=== PATIENT | male | born 1940 | race African-American/Black ===

== ENCOUNTER 2017-01-17 09:21 | Inpatient (IN) | payer MEDICARE, BC ==
[2017-01-17 09:42] LABS: Mean Platelet Volume 8.4 fL (7.4-10.4); Red Blood Cell (RBC) Count 4.32 mill/uL (4.70-6.10); White Blood Cell (WBC) Count 11.7 thou/uL (4.8-10.8)
[2017-01-17 09:48] LABS: PTT 27.9 SEC (22.9-36.1); Prothrombin Time 12.8 SEC (12.0-14.7)
[2017-01-17 10:02] LABS: ALT (SGPT) 13 U/L (8-55); AST (SGOT) 13 U/L (5-34); Alkaline Phosphatase 50 U/L (40-150); Anion Gap 13 mmol/L (10-20); BUN (Urea Nitrogen) 14 mg/dL (8.4-25.7); Bilirubin, Total 0.5 mg/dL (0.2-1.2); CK (CPK) 172 U/L (30-200); Calc. Creatinine Clearance 0 mL/min (70-130); Calcium 9.3 mg/dL (7.8-10.44); Carbon Dioxide 32 mmol/L (23-31); Chloride 102 mmol/L (98-107); Estimated GFR-MDRD Greater than 90; Protein, Total 6.9 g/dL (5.8-8.1)
[2017-01-17 10:06] LABS: Troponin I Less than 0.010 ng/mL (< 0.028)
[2017-01-17 10:22] LABS: #Basophils 0.1 thou/uL (0.0-0.2); #Eosinphils 0.8 thou/uL (0.0-0.7); #Lymphocytes 3.1 thou/uL (1.20-3.40); #Monocytes 0.8 thou/uL (0.11-0.59); #Neutrophils 6.8 thou/uL (1.40-6.50); %Basophils 1.2 % (0.0-1.0); %Eosinophils 7.2 % (0.0-10.0); %Lymphocytes 26.6 % (21.0-51.0); %Monocytes 6.6 % (0.0-10.0)
[2017-01-17 10:23] LABS: Macrocytosis SLIGHT = 6-15 cells (100X) (0-5/hpf)
[2017-01-17] MEDS ORDERED: Nitroglycerin 2% Ointment 1 INCH/1 GM Packet ONE (10:27)
[2017-01-17] MEDS ORDERED: methylPREDNISolone Sod Succ/PF 125 MG/2 ML VIAL ONE (10:27)
[2017-01-17] MEDS ORDERED: Sterile Water 10 ML ONE ×2 (10:29→17:55)
--- NOTE | 2017-01-17 11:26 | RAD ---
PORTABLE CHEST: Date: 01/17/17 HISTORY: Chest pain. COMPARISON: 11/08/16 study. FINDINGS: Heart size is borderline with atherosclerotic change of the aorta. Linear scarring in the right base with elevation of the right hemidiaphragm is noted. IMPRESSION: Chronic lung change. No acute process. POS: [facility]
[2017-01-17] MEDS ORDERED: Albuterol Sulfate 2.5 mg/0.5 ml Neb ONE (12:38)
[2017-01-17] MEDS ORDERED: Albuterol Sulfate 2.5 mg/3 ml Neb ONE (12:38)
[2017-01-17] MEDS ORDERED: Magnesium Sulfate 2 GM/100 ML BAG ONE (12:55)
[2017-01-17] MEDS ORDERED: Levofloxacin 500 mg/D5W 100 ml Premix Bag ONE (13:57)
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
[2017-01-17] MEDS ORDERED: Dextrose 5% in Water 1,000 ML IV PRN (16:30)
[2017-01-17] MEDS ORDERED: Dextrose 50% Abboject 50 ML SYRINGE SLOW IVP PRN (16:30)
[2017-01-17 16:41] VITALS: BMI 36.8
[2017-01-17] MEDS: metFORMIN 500 MG TAB PO SCH (17:59)
[2017-01-17] MEDS: methylPREDNISolone Sod Succ/PF 125 MG/2 ML VIAL IVP SCH (18:00)
[2017-01-17] MEDS: Albuterol Sulfate 2.5 mg/3 ml Neb NEB SCH ×2 (18:14→21:37)
[2017-01-17] MEDS: Mometasone/Formoterol 120 PUFF INHALER INH SCH (18:16)
[2017-01-17] MEDS: Ipratropium Bromide 2.5 ml Neb NEB SCH ×2 (18:16→21:37)
[2017-01-17] MEDS: HYDROcodone/Acetaminophen 10/325 mg Tablet PO PRN (19:27)
[2017-01-17] MEDS: Atorvastatin Calcium 20 MG TAB PO SCH (19:27)
[2017-01-18] MEDS: HYDROcodone/Acetaminophen 10/325 mg Tablet PO PRN (02:00)
[2017-01-18] MEDS: methylPREDNISolone Sod Succ/PF 125 MG/2 ML VIAL IVP SCH ×3 (02:01→17:18)
[2017-01-18] MEDS: Albuterol Sulfate 2.5 mg/3 ml Neb NEB SCH ×6 (02:02→21:51)
[2017-01-18] MEDS: Ipratropium Bromide 2.5 ml Neb NEB SCH ×6 (02:02→21:51)
[2017-01-18] MEDS: Mometasone/Formoterol 120 PUFF INHALER INH SCH ×2 (07:19→19:19)
[2017-01-18] MEDS ORDERED: Sterile Water 10 ML ONE ×2 (09:10→17:06)
[2017-01-18] MEDS: metFORMIN 500 MG TAB PO SCH ×2 (09:24→17:18)
[2017-01-18] MEDS: Furosemide 40 MG TAB PO SCH (09:24)
[2017-01-18] MEDS: Amlodipine 5 MG TAB PO SCH (09:24)
[2017-01-18] MEDS: Glimepiride 4 MG TAB PO SCH (09:24)
[2017-01-18] MEDS: Potassium Chloride 8 MEQ TAB PO SCH (09:24)
--- NOTE | 2017-01-18 10:05 | PDOC.PN ---
- Subjective Encounter Start Date: 01/18/17 Encounter Start Time: 09:40 Feels better. +dry cough. - Objective Vital Signs & Weight: Vital Signs (12 hours) Temp Pulse Resp BP BP Pulse Ox 01/18/17 09:24 75 155/70 H 01/18/17 07:18 75 18 96 01/18/17 07:15 98.5 F 66 18 155/70 H 96 01/18/17 02:07 65 18 171/76 H 100 01/18/17 00:07 98.0 F 68 20 176/79 H 95 Weight Weight 227 lb 14.4 oz I&O: 01/17/17 01/18/17 01/19/17 06:59 06:59 06:59 Intake Total 1305 Balance 1305 Result Diagrams: 01/17/17 09:26 01/17/17 09:26 Radiology Reviewed by me: Yes Phys Exam - Physical Examination Constitutional: NAD HEENT: sclera anicteric Neck: no JVD Respiratory: wheezing present Cardiovascular: RRR Gastrointestinal: soft Musculoskeletal: no edema Neurological: moves all 4 limbs Psychiatric: A&O x 3 Dx/Plan (1) COPD exacerbation Code(s): J44.1 - CHRONIC OBSTRUCTIVE PULMONARY DISEASE W (ACUTE) EXACERBATION Status: Acute Plan: Continue steroids, bronchodilators. Comment: (2) DM2 (diabetes mellitus, type 2) Status: Chronic Plan: continue sliding scale Comment: BS satisfactory. (3) HLD (hyperlipidemia) Code(s): E78.5 - HYPERLIPIDEMIA, UNSPECIFIED Status: Chronic Qualifiers: Hyperlipidemia type: unspecified Qualified Code(s): E78.5 - Hyperlipidemia , unspecified (4) HTN (hypertension) Code(s): I10 - ESSENTIAL (PRIMARY) HYPERTENSION Status: Chronic Qualifiers: Hypertension type: essential hypertension Comment: stable.. - Plan Continue current therapy.. * .
[2017-01-18] MEDS: guaiFENesin ER 600 MG TAB PO SCH (15:56)
[2017-01-18] MEDS: Atorvastatin Calcium 20 MG TAB PO SCH (21:20)
[2017-01-19] MEDS: Ipratropium Bromide 2.5 ml Neb NEB SCH (00:24)
[2017-01-19] MEDS: methylPREDNISolone Sod Succ/PF 125 MG/2 ML VIAL IVP SCH ×3 (02:07→17:55)
[2017-01-19] MEDS: Mometasone/Formoterol 120 PUFF INHALER INH SCH ×2 (06:36→18:50)
[2017-01-19] MEDS: Furosemide 40 MG TAB PO SCH (09:32)
[2017-01-19] MEDS: Amlodipine 5 MG TAB PO SCH (09:32)
[2017-01-19] MEDS: HYDROcodone/Acetaminophen 10/325 mg Tablet PO PRN (09:32)
[2017-01-19] MEDS: guaiFENesin ER 600 MG TAB PO SCH ×2 (09:32→20:32)
[2017-01-19] MEDS: metFORMIN 500 MG TAB PO SCH ×2 (09:32→17:55)
[2017-01-19] MEDS: Potassium Chloride 8 MEQ TAB PO SCH (09:32)
[2017-01-19] MEDS: Glimepiride 4 MG TAB PO SCH (09:32)
[2017-01-19] MEDS ORDERED: hydrALAZINE 20 MG/ML VIAL SLOW IVP PRN (14:35)
[2017-01-19] MEDS ORDERED: HumaLOG 300 UNITS/3 ML VIAL SC PRN (14:36)
--- NOTE | 2017-01-19 14:38 | PDOC.PN ---
- Subjective Encounter Start Date: 01/19/17 Encounter Start Time: 14:34 Patient seen and examined. SOB and Wheezing still present - feels the same. Some cough with scant production. No fever/chills. No overnight events - Objective MAR Reviewed: Yes Vital Signs & Weight: Vital Signs (12 hours) Temp Pulse Resp BP BP Pulse Ox 01/19/17 10:23 98.5 F 69 12 131/60 96 01/19/17 10:04 63 16 96 01/19/17 08:03 97.5 F L 93 24 H 01/19/17 07:30 98.1 F 72 16 153/67 H 92 L 01/19/17 06:36 76 16 97 01/19/17 06:34 82 16 97 01/19/17 03:12 98.6 F 75 20 157/71 H 97 Weight Weight 227 lb 14.4 oz I&O: 01/18/17 01/19/17 01/20/17 06:59 06:59 06:59 Intake Total 1305 2561 720 Balance 1305 2561 720 Result Diagrams: 01/17/17 09:26 01/17/17 09:26 Phys Exam - Physical Examination Patient in mild respiratory distress at rest Respiratory: no rales, wheezing present Accessory muscle use Cardiovascular: RRR, no rub Gastrointestinal: soft, non-tender, positive bowel sounds Musculoskeletal: no edema Neurological: non-focal, moves all 4 limbs Dx/Plan - Plan DVT proph w/SCDs IMPRESSION: 1. Acute on chronic hypoxic resp failure - O2 Sat 77% on RA on ER arrival 2. COPD exacerbation - uncontrolled. 3. HTN 4. DM2 - on sliding scale 5. Former smoker 6. Dyslipidemia 7. Obesity BMI 36.8 PLAN: * Cont IV Steroids * Add bedtime sliding scale * Add Azithromycin * Cont to monitor * Unstable for discharge * Cont to monitor - Patient has failed the observation period requiring continued need to stay on IV steroids. * Cont other meds as below Review of Systems - Review of Systems Constitutional: negative: Fever, Chills, Sweats, Weakness, Malaise, Other Cardiovascular: negative: Chest Pain, Palpitations, Orthopnea, Paroxysmal Noc. Dyspnea, Edema, Light Headedness Gastrointestinal: negative: Nausea, Vomiting, Abdominal Pain, Diarrhea, Constipation, Melena, Hematochezia, Other - Medications/Allergies Allergies/Adverse Reactions: Allergies Allergy/AdvReac Type Severity Reaction Status Date / Time No Known Allergies Allergy Verified 03/08/16 16:46 Medications: Current Medications Hydrocodone Bitart/Acetaminophen ([place] 10/325) 1 tab PO Q6H PRN PRN Reason: Pain Last Admin: 01/19/17 09:32 Dose: 1 tab Albuterol/Ipratropium (Duoneb) 2.5 ml NEB [id number] Last Admin: 01/19/17 10:04 Dose: 2.5 ml Amlodipine Besylate (Norvasc) 5 mg PO DAILY [facility] Last Admin: 01/19/17 09:32 Dose: 5 mg Atorvastatin Calcium (Lipitor) 20 mg PO HS [facility] Last Admin: 01/18/17 21:20 Dose: 20 mg Dextrose/Water (Dextrose 50%) 25 gm SLOW IVP PRN PRN PRN Reason: Hypoglycemia Furosemide (Lasix) 40 mg PO DAILY [facility] Last Admin: 01/19/17 09:32 Dose: 40 mg Glimepiride (Amaryl) 4 mg PO QAM-[facility] Last Admin: 01/19/17 09:32 Dose: 4 mg Glucagon (Glucagon) 1 mg IM PRN PRN PRN Reason: Hypoglycemia Guaifenesin (Mucinex) 600 mg PO Q12HR [facility] Last Admin: 01/19/17 09:32 Dose: 600 mg Dextrose/Water (D5w) 1,000 mls @ 0 mls/hr IV .Q0M PRN; As Directed PRN Reason: Hypoglycemia Insulin Human Lispro (Humalog) 0 units SC .MODERATE SLIDING SC PRN PRN Reason: Moderate Correctional Scale Metformin HCl (Glucophage) 1,000 mg PO BID-[facility] Last Admin: 01/19/17 09:32 Dose: 1,000 mg Methylprednisolone Sodium Succinate (Solu-Medrol) 60 mg IVP 0200,1000,1800 [facility] Last Admin: 01/19/17 09:33 Dose: 60 mg Mometasone Furoate/Formoterol Fumar (Dulera 200 Mcg/5 Mcg Inhaler) 2 puff INH BID-RT [facility] Last Admin: 01/19/17 06:36 Dose: 2 puff Pantoprazole Sodium (Protonix) 40 mg PO Q24HR [facility] Last Admin: 01/18/17 17:18 Dose: 40 mg Potassium Chloride (Slow-K 8 Meq) 8 meq PO QAM-[facility] Last Admin: 01/19/17 09:32 Dose: 8 meq
[2017-01-19] MEDS ORDERED: Azithromycin 250 MG TAB PO SCH (15:00)
[2017-01-19] MEDS: Atorvastatin Calcium 20 MG TAB PO SCH (20:32)
[2017-01-20] MEDS: methylPREDNISolone Sod Succ/PF 125 MG/2 ML VIAL IVP SCH ×3 (01:41→17:21)
[2017-01-20] MEDS: Mometasone/Formoterol 120 PUFF INHALER INH SCH ×2 (07:00→20:00)
[2017-01-20] MEDS: Furosemide 40 MG TAB PO SCH (08:14)
[2017-01-20] MEDS: Azithromycin 250 MG TAB PO SCH (08:14)
[2017-01-20] MEDS: guaiFENesin ER 600 MG TAB PO SCH ×2 (08:14→20:31)
[2017-01-20] MEDS: metFORMIN 500 MG TAB PO SCH ×2 (08:14→17:21)
[2017-01-20] MEDS: Amlodipine 5 MG TAB PO SCH (08:15)
[2017-01-20] MEDS: Potassium Chloride 8 MEQ TAB PO SCH (08:15)
[2017-01-20] MEDS: Glimepiride 4 MG TAB PO SCH (08:15)
[2017-01-20] MEDS: HYDROcodone/Acetaminophen 10/325 mg Tablet PO PRN ×2 (08:36→15:45)
--- NOTE | 2017-01-20 13:06 | PDOC.PN ---
- Subjective Encounter Start Date: 01/20/17 Encounter Start Time: 09:35 -: old records requested/rev Patient seen and examined. No new complaints. No overnight events - Objective MAR Reviewed: Yes Vital Signs & Weight: Vital Signs (12 hours) Temp Pulse Resp BP Pulse Ox 01/20/17 11:19 66 18 01/20/17 11:00 98.2 F 63 22 H 131/71 94 L 01/20/17 08:15 63 01/20/17 08:00 98.5 F 69 20 133/58 L 96 01/20/17 07:03 98 01/20/17 07:00 63 20 98 01/20/17 05:00 98.7 F 66 18 164/71 H 94 L 01/20/17 03:22 65 18 91 L 01/20/17 01:44 98.2 F 69 18 139/70 95 I&O: 01/19/17 01/20/17 01/21/17 06:59 06:59 06:59 Intake Total 500 Balance 500 Result Diagrams: 01/17/17 09:26 01/17/17 09:26 Additional Labs: Accuchecks 01/20/17 01/20/17 01/19/17 11:07 04:45 19:55 POC Glucose 210 H 187 H 216 H 01/19/17 17:14 POC Glucose 156 H Phys Exam - Physical Examination Constitutional: NAD HEENT: PERRLA, moist MMs, sclera anicteric Neck: no JVD, supple Respiratory: no wheezing, no rales, no rhonchi Cardiovascular: RRR, no significant murmur, no rub Gastrointestinal: soft, non-tender, no distention, positive bowel sounds Musculoskeletal: no edema, pulses present Neurological: non-focal, normal sensation, moves all 4 limbs Lymphatic: no nodes Psychiatric: normal affect, A&O x 3 Skin: no rash, normal turgor Dx/Plan (1) Acute on chronic respiratory failure with hypoxia Code(s): J96.21 - ACUTE AND CHRONIC RESPIRATORY FAILURE WITH HYPOXIA Status: Acute (2) COPD exacerbation Code(s): J44.1 - CHRONIC OBSTRUCTIVE PULMONARY DISEASE W (ACUTE) EXACERBATION Status: Acute Comment: (3) DM2 (diabetes mellitus, type 2) Status: Chronic Comment: BS satisfactory. (4) Former smoker Status: Chronic Comment: quit years ago (5) HLD (hyperlipidemia) Code(s): E78.5 - HYPERLIPIDEMIA, UNSPECIFIED Status: Chronic Qualifiers: Hyperlipidemia type: unspecified Qualified Code(s): E78.5 - Hyperlipidemia , unspecified (6) HTN (hypertension) Code(s): I10 - ESSENTIAL (PRIMARY) HYPERTENSION Status: Chronic Qualifiers: Hypertension type: essential hypertension Comment: stable.. (7) Obesity (BMI 30-39.9) Code(s): E66.9 - OBESITY, UNSPECIFIED Status: Chronic - Plan cont current plan of care, plan discussed w/ family, continue antibiotics, respiratory therapy * stable and improving * expecting discharge tomorrow * medication reviewed as below * symptomatic treatment * continue current optimum medical therapy for copd. Review of Systems - Review of Systems ENT: negative: Ear Pain, Ear Discharge, Nose Pain, Nose Discharge, Nose Congestion, Mouth Pain, Mouth Swelling, Throat Pain, Throat Swelling, Other Respiratory: negative: Cough, Dry, Shortness of Breath, Hemoptysis, SOB with Excertion, Pleuritic Pain, Sputum, Wheezing Cardiovascular: negative: Chest Pain, Palpitations, Orthopnea, Paroxysmal Noc. Dyspnea, Edema, Light Headedness, Other Gastrointestinal: negative: Nausea, Vomiting, Abdominal Pain, Diarrhea, Constipation, Melena, Hematochezia, Other Genitourinary: negative: Dysuria, Frequency, Incontinence, Hematuria, Retention , Other Musculoskeletal: negative: Neck Pain, Shoulder Pain, Arm Pain, Back Pain, Hand Pain, Leg Pain, Foot Pain, Other - Medications/Allergies Allergies/Adverse Reactions: Allergies Allergy/AdvReac Type Severity Reaction Status Date / Time No Known Allergies Allergy Verified 03/08/16 16:46 Medications: Current Medications Hydrocodone Bitart/Acetaminophen ([place] 10/325) 1 tab PO Q6H PRN PRN Reason: Pain Last Admin: 01/20/17 08:36 Dose: 1 tab Albuterol/Ipratropium (Duoneb) 2.5 ml NEB [id number] Last Admin: 01/20/17 11:19 Dose: 2.5 ml Amlodipine Besylate (Norvasc) 5 mg PO DAILY [facility] Last Admin: 01/20/17 08:15 Dose: 5 mg Atorvastatin Calcium (Lipitor) 20 mg PO HS [facility] Last Admin: 01/19/17 20:32 Dose: 20 mg Azithromycin (Zithromax) 250 mg PO DAILY [facility] Stop: 01/23/17 09:01 Last Admin: 01/20/17 08:14 Dose: 250 mg Dextrose/Water (Dextrose 50%) 25 gm SLOW IVP PRN PRN PRN Reason: Hypoglycemia Furosemide (Lasix) 40 mg PO DAILY [facility] Last Admin: 01/20/17 08:14 Dose: 40 mg Glimepiride (Amaryl) 4 mg PO [facility] Last Admin: 01/20/17 08:15 Dose: 4 mg Glucagon (Glucagon) 1 mg IM PRN PRN PRN Reason: Hypoglycemia Guaifenesin (Mucinex) 600 mg PO Q12HR [facility] Last Admin: 01/20/17 08:14 Dose: 600 mg Hydralazine HCl (Apresoline) 10 mg SLOW IVP Q4H PRN PRN Reason: SBP Greater Than 180 Dextrose/Water (D5w) 1,000 mls @ 0 mls/hr IV .Q0M PRN; As Directed PRN Reason: Hypoglycemia Insulin Human Lispro (Humalog) 0 units SC .MODERATE SLIDING SC PRN PRN Reason: Moderate Correctional Scale Insulin Human Lispro (Humalog) 0 units SC .BEDTIME SLIDING SC PRN PRN Reason: Bedtime Correctional Scale Metformin HCl (Glucophage) 1,000 mg PO BID-WM [facility] Last Admin: 01/20/17 08:14 Dose: 1,000 mg Methylprednisolone Sodium Succinate (Solu-Medrol) 60 mg IVP 0200,1000,1800 [facility] Last Admin: 01/20/17 09:28 Dose: 60 mg Mometasone Furoate/Formoterol Fumar (Dulera 200 Mcg/5 Mcg Inhaler) 2 puff INH BID-RT [facility] Last Admin: 01/20/17 07:00 Dose: 2 puff Pantoprazole Sodium (Protonix) 40 mg PO Q24HR [facility] Last Admin: 01/19/17 17:55 Dose: 40 mg Potassium Chloride (Slow-K 8 Meq) 8 meq PO [facility] Last Admin: 01/20/17 08:15 Dose: 8 meq
[2017-01-20] MEDS: HumaLOG 300 UNITS/3 ML VIAL SC PRN (17:38)
[2017-01-20] MEDS: Atorvastatin Calcium 20 MG TAB PO SCH (20:31)
[2017-01-21] MEDS: methylPREDNISolone Sod Succ/PF 125 MG/2 ML VIAL IVP SCH ×2 (01:49→10:49)
[2017-01-21] MEDS: HumaLOG 300 UNITS/3 ML VIAL SC PRN (05:35)
[2017-01-21] MEDS: metFORMIN 500 MG TAB PO SCH (08:03)
[2017-01-21] MEDS: Amlodipine 5 MG TAB PO SCH (08:03)
[2017-01-21] MEDS: Furosemide 40 MG TAB PO SCH (08:04)
[2017-01-21] MEDS: guaiFENesin ER 600 MG TAB PO SCH (08:04)
[2017-01-21] MEDS: Glimepiride 4 MG TAB PO SCH (08:04)
[2017-01-21] MEDS: Azithromycin 250 MG TAB PO SCH (08:05)
[2017-01-21] MEDS: Potassium Chloride 8 MEQ TAB PO SCH (08:05)
[2017-01-21] MEDS: Mometasone/Formoterol 120 PUFF INHALER INH SCH (09:08)
[2017-01-21] MEDS: HYDROcodone/Acetaminophen 10/325 mg Tablet PO PRN (10:47)
[2017-01-21 11:22] VITALS: BP 144/78; TEMP 98.3
--- NOTE | 2017-01-21 12:43 | PDOC.PN ---
- Subjective Encounter Start Date: 01/21/17 Encounter Start Time: 10:20 Patient seen and examined. No new complaints. No overnight events - Objective MAR Reviewed: Yes Vital Signs & Weight: Vital Signs (12 hours) Temp Pulse Resp BP BP Pulse Ox 01/21/17 11:21 98.3 F 57 L 16 144/78 H 97 01/21/17 10:55 61 14 01/21/17 08:03 62 128/74 01/21/17 08:00 98.5 F 62 16 128/74 98 01/21/17 03:28 95 01/21/17 02:04 55 L 18 95 I&O: 01/20/17 01/21/17 01/22/17 06:59 06:59 06:59 Intake Total 500 1999 Balance 500 1999 Result Diagrams: 01/17/17 09:26 01/17/17 09:26 Additional Labs: Accuchecks 01/21/17 01/21/17 01/20/17 11:21 04:36 19:50 POC Glucose 188 H 237 H 253 H 01/20/17 16:46 POC Glucose 248 H Phys Exam - Physical Examination Constitutional: NAD HEENT: PERRLA, moist MMs, sclera anicteric Neck: no JVD, supple Respiratory: no wheezing, no rales, no rhonchi Cardiovascular: RRR, no significant murmur, no rub Gastrointestinal: soft, non-tender, no distention, positive bowel sounds Musculoskeletal: no edema, pulses present Neurological: non-focal, normal sensation, moves all 4 limbs Psychiatric: normal affect, A&O x 3 Skin: no rash, normal turgor Dx/Plan (1) Acute on chronic respiratory failure with hypoxia Code(s): J96.21 - ACUTE AND CHRONIC RESPIRATORY FAILURE WITH HYPOXIA Status: Acute (2) COPD exacerbation Code(s): J44.1 - CHRONIC OBSTRUCTIVE PULMONARY DISEASE W (ACUTE) EXACERBATION Status: Acute Comment: (3) DM2 (diabetes mellitus, type 2) Status: Chronic Comment: BS satisfactory. (4) Former smoker Status: Chronic Comment: quit years ago (5) HLD (hyperlipidemia) Code(s): E78.5 - HYPERLIPIDEMIA, UNSPECIFIED Status: Chronic Qualifiers: Hyperlipidemia type: unspecified Qualified Code(s): E78.5 - Hyperlipidemia , unspecified (6) HTN (hypertension) Code(s): I10 - ESSENTIAL (PRIMARY) HYPERTENSION Status: Chronic Qualifiers: Hypertension type: essential hypertension Comment: stable.. (7) Obesity (BMI 30-39.9) Code(s): E66.9 - OBESITY, UNSPECIFIED Status: Chronic - Plan cont current plan of care * medication reviewed as below * symptomatic treatment * see discharge summery Review of Systems - Review of Systems ENT: negative: Ear Pain, Ear Discharge, Nose Pain, Nose Discharge, Nose Congestion, Mouth Pain, Mouth Swelling, Throat Pain, Throat Swelling, Other Respiratory: negative: Cough, Dry, Shortness of Breath, Hemoptysis, SOB with Excertion, Pleuritic Pain, Sputum, Wheezing Cardiovascular: negative: Chest Pain, Palpitations, Orthopnea, Paroxysmal Noc. Dyspnea, Edema, Light Headedness, Other Gastrointestinal: negative: Nausea, Vomiting, Abdominal Pain, Diarrhea, Constipation, Melena, Hematochezia, Other Genitourinary: negative: Dysuria, Frequency, Incontinence, Hematuria, Retention , Other Musculoskeletal: negative: Neck Pain, Shoulder Pain, Arm Pain, Back Pain, Hand Pain, Leg Pain, Foot Pain, Other - Medications/Allergies Allergies/Adverse Reactions: Allergies Allergy/AdvReac Type Severity Reaction Status Date / Time No Known Allergies Allergy Verified 03/08/16 16:46 Medications: Current Medications Hydrocodone Bitart/Acetaminophen ([place] 10/325) 1 tab PO Q6H PRN PRN Reason: Pain Last Admin: 01/21/17 10:47 Dose: 1 tab Albuterol/Ipratropium (Duoneb) 2.5 ml NEB [id number] [facility] Last Admin: 01/21/17 10:55 Dose: 2.5 ml Amlodipine Besylate (Norvasc) 5 mg PO DAILY [facility] Last Admin: 01/21/17 08:03 Dose: 5 mg Atorvastatin Calcium (Lipitor) 20 mg PO HS [facility] Last Admin: 01/20/17 20:31 Dose: 20 mg Azithromycin (Zithromax) 250 mg PO DAILY [facility] Stop: 01/23/17 09:01 Last Admin: 01/21/17 08:05 Dose: 250 mg Dextrose/Water (Dextrose 50%) 25 gm SLOW IVP PRN PRN PRN Reason: Hypoglycemia Furosemide (Lasix) 40 mg PO DAILY [facility] Last Admin: 01/21/17 08:04 Dose: 40 mg Glimepiride (Amaryl) 4 mg PO [facility] Last Admin: 01/21/17 08:04 Dose: 4 mg Glucagon (Glucagon) 1 mg IM PRN PRN PRN Reason: Hypoglycemia Guaifenesin (Mucinex) 600 mg PO Q12HR [facility] Last Admin: 01/21/17 08:04 Dose: 600 mg Hydralazine HCl (Apresoline) 10 mg SLOW IVP Q4H PRN PRN Reason: SBP Greater Than 180 Dextrose/Water (D5w) 1,000 mls @ 0 mls/hr IV .Q0M PRN; As Directed PRN Reason: Hypoglycemia Insulin Human Lispro (Humalog) 0 units SC .MODERATE SLIDING SC PRN PRN Reason: Moderate Correctional Scale Last Admin: 01/21/17 05:35 Dose: 4 unit Insulin Human Lispro (Humalog) 0 units SC .BEDTIME SLIDING SC PRN PRN Reason: Bedtime Correctional Scale Metformin HCl (Glucophage) 1,000 mg PO BID-[facility] Last Admin: 01/21/17 08:03 Dose: 1,000 mg Methylprednisolone Sodium Succinate (Solu-Medrol) 60 mg IVP 0200,1000,1800 [facility] Last Admin: 01/21/17 10:49 Dose: 60 mg Mometasone Furoate/Formoterol Fumar (Dulera 200 Mcg/5 Mcg Inhaler) 2 puff INH BID-RT [facility] Last Admin: 01/21/17 09:08 Dose: Not Given Pantoprazole Sodium (Protonix) 40 mg PO Q24HR [facility] Last Admin: 01/20/17 17:21 Dose: 40 mg Potassium Chloride (Slow-K 8 Meq) 8 meq PO [facility] Last Admin: 01/21/17 08:05 Dose: 8 meq
--- NOTE | 2017-01-21 14:17 | DIS ---
DATE OF ADMISSION: 01/19/2017 DATE OF DISCHARGE: 01/21/2017 PRIMARY CARE PHYSICIAN: [facility] Call Admission DISCHARGE DISPOSITION: Home. PRIMARY DISCHARGE DIAGNOSES: 1. Chronic obstructive pulmonary disease exacerbation. 2. Acute on chronic respiratory failure with hypoxia. SECONDARY DISCHARGE DIAGNOSES: 1. Diabetes type 2. 2. Former smoker. 3. Hypertension. 4. Dyslipidemia. 5. Obesity with body mass index 36. PRIMARY PROCEDURE/OPERATION: None. RADIOLOGICAL INVESTIGATION: Chest x-ray was normal. SIGNIFICANT LABORATORY DATA: WBC 11.7, hemoglobin 13.9, MCV 106, platelets 243. INR 1.0. SIGNIFICANT LABS: Sodium 143, potassium 3.9, BUN 14, creatinine 0.90, calcium 9.3. LFTs normal. Ca rdiac enzymes negative. BNP 65.3. DISCHARGE MEDICATIONS: Ventolin HFA 2 puffs q.6 hourly p.r.n., amlodipine 5 mg p.o. daily, azithromy shawna 250 mg p.o. daily for 5 days, Lasix 40 mg p.o. daily, Amaryl 4 mg p.o. daily, Mucinex 600 mg twic e daily, [place] 10 one tablet q.6 hourly p.r.n., Atrovent HFA 2 puffs q.6 hourly p.r.n., DuoNeb q.6 ho urly p.r.n., Cozaar 100 mg p.o. daily, metformin 1000 mg p.o. b.i.d., Protonix 40 mg p.o. daily, pota ssium chloride 8 mEq p.o. daily, prednisone 20 mg twice daily for 7 days, then 20 mg p.o. daily for 7 days, then 10 mg p.o. daily for 7 days, simvastatin 40 mg p.o. at bedtime, Symbicort 2 puffs inhalat ion b.i.d. CONTRAINDICATIONS: None. CODE STATUS: Full code. INPATIENT CONSULTANTS: None. ALLERGIES: No known drug allergy. DISCHARGE PLAN: Post hospital, the patient will follow up with primary care physician. HOSPITAL COURSE: A 76-year-old male with above mentioned medical problems who was admitted by Dr. Isabel joyner. Please see his H&P for further details. This patient has underlying COPD history and he was a dmitted for increasing shortness of breath, cough, and wheezing. He was hypoxic upon arrival. He armijo s chronic respiratory failure and he is using home oxygen therapy. He was admitted to medical floor and he was treated for COPD exacerbation while in hospital. We continued with Solu-Medrol, empiric a ntibiotic therapy, DuoNeb and inhalers. Over the next couple of days, the patient's condition signif icantly improved to his baseline status. The patient did have all his home medications. Only during this admission, we prescribed him tapering doses of prednisone as well as antibiotic therapy for 5 m ore days. By the time of discharge, the patient was ambulatory, tolerating p.o. well, and is able to talk in fu ll sentences and he was maintaining saturations with his oxygen. The patient is seen and examined at bedside today. Please see my progress note from for further details.
== END 2017-01-21 14:30 | disposition home or self-care (01) | DRG 189 ==
LOC: ERS 09:21 → T4-A 16:20 → 2SW 16:29 → OBSVTOIN 01-19 15:01 → T4-A 01-19 18:14 → 2SW 01-19 18:25 → T4-A 01-19 18:50
PROVIDERS: ADMIT Hospitalist; ATTEND Hospitalist
DX: J96.21 Acute and chronic respiratory failure with hypoxia (principal); J44.1 Chronic obstructive pulmonary disease with (acute) exacerbation; Z99.81 Dependence on supplemental oxygen; E11.9 Type 2 diabetes mellitus without complications; I10 Essential (primary) hypertension; E78.5 Hyperlipidemia, unspecified; E66.9 Obesity, unspecified; Z68.35 Body mass index [BMI] 35.0-35.9, adult; Z87.891 Personal history of nicotine dependence
CPT/HCPCS: 36416; 71010; 80053; 82553; 83735; 83880; 84484; 85025; 85610; 85730; 93005; 94640; 94644; 94664; 94760; 96365; 96367; 96375; A4216; J1956; J2930; J3475; J7611; J7620; J7644

== ENCOUNTER 2017-03-08 11:48 | Emergency (ER) | payer MEDICARE, BC ==
[2017-03-08 12:37] LABS: #Basophils 0.1 thou/uL (0.0-0.2); #Eosinphils 0.8 thou/uL (0.0-0.7); #Lymphocytes 3.4 thou/uL (1.20-3.40); #Monocytes 0.8 thou/uL (0.11-0.59); #Neutrophils 6.9 thou/uL (1.40-6.50); %Basophils 0.9 % (0.0-1.0); %Eosinophils 6.5 % (0.0-10.0); %Lymphocytes 28.4 % (21.0-51.0); %Monocytes 6.6 % (0.0-10.0); %Neutrophils 57.6 % (42.0-75.0); Hemoglobin 13.5 g/dL (14.0-18.0); Mean Corpuscular HGB CONC 31.7 g/dL (32.0-36.0); Mean Corpuscular Hemoglobin 33.3 pg (27.0-31.0); Mean Platelet Volume 9.5 fL (7.4-10.4); Platelet Count 227 thou/uL (130-400); RBC Distribution Width 13.2 % (11.5-14.5); Red Blood Cell (RBC) Count 4.06 mill/uL (4.70-6.10); White Blood Cell (WBC) Count 11.9 thou/uL (4.8-10.8)
[2017-03-08 12:51] LABS: CKMB 2.9 ng/mL (0-6.6); Troponin I Less than 0.010 ng/mL (< 0.028)
[2017-03-08 12:53] LABS: ALT (SGPT) 13 U/L (8-55); AST (SGOT) 14 U/L (5-34); Albumin 3.8 g/dL (3.4-4.8); Alkaline Phosphatase 51 U/L (40-150); Anion Gap 14 mmol/L (10-20); BUN (Urea Nitrogen) 10 mg/dL (8.4-25.7); Bilirubin, Total 0.5 mg/dL (0.2-1.2); CK (CPK) 158 U/L (30-200); Calc. Creatinine Clearance 0 mL/min (70-130); Calcium 9.3 mg/dL (7.8-10.44); Carbon Dioxide 24 mmol/L (23-31); Chloride 105 mmol/L (98-107); Estimated GFR-MDRD Greater than 90; Globulin 3.3 g/dL (2.4-3.5); Glucose 177 mg/dL (83-110); Lipase 11 U/L (8-78); Potassium 4.7 mmol/L (3.5-5.1); Protein, Total 7.1 g/dL (5.8-8.1); Sodium 138 mmol/L (136-145)
[2017-03-08] MEDS ORDERED: Water For Inject, Bacteriostat 30 ML ONE (13:28)
[2017-03-08] MEDS ORDERED: methylPREDNISolone Sod Succ/PF 125 MG/2 ML VIAL ONE (13:28)
--- NOTE | 2017-03-08 14:08 | RAD ---
FRONTAL VIEW CHEST: INDICATIONS: Chest pain. COMPARISON: 01/17/2017 FINDINGS: There are linear perihilar densities bilaterally, grossly stable, with persistent elevation of the ri ght hemidiaphragm. The cardiomediastinal silhouette is similar in appearance. Stable radiopaque den sity overlies the midline upper mediastinum. IMPRESSION: Stable chest. POS: [facility]
== END 2017-03-08 14:20 | disposition home or self-care (01) ==
LOC: ERS 11:48
DX: J44.1 Chronic obstructive pulmonary disease with (acute) exacerbation (principal); E10.9 Type 1 diabetes mellitus without complications; E78.5 Hyperlipidemia, unspecified; I10 Essential (primary) hypertension; J45.909 Unspecified asthma, uncomplicated; Z87.891 Personal history of nicotine dependence; Z79.899 Other long term (current) drug therapy
CPT/HCPCS: 71045; 80053; 82550; 82553; 83605; 83690; 83880; 84484; 85025; 87040; 93005; 94640; 94760; 96361; 96374; J2930; J7620

== ENCOUNTER 2017-03-19 20:41 | Inpatient (IN) | payer MEDICARE, BC ==
[2017-03-19] MEDS ORDERED: methylPREDNISolone Sod Succ/PF 125 MG/2 ML VIAL ONE (21:06)
[2017-03-19 21:34] LABS: #Basophils 0.1 thou/uL (0.0-0.2); #Eosinphils 0.8 thou/uL (0.0-0.7); #Lymphocytes 3.1 thou/uL (1.20-3.40); #Monocytes 0.9 thou/uL (0.11-0.59); #Neutrophils 6.7 thou/uL (1.40-6.50); %Basophils 1.1 % (0.0-1.0); %Eosinophils 7.1 % (0.0-10.0); %Lymphocytes 26.5 % (21.0-51.0); %Monocytes 7.4 % (0.0-10.0); Hemoglobin 13.5 g/dL (14.0-18.0); Mean Corpuscular HGB CONC 31.9 g/dL (32.0-36.0); Mean Corpuscular Hemoglobin 33.8 pg (27.0-31.0); Mean Platelet Volume 8.8 fL (7.4-10.4); Platelet Count 245 thou/uL (130-400); RBC Distribution Width 13.5 % (11.5-14.5); White Blood Cell (WBC) Count 11.6 thou/uL (4.8-10.8)
--- NOTE | 2017-03-19 22:01 | RAD ---
PORTABLE AP CHEST X-RAY 03/19/17 HISTORY: COPD, asthma, bronchitis, dyspnea, audible wheezing upon arrival. COMPARISON: 03/08/17. FINDINGS: The cardiac silhouette and pulmonary vasculature are within normal limits. There is mild elevation of the right hemidiaphragm. Lungs otherwise appear clear. There is a gas density seen at the medial asp ect left lung base probably related to a hiatal hernia. A metallic density is seen overlying the uppe r mediastinum which was seen on prior exams. No other interval change. IMPRESSION: 1. No acute cardiopulmonary process. 2. Elevation right hemidiaphragm. 3. Gas density medial left lung base which may represent a hiatal hernia. However, this was not appreciated on the prior exam. POS: [facility]
[2017-03-19 22:02] LABS: CKMB 4.3 ng/mL (0-6.6); Troponin I Less than 0.010 ng/mL (< 0.028)
[2017-03-19 22:51] LABS: Albumin 3.7 g/dL (3.4-4.8)
[2017-03-19 22:52] LABS: Calcium 9.1 mg/dL (7.8-10.44); Chloride 103 mmol/L (98-107); Potassium 3.8 mmol/L (3.5-5.1); Sodium 139 mmol/L (136-145)
[2017-03-19 22:53] LABS: Globulin 2.6 g/dL (2.4-3.5); Glucose 139 mg/dL (83-110); Protein, Total 6.3 g/dL (5.8-8.1)
[2017-03-19 22:55] LABS: Anion Gap 14 mmol/L (10-20); Bilirubin, Total 0.4 mg/dL (0.2-1.2); Carbon Dioxide 26 mmol/L (23-31)
[2017-03-19] MEDS ORDERED: Magnesium Sulfate 2 GM/100 ML BAG ONE (22:55)
[2017-03-19 22:56] LABS: Alkaline Phosphatase 42 U/L (40-150); Calc. Creatinine Clearance 0 mL/min (70-130); Estimated GFR-MDRD Greater than 90
[2017-03-19 22:57] LABS: BUN (Urea Nitrogen) 14 mg/dL (8.4-25.7)
[2017-03-19 22:58] LABS: AST (SGOT) 17 U/L (5-34)
[2017-03-19 22:59] LABS: ALT (SGPT) 20 U/L (8-55)
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
[2017-03-20] MEDS ORDERED: Bisacodyl 5 MG TAB PO PRN (04:26)
[2017-03-20] MEDS ORDERED: Ondansetron HCl/PF 4 MG/2 ML Vial IVP PRN (04:26)
[2017-03-20] MEDS ORDERED: Acetaminophen 325 MG TAB PO PRN (04:26)
[2017-03-20] MEDS ORDERED: hydrALAZINE 20 MG/ML VIAL SLOW IVP PRN (04:26)
[2017-03-20] MEDS ORDERED: Dextrose 5% in Water 1,000 ML IV PRN (04:26)
[2017-03-20] MEDS ORDERED: cefTRIAXone\\ROCEPHIN 1 GM in Sodium Chloride 0.9% 100 ML IVPB SCH (04:26)
[2017-03-20] MEDS ORDERED: Calcium Carbonate 500 MG ChewTAB PO PRN (04:26)
[2017-03-20] MEDS ORDERED: Dextrose 50% Abboject 50 ML SYRINGE SLOW IVP PRN (04:26)
[2017-03-20 07:40] VITALS: BMI 37.0
[2017-03-20 08:45] LABS: #Basophils 0.1 thou/uL (0.0-0.2); #Lymphocytes 0.9 thou/uL (1.20-3.40); #Monocytes 0.1 thou/uL (0.11-0.59); #Neutrophils 12.2 thou/uL (1.40-6.50); %Basophils 0.5 % (0.0-1.0); %Eosinophils 0.2 % (0.0-10.0); %Monocytes 0.7 % (0.0-10.0); %Neutrophils 91.5 % (42.0-75.0); Hemoglobin 13.7 g/dL (14.0-18.0); Mean Corpuscular HGB CONC 32.8 g/dL (32.0-36.0); Mean Corpuscular Hemoglobin 34.6 pg (27.0-31.0); Mean Platelet Volume 8.6 fL (7.4-10.4); Platelet Count 240 thou/uL (130-400); RBC Distribution Width 13.2 % (11.5-14.5); Red Blood Cell (RBC) Count 3.96 mill/uL (4.70-6.10); White Blood Cell (WBC) Count 13.3 thou/uL (4.8-10.8)
[2017-03-20] MEDS: Amlodipine 5 MG TAB PO SCH (08:47)
[2017-03-20] MEDS: Azithromycin 250 MG TAB PO SCH (08:48)
[2017-03-20] MEDS: Docusate 100 MG CAP PO SCH ×2 (08:48→20:10)
[2017-03-20] MEDS: cefTRIAXone\\ROCEPHIN 1 GM, Syringe 0.4 ML in Sterile Water 9.6 ML SLOW IVP SCH (08:52)
[2017-03-20 09:10] LABS: ALT (SGPT) 25 U/L (8-55); AST (SGOT) 19 U/L (5-34); Albumin 3.8 g/dL (3.4-4.8); Alkaline Phosphatase 48 U/L (40-150); Anion Gap 13 mmol/L (10-20); Bilirubin, Total 0.4 mg/dL (0.2-1.2); Calc. Creatinine Clearance 106 mL/min (70-130); Calcium 9.2 mg/dL (7.8-10.44); Carbon Dioxide 27 mmol/L (23-31); Chloride 102 mmol/L (98-107); Estimated GFR-MDRD Greater than 90; Globulin 2.9 g/dL (2.4-3.5); Glucose 262 mg/dL (83-110); Magnesium 2.2 mg/dL (1.6-2.6); Protein, Total 6.7 g/dL (5.8-8.1); Sodium 137 mmol/L (136-145)
[2017-03-20 09:17] LABS: BUN (Urea Nitrogen) 14 mg/dL (8.4-25.7)
[2017-03-20] MEDS: Mometasone/Formoterol 120 PUFF INHALER INH SCH ×2 (11:03→18:47)
[2017-03-20] MEDS: Sodium Chloride 0.9% 1,000 ML IV SCH ×2 (11:03→20:10)
[2017-03-20] MEDS ORDERED: Albuterol Sulfate 2.5 mg/3 ml Neb NEB PRN (11:54)
[2017-03-20] MEDS ORDERED: guaiFENesin ER 600 MG TAB PO SCH (12:00)
--- NOTE | 2017-03-20 13:07 | PDOC.PN ---
- Subjective Encounter Start Date: 03/20/17 Encounter Start Time: 10:15 -: old records requested/rev Pt seen and examined, history reviewed, chart reviewed in its entirety. This is my first visit with this patient. Case discussed with patient and his family at the bedside PT admitted with another acute exacerbation of COPD, acute on chronic hypoxemic repsiratory failure, and need for biPAP. Admitted o IMCU. Dr Palma's outpatient, nursing has already called him No F/C, no N/V/D/C, no CP or sOB at present. Just taken off biPAP to IN 10 point ROS performed and neg for all systems except as per HPI - Objective Resuscitation Status: FULL MAR Reviewed: Yes Vital Signs & Weight: Vital Signs (12 hours) Temp Pulse Resp BP BP Pulse Ox 03/20/17 12:00 96.2 F L 86 19 139/65 94 L 03/20/17 11:03 74 16 03/20/17 08:47 88 157/76 H 03/20/17 08:40 93 L 03/20/17 07:00 97.0 F L 69 15 143/72 H 94 L 03/20/17 06:34 86 23 H 96 03/20/17 06:30 97.6 F 87 24 H 158/68 H 96 Weight Weight 229 lb 12.8 oz Result Diagrams: 03/20/17 08:37 03/20/17 08:37 Additional Labs: Accuchecks 03/20/17 10:51 POC Glucose 198 H Radiology Reviewed by me: Yes EKG Reviewed by me: Yes Phys Exam - Physical Examination Constitutional: NAD HEENT: PERRLA, moist MMs, sclera anicteric, oral pharynx no lesions Neck: no nodes, no JVD, supple, full ROM insp and exp wheezes bilaterally. no rales Cardiovascular: RRR, no significant murmur, no rub Gastrointestinal: soft, non-tender, no distention, positive bowel sounds Musculoskeletal: pulses present, edema present Neurological: non-focal, normal sensation, moves all 4 limbs Lymphatic: no nodes Psychiatric: normal affect, A&O x 3 Skin: no rash, normal turgor, cap refill <2 seconds Dx/Plan (1) Acute on chronic respiratory failure with hypoxia Code(s): J96.21 - ACUTE AND CHRONIC RESPIRATORY FAILURE WITH HYPOXIA Status: Acute (2) COPD exacerbation Code(s): J44.1 - CHRONIC OBSTRUCTIVE PULMONARY DISEASE W (ACUTE) EXACERBATION Status: Acute Comment: (3) DM2 (diabetes mellitus, type 2) Status: Chronic Qualifiers: Diabetes mellitus complication status: without complication Diabetes mellitus keno terminal operator insulin use: without keno terminal operator use Qualified Code(s): E11.9 - Type 2 diabetes mellitus without complications Comment: BS satisfactory. (4) Former smoker Status: Chronic Comment: quit 10 years ago (5) HLD (hyperlipidemia) Code(s): E78.5 - HYPERLIPIDEMIA, UNSPECIFIED Status: Chronic Qualifiers: Hyperlipidemia type: unspecified Qualified Code(s): E78.5 - Hyperlipidemia , unspecified (6) HTN (hypertension) Code(s): I10 - ESSENTIAL (PRIMARY) HYPERTENSION Status: Chronic Qualifiers: Hypertension type: essential hypertension Comment: stable.. (7) Obesity (BMI 30-39.9) Code(s): E66.9 - OBESITY, UNSPECIFIED Status: Chronic - Plan cont current plan of care, plan discussed w/ family, continue antibiotics, PT/OT , respiratory therapy, DVT proph w/lovenox * . follow up on pulm recommednations. Continue abx, nebs, Solumedrol, adding mucinex. BiPAP PRN. Keep in IMCU for now
[2017-03-20] MEDS ORDERED: FLU VACC TS2017-18 (>65YR) 0.5 ML SYRINGE IM ONE (13:45)
[2017-03-20] MEDS ORDERED: Prevnar 13-Val Conj/PF 0.5 ML SYRINGE IM ONE (14:00)
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
[2017-03-20 16:27] LABS: Bilirubin Negative (Negative); Blood, Urine Negative (Negative); Clarity CLEAR (Clear); Glucose, Urine (Dipstick) 500 mg/dL (Negative); Leukocyte Negative (Negative); Nitrite Negative (Negative); Protein, Urine (Dipstick) Negative (Neg-Trace); Specific Gravity, Urine 1.028 (1.002-1.036); pH, Urine 6.5 (5.0-9.0)
[2017-03-20 16:29] LABS: Bacteria/HPF None Seen HPF (None Seen); Hyaline Casts/LPF 0-3 HYALINE CAST LPF (0-3 Hyaline); RBC/HPF 0-3 HPF (0-3); Squamous Epithelial None Seen HPF (0-3); WBC/HPF None Seen HPF (0-3)
[2017-03-20] MEDS: guaiFENesin ER 600 MG TAB PO SCH (20:10)
[2017-03-21 04:27] LABS: #Lymphocytes 1.1 thou/uL (1.20-3.40); #Monocytes 0.4 thou/uL (0.11-0.59); #Neutrophils 12.1 thou/uL (1.40-6.50); %Basophils 0.1 % (0.0-1.0); %Eosinophils 0.2 % (0.0-10.0); %Lymphocytes 8.4 % (21.0-51.0); %Monocytes 2.9 % (0.0-10.0); %Neutrophils 88.5 % (42.0-75.0); Hemoglobin 12.8 g/dL (14.0-18.0); Mean Corpuscular HGB CONC 31.6 g/dL (32.0-36.0); Mean Corpuscular Hemoglobin 33.5 pg (27.0-31.0); Mean Platelet Volume 9.3 fL (7.4-10.4); Platelet Count 246 thou/uL (130-400); RBC Distribution Width 13.2 % (11.5-14.5); Red Blood Cell (RBC) Count 3.83 mill/uL (4.70-6.10); White Blood Cell (WBC) Count 13.7 thou/uL (4.8-10.8)
[2017-03-21 04:47] LABS: Anion Gap 12 mmol/L (10-20); BUN (Urea Nitrogen) 17 mg/dL (8.4-25.7); Calc. Creatinine Clearance 109 mL/min (70-130); Calcium 9.2 mg/dL (7.8-10.44); Carbon Dioxide 27 mmol/L (23-31); Chloride 103 mmol/L (98-107); Estimated GFR-MDRD Greater than 90; Glucose 229 mg/dL (83-110); Potassium 4.9 mmol/L (3.5-5.1); Sodium 137 mmol/L (136-145)
[2017-03-21] MEDS: cefTRIAXone\\ROCEPHIN 1 GM, Syringe 0.4 ML in Sterile Water 9.6 ML SLOW IVP SCH (05:19)
[2017-03-21] MEDS: HumaLOG 300 UNITS/3 ML VIAL SC PRN ×3 (05:20→20:51)
[2017-03-21] MEDS: HYDROcodone/Acetaminophen 5/325 mg Tablet PO PRN ×3 (05:40→23:57)
[2017-03-21] MEDS: Mometasone/Formoterol 120 PUFF INHALER INH SCH ×2 (07:21→18:43)
[2017-03-21] MEDS: guaiFENesin ER 600 MG TAB PO SCH ×2 (07:54→20:46)
[2017-03-21] MEDS: Amlodipine 5 MG TAB PO SCH (07:55)
[2017-03-21] MEDS: Docusate 100 MG CAP PO SCH ×2 (07:55→20:46)
[2017-03-21] MEDS: Azithromycin 250 MG TAB PO SCH (07:55)
--- NOTE | 2017-03-21 11:39 | PDOC.PN ---
- Subjective Encounter Start Date: 03/21/17 Encounter Start Time: 08:45 Pt did not require bibpap for over th elast 24 hours, breathing improved, tolerating steroids and nebs. Abs rico well without itching and rash No n/V/D/C, no CP, some ZAVALETA, no orthopnea. 10 point ROS performed and neg for all systems except as per HPI - Objective MAR Reviewed: Yes Vital Signs & Weight: Vital Signs (12 hours) Temp Pulse Resp BP BP BP Pulse Ox 03/21/17 11:00 97.8 F 74 18 145/69 H 95 03/21/17 08:00 97 F L 75 21 H 96 03/21/17 07:55 75 138/58 L 03/21/17 07:17 78 20 94 L 03/21/17 07:00 97 F L 84 21 H 146/73 H 96 03/21/17 05:16 98.4 F 79 20 147/59 H 98 03/21/17 02:45 72 18 96 Weight Weight 229 lb 12.8 oz I&O: 03/20/17 03/21/17 03/22/17 06:59 06:59 06:59 Intake Total 1940 Output Total 1575 Balance 365 Result Diagrams: 03/21/17 03:28 03/21/17 03:28 Additional Labs: Accuchecks 03/21/17 03/20/17 03/20/17 05:19 20:16 16:53 POC Glucose 212 H 229 H 128 H Radiology Reviewed by me: Yes EKG Reviewed by me: Yes Phys Exam - Physical Examination Constitutional: NAD HEENT: PERRLA, moist MMs, sclera anicteric, oral pharynx no lesions Neck: no nodes, no JVD, supple, full ROM slight end exp wheezing, prolonged exp, no rales, no rhonchi Cardiovascular: RRR, no significant murmur, no rub Gastrointestinal: soft, non-tender, no distention, positive bowel sounds Musculoskeletal: pulses present, edema present Neurological: non-focal, normal sensation, moves all 4 limbs Lymphatic: no nodes Psychiatric: normal affect, A&O x 3 Skin: no rash, normal turgor, cap refill <2 seconds Dx/Plan (1) Acute on chronic respiratory failure with hypoxia Code(s): J96.21 - ACUTE AND CHRONIC RESPIRATORY FAILURE WITH HYPOXIA Status: Acute Comment: improving. CCMs with nebs, continue IV steroids one more day unless pulm wants to change Transfer to floor, wean O2 as tolerated (2) COPD exacerbation Code(s): J44.1 - CHRONIC OBSTRUCTIVE PULMONARY DISEASE W (ACUTE) EXACERBATION Status: Acute Comment: (3) DM2 (diabetes mellitus, type 2) Status: Chronic Qualifiers: Diabetes mellitus complication status: without complication Diabetes mellitus terminal supervisor insulin use: without terminal supervisor use Qualified Code(s): E11.9 - Type 2 diabetes mellitus without complications Comment: BS satisfactory. (4) Former smoker Status: Chronic Comment: quit 10 years ago (5) HLD (hyperlipidemia) Code(s): E78.5 - HYPERLIPIDEMIA, UNSPECIFIED Status: Chronic Qualifiers: Hyperlipidemia type: unspecified Qualified Code(s): E78.5 - Hyperlipidemia , unspecified (6) HTN (hypertension) Code(s): I10 - ESSENTIAL (PRIMARY) HYPERTENSION Status: Chronic Qualifiers: Hypertension type: essential hypertension Comment: stable.. (7) Obesity (BMI 30-39.9) Code(s): E66.9 - OBESITY, UNSPECIFIED Status: Chronic - Plan cont current plan of care, continue antibiotics, respiratory therapy, out of bed /ambulate, DVT proph w/lovenox * .
--- NOTE | 2017-03-21 16:59 | PRG ---
DATE OF SERVICE: 03/21/2017 SUBJECTIVE: He is feeling better, but he is nowhere near his baseline. OBJECTIVE: VITAL SIGNS: He is afebrile, heart rate is in the 70s, respiratory rate is in the teens, oximetry is 98% on 2 liters, blood pressure 145/69. LUNGS: Remarkable for diffuse coarse wheezes. HEART: Regular rhythm. ABDOMEN: Soft. LABORATORY DATA: White count 13.7, hemoglobin 12.8, platelets 246. Sodium 137, potassium 4.9, chloride 103, bicarb 27, BUN 17, creatinine 0.85. IMPRESSION: Chronic obstructive pulmonary disease exacerbation, slowly improving. PLAN: Continue IV steroids, nebulizer treatments, p.o. antimicrobial therapy, physical therapy and s erial exams.
[2017-03-21] MEDS: Benzonatate 100 MG CAP PO PRN ×2 (17:32→23:57)
[2017-03-22 04:39] LABS: Anion Gap 19 mmol/L (10-20); BUN (Urea Nitrogen) 13 mg/dL (8.4-25.7); Calc. Creatinine Clearance 112 mL/min (70-130); Calcium 9.4 mg/dL (7.8-10.44); Carbon Dioxide 17 mmol/L (23-31); Chloride 104 mmol/L (98-107); Estimated GFR-MDRD Greater than 90; Glucose 164 mg/dL (83-110); Magnesium 2.5 mg/dL (1.6-2.6); Potassium 4.3 mmol/L (3.5-5.1); Sodium 136 mmol/L (136-145)
[2017-03-22 04:46] LABS: Band 1 % (5-11); Hemoglobin 14.1 g/dL (14.0-18.0); Lymphocytes 7 % (21-51); MDiff Complete? YES; Macrocytosis SLIGHT = 6-15 cells (100X) (0-5/hpf); Mean Corpuscular HGB CONC 31.1 g/dL (32.0-36.0); Mean Platelet Volume 9.4 fL (7.4-10.4); Monocytes 4 % (0-10); Neutrophil 88 % (42-75); Platelet Count 246 thou/uL (130-400); RBC Distribution Width 13.4 % (11.5-14.5); Red Blood Cell (RBC) Count 4.27 mill/uL (4.70-6.10); White Blood Cell (WBC) Count 14.4 thou/uL (4.8-10.8)
[2017-03-22] MEDS: cefTRIAXone\\ROCEPHIN 1 GM, Syringe 0.4 ML in Sterile Water 9.6 ML SLOW IVP SCH (05:31)
[2017-03-22] MEDS: Benzonatate 100 MG CAP PO PRN ×2 (05:32→16:26)
[2017-03-22] MEDS: Mometasone/Formoterol 120 PUFF INHALER INH SCH ×2 (06:38→18:11)
[2017-03-22] MEDS: Polyethylene Glycol 3350 17 GM Packet PO SCH (08:20)
[2017-03-22] MEDS: Amlodipine 5 MG TAB PO SCH (08:20)
[2017-03-22] MEDS: Senokot S 8.6-50 MG TAB PO SCH ×2 (08:21→19:46)
[2017-03-22] MEDS: predniSONE 20 MG TAB PO SCH (08:21)
[2017-03-22] MEDS: Azithromycin 250 MG TAB PO SCH (08:21)
[2017-03-22] MEDS: guaiFENesin ER 600 MG TAB PO SCH ×2 (08:21→19:46)
--- NOTE | 2017-03-22 12:22 | PDOC.PN ---
- Subjective Encounter Start Date: 03/22/17 Encounter Start Time: 10:15 Pt complaints of continuing cough. no production. last resp rx 4 hours prior to my viist, due for another, for some reason isnt asking for PRN albuterol No F/C, no n/V/D/C, no CP, new events 10 point ROs performed and neg for all systems except as per HPI - Objective MAR Reviewed: Yes Vital Signs & Weight: Vital Signs (12 hours) Temp Pulse Resp BP Pulse Ox 03/22/17 08:20 86 03/22/17 08:00 98.2 F 86 20 96 03/22/17 07:53 98.3 F 86 24 H 141/61 H 94 L 03/22/17 06:40 67 16 97 03/22/17 06:38 67 16 97 03/22/17 04:00 98.2 F 76 20 148/70 H 94 L 03/22/17 03:26 94 L 03/22/17 02:37 75 16 95 03/22/17 01:00 98.4 F 75 18 153/71 H 95 Weight Weight 229 lb 12.8 oz I&O: 03/21/17 03/22/17 03/23/17 06:59 06:59 06:59 Intake Total 1940 1340 240 Output Total 1575 650 Balance 365 690 240 Result Diagrams: 03/22/17 03:50 03/22/17 03:50 Additional Labs: Accuchecks 03/22/17 03/22/17 03/21/17 11:18 04:13 20:12 POC Glucose 192 H 178 H 302 H 03/21/17 03/21/17 16:15 12:25 POC Glucose 160 H 182 H Phys Exam - Physical Examination Constitutional: NAD HEENT: PERRLA, moist MMs, sclera anicteric, oral pharynx no lesions Neck: no nodes, no JVD, supple, full ROM Respiratory: no rales, no rhonchi, wheezing present prolonged expiration Cardiovascular: RRR, no significant murmur, no rub Gastrointestinal: soft, non-tender, no distention, positive bowel sounds Musculoskeletal: no edema, pulses present Neurological: non-focal, normal sensation, moves all 4 limbs Lymphatic: no nodes Psychiatric: normal affect, A&O x 3 Skin: no rash, normal turgor, cap refill <2 seconds Dx/Plan (1) Acute on chronic respiratory failure with hypoxia Code(s): J96.21 - ACUTE AND CHRONIC RESPIRATORY FAILURE WITH HYPOXIA Status: Acute Comment: improving. CCMs with nebs, continue IV steroids one more day unless pulm wants to change Transferred to floor, wean O2 as tolerated (2) COPD exacerbation Code(s): J44.1 - CHRONIC OBSTRUCTIVE PULMONARY DISEASE W (ACUTE) EXACERBATION Status: Acute Comment: (3) DM2 (diabetes mellitus, type 2) Status: Chronic Qualifiers: Diabetes mellitus complication status: without complication Diabetes mellitus fci insulin use: without fci use Qualified Code(s): E11.9 - Type 2 diabetes mellitus without complications Comment: BS satisfactory. (4) Former smoker Status: Chronic Comment: quit 10 years ago (5) HLD (hyperlipidemia) Code(s): E78.5 - HYPERLIPIDEMIA, UNSPECIFIED Status: Chronic Qualifiers: Hyperlipidemia type: unspecified Qualified Code(s): E78.5 - Hyperlipidemia , unspecified (6) HTN (hypertension) Code(s): I10 - ESSENTIAL (PRIMARY) HYPERTENSION Status: Chronic Qualifiers: Hypertension type: essential hypertension Comment: stable.. (7) Obesity (BMI 30-39.9) Code(s): E66.9 - OBESITY, UNSPECIFIED Status: Chronic - Plan cont current plan of care, continue antibiotics, respiratory therapy, out of bed /ambulate * .
[2017-03-22] MEDS ORDERED: Scopolamine 1.5 mg/72 hour Patch TD SCH (16:00)
[2017-03-22] MEDS: HumaLOG 300 UNITS/3 ML VIAL SC PRN ×2 (17:11→19:47)
[2017-03-22] MEDS: Milk Of Magnesia 30 ML UDCUP PO PRN (19:46)
[2017-03-22] MEDS: Benzonatate 100 MG CAP PO SCH (19:46)
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
[2017-03-23] MEDS: cefTRIAXone\\ROCEPHIN 1 GM, Syringe 0.4 ML in Sterile Water 9.6 ML SLOW IVP SCH (05:06)
[2017-03-23] MEDS: Mometasone/Formoterol 120 PUFF INHALER INH SCH ×2 (06:11→19:45)
[2017-03-23] MEDS: Polyethylene Glycol 3350 17 GM Packet PO SCH (08:15)
[2017-03-23] MEDS: predniSONE 20 MG TAB PO SCH (08:16)
[2017-03-23] MEDS: Benzonatate 100 MG CAP PO SCH ×3 (08:16→22:28)
[2017-03-23] MEDS: Azithromycin 250 MG TAB PO SCH (08:17)
[2017-03-23] MEDS: Amlodipine 5 MG TAB PO SCH (08:17)
[2017-03-23] MEDS: Senokot S 8.6-50 MG TAB PO SCH (08:18)
[2017-03-23] MEDS: HYDROcodone/Acetaminophen 5/325 mg Tablet PO PRN (08:28)
[2017-03-23] MEDS: Milk Of Magnesia 30 ML UDCUP PO PRN (08:46)
--- NOTE | 2017-03-23 09:56 | PRG ---
DATE OF SERVICE: 03/23/2017 The patient says he is still very short of breath and does not feel he is capable of going home. PHYSICAL EXAMINATION: VITAL SIGNS: Temperature 98.6, pulse 69, respirations 18, O2 sat 95%, blood pressure 135/66. HEENT: Unremarkable. NECK: No JVD. LUNGS: Tight expiratory wheezing. CARDIAC: S1 and S2 regular. ABDOMEN: Soft. EXTREMITIES: No edema. ASSESSMENT: Chronic obstructive pulmonary disease with exacerbation. RECOMMENDATIONS: Will continue steroids, nebulization treatments. He can go home when he feels up t o it.
[2017-03-23] MEDS: guaiFENesin ER 600 MG TAB PO SCH ×2 (10:14→22:27)
--- NOTE | 2017-03-23 11:41 | PDOC.PN ---
- Subjective Encounter Start Date: 03/23/17 Encounter Start Time: 12:00 Subjective: Patient with continued SOB, wheezing. Mild improvement. Very constipated. -: No BM for past 4 days inspite of stool softeners and laxatives in hospital. - Objective MAR Reviewed: Yes Vital Signs & Weight: Vital Signs (12 hours) Temp Pulse Resp BP BP Pulse Ox 03/23/17 11:24 75 16 96 03/23/17 08:17 69 135/66 03/23/17 08:00 98.6 F 69 18 95 03/23/17 07:26 98.6 F 69 18 135/66 95 03/23/17 06:09 81 16 97 03/23/17 02:24 95 03/23/17 01:51 82 16 94 L Weight Weight 229 lb 12.8 oz I&O: 03/22/17 03/23/17 03/24/17 06:59 06:59 06:59 Intake Total 1340 840 240 Output Total 650 Balance 690 840 240 Result Diagrams: 03/22/17 03:50 03/22/17 03:50 Additional Labs: Accuchecks 03/23/17 03/22/17 03/22/17 05:07 19:40 16:07 POC Glucose 172 H 320 H 243 H 03/22/17 11:18 POC Glucose 192 H Phys Exam - Physical Examination Constitutional: NAD HEENT: moist MMs Respiratory: wheezing present tight breath sounds bilaterally Cardiovascular: RRR Gastrointestinal: soft, positive bowel sounds distended Neurological: non-focal, moves all 4 limbs Psychiatric: normal affect, A&O x 3 Dx/Plan (1) Acute on chronic respiratory failure with hypoxia Code(s): J96.21 - ACUTE AND CHRONIC RESPIRATORY FAILURE WITH HYPOXIA Status: Acute Comment: improving. Transitioned to oral abx and steroids. Home when ok per pulmonology (2) COPD exacerbation Code(s): J44.1 - CHRONIC OBSTRUCTIVE PULMONARY DISEASE W (ACUTE) EXACERBATION Status: Acute Comment: (3) DM2 (diabetes mellitus, type 2) Status: Chronic Qualifiers: Diabetes mellitus complication status: without complication Diabetes mellitus skilled nursing insulin use: without superintendent marine oil terminal use Qualified Code(s): E11.9 - Type 2 diabetes mellitus without complications Comment: BS satisfactory. (4) Former smoker Status: Chronic Comment: quit 10 years ago (5) HLD (hyperlipidemia) Code(s): E78.5 - HYPERLIPIDEMIA, UNSPECIFIED Status: Chronic Qualifiers: Hyperlipidemia type: unspecified Qualified Code(s): E78.5 - Hyperlipidemia , unspecified (6) HTN (hypertension) Code(s): I10 - ESSENTIAL (PRIMARY) HYPERTENSION Status: Chronic Qualifiers: Hypertension type: essential hypertension Qualified Code(s): I10 - Essential (primary) hypertension Comment: stable.. (7) Obesity (BMI 30-39.9) Code(s): E66.9 - OBESITY, UNSPECIFIED Status: Chronic (8) Constipation Code(s): K59.00 - CONSTIPATION, UNSPECIFIED Status: Acute Comment: Will increase dose of Lactulose and Senna. Already on dulcolax and Miralax and Milk of Mag. - Plan cont current plan of care, continue antibiotics, respiratory therapy * . - Discharge Day Encounter end time: 12:30
[2017-03-23] MEDS: HumaLOG 300 UNITS/3 ML VIAL SC PRN ×2 (11:51→17:29)
[2017-03-23] MEDS ORDERED: Senokot 8.6 MG TAB PO PRN (12:35)
[2017-03-23] MEDS ORDERED: Scopolamine 1.5 mg/72 hour Patch TD SCH (16:00)
[2017-03-23] MEDS: Cefdinir 300 MG CAP PO SCH (22:27)
[2017-03-24] MEDS: Mometasone/Formoterol 120 PUFF INHALER INH SCH ×2 (07:33→19:02)
[2017-03-24] MEDS: predniSONE 20 MG TAB PO SCH (08:17)
[2017-03-24] MEDS: Cefdinir 300 MG CAP PO SCH ×2 (08:18→22:37)
[2017-03-24] MEDS: Benzonatate 100 MG CAP PO SCH ×3 (08:18→22:37)
[2017-03-24] MEDS: Amlodipine 5 MG TAB PO SCH (08:19)
[2017-03-24] MEDS: Azithromycin 250 MG TAB PO SCH (08:19)
[2017-03-24] MEDS: Polyethylene Glycol 3350 17 GM Packet PO SCH (08:20)
[2017-03-24] MEDS: guaiFENesin ER 600 MG TAB PO SCH ×2 (08:20→22:38)
--- NOTE | 2017-03-24 10:28 | PRG ---
DATE OF SERVICE: 03/24/2017 Mr. Salinas is still not wanting to go home. He says he is still very short of breath. PHYSICAL EXAMINATION: VITAL SIGNS: Temperature is 98.2, pulse 65, respiration rate 16, O2 sat 96%, blood pressure 130/70. HEENT: Unremarkable. NECK: No JVD. CHEST: He has some upper airway rhonchi, but he is clear toward the bases. CARDIAC: S1 and S2 regular. ABDOMEN: Soft. EXTREMITIES: No edema. ASSESSMENT: Chronic obstructive pulmonary disease exacerbation. RECOMMENDATIONS: I think Mr. Salinas is close to discharge. I think he may be embellishing some of his symptoms. I definitely think he needs to be in the mindset that he is going home by tomorrow.
--- NOTE | 2017-03-24 11:43 | PDOC.PN ---
- Subjective Encounter Start Date: 03/24/17 Encounter Start Time: 12:30 Subjective: Patient with improved SOB, wheezing. Still without BM, but no abdominal -: pain. Ambulating well in the hallway. - Objective MAR Reviewed: Yes Vital Signs & Weight: Vital Signs (12 hours) Temp Pulse Resp BP BP Pulse Ox 03/24/17 10:06 71 16 98 03/24/17 08:54 98.2 F 65 16 03/24/17 07:52 98.2 F 65 16 130/70 96 03/24/17 07:31 61 16 99 03/24/17 02:22 94 L 03/24/17 01:40 66 16 98 03/24/17 00:00 98.8 F 66 20 145/71 H 96 Weight Weight 229 lb 12.8 oz I&O: 03/23/17 03/24/17 03/25/17 06:59 06:59 06:59 Intake Total 840 720 Balance 840 720 Result Diagrams: 03/22/17 03:50 03/22/17 03:50 Additional Labs: Accuchecks 03/24/17 03/23/17 03/23/17 05:18 19:57 16:58 POC Glucose 178 H 199 H 243 H 03/23/17 11:29 POC Glucose 252 H Phys Exam - Physical Examination Constitutional: NAD HEENT: moist MMs Respiratory: no rales, no rhonchi, wheezing present Cardiovascular: RRR, no significant murmur Gastrointestinal: soft, non-tender, positive bowel sounds obese, soft Neurological: non-focal, moves all 4 limbs Psychiatric: normal affect, A&O x 3 Dx/Plan (1) Acute on chronic respiratory failure with hypoxia Code(s): J96.21 - ACUTE AND CHRONIC RESPIRATORY FAILURE WITH HYPOXIA Status: Acute Comment: improving. Transitioned to oral abx and steroids. Home when ok per pulmonology (2) COPD exacerbation Code(s): J44.1 - CHRONIC OBSTRUCTIVE PULMONARY DISEASE W (ACUTE) EXACERBATION Status: Acute Comment: (3) DM2 (diabetes mellitus, type 2) Status: Chronic Qualifiers: Diabetes mellitus complication status: without complication Diabetes mellitus intermodal owner operator truck driver insulin use: without prison use Qualified Code(s): E11.9 - Type 2 diabetes mellitus without complications Comment: BS satisfactory. (4) Former smoker Status: Chronic Comment: quit 10 years ago (5) HLD (hyperlipidemia) Code(s): E78.5 - HYPERLIPIDEMIA, UNSPECIFIED Status: Chronic Qualifiers: Hyperlipidemia type: unspecified Qualified Code(s): E78.5 - Hyperlipidemia , unspecified (6) HTN (hypertension) Code(s): I10 - ESSENTIAL (PRIMARY) HYPERTENSION Status: Chronic Qualifiers: Hypertension type: essential hypertension Qualified Code(s): I10 - Essential (primary) hypertension Comment: stable.. (7) Obesity (BMI 30-39.9) Code(s): E66.9 - OBESITY, UNSPECIFIED Status: Chronic (8) Constipation Code(s): K59.00 - CONSTIPATION, UNSPECIFIED Status: Acute Comment: Will increase dose of Lactulose and Senna. Already on dulcolax and Miralax and Milk of Mag. - Plan cont current plan of care likely home in AM * . - Discharge Day Encounter end time: 12:45
[2017-03-24] MEDS: HumaLOG 300 UNITS/3 ML VIAL SC PRN ×2 (12:31→17:58)
[2017-03-24] MEDS: Docusate 100 MG CAP PO SCH (22:37)
[2017-03-25] MEDS: Mometasone/Formoterol 120 PUFF INHALER INH SCH (06:36)
[2017-03-25] MEDS: guaiFENesin ER 600 MG TAB PO SCH (08:00)
[2017-03-25] MEDS: Cefdinir 300 MG CAP PO SCH (08:01)
[2017-03-25] MEDS: Amlodipine 5 MG TAB PO SCH (08:01)
[2017-03-25] MEDS: predniSONE 20 MG TAB PO SCH (08:01)
[2017-03-25] MEDS: Docusate 100 MG CAP PO SCH (08:02)
[2017-03-25] MEDS: Benzonatate 100 MG CAP PO SCH (08:02)
[2017-03-25] MEDS: Polyethylene Glycol 3350 17 GM Packet PO SCH (08:04)
[2017-03-25 08:12] VITALS: BP 135/65; TEMP 98.6
--- NOTE | 2017-03-25 09:03 | PDOC.PULPN ---
Progress Note: Subj/Obj - Subjective Date: 03/25/17 Time: 09:02 Narrative: doing well. ready to go home - ROS All systems: reviewed and no additional remarkable complaints except as stated - Objective Allergies/Adverse Reactions: Allergies Allergy/AdvReac Type Severity Reaction Status Date / Time No Known Allergies Allergy Verified 03/20/17 13:10 Medications: Current Medications Acetaminophen (Tylenol) 650 mg PO Q4H PRN PRN Reason: Headache/Fever or Pain Hydrocodone Bitart/Acetaminophen ([place] 5/325) 1 tab PO Q4H PRN PRN Reason: Moderate Pain (4-6) Last Admin: 03/23/17 08:28 Dose: 1 tab Albuterol Sulfate (Ventolin) 2.5 mg NEB Q2H PRN PRN Reason: Wheezing Albuterol/Ipratropium (Duoneb) 3 ml NEB [id number]-NW [facility] Last Admin: 03/25/17 06:38 Dose: 3 ml Amlodipine Besylate (Norvasc) 5 mg PO DAILY [facility] Last Admin: 03/25/17 08:01 Dose: 5 mg Benzonatate (Tessalon) 200 mg PO Q6H PRN PRN Reason: Cough Last Admin: 03/22/17 16:26 Dose: 200 mg Benzonatate (Tessalon) 200 mg PO TID [facility] Last Admin: 03/25/17 08:02 Dose: 200 mg Bisacodyl (Dulcolax) 10 mg PO DAILYPRN PRN PRN Reason: Constipation Last Admin: 03/24/17 12:34 Dose: 10 mg Calcium Carbonate (Tums) 1,000 mg PO Q4H PRN PRN Reason: Heartburn or Indigestion Cefdinir (Omnicef) 300 mg PO BID [facility] Last Admin: 03/25/17 08:01 Dose: 300 mg Dextrose/Water (Dextrose 50%) 25 gm SLOW IVP PRN PRN PRN Reason: Hypoglycemia Docusate Sodium (Colace) 100 mg PO BID [facility] Last Admin: 03/25/17 08:02 Dose: 100 mg Glucagon (Glucagon) 1 mg IM PRN PRN PRN Reason: Hypoglycemia Guaifenesin (Mucinex) 1,200 mg PO Q12HR [facility] Last Admin: 03/25/17 08:00 Dose: 1,200 mg Hydralazine HCl (Apresoline) 10 mg SLOW IVP Q4H PRN PRN Reason: Systolic BP > 180 Dextrose/Water (D5w) 1,000 mls @ 0 mls/hr IV .Q0M PRN; As Directed PRN Reason: Hypoglycemia Insulin Human Lispro (Humalog) 0 units SC .MODERATE SLIDING SC PRN PRN Reason: Moderate Correctional Scale Last Admin: 03/24/17 17:58 Dose: 6 unit Lactulose (Lactulose) 20 gm PO QID [facility] Last Admin: 03/25/17 08:03 Dose: 20 gm Magnesium Hydroxide (Milk Of Magnesium) 30 ml PO DAILYPRN PRN PRN Reason: Constipation Last Admin: 03/23/17 08:46 Dose: 30 ml Mometasone Furoate/Formoterol Fumar (Dulera 200 Mcg/5 Mcg Inhaler) 2 puff INH BID-RT [facility] Last Admin: 03/25/17 06:36 Dose: 2 puff Ondansetron HCl (Zofran) 4 mg IVP Q6H PRN PRN Reason: Nausea/Vomiting Polyethylene Glycol (Miralax) 17 gm PO DAILY [facility] Last Admin: 03/25/17 08:04 Dose: 17 gm Prednisone (Prednisone) 40 mg PO QAM-WM [facility] Last Admin: 03/25/17 08:01 Dose: 40 mg Scopolamine (Transderm Scop) 1.5 mg TD Q3D@1600 [facility] Last Admin: 03/23/17 15:26 Dose: 1.5 mg Senna (Senokot) 2 tab PO HSPRN PRN PRN Reason: Constipation Last Admin: 03/25/17 08:02 Dose: 2 tab MAR Reviewed: Yes Vital Signs: Vital Signs Temp 98.6 F 03/25/17 08:08 Pulse 73 03/25/17 08:08 Resp 16 03/25/17 08:08 BP 135/65 03/25/17 08:08 Pulse Ox 92 L 03/25/17 08:08 Intake & Output 03/24/17 03/25/17 03/25/17 18:59 06:59 18:59 Other: Voiding Method Toilet Toilet Progress Note: Exam - Physical Exam Constitutional: NAD HEENT: PERRLA, sclera anicteric Neck: no nodes Cardiovascular: RRR Respiratory: clear to auscultation bilaterally Gastrointestinal: soft, non-tender, positive bowel sounds Musculoskeletal: no edema Neurological: non-focal, moves all 4 limbs Lymphatic: no nodes Psychiatric: normal affect, A&O x 3 Skin: no rash Progress Note: Data - Labs Result Diagrams: 03/22/17 03:50 03/22/17 03:50 Lab results: Laboratory Results 03/23/17 03/23/17 03/23/17 11:29 16:58 19:57 POC Glucose 252 H 243 H 199 H 03/24/17 03/24/17 03/24/17 05:18 11:25 17:07 POC Glucose 178 H 216 H 256 H 03/24/17 03/25/17 19:43 05:18 POC Glucose 262 H 153 H Progress Note: A/P - Problems (1) COPD exacerbation Current Visit: No Status: Acute Code(s): J44.1 - CHRONIC OBSTRUCTIVE PULMONARY DISEASE W (ACUTE) EXACERBATION - Plan Plan: OK for dc today Taper steroids over 2 weeks finish 7 days abx f/u 3-4 weeks
--- NOTE | 2017-03-25 11:42 | PDOC.PN ---
- Subjective Encounter Start Date: 03/25/17 Encounter Start Time: 08:30 -: old records requested/rev Patient seen and examined. No new complaints. No overnight events - Objective MAR Reviewed: Yes Vital Signs & Weight: Vital Signs (12 hours) Temp Pulse Resp BP Pulse Ox 03/25/17 08:08 98.6 F 73 16 135/65 92 L 03/25/17 07:01 98.3 F 66 16 03/25/17 06:39 96 03/25/17 06:38 66 16 96 03/25/17 06:36 66 16 96 03/25/17 01:52 96 Weight Weight 229 lb 12.8 oz I&O: 03/24/17 03/25/17 03/26/17 06:59 06:59 06:59 Intake Total 720 Balance 720 Result Diagrams: 03/22/17 03:50 03/22/17 03:50 Additional Labs: Accuchecks 03/25/17 03/24/17 03/24/17 05:18 19:43 17:07 POC Glucose 153 H 262 H 256 H 03/24/17 11:25 POC Glucose 216 H Phys Exam - Physical Examination Constitutional: NAD HEENT: PERRLA, moist MMs, sclera anicteric Neck: no JVD, supple Respiratory: no rales, wheezing present Cardiovascular: RRR, no significant murmur, no rub Gastrointestinal: soft, non-tender, no distention, positive bowel sounds Musculoskeletal: no edema, pulses present Neurological: non-focal, normal sensation, moves all 4 limbs Psychiatric: normal affect, A&O x 3 Skin: no rash, normal turgor Dx/Plan (1) Acute on chronic respiratory failure with hypoxia Code(s): J96.21 - ACUTE AND CHRONIC RESPIRATORY FAILURE WITH HYPOXIA Status: Acute Comment: (2) COPD exacerbation Code(s): J44.1 - CHRONIC OBSTRUCTIVE PULMONARY DISEASE W (ACUTE) EXACERBATION Status: Acute Comment: (3) Constipation Code(s): K59.00 - CONSTIPATION, UNSPECIFIED Status: Acute (4) DM2 (diabetes mellitus, type 2) Status: Chronic Qualifiers: Diabetes mellitus complication status: without complication Diabetes mellitus equipment operator intermodal yard insulin use: without skilled nursing use Qualified Code(s): E11.9 - Type 2 diabetes mellitus without complications Comment: BS satisfactory. (5) Former smoker Status: Chronic Comment: quit 10 years ago (6) HLD (hyperlipidemia) Code(s): E78.5 - HYPERLIPIDEMIA, UNSPECIFIED Status: Chronic Qualifiers: Hyperlipidemia type: unspecified Qualified Code(s): E78.5 - Hyperlipidemia , unspecified (7) HTN (hypertension) Code(s): I10 - ESSENTIAL (PRIMARY) HYPERTENSION Status: Chronic Qualifiers: Hypertension type: essential hypertension Qualified Code(s): I10 - Essential (primary) hypertension Comment: stable.. (8) Obesity (BMI 30-39.9) Code(s): E66.9 - OBESITY, UNSPECIFIED Status: Chronic - Plan cont current plan of care, continue antibiotics, respiratory therapy * medication reviewed as below * symptomatic treatment * stable for discharge as per pulmonary * pt feels baseline * see discharge summery. Review of Systems - Review of Systems Constitutional: negative: fever, chills, sweats, weakness, malaise, other Eyes: negative: Pain, Vision Change, Conjunctivae Inflammation, Eyelid Inflammation, Redness, Other ENT: negative: Ear Pain, Ear Discharge, Nose Pain, Nose Discharge, Nose Congestion, Mouth Pain, Mouth Swelling, Throat Pain, Throat Swelling, Other Respiratory: Cough, Wheezing. negative: Dry, Shortness of Breath, Hemoptysis, SOB with Excertion, Pleuritic Pain, Sputum Cardiovascular: negative: chest pain, palpitations, orthopnea, paroxysmal nocturnal dyspnea, edema, light headedness, other Gastrointestinal: negative: Nausea, Vomiting, Abdominal Pain, Diarrhea, Constipation, Melena, Hematochezia, Other Genitourinary: negative: Dysuria, Frequency, Incontinence, Hematuria, Retention , Other Musculoskeletal: negative: Neck Pain, Shoulder Pain, Arm Pain, Back Pain, Hand Pain, Leg Pain, Foot Pain, Other Skin: negative: Rash, Lesions, Sky, Bruising, Other - Medications/Allergies Allergies/Adverse Reactions: Allergies Allergy/AdvReac Type Severity Reaction Status Date / Time No Known Allergies Allergy Verified 03/20/17 13:10 Medications: Current Medications Acetaminophen (Tylenol) 650 mg PO Q4H PRN PRN Reason: Headache/Fever or Pain Hydrocodone Bitart/Acetaminophen ([place] 5/325) 1 tab PO Q4H PRN PRN Reason: Moderate Pain (4-6) Last Admin: 03/23/17 08:28 Dose: 1 tab Albuterol Sulfate (Ventolin) 2.5 mg NEB Q2H PRN PRN Reason: Wheezing Albuterol/Ipratropium (Duoneb) 3 ml NEB [id number] [facility] Last Admin: 03/25/17 06:38 Dose: 3 ml Amlodipine Besylate (Norvasc) 5 mg PO DAILY [facility] Last Admin: 03/25/17 08:01 Dose: 5 mg Benzonatate (Tessalon) 200 mg PO Q6H PRN PRN Reason: Cough Last Admin: 03/22/17 16:26 Dose: 200 mg Benzonatate (Tessalon) 200 mg PO TID [facility] Last Admin: 03/25/17 08:02 Dose: 200 mg Bisacodyl (Dulcolax) 10 mg PO DAILYPRN PRN PRN Reason: Constipation Last Admin: 03/24/17 12:34 Dose: 10 mg Calcium Carbonate (Tums) 1,000 mg PO Q4H PRN PRN Reason: Heartburn or Indigestion Cefdinir (Omnicef) 300 mg PO BID [facility] Last Admin: 03/25/17 08:01 Dose: 300 mg Dextrose/Water (Dextrose 50%) 25 gm SLOW IVP PRN PRN PRN Reason: Hypoglycemia Docusate Sodium (Colace) 100 mg PO BID [facility] Last Admin: 03/25/17 08:02 Dose: 100 mg Glucagon (Glucagon) 1 mg IM PRN PRN PRN Reason: Hypoglycemia Guaifenesin (Mucinex) 1,200 mg PO Q12HR [facility] Last Admin: 03/25/17 08:00 Dose: 1,200 mg Hydralazine HCl (Apresoline) 10 mg SLOW IVP Q4H PRN PRN Reason: Systolic BP > 180 Dextrose/Water (D5w) 1,000 mls @ 0 mls/hr IV .Q0M PRN; As Directed PRN Reason: Hypoglycemia Insulin Human Lispro (Humalog) 0 units SC .MODERATE SLIDING SC PRN PRN Reason: Moderate Correctional Scale Last Admin: 03/24/17 17:58 Dose: 6 unit Lactulose (Lactulose) 20 gm PO QID [facility] Last Admin: 03/25/17 08:03 Dose: 20 gm Magnesium Hydroxide (Milk Of Magnesium) 30 ml PO DAILYPRN PRN PRN Reason: Constipation Last Admin: 03/23/17 08:46 Dose: 30 ml Mometasone Furoate/Formoterol Fumar (Dulera 200 Mcg/5 Mcg Inhaler) 2 puff INH BID-RT [facility] Last Admin: 03/25/17 06:36 Dose: 2 puff Ondansetron HCl (Zofran) 4 mg IVP Q6H PRN PRN Reason: Nausea/Vomiting Polyethylene Glycol (Miralax) 17 gm PO DAILY [facility] Last Admin: 03/25/17 08:04 Dose: 17 gm Prednisone (Prednisone) 40 mg PO QAM-WM [facility] Last Admin: 03/25/17 08:01 Dose: 40 mg Scopolamine (Transderm Scop) 1.5 mg TD Q3D@1600 [facility] Last Admin: 03/23/17 15:26 Dose: 1.5 mg Senna (Senokot) 2 tab PO HSPRN PRN PRN Reason: Constipation Last Admin: 03/25/17 08:02 Dose: 2 tab
[2017-03-25] MEDS: HumaLOG 300 UNITS/3 ML VIAL SC PRN (12:32)
--- NOTE | 2017-03-25 13:16 | DIS ---
DATE OF ADMISSION: 03/19/2017 DATE OF DISCHARGE: 03/25/2017 PRIMARY CARE PHYSICIAN: Elton Oakley. DISCHARGE DISPOSITION: Home. PRIMARY DISCHARGE DIAGNOSES: 1. Acute on chronic respiratory failure with hypoxia. 2. Chronic obstructive pulmonary disease exacerbation. 3. Constipation. SECONDARY DISCHARGE DIAGNOSES: 1. Obesity with BMI 37. 2. Hypertension. 3. Dyslipidemia. 4. Diabetes type 2. 5. Chronic respiratory failure. 6. Chronic obstructive pulmonary disease. PRIMARY PROCEDURE/OPERATION: None. RADIOLOGICAL INVESTIGATION: Chest x-ray on admission showed no acute cardiopulmonary process, elevat ion of right hemidiaphragm. SIGNIFICANT LABORATORY DATA: WBC 14.4, hemoglobin 14.1, platelet 246, MCV 106, sodium 136, potassium 4.3, BUN 13, creatinine 0.83, calcium 9.4, magnesium 2.5. Liver enzymes normal. Urinalysis normal. Blood culture negative. Influenza A and B negative. Respiratory virus panel positive for adenovir us. DISCHARGE MEDICATIONS: Ventolin 2 puffs q.6 hours p.r.n., amlodipine 5 mg p.o. daily, Tessalon 100 m g t.i.d. p.r.n., Omnicef 300 mg p.o. b.i.d. for 7 days, Lasix 40 mg p.o. daily, Amaryl 4 mg p.o. jocelyn y, Mucinex 600 mg twice daily, [place] 1-2 tablets q.6 hourly p.r.n., Atrovent HFA 2 puffs q.i.d., DuoN eb q.6 hourly p.r.n., losartan 100 mg p.o. daily, metformin 1000 mg p.o. b.i.d., Protonix 40 mg p.o. daily, MiraLax 17 grams p.o. daily, potassium chloride 8 mEq p.o. daily, prednisone 40 mg p.o. daily for 5 days, then 20 mg p.o. daily for 5 days, then 10 mg p.o. daily for 5 days, Zocor 40 mg p.o. at b edtime, Symbicort 2 puff inhalation b.i.d. CONTRAINDICATIONS: None. CODE STATUS: FULL CODE. INPATIENT CONSULTANTS: Dr. Bledsoe and Dr. Palma was following while in hospital. TEST RESULTS PENDING ON DISCHARGE: None. ALLERGIES: No known drug allergy. DISCHARGE PLAN: Post hospital, the patient will follow up with primary care physician in 1 week. The patient is also advised to follow up with Dr. Palma in 2-3 weeks. HOSPITAL COURSE: A 76-year-old male with the above mentioned medical problems who was admitted by Dr José Barney. Please see his H&P for further details. This patient has chronic respiratory failur e and end-stage COPD. He was admitted for COPD flare-up. During this admission, initially he was hy poxic. He required BiPAP and he required IMCU admission, he was saturating only 86% on room air. He was admitted to the IMCU. He was treated with BiPAP and pulmonary group was consulted. He was oanh ifeoma with COPD treatment with steroid, DuoNeb, Dulera, empiric antibiotic therapy and Mucinex. During this admission, we checked viral panel and we found adenovirus positive. His blood culture remained negative. Upon stabilization, this patient was transferred to the medical floor where we continued COPD treatment. The patient required pretty much prolonged hospital course, because of his severe CO PD, but with optimal medical therapy, patient's COPD was under control and today Dr. Palma saw this patient and he cleared him for discharge. The patient is also feeling up to his baseline. He has a ll previous medication. I prescribed tapering doses of prednisone and empiric antibiotic therapy for a few more days. The patient is seen and examined at bedside today. Please see my progress note from today for furthe r details. All new medication prescription sent to his pharmacy. Total time spent on discharge day 31 minutes.
--- NOTE | 2017-04-04 14:14 | EKG ---
Test Reason : Blood Pressure : / mmHG Vent. Rate : 081 BPM Atrial Rate : 081 BPM P-R Int : 144 ms QRS Dur : 086 ms QT Int : 338 ms P-R-T Axes : -03 048 -16 degrees QTc Int : 392 ms Normal sinus rhythm Nonspecific T wave abnormality Abnormal ECG Confirmed by ROCK RANGEL, DELL ([id number]), medical transcription editor CARLYLE CISNEROS ([id number]) on 04/04/2017 2:13:56 PM Referred By: Confirmed By:DELL WILKERSON MD
== END 2017-03-25 13:24 | disposition home or self-care (01) | DRG 189 ==
LOC: ERS 20:41 → ERHOLD 23:52 → IMCU/EMU 03-20 06:28 → T4-A 03-21 10:59
PROVIDERS: ADMIT Internal Medicine; ATTEND Internal Medicine
PROC: 5A09357 Assistance with Respiratory Ventilation, Less than 24 Consecutive Hours, Continuous Positive Airway Pressure (ICD-10-PCS; principal; 2017-03-19)
DX: J96.21 Acute and chronic respiratory failure with hypoxia (principal); Z99.81 Dependence on supplemental oxygen; J44.1 Chronic obstructive pulmonary disease with (acute) exacerbation; E11.9 Type 2 diabetes mellitus without complications; K59.00 Constipation, unspecified; E66.9 Obesity, unspecified; Z68.37 Body mass index [BMI] 37.0-37.9, adult; E78.5 Hyperlipidemia, unspecified; I10 Essential (primary) hypertension; Z87.891 Personal history of nicotine dependence
CPT/HCPCS: 36415; 36416; 71045; 80048; 80053; 81001; 82553; 83735; 83880; 84484; 85025; 87040; 87070; 87205; 87633; 87804; 90471; 90670; 90682; 93005; 94640; 94660; 94664; 96365; 96375; A4216; G0008; G0009; J0696; J2920; J2930; J3475; J7506; J7620; Q2036

== ENCOUNTER 2017-05-04 18:17 | Inpatient (IN) | payer BC, MEDICARE ==
[2017-05-04 18:42] LABS: #Basophils 0.1 thou/uL (0.0-0.2); #Eosinphils 0.1 thou/uL (0.0-0.7); #Lymphocytes 2.2 thou/uL (1.20-3.40); #Monocytes 1.2 thou/uL (0.11-0.59); #Neutrophils 6.6 thou/uL (1.40-6.50); %Basophils 0.7 % (0.0-1.0); %Eosinophils 1.3 % (0.0-10.0); %Lymphocytes 21.3 % (21.0-51.0); %Neutrophils 64.7 % (42.0-75.0); Hemoglobin 12.7 g/dL (14.0-18.0); Mean Corpuscular HGB CONC 31.5 g/dL (32.0-36.0); Mean Corpuscular Hemoglobin 32.7 pg (27.0-31.0); Mean Platelet Volume 8.3 fL (7.4-10.4); Platelet Count 283 thou/uL (130-400); RBC Distribution Width 12.6 % (11.5-14.5); Red Blood Cell (RBC) Count 3.88 mill/uL (4.70-6.10); White Blood Cell (WBC) Count 10.2 thou/uL (4.8-10.8)
[2017-05-04] MEDS ORDERED: Acetaminophen 500 MG TAB ONE (18:56)
[2017-05-04 19:09] LABS: ALT (SGPT) 17 U/L (8-55); AST (SGOT) 17 U/L (5-34); Albumin 3.8 g/dL (3.4-4.8); Alkaline Phosphatase 65 U/L (40-150); Anion Gap 17 mmol/L (10-20); BUN (Urea Nitrogen) 7 mg/dL (8.4-25.7); Bilirubin, Total 0.4 mg/dL (0.2-1.2); Calc. Creatinine Clearance 0 mL/min (70-130); Calcium 9.7 mg/dL (7.8-10.44); Carbon Dioxide 30 mmol/L (23-31); Chloride 102 mmol/L (98-107); Estimated GFR-MDRD Greater than 90; Globulin 3.5 g/dL (2.4-3.5); Glucose 173 mg/dL (83-110); Potassium 4.1 mmol/L (3.5-5.1); Protein, Total 7.3 g/dL (5.8-8.1); Sodium 145 mmol/L (136-145)
[2017-05-04] MEDS ORDERED: Piperacillin/Tazobactam 4.5 GM in Sodium Chloride 0.9% 100 ML IVPB SCH ×2 (19:15→23:00)
[2017-05-04] MEDS ORDERED: Vancomycin HCl 1.5 GM in Sodium Chloride 0.9% 250 ML 300 ML IVPB SCH (19:15)
[2017-05-04 19:25] LABS: CKMB 2.6 ng/mL (0-6.6); Troponin I 0.028 ng/mL (< 0.028)
--- NOTE | 2017-05-04 19:37 | RAD ---
CHEST ONE VIEW: History: Shortness of breath. Comparison: 03-19-17 FINDINGS: There is mild enlargement of the pulmonary arteries. Pulmonary venous congestion is present. Early ed lisa. Mild elevation of right hemidiaphragm. There is an airspace opacity in the left lung base. IMPRESSION: 1. Dilatation of the pulmonary trunk consistent with pulmonary hypertension. 2. Pulmonary venous congestion and mild early edema. 3. Patchy opacity left lung base is new and concerning for edema. POS: [facility]
[2017-05-04 22:08] VITALS: BMI 36.6
[2017-05-04] MEDS ORDERED: Sodium Chloride 0.9% 1,000 ML IV SCH (22:15)
[2017-05-04 22:51] LABS: Lactic Acid 1.4 mmol/L (0.5-2.2)
[2017-05-04] MEDS ORDERED: Acetaminophen 325 MG TAB PO PRN (23:29)
[2017-05-04] MEDS ORDERED: Acetaminophen 650 MG Suppository PR PRN (23:29)
[2017-05-04] MEDS ORDERED: Bisacodyl 5 MG TAB PO PRN (23:29)
[2017-05-04] MEDS ORDERED: RENALLY ADJUST ABX IVPB PRN (23:34)
[2017-05-04] MEDS ORDERED: Dextrose 5% in Water 1,000 ML IV PRN (23:36)
[2017-05-04] MEDS ORDERED: Dextrose 50% Abboject 50 ML SYRINGE SLOW IVP PRN (23:36)
--- NOTE | 2017-05-05 00:02 | HP ---
PRIMARY CARE PHYSICIAN: Saul Elkins M.D. at [facility]. CHIEF COMPLAINT: Cough and shortness of breath. HISTORY OF PRESENT ILLNESS: Mr. Salinas is a pleasant 76-year-old gentleman who was seen at [facility] on 05/04/2017. He reports that he has a history of COPD, followed by Dr. Palma. He was hospitalized at this facility in 03/2017 for COPD exacerbation. He reports that over the last week, he has had fever. He also reports that his cough has gotten worse. He reports that it is productive of green to dark yellow sputum. He also reports occasional chest tightness. He uses home oxygen and found that he was needing more oxygen at home. He also reports shortness of breath, on and off. He reports that the shortness of breath is worse with exertion. He came to the emergency room because of the above symptoms. REVIEW OF SYSTEMS: The following complete review of systems was negative, unless otherwise mentioned in the HPI or below: Constitutional: Weight loss or gain, ability to conduct usual activities. Skin: Rash, itching. Eyes: Double vision, pain. ENT/Mouth: Nose bleeding, neck stiffness, pain, tenderness. Cardiovascular: Palpitations, dyspnea on exertion, orthopnea. Respiratory: Shortness of breath, wheezing, cough, hemoptysis, fever or night sweats. Gastrointestinal: Poor appetite, abdominal pain, heartburn, nausea, vomiting, constipation, or diarrhea. Genitourinary: Urgency, frequency, dysuria, nocturia. Musculoskeletal: Pain, swelling. Neurologic/Psychiatric: Anxiety, depression. Allergy/Immunologic: Skin rash, bleeding tendency. PAST MEDICAL HISTORY: Significant for hypertension, dyslipidemia, diabetes mellitus, chronic respiratory failure with hypoxemia, COPD, and obesity. PAST SURGICAL HISTORY: Left shoulder surgery, left knee surgery and cyst removal from buttocks. SOCIAL HISTORY: The patient is an ex-smoker. He denies any alcohol use or recreational drug use. FAMILY HISTORY: Significant for diabetes mellitus. CODE STATUS: I discussed his code status. He is FULL CODE. Surrogate decision maker is his . ALLERGIES: No known drug allergies. CURRENT MEDICATIONS: Ventolin 2 puffs every 6 hours as needed, amlodipine 5 mg daily, Tessalon Perles p.r.n., Lasix 40 mg daily, Amaryl 4 mg daily, Mucinex 600 mg 2 times a day, [place] p.r.n., Atrovent HFA 2 puffs 4 times a day, DuoNeb p.r.n., losartan 100 mg daily, metformin 1000 mg 2 times a day, Protonix 40 mg daily, MiraLax 17 grams daily, potassium chloride 8 mEq daily, Zocor 40 mg at bedtime, Symbicort 2 puffs 2 times a day. PHYSICAL EXAMINATION: GENERAL: On examination, Mr. Salinas is awake and alert, not in acute distress. VITAL SIGNS: Blood pressure is 137/64, pulse is 78, he is breathing at rate of 24 and saturating 96% on room air. T-max in the emergency room was 101.8 degrees Fahrenheit. EYES: No scleral icterus. No conjunctival pallor. ENT: Moist mucosal membranes, no oropharyngeal erythema or exudates. NECK: Supple, nontender, normal range of movement. Trachea is midline. RESPIRATORY: Accessory muscles of breathing are mildly active. Chest wall movements are symmetric bilaterally. He has occasional expiratory wheeze, diminished air entry at both bases. CARDIOVASCULAR: S1 and S2 are heard, regular. LUNGS: Peripheral pulses palpable. No carotid bruit, no pericardial rub. ABDOMEN: Soft, nontender, bowel sounds heard, no hepatomegaly, no splenomegaly. NEUROLOGIC: Cranial nerves II-XII intact. Deep tendon reflexes are 2+. MUSCULOSKELETAL: Power is 5/5 in all 4 extremities. LYMPHATIC: No cervical lymphadenopathy. SKIN: No rashes or subcutaneous nodules. PSYCHIATRIC: Normal mood, normal affect. The patient is oriented to person, place, and time. LABORATORY DATA: Mr. Salinas's labs and investigations were reviewed. I reviewed his electrocardiogram, which shows normal sinus rhythm, no ST changes to suggest an acute coronary syndrome. I also reviewed his chest x-ray, which shows left basilar infiltrate. He has normal white count, macrocytic anemia with hemoglobin of 12.7, normal platelet count, normal electrolytes, normal creatinine and an unremarkable liver profile. Lactic acid is elevated at 2.8. BNP is slightly elevated at 120.5. ASSESSMENT AND PLAN: Mr. Salinas is a pleasant 76-year-old gentleman who was seen at [facility] on 05/04/2017. His problem list includes: 1. Sepsis: Mr. Salnias is presenting with sepsis, likely from pneumonia. He has received Zosyn, levofloxacin and vancomycin, which I will continue for now. 2. Pneumonia: Continue antibiotics as above. Consult Pulmonology Service for opinion and help with further management. 3. Diabetes mellitus. Start Accu-Cheks, insulin sliding scale. 4. Hypertension: Monitor vital signs, titrate antihypertensives as needed. 5. Dyslipidemia: Continue statin. Many thanks for allowing me to participate in your patient's care. Please feel free to contact me with any questions or concerns. LEVEL OF RISK: High. LEVEL OF COMPLEXITY: High. MTDD
[2017-05-05 04:44] LABS: #Eosinphils 0.4 thou/uL (0.0-0.7); #Lymphocytes 2.3 thou/uL (1.20-3.40); #Monocytes 1.3 thou/uL (0.11-0.59); #Neutrophils 4.8 thou/uL (1.40-6.50); %Basophils 0.3 % (0.0-1.0); %Eosinophils 4.6 % (0.0-10.0); %Lymphocytes 25.7 % (21.0-51.0); %Monocytes 14.6 % (0.0-10.0); %Neutrophils 54.8 % (42.0-75.0); Hemoglobin 11.5 g/dL (14.0-18.0); Mean Corpuscular HGB CONC 31.2 g/dL (32.0-36.0); Mean Corpuscular Hemoglobin 32.2 pg (27.0-31.0); Mean Platelet Volume 8.3 fL (7.4-10.4); Platelet Count 272 thou/uL (130-400); RBC Distribution Width 12.6 % (11.5-14.5); Red Blood Cell (RBC) Count 3.56 mill/uL (4.70-6.10); White Blood Cell (WBC) Count 8.8 thou/uL (4.8-10.8)
[2017-05-05 05:04] LABS: Anion Gap 12 mmol/L (10-20); BUN (Urea Nitrogen) 7 mg/dL (8.4-25.7); Calc. Creatinine Clearance 115 mL/min (70-130); Calcium 9.1 mg/dL (7.8-10.44); Carbon Dioxide 30 mmol/L (23-31); Chloride 101 mmol/L (98-107); Estimated GFR-MDRD Greater than 90; Glucose 127 mg/dL (83-110); Potassium 3.7 mmol/L (3.5-5.1); Sodium 139 mmol/L (136-145)
[2017-05-05] MEDS ORDERED: Piperacillin/Tazobactam 4.5 GM in Sodium Chloride 0.9% 100 ML IVPB SCH (06:00)
[2017-05-05] MEDS ORDERED: Vancomycin HCl 1.5 GM in Sodium Chloride 0.9% 250 ML 300 ML IVPB SCH ×3 (08:00→20:00)
[2017-05-05] MEDS: Enoxaparin Sodium 40 MG/0.4 ML SYRINGE SC SCH (10:08)
[2017-05-05] MEDS ORDERED: Benzonatate 100 MG CAP PO PRN (12:18)
--- NOTE | 2017-05-05 12:21 | PDOC.PN ---
- Subjective Encounter Start Date: 05/05/17 Encounter Start Time: 12:05 Subjective: f/u for LLL PNA and suspected sepsis on Levaquin, Zosyn and Vancomycin. -: Still wheezing and weak but no fever documented. Some productive cough - Objective Resuscitation Status: Resuscitation Status FULL:Full Resuscitation MAR Reviewed: Yes Vital Signs & Weight: Vital Signs (12 hours) Temp Pulse Resp BP Pulse Ox 05/05/17 11:22 98.6 F 69 22 H 139/67 99 05/05/17 10:11 79 24 H 95 05/05/17 07:31 98.9 F 85 22 H 145/56 H 92 L 05/05/17 06:08 73 24 H 94 L 05/05/17 05:32 99.2 F 97 22 H 175/77 H 93 L 05/05/17 00:43 96 20 100 05/05/17 00:41 98.3 F 69 18 137/62 99 Weight Weight 219 lb 14.401 oz Result Diagrams: 05/05/17 04:12 05/05/17 04:12 Additional Labs: Accuchecks 05/05/17 05/05/17 05/04/17 11:25 03:56 22:00 POC Glucose 168 H 128 H 132 H Microbiology 05/04/17 18:44 Nasal swab Influenza Types A,B Direct EIA - Final 05/05/17 06:55 Sputum Respiratory Culture - Preliminary 05/04/17 19:17 Venous blood - Right Hand Blood Culture - Preliminary Specimen has been received and culture in progress. No Growth to date. 05/04/17 19:17 Venous blood - Left Arm Blood Culture - Preliminary Specimen has been received and culture in progress. No Growth to date. Laboratory Tests 05/04/17 05/04/17 05/04/17 18:32 18:32 18:32 Hgb 12.7 L Lactic Acid 2.8 H B-Natriuretic Peptide 120.5 H 05/04/17 22:29 Hgb Lactic Acid 1.4 B-Natriuretic Peptide Phys Exam - Physical Examination Constitutional: NAD HEENT: PERRLA, oral pharynx no lesions Neck: no JVD, supple diffuse exp wheezing, diminished breath sounds in bases Cardiovascular: RRR Gastrointestinal: soft, non-tender, no distention, positive bowel sounds Musculoskeletal: no edema, pulses present Neurological: normal sensation, moves all 4 limbs Psychiatric: A&O x 3 Skin: normal turgor, cap refill <2 seconds Dx/Plan (1) LLL pneumonia Code(s): J18.1 - LOBAR PNEUMONIA, UNSPECIFIED ORGANISM Status: Acute Comment : Likely due to strep spp, continue Levaquin, d/c Vancomycin and Zosyn, Duonebs , Solumedrol (2) Sepsis Code(s): A41.9 - SEPSIS, UNSPECIFIED ORGANISM Status: Acute Comment: Suspected, mild, continue IV Levaquin and supportive therapy, resolving (3) Pulmonary edema Code(s): J81.1 - CHRONIC PULMONARY EDEMA Status: Suspected Comment: Lasix 40mg IV x 1 dose now, follow clinical response (4) DM2 (diabetes mellitus, type 2) Status: Chronic Qualifiers: Diabetes mellitus complication status: without complication Diabetes mellitus long term care administrator insulin use: without long term care administrator use Qualified Code(s): E11.9 - Type 2 diabetes mellitus without complications Comment: Resume Metformin and Amaryl, ISS (5) HTN (hypertension) Code(s): I10 - ESSENTIAL (PRIMARY) HYPERTENSION Status: Chronic Qualifiers: Hypertension type: essential hypertension Qualified Code(s): I10 - Essential (primary) hypertension Comment: Restart home BP regimen, monitor BP trend (6) Lactic acidosis Code(s): E87.2 - ACIDOSIS Status: Acute Comment: Resolved - Plan continue antibiotics, social studies teacher, respiratory therapy, out of bed/ambulate , DVT proph w/SCDs Stable overall -: Lasix 40mg IV x 1 dose now -: D/C Vancomycin and Zosyn -: Continue Levaquin -: AM lab: BMP * .
[2017-05-05] MEDS ORDERED: Furosemide 40 MG/4 ML VIAL SLOW IVP SCH (12:30)
--- NOTE | 2017-05-05 14:53 | CON ---
DATE OF CONSULTATION: 05/05/2017 A 70 minutes time was spent on this consultation, of that time 50% was spent with the patient and [facility] patient's unit CONSULTING PHYSICIAN: Hospitalist group. REASON FOR CONSULTATION: Pneumonia. HISTORY OF PRESENT ILLNESS: Mr. Salinas is a 76-year-old male with a history of significant COPD. He r equires home oxygen and has been to the hospital frequently over the last several months with exacerb ation of symptoms. He tells me he has been bad for about 1 week. His symptoms are characterized by cough, increased dark yellow sputum production, shortness of breath, and need for more oxygen. He is not currently taking any prednisone at home. PAST MEDICAL HISTORY: 1. Severe chronic obstructive pulmonary disease. 2. Hypoxemia. 3. Hypertension. 4. Hyperlipidemia. PAST SURGICAL HISTORY: 1. Left shoulder surgery. 2. Left knee surgery. 3. Cyst removal from the buttocks area. ALLERGIES: None. SOCIAL HISTORY: Quit smoking several years ago. Does not consume alcohol. Does not use illicit christine gs. FAMILY MEDICAL HISTORY: Unremarkable for COPD. MEDICATIONS: Prior to admission, ProAir HFA 2 puffs every 6 hours as needed, amlodipine 5 mg daily, Tessalon Perles 100 mg t.i.d. as needed, Lasix 40 mg daily, Amaryl 4 mg daily, Mucinex 600 mg b.i.d., Melvin as needed, ipratropium and albuterol nebulization treatments four times daily as needed, Symbi deo 160/4.5 two puffs twice daily, potassium chloride 8 mEq daily, Zocor 40 mg at night, MiraLax 17 grams daily, Protonix 40 mg daily, metformin 1000 mg b.i.d., losartan 100 mg daily. REVIEW OF SYSTEMS: Twelve-point review of systems, otherwise, negative. PHYSICAL EXAMINATION: VITAL SIGNS: Temperature 98.9, pulse 85, O2 sat 92% on 3 liters, blood pressure 145/56. GENERAL: He is sitting up in bed in no acute distress. HEENT EXAM: Pupils react. Sclerae icteric. Oropharynx clear. NECK: Coarse rhonchi heard from upper airways. No lymphadenopathy, no JVD, no thyromegaly. LUNGS: Coarse rhonchi with end-expiratory wheezing. CARDIOVASCULAR: S1, S2 regular, without murmur. ABDOMEN: Soft, nontender, nondistended. EXTREMITIES: No clubbing, cyanosis, or edema. SKIN: No bruising or jaundice. He moves all 4 extremities without difficulty. LABORATORY DATA: Sodium 139, potassium 3.7, chloride 101, CO2 of 30, BUN 7, creatinine 0.7, glucose 127. White blood cell count 8.8, hematocrit 36.8, platelet count 272. Chest x-ray was reviewed pers onally by myself shows cardiomegaly without evidence of acute mass or effusion. ASSESSMENT: 1. Chronic obstructive pulmonary disease with exacerbation. 2. Chronic hypoxic respiratory failure. RECOMMENDATIONS: I would treat this with antibiotics, steroids, and nebulization treatments at the 4 as on this morning. He was not on IV steroids. So, I will go ahead and start that. I will increas e nebulization treatments to every 4 hours. The antibiotics can likely be simplified in the next day or two.
[2017-05-05] MEDS ORDERED: Non-Formulary Item 1 EACH (Metformin Hcl [Metformin Hcl] 1,000 MG) PO SCH (17:00)
[2017-05-05] MEDS: metFORMIN 500 MG TAB PO SCH (18:21)
[2017-05-05] MEDS: Mometasone/Formoterol 120 PUFF INHALER INH SCH (18:26)
[2017-05-05] MEDS: guaiFENesin/DM ER PO SCH (20:15)
[2017-05-05] MEDS: guaiFENesin ER 600 MG TAB PO SCH (20:50)
[2017-05-05] MEDS: HumaLOG 300 UNITS/3 ML VIAL SC PRN (20:57)
[2017-05-06 04:54] LABS: Anion Gap 13 mmol/L (10-20); BUN (Urea Nitrogen) 10 mg/dL (8.4-25.7); Calc. Creatinine Clearance 118 mL/min (70-130); Calcium 9.5 mg/dL (7.8-10.44); Carbon Dioxide 32 mmol/L (23-31); Chloride 99 mmol/L (98-107); Estimated GFR-MDRD Greater than 90; Glucose 210 mg/dL (83-110); Potassium 4.5 mmol/L (3.5-5.1); Sodium 139 mmol/L (136-145)
[2017-05-06] MEDS: HumaLOG 300 UNITS/3 ML VIAL SC PRN ×4 (05:39→20:33)
[2017-05-06] MEDS: Mometasone/Formoterol 120 PUFF INHALER INH SCH ×2 (07:05→23:22)
[2017-05-06] MEDS: Potassium Chloride 8 MEQ TAB PO SCH (08:19)
[2017-05-06] MEDS: Amlodipine 5 MG TAB PO SCH (08:19)
[2017-05-06] MEDS: Glimepiride 4 MG TAB PO SCH (08:19)
[2017-05-06] MEDS: Polyethylene Glycol 3350 17 GM Packet PO SCH (08:20)
[2017-05-06] MEDS: metFORMIN 500 MG TAB PO SCH ×2 (08:20→17:49)
[2017-05-06] MEDS: guaiFENesin ER 600 MG TAB PO SCH ×3 (08:20→20:30)
[2017-05-06] MEDS: Furosemide 40 MG TAB PO SCH (08:20)
[2017-05-06] MEDS: Losartan 25 MG TAB PO SCH (08:20)
[2017-05-06] MEDS: guaiFENesin/DM ER PO SCH ×3 (08:20→20:30)
[2017-05-06] MEDS: Enoxaparin Sodium 40 MG/0.4 ML SYRINGE SC SCH (08:20)
[2017-05-06] MEDS ORDERED: Non-Formulary Item 1 EACH (Potassium Chloride [Potassium Chloride] 8 MEQ) PO SCH (09:00)
[2017-05-06] MEDS ORDERED: Non-Formulary Item 1 EACH (Losartan Potassium [Cozaar] 100 MG) PO SCH (09:00)
[2017-05-06 09:24] LABS: Vancomycin, Trough 4.3 ug/mL
--- NOTE | 2017-05-06 09:27 | PRG ---
DATE OF SERVICE: 05/06/2017 The patient is doing reasonably well, has no complaints. PHYSICAL EXAMINATION: VITAL SIGNS: Temperature 98.7, pulse 77, blood pressure 169/57, O2 sat 95%. HEENT: Unremarkable. NECK: No JVD. CHEST: Chest with bilateral wheezing. CARDIAC: S1 and S2 regular. ABDOMEN: Soft. EXTREMITIES: No edema. LABORATORY DATA: Sodium 139, potassium 4.5, BUN 10, creatinine 0.7, glucose 210. ASSESSMENT: Chronic obstructive pulmonary disease with exacerbation. PLAN: Continue breathing treatments, antibiotics, steroids and give him some time.
--- NOTE | 2017-05-06 19:20 | PDOC.PN ---
- Subjective Encounter Start Date: 05/06/17 Encounter Start Time: 13:10 Subjective: f/u for PNA and COPD exacerbation. Overall improved but still wheezing -: and weakened. + cough - Objective Resuscitation Status: Resuscitation Status FULL:Full Resuscitation MAR Reviewed: Yes Vital Signs & Weight: Vital Signs (12 hours) Temp Pulse Resp BP BP Pulse Ox 05/06/17 16:59 98.9 F 76 20 144/63 H 96 05/06/17 14:07 82 20 93 L 05/06/17 12:00 98.5 F 81 18 135/60 91 L 05/06/17 10:41 72 20 92 L 05/06/17 08:19 77 169/57 H 05/06/17 08:00 98.5 F 76 18 169/57 H 95 Weight Weight 219 lb 14.401 oz Result Diagrams: 05/05/17 04:12 05/06/17 04:17 Additional Labs: Accuchecks 05/06/17 05/06/17 05/06/17 16:38 11:47 05:38 POC Glucose 216 H 190 H 206 H 05/05/17 20:10 POC Glucose 283 H Microbiology 05/04/17 18:44 Nasal swab Influenza Types A,B Direct EIA - Final 05/05/17 06:55 Sputum Respiratory Culture - Preliminary 05/05/17 06:55 Sputum Respiratory Culture - Preliminary 05/04/17 19:17 Venous blood - Right Hand Blood Culture - Preliminary Specimen has been received and culture in progress. No Growth to date. 05/04/17 19:17 Venous blood - Right Hand Blood Culture - Preliminary NO GROWTH AT 48 HOURS 05/04/17 19:17 Venous blood - Left Arm Blood Culture - Preliminary Specimen has been received and culture in progress. No Growth to date. 05/04/17 19:17 Venous blood - Left Arm Blood Culture - Preliminary NO GROWTH AT 48 HOURS Laboratory Tests 05/04/17 05/04/17 05/04/17 18:32 18:32 18:32 Hgb 12.7 L Lactic Acid 2.8 H B-Natriuretic Peptide 120.5 H 05/04/17 22:29 Hgb Lactic Acid 1.4 B-Natriuretic Peptide Phys Exam - Physical Examination Constitutional: NAD HEENT: PERRLA, oral pharynx no lesions Neck: no JVD, supple bilat wheezing in all jules diminished breath sounds in bases Cardiovascular: RRR Gastrointestinal: soft, non-tender, no distention, positive bowel sounds Musculoskeletal: no edema, pulses present Neurological: normal sensation, moves all 4 limbs Psychiatric: A&O x 3 Skin: normal turgor, cap refill <2 seconds Dx/Plan (1) Acute on chronic respiratory failure with hypoxia Code(s): J96.21 - ACUTE AND CHRONIC RESPIRATORY FAILURE WITH HYPOXIA Status: Acute Comment: Continue supportive mgmt as outlined below, near baseline home O2 requirements (2) COPD exacerbation Code(s): J44.1 - CHRONIC OBSTRUCTIVE PULMONARY DISEASE W (ACUTE) EXACERBATION Status: Acute Comment: See below, continue Duonebs, Solumedrol, Dulera (3) LLL pneumonia Code(s): J18.1 - LOBAR PNEUMONIA, UNSPECIFIED ORGANISM Status: Acute Comment : Likely due to strep spp, continue Levaquin, d/c Vancomycin and Zosyn, Duonebs , Solumedrol (4) Sepsis Code(s): A41.9 - SEPSIS, UNSPECIFIED ORGANISM Status: Acute Comment: Suspected, mild, continue IV Levaquin and supportive therapy, resolving (5) Pulmonary edema Code(s): J81.1 - CHRONIC PULMONARY EDEMA Status: Suspected Comment: Lasix 40mg IV x 1 dose now, follow clinical response (6) DM2 (diabetes mellitus, type 2) Status: Chronic Qualifiers: Diabetes mellitus complication status: without complication Diabetes mellitus termite technician insulin use: without prison use Qualified Code(s): E11.9 - Type 2 diabetes mellitus without complications Comment: Resume Metformin and Amaryl, ISS (7) HTN (hypertension) Code(s): I10 - ESSENTIAL (PRIMARY) HYPERTENSION Status: Chronic Qualifiers: Hypertension type: essential hypertension Qualified Code(s): I10 - Essential (primary) hypertension Comment: Restart home BP regimen, monitor BP trend (8) Lactic acidosis Code(s): E87.2 - ACIDOSIS Status: Acute Comment: Resolved - Plan continue antibiotics, social media content specialist, respiratory therapy, out of bed/ambulate , DVT proph w/SCDs Stable overall -: Continue Levaquin 750mg daily -: Continue Solumedrol -: Duonebs, Dulera -: Mucolytics prn * .
[2017-05-07] MEDS: HumaLOG 300 UNITS/3 ML VIAL SC PRN ×2 (05:31→12:34)
[2017-05-07] MEDS: Mometasone/Formoterol 120 PUFF INHALER INH SCH ×2 (06:46→19:13)
[2017-05-07] MEDS: metFORMIN 500 MG TAB PO SCH ×2 (07:42→17:39)
[2017-05-07] MEDS: Losartan 25 MG TAB PO SCH (07:42)
[2017-05-07] MEDS: guaiFENesin/DM ER PO SCH ×2 (07:42→22:49)
[2017-05-07] MEDS: Amlodipine 5 MG TAB PO SCH (07:42)
[2017-05-07] MEDS: Glimepiride 4 MG TAB PO SCH (07:42)
[2017-05-07] MEDS: Polyethylene Glycol 3350 17 GM Packet PO SCH (07:43)
[2017-05-07] MEDS: guaiFENesin ER 600 MG TAB PO SCH ×2 (07:43→23:37)
[2017-05-07] MEDS: Enoxaparin Sodium 40 MG/0.4 ML SYRINGE SC SCH (07:43)
[2017-05-07] MEDS: Furosemide 40 MG TAB PO SCH (07:43)
[2017-05-07] MEDS: Potassium Chloride 8 MEQ TAB PO SCH (07:43)
--- NOTE | 2017-05-07 09:38 | PRG ---
DATE OF SERVICE: 05/07/2017 SUBJECTIVE: The patient is doing better. OBJECTIVE: VITAL SIGNS: Temperature 98.1, pulse 78, respiration 16, O2 sat 92% on 3 liters, blood pressure 154/ 62. HEENT: Unremarkable. NECK: No JVD. CHEST: Clear without wheezing. CARDIAC: S1 and S2 regular. ABDOMEN: Soft. EXTREMITIES: No edema. ASSESSMENT: Chronic obstructive pulmonary disease with exacerbation. PLAN: He can be switched over to oral medication with plans for discharge to home by tomorrow.
--- NOTE | 2017-05-07 10:46 | PDOC.PN ---
- Subjective Encounter Start Date: 05/07/17 Encounter Start Time: 10:00 Subjective: breathing better, still has sob - Objective Resuscitation Status: Resuscitation Status FULL:Full Resuscitation MAR Reviewed: Yes Vital Signs & Weight: Vital Signs (12 hours) Temp Pulse Resp BP Pulse Ox 05/07/17 10:41 78 14 05/07/17 07:00 98.1 F 78 16 154/62 H 92 L 05/07/17 06:48 70 14 05/07/17 04:34 98.7 F 97 20 137/62 96 05/07/17 00:00 98.7 F 69 20 119/70 100 Weight Weight 219 lb 14.401 oz Result Diagrams: 05/05/17 04:12 05/06/17 04:17 Additional Labs: Accuchecks 05/07/17 05/06/17 05/06/17 04:34 20:34 16:38 POC Glucose 222 H 260 H 216 H 05/06/17 11:47 POC Glucose 190 H Phys Exam - Physical Examination HEENT: PERRLA, moist MMs Neck: no JVD, supple Respiratory: no rales rhonchi+ Cardiovascular: RRR, no significant murmur Gastrointestinal: soft, non-tender, positive bowel sounds Musculoskeletal: no edema, pulses present Neurological: non-focal, moves all 4 limbs Psychiatric: A&O x 3 Dx/Plan (1) Acute on chronic respiratory failure with hypoxia Code(s): J96.21 - ACUTE AND CHRONIC RESPIRATORY FAILURE WITH HYPOXIA Status: Acute Comment: Continue supportive mgmt as outlined below, near baseline home O2 requirements (2) COPD exacerbation Code(s): J44.1 - CHRONIC OBSTRUCTIVE PULMONARY DISEASE W (ACUTE) EXACERBATION Status: Acute Comment: See below, continue Duonebs, Solumedrol, Dulera (3) DM2 (diabetes mellitus, type 2) Status: Chronic Qualifiers: Diabetes mellitus complication status: without complication Diabetes mellitus longterm insulin use: without longterm use Qualified Code(s): E11.9 - Type 2 diabetes mellitus without complications Comment: Resume Metformin and Amaryl, ISS (4) HLD (hyperlipidemia) Code(s): E78.5 - HYPERLIPIDEMIA, UNSPECIFIED Status: Chronic Qualifiers: Hyperlipidemia type: unspecified Qualified Code(s): E78.5 - Hyperlipidemia , unspecified (5) HTN (hypertension) Code(s): I10 - ESSENTIAL (PRIMARY) HYPERTENSION Status: Chronic Qualifiers: Hypertension type: essential hypertension Qualified Code(s): I10 - Essential (primary) hypertension (6) Obesity (BMI 30-39.9) Code(s): E66.9 - OBESITY, UNSPECIFIED Status: Chronic - Plan hemostable -: on duonebs, levaquin and prednisone bid -: dm is labile due to steroids, is getting tapered -: to amb in hallway -: dc plan in am * . Review of Systems - Medications/Allergies Allergies/Adverse Reactions: Allergies Allergy/AdvReac Type Severity Reaction Status Date / Time No Known Allergies Allergy Verified 05/04/17 22:03 Medications: Current Medications Acetaminophen (Tylenol) 650 mg PO Q4H PRN PRN Reason: Headache/Fever or Pain Acetaminophen (Tylenol) 650 mg IA Q4H PRN PRN Reason: Headache/Fever or Pain Albuterol/Ipratropium (Duoneb) 3 ml NEB Q6H PRN PRN Reason: SOB &/or Wheezing Albuterol/Ipratropium (Duoneb) 3 ml NEB [id number] SCH Last Admin: 05/07/17 10:41 Dose: 3 ml Amlodipine Besylate (Norvasc) 5 mg PO DAILY [facility] Last Admin: 05/07/17 07:42 Dose: 5 mg Benzonatate (Tessalon) 100 mg PO TID PRN PRN Reason: Cough Bisacodyl (Dulcolax) 10 mg PO DAILYPRN PRN PRN Reason: Constipation Dextrose/Water (Dextrose 50%) 25 gm SLOW IVP PRN PRN PRN Reason: Hypoglycemia Enoxaparin Sodium (Lovenox) 40 mg SC 0900 [facility] Last Admin: 05/07/17 07:43 Dose: 40 mg Furosemide (Lasix) 40 mg PO DAILY [facility] Last Admin: 05/07/17 07:43 Dose: 40 mg Glimepiride (Amaryl) 4 mg PO QAM-[facility] Last Admin: 05/07/17 07:42 Dose: 4 mg Glucagon (Glucagon) 1 mg IM PRN PRN PRN Reason: Hypoglycemia Guaifenesin (Mucinex) 600 mg PO Q12HR [facility] Last Admin: 05/07/17 07:43 Dose: 600 mg Guaifenesin/Dextromethorphan (Mucinex Dm) 1 tab PO Q12HR [facility] Last Admin: 05/07/17 07:42 Dose: 1 tab Dextrose/Water (D5w) 1,000 mls @ 0 mls/hr IV .Q0M PRN; As Directed PRN Reason: Hypoglycemia Insulin Human Lispro (Humalog) 0 units SC .MILD SLIDING SCALE PRN PRN Reason: Mild Correctional Scale Last Admin: 05/07/17 05:31 Dose: 3 unit Levofloxacin (Levaquin) 750 mg PO 1999 [facility] Losartan Potassium (Cozaar) 100 mg PO DAILY [facility] Last Admin: 05/07/17 07:42 Dose: 100 mg Metformin HCl (Glucophage) 1,000 mg PO BID-[facility] Last Admin: 05/07/17 07:42 Dose: 1,000 mg Miscellaneous Medication (Pharmacy To Dose) 1 each IVPB ONE PRN PRN Reason: Pharmacy to dose Stop: 05/14/17 23:35 Mometasone Furoate/Formoterol Fumar (Dulera 200 Mcg/5 Mcg Inhaler) 2 puff INH BID-RT [facility] Last Admin: 05/07/17 06:46 Dose: 2 puff Polyethylene Glycol (Miralax) 17 gm PO DAILY [facility] Last Admin: 05/07/17 07:43 Dose: 17 gm Potassium Chloride (Slow-K 8 Meq) 8 meq PO DAILY [facility] Last Admin: 05/07/17 07:43 Dose: 8 meq Prednisone (Prednisone) 20 mg PO BID-WM [facility] Sodium Chloride (Flush - Normal Saline) 10 ml IVF PRN PRN PRN Reason: Saline Flush
[2017-05-07] MEDS: predniSONE 20 MG TAB PO SCH (17:39)
[2017-05-08] MEDS: Mometasone/Formoterol 120 PUFF INHALER INH SCH ×2 (06:45→18:46)
[2017-05-08] MEDS: HumaLOG 300 UNITS/3 ML VIAL SC PRN ×2 (06:45→18:00)
[2017-05-08] MEDS: guaiFENesin/DM ER PO SCH ×2 (08:18→20:18)
[2017-05-08] MEDS: metFORMIN 500 MG TAB PO SCH ×2 (08:18→17:59)
[2017-05-08] MEDS: Enoxaparin Sodium 40 MG/0.4 ML SYRINGE SC SCH (08:18)
[2017-05-08] MEDS: predniSONE 20 MG TAB PO SCH ×2 (08:18→18:00)
[2017-05-08] MEDS: Potassium Chloride 8 MEQ TAB PO SCH (08:18)
[2017-05-08] MEDS: Glimepiride 4 MG TAB PO SCH (08:18)
[2017-05-08] MEDS: Furosemide 40 MG TAB PO SCH (08:18)
[2017-05-08] MEDS: Losartan 25 MG TAB PO SCH (08:18)
[2017-05-08] MEDS: Amlodipine 5 MG TAB PO SCH (08:18)
[2017-05-08] MEDS: Polyethylene Glycol 3350 17 GM Packet PO SCH (08:19)
--- NOTE | 2017-05-08 08:31 | PRG ---
DATE OF SERVICE: 05/08/2017 He feels better, has no complaints. PHYSICAL EXAMINATION: VITAL SIGNS: Temperature 98.0, pulse 68, respirations 12, O2 sat 98%, blood pressure 162/73. HEENT: Unremarkable. NECK: No JVD. CHEST: Clear. CARDIAC: S1 and S2 regular. ABDOMEN: Soft. EXTREMITIES: No edema. ASSESSMENT: Chronic obstructive pulmonary disease exacerbation. PLAN: He is stable for discharge. He needs to be tapered on his steroids for about 2 weeks and comp lete a week of antibiotics. Continue his other pulmonary medications. Follow up in the office in 1 month.
--- NOTE | 2017-05-08 12:05 | PQF ---
CLINICAL DOCUMENTATION IMPROVEMENT CLARIFICATION FORM: ICD-10 Updated PLEASE DO AN ADDENDUM TO THE PROGRESS NOTE WITH ANY DOCUMENTATION UPDATES OR ADDITIONS AND CARRY THROUGH TO DC SUMMARY. THANK YOU. DATE: 05/08/17 ATTN: Dr. Weiss Please exercise your independent, professional judgment in responding to the clarification form. Clinical indicators are provided on the bottom of this form for your review Please check appropriate box(s) to clarify if the following diagnosis has been ruled in our ruled out: SEPSIS (H&P & PN'S) . [ ] Ruled in diagnosis [ ] Continue to treat [ ] Resolved [ x ] Ruled out diagnosis [ ] Cannot rule out diagnosis [ x ] Other diagnosis ___had copd exacerbation [ ] Unable to determine In addition, please specify: Present on Admission (POA): [ ] Yes [ ] No [ ] Unable to determine For continuity of documentation, please document condition throughout progress notes and discharge summary. Thank You. CLINICAL INDICATORS - SIGNS / SYMPTOMS / LABS H&P: BREATHING AT RATE OF 24. T-MAX IN ER WAS 101.8 DEGREES F LACTIC ACID 2.8 ASSESSMENT: PRESENTING WITH SEPSIS, LIKELY FROM PNEUMONIA. PN 6 & 3: LLL PNEUMONIA. LIKELY D/T STREP SPP. SEPSIS. SUSPECTED, MILD PN 05/07: COPD EXACERBATION. ACUTE RISKS: H&P: HX SIGNIFICANT FOR HYPERTENSION, DM, CHRONIC RESPIRATORY FAILURE W/ HYPOXEMIA, COPD. TREATMENT: CPOE 3: LEVAQUIN 750 IV 1999. DC'D 05/07/17. CPOE 3/8: LEVAQUIN 750 MG PO Thank you, Domonique (This form is maintained as a part of the permanent medical record) 2015 [employer]. All Rights Reserved Domonique Dyson RN, BSN [email or web address] Office: [phone] [facility]
--- NOTE | 2017-05-08 13:48 | PDOC.PN ---
- Subjective Encounter Start Date: 05/08/17 Encounter Start Time: 11:30 Subjective: breathing better, says he is still not ready to go home yet - Objective Resuscitation Status: Resuscitation Status FULL:Full Resuscitation MAR Reviewed: Yes Vital Signs & Weight: Vital Signs (12 hours) Temp Pulse Resp BP Pulse Ox 05/08/17 11:10 61 12 05/08/17 08:15 98.6 F 68 20 127/63 98 05/08/17 08:00 98.6 F 68 20 98 05/08/17 06:45 68 12 05/08/17 06:32 98 05/08/17 06:31 68 12 05/08/17 04:43 98.0 F 74 20 163/73 H 96 Weight Weight 219 lb 14.401 oz Result Diagrams: 05/05/17 04:12 05/06/17 04:17 Additional Labs: Accuchecks 05/08/17 05/08/17 05/07/17 11:14 04:47 20:20 POC Glucose 153 H 220 H 176 H 05/07/17 15:57 POC Glucose 135 H Phys Exam - Physical Examination HEENT: PERRLA, moist MMs Neck: no JVD, supple Respiratory: no wheezing, no rales rhonchi+ Cardiovascular: RRR, no significant murmur, no rub Gastrointestinal: soft, non-tender, positive bowel sounds Musculoskeletal: no edema, pulses present Neurological: non-focal, moves all 4 limbs Psychiatric: A&O x 3 Dx/Plan (1) Acute on chronic respiratory failure with hypoxia Code(s): J96.21 - ACUTE AND CHRONIC RESPIRATORY FAILURE WITH HYPOXIA Status: Acute Comment: Continue supportive mgmt as outlined below, near baseline home O2 requirements (2) COPD exacerbation Code(s): J44.1 - CHRONIC OBSTRUCTIVE PULMONARY DISEASE W (ACUTE) EXACERBATION Status: Acute Comment: See below, continue Duonebs, Solumedrol, Dulera (3) DM2 (diabetes mellitus, type 2) Status: Chronic Qualifiers: Diabetes mellitus complication status: without complication Diabetes mellitus senior living insulin use: without termite control technician use Qualified Code(s): E11.9 - Type 2 diabetes mellitus without complications Comment: Resume Metformin and Amaryl, ISS (4) HLD (hyperlipidemia) Code(s): E78.5 - HYPERLIPIDEMIA, UNSPECIFIED Status: Chronic Qualifiers: Hyperlipidemia type: unspecified Qualified Code(s): E78.5 - Hyperlipidemia , unspecified (5) HTN (hypertension) Code(s): I10 - ESSENTIAL (PRIMARY) HYPERTENSION Status: Chronic Qualifiers: Hypertension type: essential hypertension Qualified Code(s): I10 - Essential (primary) hypertension (6) Obesity (BMI 30-39.9) Code(s): E66.9 - OBESITY, UNSPECIFIED Status: Chronic - Plan is on nebs, prednisone bid and levaquin -: to amb in hallway as tolerated -: is chronically on home oxygen -: dc plan in am * . Review of Systems - Medications/Allergies Allergies/Adverse Reactions: Allergies Allergy/AdvReac Type Severity Reaction Status Date / Time No Known Allergies Allergy Verified 05/04/17 22:03 Medications: Current Medications Acetaminophen (Tylenol) 650 mg PO Q4H PRN PRN Reason: Headache/Fever or Pain Last Admin: 05/07/17 15:04 Dose: 650 mg Acetaminophen (Tylenol) 650 mg OR Q4H PRN PRN Reason: Headache/Fever or Pain Albuterol/Ipratropium (Duoneb) 3 ml NEB Q6H PRN PRN Reason: SOB &/or Wheezing Last Admin: 05/08/17 00:26 Dose: 3 ml Albuterol/Ipratropium (Duoneb) 3 ml NEB [id number] SCH Last Admin: 05/08/17 11:10 Dose: 3 ml Amlodipine Besylate (Norvasc) 5 mg PO DAILY [facility] Last Admin: 05/08/17 08:18 Dose: 5 mg Benzonatate (Tessalon) 100 mg PO TID PRN PRN Reason: Cough Bisacodyl (Dulcolax) 10 mg PO DAILYPRN PRN PRN Reason: Constipation Dextrose/Water (Dextrose 50%) 25 gm SLOW IVP PRN PRN PRN Reason: Hypoglycemia Enoxaparin Sodium (Lovenox) 40 mg SC 0900 [facility] Last Admin: 05/08/17 08:18 Dose: 40 mg Furosemide (Lasix) 40 mg PO DAILY [facility] Last Admin: 05/08/17 08:18 Dose: 40 mg Glimepiride (Amaryl) 4 mg PO QAM-[facility] Last Admin: 05/08/17 08:18 Dose: 4 mg Glucagon (Glucagon) 1 mg IM PRN PRN PRN Reason: Hypoglycemia Guaifenesin/Dextromethorphan (Mucinex Dm) 1 tab PO Q12HR [facility] Last Admin: 05/08/17 08:18 Dose: 1 tab Dextrose/Water (D5w) 1,000 mls @ 0 mls/hr IV .Q0M PRN; As Directed PRN Reason: Hypoglycemia Insulin Human Lispro (Humalog) 0 units SC .MILD SLIDING SCALE PRN PRN Reason: Mild Correctional Scale Last Admin: 05/08/17 06:45 Dose: 3 unit Levofloxacin (Levaquin) 750 mg PO 1999 [facility] Last Admin: 05/07/17 22:49 Dose: 750 mg Losartan Potassium (Cozaar) 100 mg PO DAILY [facility] Last Admin: 05/08/17 08:18 Dose: 100 mg Metformin HCl (Glucophage) 1,000 mg PO BID-[facility] Last Admin: 05/08/17 08:18 Dose: 1,000 mg Miscellaneous Medication (Pharmacy To Dose) 1 each IVPB ONE PRN PRN Reason: Pharmacy to dose Stop: 05/14/17 23:35 Mometasone Furoate/Formoterol Fumar (Dulera 200 Mcg/5 Mcg Inhaler) 2 puff INH BID-RT [facility] Last Admin: 05/08/17 06:45 Dose: 2 puff Polyethylene Glycol (Miralax) 17 gm PO DAILY [facility] Last Admin: 05/08/17 08:19 Dose: 17 gm Potassium Chloride (Slow-K 8 Meq) 8 meq PO DAILY [facility] Last Admin: 05/08/17 08:18 Dose: 8 meq Prednisone (Prednisone) 20 mg PO BID-[facility] Last Admin: 05/08/17 08:18 Dose: 20 mg Sodium Chloride (Flush - Normal Saline) 10 ml IVF PRN PRN PRN Reason: Saline Flush
[2017-05-09] MEDS: HumaLOG 300 UNITS/3 ML VIAL SC PRN (06:07)
[2017-05-09] MEDS: Mometasone/Formoterol 120 PUFF INHALER INH SCH (07:26)
[2017-05-09] MEDS: Enoxaparin Sodium 40 MG/0.4 ML SYRINGE SC SCH (09:16)
[2017-05-09] MEDS: metFORMIN 500 MG TAB PO SCH (09:17)
[2017-05-09] MEDS: guaiFENesin/DM ER PO SCH (09:17)
[2017-05-09] MEDS: Furosemide 40 MG TAB PO SCH (09:17)
[2017-05-09] MEDS: Potassium Chloride 8 MEQ TAB PO SCH (09:17)
[2017-05-09] MEDS: Glimepiride 4 MG TAB PO SCH (09:18)
[2017-05-09] MEDS: predniSONE 20 MG TAB PO SCH (09:18)
[2017-05-09] MEDS: Polyethylene Glycol 3350 17 GM Packet PO SCH (09:18)
[2017-05-09] MEDS: Amlodipine 5 MG TAB PO SCH (09:18)
[2017-05-09] MEDS: Losartan 25 MG TAB PO SCH (09:18)
[2017-05-09 11:36] VITALS: BP 131/57; TEMP 98.3
--- NOTE | 2017-05-09 12:07 | PDOC.PN ---
- Subjective Encounter Start Date: 05/09/17 Encounter Start Time: 07:00 Subjective: feels better, no sob - Objective Resuscitation Status: Resuscitation Status FULL:Full Resuscitation MAR Reviewed: Yes Vital Signs & Weight: Vital Signs (12 hours) Temp Pulse Resp BP BP Pulse Ox 05/09/17 11:35 98.3 F 75 19 131/57 L 92 L 05/09/17 10:34 65 16 100 05/09/17 09:18 65 145/68 H 05/09/17 08:00 97.4 F L 65 19 100 05/09/17 07:43 97.4 F L 65 19 145/68 H 100 05/09/17 07:24 72 16 96 Weight Weight 219 lb 14.401 oz Result Diagrams: 05/05/17 04:12 05/06/17 04:17 Additional Labs: Accuchecks 05/09/17 05/09/17 05/08/17 11:10 05:27 20:07 POC Glucose 160 H 208 H 168 H 05/08/17 17:03 POC Glucose 244 H Phys Exam - Physical Examination HEENT: PERRLA, moist MMs Neck: no JVD, supple Respiratory: no wheezing, no rales rhonchi+ Cardiovascular: RRR, no significant murmur Gastrointestinal: soft, non-tender, no distention, positive bowel sounds Musculoskeletal: no edema, pulses present Neurological: non-focal, moves all 4 limbs Psychiatric: normal affect, A&O x 3 Dx/Plan (1) Acute on chronic respiratory failure with hypoxia Code(s): J96.21 - ACUTE AND CHRONIC RESPIRATORY FAILURE WITH HYPOXIA Status: Acute Comment: Continue supportive mgmt as outlined below, near baseline home O2 requirements (2) COPD exacerbation Code(s): J44.1 - CHRONIC OBSTRUCTIVE PULMONARY DISEASE W (ACUTE) EXACERBATION Status: Acute Comment: See below, continue Duonebs, Solumedrol, Dulera (3) DM2 (diabetes mellitus, type 2) Status: Chronic Qualifiers: Diabetes mellitus complication status: without complication Diabetes mellitus alf insulin use: without alf use Qualified Code(s): E11.9 - Type 2 diabetes mellitus without complications Comment: Resume Metformin and Amaryl, ISS (4) HLD (hyperlipidemia) Code(s): E78.5 - HYPERLIPIDEMIA, UNSPECIFIED Status: Chronic Qualifiers: Hyperlipidemia type: unspecified Qualified Code(s): E78.5 - Hyperlipidemia , unspecified (5) HTN (hypertension) Code(s): I10 - ESSENTIAL (PRIMARY) HYPERTENSION Status: Chronic Qualifiers: Hypertension type: essential hypertension Qualified Code(s): I10 - Essential (primary) hypertension (6) Obesity (BMI 30-39.9) Code(s): E66.9 - OBESITY, UNSPECIFIED Status: Chronic - Plan hemostable -: steroid taper, oral levaquin -: dc pt home * .
--- NOTE | 2017-05-09 14:38 | PRG ---
DATE OF SERVICE: 05/09/2017 SUBJECTIVE: Mr. Salinas says he is being discharged home. He has oxygen and nebulizer at the house. H is lungs were free of wheezes. When I evaluated her this morning, he was walking around the room and said he felt fine. OBJECTIVE: HEART: Regular rhythm. ABDOMEN: Soft. IMPRESSION: Chronic obstructive pulmonary disease with pneumonia. He needs to be seen by Dr. Srini ceron in the next 2-3 weeks with a chest radiograph, should go home with steroid taper and continue with his antimicrobial therapy.
--- NOTE | 2017-05-09 18:26 | DIS ---
DATE OF ADMISSION: 05/04/2017 DATE OF DISCHARGE: 05/09/2017 DISCHARGE DISPOSITION: To home. PRIMARY DISCHARGE DIAGNOSES: Acute on chronic respiratory failure, acute chronic obstructive pulmona ry disease exacerbation. SECONDARY DISCHARGE DIAGNOSES: Diabetes mellitus type 2, hypertension, dyslipidemia, obesity. PROCEDURES DONE DURING HOSPITALIZATION: Chest x-ray done on the day of admission showed pulmonary va scular congestion, patchy opacity in the left lung base concerning for edema. Blood cultures x2, no growth. Influenza A and B antigens were negative. Respiratory cultures grew normal respiratory marge a, H&H was 11 and 36, platelet count 272, MCV is 103. BNP was 120, BUN 7, creatinine 0.9. DISCHARGE MEDICATIONS: Prednisone tapering dose starting at 10 mg 3 times a day to taper over a cour se of 16 days, albuterol inhaler q.6 hourly p.r.n., DuoNeb q.6 hourly, Lasix 40 mg p.o. daily, Norvas c 5 mg p.o. daily, glimepiride 4 mg p.o. daily, [place] p.r.n. for pain, Levaquin 500 mg p.o. daily for another 4 days, Cozaar 100 mg p.o. daily, metformin 1000 mg p.o. twice daily, Protonix 40 mg p.o. da shira, MiraLax 17 grams p.o. daily, potassium chloride 8 mEq p.o. daily, simvastatin 40 mg p.o. at bedt giorgi, Symbicort inhaler 2 puffs twice daily. ALLERGIES: No known drug allergies. INPATIENT CONSULTS: Dr. Palma for Pulmonology. BRIEF COURSE DURING HOSPITALIZATION: Patient initially got admitted on the with complaints of co ugh and shortness of breath. The patient has known history of COPD and is on home oxygen. He was ad mitted for acute on chronic respiratory failure with acute COPD exacerbation. He was placed on stero ids along with empiric antibiotics and consultation with Dr. Palma, his guide excursion. The patient has had slow and gentle recovery. This morning, he is ambulating and eating well. He is at his bas armand oxygen use by nasal cannula. He needs to continue steroid taper over a course of 16 days. He needs to follow up with Dr. Palma as advised and primary care physician in 1 week. Please see a fa ce-to-face documentation on [facility] for the day of discharge.
== END 2017-05-09 12:15 | disposition home or self-care (01) | DRG 193 ==
LOC: ERS 18:17 → T4-A 20:00
PROVIDERS: ADMIT Family Medicine; ATTEND Family Medicine
DX: J15.4 Pneumonia due to other streptococci (principal); J96.21 Acute and chronic respiratory failure with hypoxia; Z99.81 Dependence on supplemental oxygen; J44.0 Chronic obstructive pulmonary disease with (acute) lower respiratory infection; J44.1 Chronic obstructive pulmonary disease with (acute) exacerbation; E11.9 Type 2 diabetes mellitus without complications; I10 Essential (primary) hypertension; E78.5 Hyperlipidemia, unspecified; E66.9 Obesity, unspecified; Z68.36 Body mass index [BMI] 36.0-36.9, adult; Z79.51 Long term (current) use of inhaled steroids; Z79.84 Long term (current) use of oral hypoglycemic drugs; Z87.891 Personal history of nicotine dependence
CPT/HCPCS: 36415; 36416; 71045; 80048; 80053; 80202; 82553; 83605; 83880; 84484; 85025; 87040; 87070; 87205; 93005; 94640; 94760; 96365; 96366; 96368; J1650; J1940; J1956; J2543; J2920; J3370; J7050; J7506; J7620

== ENCOUNTER 2017-06-03 15:21 | Emergency (ER) | payer MEDICARE ==
[2017-06-03 15:48] LABS: #Eosinphils 0.6 thou/uL (0.0-0.7); #Lymphocytes 2.5 thou/uL (1.20-3.40); #Monocytes 0.8 thou/uL (0.11-0.59); #Neutrophils 6.6 thou/uL (1.40-6.50); %Basophils 0.4 % (0.0-1.0); %Eosinophils 5.6 % (0.0-10.0); %Lymphocytes 23.6 % (21.0-51.0); %Monocytes 7.5 % (0.0-10.0); %Neutrophils 62.9 % (42.0-75.0); Hemoglobin 12.7 g/dL (14.0-18.0); Mean Corpuscular HGB CONC 31.7 g/dL (32.0-36.0); Mean Corpuscular Hemoglobin 32.6 pg (27.0-31.0); Mean Platelet Volume 8.6 fL (7.4-10.4); Platelet Count 202 thou/uL (130-400); RBC Distribution Width 12.8 % (11.5-14.5); Red Blood Cell (RBC) Count 3.91 mill/uL (4.70-6.10); White Blood Cell (WBC) Count 10.5 thou/uL (4.8-10.8)
--- NOTE | 2017-06-03 16:06 | RAD ---
CHEST TWO VIEWS: History: Difficulty breathing. Dyspnea. Comparison: 05-04-17 FINDINGS: Re-demonstration of the metallic shrapnel artifact. Normal cardiac silhouette. The pulmonary vessels are slightly prominent. Costophrenic angles are clear. Chronic changes, without consolidation or mass . No pneumothorax. No osseous abnormalities. Stable elevation of the right hemidiaphragm. IMPRESSION: 1. Chronic changes. 2. Nonspecific mild pulmonary vascular prominence. Correlate for volume overload. POS: ADÁN
[2017-06-03 16:09] LABS: ALT (SGPT) 11 U/L (8-55); AST (SGOT) 11 U/L (5-34); Albumin 3.9 g/dL (3.4-4.8); Alkaline Phosphatase 56 U/L (40-150); Anion Gap 10 mmol/L (10-20); BUN (Urea Nitrogen) 13 mg/dL (8.4-25.7); Bilirubin, Total 0.4 mg/dL (0.2-1.2); CK (CPK) 184 U/L (30-200); Calc. Creatinine Clearance 0 mL/min (70-130); Calcium 9.6 mg/dL (7.8-10.44); Carbon Dioxide 31 mmol/L (23-31); Chloride 101 mmol/L (98-107); Estimated GFR-MDRD 67; Glucose 133 mg/dL (83-110); Lipase 21 U/L (8-78); Potassium 3.9 mmol/L (3.5-5.1); Protein, Total 6.9 g/dL (5.8-8.1); Sodium 138 mmol/L (136-145)
[2017-06-03 16:13] LABS: CKMB 2.5 ng/mL (0-6.6); Troponin I Less than 0.010 ng/mL (< 0.028)
[2017-06-03] MEDS ORDERED: predniSONE 20 MG TAB ONE (17:40)
[2017-06-03] MEDS ORDERED: Albuterol Sulfate 2.5 mg/0.5 ml Neb ONE (17:41)
[2017-06-03] MEDS ORDERED: Albuterol Sulfate 2.5 mg/3 ml Neb ONE ×2 (17:41→18:35)
== END 2017-06-03 19:05 | disposition home or self-care (01) ==
LOC: ERS 15:21
DX: J44.1 Chronic obstructive pulmonary disease with (acute) exacerbation (principal); E11.9 Type 2 diabetes mellitus without complications; E78.5 Hyperlipidemia, unspecified; I10 Essential (primary) hypertension; F20.9 Schizophrenia, unspecified; Z87.891 Personal history of nicotine dependence; Z79.899 Other long term (current) drug therapy; Z79.84 Long term (current) use of oral hypoglycemic drugs
CPT/HCPCS: 36415; 71046; 80053; 82553; 83690; 83880; 84484; 85025; 93005; 94640; 94760; J7506; J7611; J7620

== ENCOUNTER 2017-07-12 16:39 | Inpatient (IN) | payer MEDICARE, BC ==
[2017-07-12 17:00] LABS: #Basophils 0.1 thou/uL (0.0-0.2); #Eosinphils 0.8 thou/uL (0.0-0.7); #Lymphocytes 3.2 thou/uL (1.20-3.40); #Monocytes 0.8 thou/uL (0.11-0.59); #Neutrophils 8.1 thou/uL (1.40-6.50); %Basophils 0.7 % (0.0-1.0); %Eosinophils 6.4 % (0.0-10.0); %Lymphocytes 24.6 % (21.0-51.0); %Neutrophils 62.4 % (42.0-75.0); Hemoglobin 12.4 g/dL (14.0-18.0); Mean Corpuscular HGB CONC 32.5 g/dL (32.0-36.0); Mean Corpuscular Hemoglobin 33.2 pg (27.0-31.0); Mean Platelet Volume 8.8 fL (7.4-10.4); Platelet Count 249 thou/uL (130-400); RBC Distribution Width 12.7 % (11.5-14.5); Red Blood Cell (RBC) Count 3.72 mill/uL (4.70-6.10)
[2017-07-12] MEDS ORDERED: methylPREDNISolone Sod Succ/PF 125 MG/2 ML VIAL ONE ×2 (17:08→17:10)
[2017-07-12] MEDS ORDERED: Water For Inject, Bacteriostat 30 ML ONE (17:11)
[2017-07-12 17:20] LABS: ALT (SGPT) 15 U/L (8-55); AST (SGOT) 14 U/L (5-34); Albumin 3.8 g/dL (3.4-4.8); Alkaline Phosphatase 63 U/L (40-150); Anion Gap 15 mmol/L (10-20); BUN (Urea Nitrogen) 11 mg/dL (8.4-25.7); Bilirubin, Total 0.3 mg/dL (0.2-1.2); Calc. Creatinine Clearance 0 mL/min (70-130); Calcium 9.5 mg/dL (7.8-10.44); Carbon Dioxide 30 mmol/L (23-31); Chloride 100 mmol/L (98-107); Estimated GFR-MDRD 79; Globulin 3.2 g/dL (2.4-3.5); Glucose 306 mg/dL (83-110); Potassium 3.9 mmol/L (3.5-5.1); Sodium 141 mmol/L (136-145)
[2017-07-12 17:25] LABS: CKMB 2.2 ng/mL (0-6.6); Troponin I Less than 0.010 ng/mL (< 0.028)
[2017-07-12] MEDS ORDERED: Azithromycin 500 MG VIAL ONE (18:14)
[2017-07-12] MEDS ORDERED: cefTRIAXone\\ROCEPHIN 2 GM VIAL ONE (18:14)
--- NOTE | 2017-07-12 18:20 | RAD ---
PORTABLE AP CHEST: Date: 07/12/17 HISTORY: Dyspnea and shortness of breath for 3 days. COMPARISON: 05/04/17. FINDINGS: Again noted is elevation of the right hemidiaphragm with linear areas of scarring at the right lung b ase. Lungs are otherwise clear. The cardiac silhouette and pulmonary vasculature are within normal li mits. There is stable prominence of the main pulmonary artery. There has been improvement in intersti tial densities when compared to the prior study. Metallic density again overlies the upper mediastinu m. No other interval change. IMPRESSION: 1. Improvement in interstitial edema. 2. Chronic changes right lung base with scarring and elevation right hemidiaphragm. 3. Stable prominence of the main pulmonary artery, which may be related to an element of pulmonary a rtery hypertension. POS: KARL
[2017-07-12] MEDS ORDERED: Acetaminophen 325 MG TAB PO PRN (18:34)
[2017-07-12] MEDS ORDERED: Acetaminophen 650 MG Suppository PR PRN (18:34)
[2017-07-12] MEDS ORDERED: Dextrose 5% in Water 1,000 ML IV PRN (18:45)
[2017-07-12] MEDS ORDERED: Dextrose 50% Abboject 50 ML SYRINGE SLOW IVP PRN (18:45)
--- NOTE | 2017-07-12 19:21 | HP ---
PRIMARY CARE PROVIDER: Saul Elkins M.D., at [facility]. CHIEF COMPLAINT: Cough. HISTORY OF PRESENT ILLNESS: Mr. Salinas is a pleasant 76-year-old gentleman who was seen at [facility] on 07/12/2017. He was hospitalized at this facility from 05/04/2017 to 2017 for COPD exacerbation. He reports that he was doing well until 3 days ago. At that time, he developed cough that was produc tive of whitish to yellowish sputum and shortness of breath with exertion. He also reports that he f elt warm today. He denies any chest pain. He reports swelling of both lower extremities that is chr onic. He denies any abdominal pain. He reports that the shortness of breath is worse with exertion. He came to the emergency room because of cough and shortness of breath. REVIEW OF SYSTEMS: All other systems reviewed and found to be negative. PAST MEDICAL HISTORY: Significant for hypertension; dyslipidemia; diabetes mellitus; chronic respira tory failure with hypoxemia, on home oxygen at 2 liters per minute as needed; COPD; and obesity. PAST SURGICAL HISTORY: Left shoulder surgery, left knee surgery, and cyst removal from buttocks. SOCIAL HISTORY: The patient denies any tobacco use, alcohol use or recreational drug use. FAMILY HISTORY: Significant for diabetes mellitus. CODE STATUS: He is FULL CODE. Surrogate decision maker is his . ALLERGIES: No known drug allergies. CURRENT MEDICATIONS: Include Ventolin 2 puffs every 6 hours as needed, amlodipine 5 mg daily, Tessal on Perles as needed, Lasix 40 mg daily, Amaryl 4 mg daily, Mucinex 600 mg 2 times a day, [place] p.r.n. , Atrovent 2 puffs 4 times a day, DuoNebs p.r.n., losartan 100 mg daily, metformin 1000 mg 2 times a day, Protonix 40 mg daily, MiraLax 17 grams daily, potassium chloride 8 mEq daily, Zocor 40 mg at bed time, and Symbicort 2 puffs 2 times a day. PHYSICAL EXAMINATION: GENERAL: Mr. Salinas is awake and alert, not in acute distress. VITAL SIGNS: Blood pressure is 153/69, pulse is 71, his breathing at rate of 24 and saturating 98% o n 2 liters of oxygen. He is afebrile. EYES: No scleral icterus. No conjunctival pallor. ENT: Moist mucosal membranes. No oropharyngeal erythema or exudates. NECK: Supple, nontender, normal range of movement. Trachea is midline. RESPIRATORY: Diminished breath sounds at both bases. Accessory muscles of breathing are mildly acti ve. Chest wall movements are symmetric bilaterally. CARDIOVASCULAR: S1 and S2 are heard, regular. Peripheral pulses palpable. No carotid bruit. MUSCULOSKELETAL: Power is 5/5 in all 4 extremities. He has bilateral lower extremity swelling. ABDOMEN: Soft, nontender, bowel sounds are heard, no hepatomegaly, no splenomegaly. NEUROLOGIC: Cranial nerves II-XII intact. No focal motor or sensory deficits. SKIN: Bilateral lower extremity edema, dry skin. LYMPHATIC: No cervical lymphadenopathy. PSYCHIATRIC: Normal mood, normal affect. The patient is oriented to person, place, and time. LABORATORY DATA: Mr. Salinas's labs and investigations were reviewed. I reviewed his electrocardiogram , which shows normal sinus rhythm, no ST changes to suggest an acute coronary syndrome. I also revie wed his chest x-ray, which does not show any pulmonary infiltrates. He has leukocytosis with 13,000 white cells, of which 62% are neutrophils, macrocytic anemia with hemoglobin 12.4, normal platelet co unt, normal electrolytes, normal creatinine, elevated glucose of 306, elevated lactic acid level of 2 .5, normal liver profile, normal troponin I and normal BNP. ASSESSMENT AND PLAN: Mr. Salinas is a pleasant 76-year-old gentleman who was seen at [facility] on 07/12/2017. His problem list includes: 1. Acute on chronic hypoxic respiratory failure. Mr. Salinas is needing more supplemental oxygen than he usually uses at home. This is most likely secondary to chronic obstructive pulmonary disease exac erbation. He will be admitted to the hospital for further management. 1. Chronic obstructive pulmonary disease exacerbation: We will treat Mr. Salinas with oxygen, steroids , bronchodilators and antibiotics. We will consult Pulmonology Service for opinion and help with man agement. 2. Diabetes mellitus type 2, start Accu-Cheks, insulin sliding scale. 3. Dyslipidemia: Continue statin. 4. Hypertension: Monitor vital signs, titrate antihypertensives as needed. Many thanks for allowing me to participate in your patient's care. Please feel free to contact me wi th any questions or concerns. LEVEL OF RISK: High. LEVEL OF COMPLEXITY: High.
[2017-07-12 21:31] LABS: Lactic Acid 2.5 mmol/L (0.5-2.2)
[2017-07-12] MEDS: Atorvastatin Calcium 20 MG TAB PO SCH (22:37)
[2017-07-13 02:46] VITALS: BMI 35.3
[2017-07-13 05:30] LABS: #Lymphocytes 0.9 thou/uL (1.20-3.40); #Monocytes 0.1 thou/uL (0.11-0.59); %Basophils 0.3 % (0.0-1.0); %Eosinophils 0.1 % (0.0-10.0); %Lymphocytes 6.1 % (21.0-51.0); %Monocytes 0.5 % (0.0-10.0); Hemoglobin 12.1 g/dL (14.0-18.0); Mean Corpuscular HGB CONC 31.7 g/dL (32.0-36.0); Mean Corpuscular Hemoglobin 32.4 pg (27.0-31.0); Mean Platelet Volume 9.4 fL (7.4-10.4); Platelet Count 254 thou/uL (130-400); RBC Distribution Width 12.7 % (11.5-14.5); Red Blood Cell (RBC) Count 3.73 mill/uL (4.70-6.10); White Blood Cell (WBC) Count 15.1 thou/uL (4.8-10.8)
[2017-07-13 05:54] LABS: Anion Gap 12 mmol/L (10-20); BUN (Urea Nitrogen) 12 mg/dL (8.4-25.7); Calc. Creatinine Clearance 96 mL/min (70-130); Calcium 9.2 mg/dL (7.8-10.44); Carbon Dioxide 27 mmol/L (23-31); Chloride 103 mmol/L (98-107); Estimated GFR-MDRD Greater than 90; Glucose 370 mg/dL (83-110); Potassium 4.7 mmol/L (3.5-5.1); Sodium 137 mmol/L (136-145)
--- NOTE | 2017-07-13 08:40 | CON ---
DATE OF CONSULTATION: 07/13/2017 REASON FOR CONSULTATION: COPD exacerbation. HISTORY OF PRESENT ILLNESS: Maribeth Salinas is a 76-year-old black male who is returning to the hospital with exacerbation of COPD. He is in a frequent patient of this hospital over the last 6 months with multiple admissions for the same thing. He states that for over a week he has been more short of br eath. He has been coughing up yellow secretions. He was briefly on BiPAP that was stopped last nigh t. PAST MEDICAL HISTORY: 1. Severe COPD requiring home oxygen. 2. Hypertension. 3. Hyperlipidemia. PAST SURGICAL HISTORY: 1. Left shoulder surgery. 2. Left knee surgery. 3. Cyst removed from buttocks area. ALLERGIES: None. SOCIAL HISTORY: Quit smoking about 5 years ago. Does not consume alcohol, does not use illicit drug s. FAMILY MEDICAL HISTORY: Unremarkable. MEDICATIONS PRIOR TO ADMISSION: Prednisone 10 mg t.i.d., metformin 1000 mg b.i.d., Symbicort 2 puffs twice daily, simvastatin 40 mg daily, potassium chloride 8 mEq daily, polyethylene glycol 17 grams d aily, Protonix 40 mg daily, losartan 100 mg daily, Levaquin 500 mg daily, DuoNeb 4 times daily, [place] 10/325, 1-2 every 6 hours as needed, Amaryl 4 mg daily, furosemide 40 mg daily, Norvasc 5 mg daily, Albuterol HFA metered dose inhaler as needed. REVIEW OF SYSTEMS: Otherwise negative. PHYSICAL EXAMINATION: VITAL SIGNS: Temperature 98.2, pulse 80, respirations 18, O2 sat 99% on 2 liters. GENERAL: He is awake and alert, in no distress. Most profound physical findings cough. HEENT: Unremarkable. NECK: No JVD. LUNGS: Expiratory wheezing, predominantly at the bases posteriorly. CARDIAC: S1, S2 regular. ABDOMEN: Soft, nontender. EXTREMITIES: No clubbing, cyanosis, or edema. LABORATORY AND X-RAY FINDINGS: White blood cell count 15.1, hematocrit 38.1, platelet count 254. So dium 137, potassium 4.7, chloride 103, CO2 27, BUN 12, creatinine 0.8, glucose 370. ASSESSMENT: Chronic obstructive pulmonary disease with exacerbation. PLAN: He can be transferred out to the floor. Continue antibiotics, steroids, nebulization treatmen ts.
[2017-07-13] MEDS: Losartan 25 MG TAB PO SCH (09:09)
[2017-07-13] MEDS: Amlodipine 5 MG TAB PO SCH (09:10)
[2017-07-13] MEDS: metFORMIN 500 MG TAB PO SCH ×2 (09:10→17:19)
[2017-07-13] MEDS: Enoxaparin Sodium 40 MG/0.4 ML SYRINGE SC SCH (09:10)
[2017-07-13] MEDS: Glimepiride 4 MG TAB PO SCH (09:10)
[2017-07-13] MEDS: HumaLOG 300 UNITS/3 ML VIAL SC PRN ×3 (12:09→22:02)
[2017-07-13] MEDS: Bisacodyl 5 MG TAB PO PRN (12:09)
--- NOTE | 2017-07-13 14:42 | PDOC.PN ---
- Subjective Encounter Start Date: 07/13/17 Encounter Start Time: 10:00 Pt seen for followup re: COPD exacerbation. Reports feeling better. Cough and shortness of breath better. No fevers or chills. - Objective MAR Reviewed: Yes Vital Signs & Weight: Vital Signs (12 hours) Temp Pulse Resp BP Pulse Ox 07/13/17 13:11 73 20 94 L 07/13/17 12:21 158/66 H 07/13/17 11:24 98 F 74 18 93 L 07/13/17 10:03 98 F 74 18 170/80 H 93 L 07/13/17 09:10 70 07/13/17 07:50 99 07/13/17 07:48 70 18 99 07/13/17 07:40 98.2 F 76 20 97 07/13/17 07:30 98.2 F 76 20 142/79 H 100 07/13/17 04:00 97.4 F L 71 22 H 166/62 H 100 Weight Weight 224 lb 7.983 oz I&O: 07/12/17 07/13/17 07/14/17 06:59 06:59 06:59 Intake Total 240 Output Total 350 Balance -110 Result Diagrams: 07/13/17 04:23 07/13/17 04:23 Additional Labs: Accuchecks 07/13/17 07/13/17 07/12/17 11:27 05:35 22:35 POC Glucose 338 H 360 H 268 H EKG Reviewed by me: Yes (Tele: NSR) Phys Exam - Physical Examination Obese HEENT: moist MMs, sclera anicteric, oral pharynx no lesions, 2+ tonsils Neck: no nodes, no JVD, supple, full ROM Respiratory: no rales, no rhonchi, wheezing present Cardiovascular: RRR, no rub S1, S2 Gastrointestinal: soft, non-tender, no distention, positive bowel sounds Neurological: moves all 4 limbs Psychiatric: normal affect Deviation from normal: Oriented to person and place, not to time Dx/Plan (1) COPD exacerbation Code(s): J44.1 - CHRONIC OBSTRUCTIVE PULMONARY DISEASE W (ACUTE) EXACERBATION Status: Acute Comment: Continue oxygen, steroids, bronchodilators and antibiotics. Pt was briefly treated with BiPAP yesterday (2) DM2 (diabetes mellitus, type 2) Status: Chronic Qualifiers: Diabetes mellitus fpc insulin use: without bed bug exterminator use Diabetes mellitus complication status: without complication Qualified Code(s): E11.9 - Type 2 diabetes mellitus without complications Comment: continue accuchecks and insulin sliding scale. Continue metformin and Amaryl. (3) HLD (hyperlipidemia) Code(s): E78.5 - HYPERLIPIDEMIA, UNSPECIFIED Status: Chronic Qualifiers: Hyperlipidemia type: unspecified Qualified Code(s): E78.5 - Hyperlipidemia , unspecified Comment: continue statin (4) HTN (hypertension) Code(s): I10 - ESSENTIAL (PRIMARY) HYPERTENSION Status: Chronic Qualifiers: Hypertension type: essential hypertension Qualified Code(s): I10 - Essential (primary) hypertension Comment: Monitor vital signs, titrate antihypertensives as needed. Add PRN IV hydralazine. (5) Obesity (BMI 30-39.9) Code(s): E66.9 - OBESITY, UNSPECIFIED Status: Chronic - Plan * . Review of Systems - Review of Systems Constitutional: negative: fever, chills, sweats, weakness, malaise Respiratory: Cough, Dry, Shortness of Breath, SOB with Excertion, Wheezing. negative: Hemoptysis, Pleuritic Pain, Sputum Cardiovascular: negative: chest pain, palpitations, orthopnea, paroxysmal nocturnal dyspnea, edema, light headedness Gastrointestinal: negative: Nausea, Vomiting, Abdominal Pain, Diarrhea, Constipation, Melena, Hematochezia Genitourinary: negative: Dysuria, Frequency, Incontinence, Hematuria, Retention Skin: negative: Rash, Lesions, Sky, Bruising - Medications/Allergies Allergies/Adverse Reactions: Allergies Allergy/AdvReac Type Severity Reaction Status Date / Time No Known Allergies Allergy Verified 07/13/17 02:43 Medications: Current Medications Acetaminophen (Tylenol) 650 mg PO Q4H PRN PRN Reason: Headache/Fever or Pain Acetaminophen (Tylenol) 650 mg [place] Q4H PRN PRN Reason: Headache/Fever or Pain Albuterol/Ipratropium (Duoneb) 3 ml NEB [id number] PRN PRN Reason: SOB &/or Wheezing Albuterol/Ipratropium (Duoneb) 3 ml NEB [id number] [facility]ITH Last Admin: 07/13/17 13:11 Dose: 3 ml Amlodipine Besylate (Norvasc) 5 mg PO DAILY [facility] Last Admin: 07/13/17 09:10 Dose: 5 mg Atorvastatin Calcium (Lipitor) 20 mg PO HS [facility] Last Admin: 07/12/17 22:37 Dose: 20 mg Bisacodyl (Dulcolax) 10 mg PO DAILYPRN PRN PRN Reason: Constipation Last Admin: 07/13/17 12:09 Dose: 10 mg Dextrose/Water (Dextrose 50%) 25 gm SLOW IVP PRN PRN PRN Reason: Hypoglycemia Enoxaparin Sodium (Lovenox) 40 mg SC 0900 [facility] Last Admin: 07/13/17 09:10 Dose: 40 mg Furosemide (Lasix) 40 mg PO DAILY [facility] Glimepiride (Amaryl) 4 mg PO QAM-WM [facility] Last Admin: 07/13/17 09:10 Dose: 4 mg Glucagon (Glucagon) 1 mg IM PRN PRN PRN Reason: Hypoglycemia Azithromycin 500 mg/ Sodium (Chloride) 250 mls @ 250 mls/hr IVPB Q24HR@1800 [facility] Ceftriaxone Sodium 1 gm/ (Sodium Chloride) 100 mls @ 200 mls/hr IVPB Q24HR@ 1700 [facility] Dextrose/Water (D5w) 1,000 mls @ 0 mls/hr IV .Q0M PRN; As Directed PRN Reason: Hypoglycemia Insulin Human Lispro (Humalog) 0 units SC .MILD SLIDING SCALE PRN PRN Reason: Mild Correctional Scale Last Admin: 07/13/17 12:09 Dose: 5 unit Losartan Potassium (Cozaar) 100 mg PO DAILY [facility] Last Admin: 07/13/17 09:09 Dose: 100 mg Metformin HCl (Glucophage) 1,000 mg PO BID-WM [facility] Last Admin: 07/13/17 09:10 Dose: 1,000 mg Methylprednisolone Sodium Succinate (Solu-Medrol) 20 mg IVP Q6HR [facility] Last Admin: 07/13/17 12:09 Dose: 20 mg Mometasone Furoate/Formoterol Fumar (Dulera 200 Mcg/5 Mcg Inhaler) 2 puff INH BID-RT [facility] Pantoprazole Sodium (Protonix) 40 mg PO 2100 [facility] Last Admin: 07/12/17 22:37 Dose: 40 mg Sodium Chloride (Flush - Normal Saline) 10 ml IVF Q12HR [facility] Sodium Chloride (Flush - Normal Saline) 10 ml IVF PRN PRN PRN Reason: Saline Flush
[2017-07-13] MEDS ORDERED: hydrALAZINE 20 MG/ML VIAL SLOW IVP PRN (14:45)
[2017-07-13] MEDS: cefTRIAXone\\ROCEPHIN 1 GM in Sodium Chloride 0.9% 100 ML IVPB SCH (17:19)
[2017-07-13] MEDS: Azithromycin 500 MG in Sodium Chloride 0.9% 250 ML 250 ML IVPB SCH (18:08)
[2017-07-13] MEDS: Atorvastatin Calcium 20 MG TAB PO SCH (20:02)
[2017-07-13] MEDS: Mometasone/Formoterol 120 PUFF INHALER INH SCH (20:12)
[2017-07-14 04:51] LABS: #Lymphocytes 1.1 thou/uL (1.20-3.40); #Monocytes 0.6 thou/uL (0.11-0.59); #Neutrophils 14.4 thou/uL (1.40-6.50); %Basophils 0.1 % (0.0-1.0); %Eosinophils 0.1 % (0.0-10.0); %Lymphocytes 6.7 % (21.0-51.0); %Monocytes 3.5 % (0.0-10.0); %Neutrophils 89.6 % (42.0-75.0); Hemoglobin 12.2 g/dL (14.0-18.0); Mean Corpuscular HGB CONC 31.8 g/dL (32.0-36.0); Mean Corpuscular Hemoglobin 32.6 pg (27.0-31.0); Platelet Count 269 thou/uL (130-400); RBC Distribution Width 12.9 % (11.5-14.5); Red Blood Cell (RBC) Count 3.75 mill/uL (4.70-6.10); White Blood Cell (WBC) Count 16.1 thou/uL (4.8-10.8)
[2017-07-14 05:25] LABS: Anion Gap 13 mmol/L (10-20); BUN (Urea Nitrogen) 15 mg/dL (8.4-25.7); Calc. Creatinine Clearance 110 mL/min (70-130); Calcium 9.4 mg/dL (7.8-10.44); Carbon Dioxide 25 mmol/L (23-31); Chloride 103 mmol/L (98-107); Estimated GFR-MDRD Greater than 90; Glucose 266 mg/dL (83-110); Potassium 4.4 mmol/L (3.5-5.1); Sodium 137 mmol/L (136-145)
[2017-07-14] MEDS: HumaLOG 300 UNITS/3 ML VIAL SC PRN ×4 (05:43→21:26)
[2017-07-14] MEDS: Mometasone/Formoterol 120 PUFF INHALER INH SCH ×2 (07:02→18:21)
[2017-07-14] MEDS: metFORMIN 500 MG TAB PO SCH ×2 (08:15→16:32)
[2017-07-14] MEDS: Furosemide 40 MG TAB PO SCH (08:15)
[2017-07-14] MEDS: Amlodipine 5 MG TAB PO SCH (08:15)
[2017-07-14] MEDS: Enoxaparin Sodium 40 MG/0.4 ML SYRINGE SC SCH (08:15)
[2017-07-14] MEDS: Losartan 25 MG TAB PO SCH (08:15)
[2017-07-14] MEDS: Glimepiride 4 MG TAB PO SCH (08:16)
[2017-07-14] MEDS: guaiFENesin ER 600 MG TAB PO SCH ×2 (09:07→21:24)
--- NOTE | 2017-07-14 09:47 | PRG ---
DATE OF SERVICE: 07/14/2017 SUBJECTIVE: The patient is still having problems with wheezing and congestion. PHYSICAL EXAMINATION: VITAL SIGNS: On exam, temperature is 98.3, pulse 68, respirations 16, O2 sat 97%, blood pressure 145 /60. HEENT: Unremarkable. NECK: No JVD. LUNGS: Diffuse expiratory wheezing, which is mild. CARDIAC: S1 and S2, regular. ABDOMEN: Soft. EXTREMITIES: No edema. LABORATORY DATA: White blood cell count 16, hematocrit 38.4, platelet count 269. Sodium 137, potass ium 4.4, chloride 103, CO2 of 25, BUN 15, creatinine 0.8, glucose 266. ASSESSMENT: Chronic obstructive pulmonary disease with exacerbation. PLAN: Continue steroids, nebulization treatments, and antibiotics. I have increased the frequency o f his nebulization treatments. I have added Singulair in hopes that this will help him with his secr etions.
[2017-07-14] MEDS: cefTRIAXone\\ROCEPHIN 1 GM in Sodium Chloride 0.9% 100 ML IVPB SCH (16:33)
--- NOTE | 2017-07-14 16:38 | PDOC.PN ---
- Subjective Encounter Start Date: 07/14/17 Encounter Start Time: 11:20 Pt seen for followup re: COPD exacerbation. Reports wheezing , cough, shortness of breath with exertion. - Objective MAR Reviewed: Yes Vital Signs & Weight: Vital Signs (12 hours) Temp Pulse Resp BP BP Pulse Ox 07/14/17 16:23 98 F 71 16 147/69 H 95 07/14/17 14:46 79 18 98 07/14/17 10:55 97.9 F 66 16 135/60 98 07/14/17 10:37 75 18 97 07/14/17 08:15 68 145/68 H 07/14/17 08:00 98.3 F 68 16 97 07/14/17 07:12 98.3 F 68 16 145/68 H 97 07/14/17 07:00 62 16 97 Weight Weight 224 lb 7.983 oz I&O: 07/13/17 07/14/17 07/15/17 06:59 06:59 06:59 Intake Total 240 1240 Output Total 350 500 Balance -110 740 Result Diagrams: 07/14/17 04:21 07/14/17 04:21 Additional Labs: Accuchecks 07/14/17 07/14/17 07/13/17 10:56 04:54 19:59 POC Glucose 350 H 247 H 209 H 07/13/17 16:19 POC Glucose 200 H Phys Exam - Physical Examination Obese HEENT: moist MMs, sclera anicteric, oral pharynx no lesions, 2+ tonsils Neck: no nodes, no JVD, supple, full ROM Respiratory: no rales, no rhonchi, wheezing present Cardiovascular: RRR, no rub S1, S2 Gastrointestinal: soft, non-tender, no distention, positive bowel sounds Neurological: moves all 4 limbs Psychiatric: normal affect Deviation from normal: Oriented to person and place, not to time Dx/Plan (1) COPD exacerbation Code(s): J44.1 - CHRONIC OBSTRUCTIVE PULMONARY DISEASE W (ACUTE) EXACERBATION Status: Acute Comment: Bronchodilator frequency increased today. Continue steroids and antibiotics. (2) DM2 (diabetes mellitus, type 2) Status: Chronic Qualifiers: Diabetes mellitus halfway insulin use: without halfway use Diabetes mellitus complication status: without complication Qualified Code(s): E11.9 - Type 2 diabetes mellitus without complications Comment: continue accuchecks, insulin sliding scale, metformin and Amaryl. (3) HLD (hyperlipidemia) Code(s): E78.5 - HYPERLIPIDEMIA, UNSPECIFIED Status: Chronic Qualifiers: Hyperlipidemia type: unspecified Qualified Code(s): E78.5 - Hyperlipidemia , unspecified Comment: continue statin (4) HTN (hypertension) Code(s): I10 - ESSENTIAL (PRIMARY) HYPERTENSION Status: Chronic Qualifiers: Hypertension type: essential hypertension Qualified Code(s): I10 - Essential (primary) hypertension Comment: Monitor vital signs, titrate antihypertensives as needed. (5) Obesity (BMI 30-39.9) Code(s): E66.9 - OBESITY, UNSPECIFIED Status: Chronic - Plan * . Review of Systems - Review of Systems Constitutional: negative: fever, chills, sweats, weakness, malaise Respiratory: Cough, Dry, Shortness of Breath, SOB with Excertion, Wheezing. negative: Hemoptysis, Pleuritic Pain, Sputum Cardiovascular: negative: chest pain, palpitations, orthopnea, paroxysmal nocturnal dyspnea, edema, light headedness Gastrointestinal: negative: Nausea, Vomiting, Abdominal Pain, Diarrhea, Constipation, Melena, Hematochezia Genitourinary: negative: Dysuria, Frequency, Incontinence, Hematuria, Retention Skin: negative: Rash, Lesions, Sky, Bruising - Medications/Allergies Allergies/Adverse Reactions: Allergies Allergy/AdvReac Type Severity Reaction Status Date / Time No Known Allergies Allergy Verified 07/13/17 02:43 Medications: Current Medications Acetaminophen (Tylenol) 650 mg PO Q4H PRN PRN Reason: Headache/Fever or Pain Acetaminophen (Tylenol) 650 mg [place] Q4H PRN PRN Reason: Headache/Fever or Pain Albuterol/Ipratropium (Duoneb) 3 ml NEB [id number] [facility] Last Admin: 07/14/17 14:46 Dose: 3 ml Amlodipine Besylate (Norvasc) 5 mg PO DAILY [facility] Last Admin: 07/14/17 08:15 Dose: 5 mg Atorvastatin Calcium (Lipitor) 20 mg PO HS [facility] Last Admin: 07/13/17 20:02 Dose: 20 mg Bisacodyl (Dulcolax) 10 mg PO DAILYPRN PRN PRN Reason: Constipation Last Admin: 07/13/17 12:09 Dose: 10 mg Dextrose/Water (Dextrose 50%) 25 gm SLOW IVP PRN PRN PRN Reason: Hypoglycemia Enoxaparin Sodium (Lovenox) 40 mg SC 0900 [facility] Last Admin: 07/14/17 08:15 Dose: 40 mg Furosemide (Lasix) 40 mg PO DAILY [facility] Last Admin: 07/14/17 08:15 Dose: 40 mg Glimepiride (Amaryl) 4 mg PO QAM-[facility] Last Admin: 07/14/17 08:16 Dose: 4 mg Glucagon (Glucagon) 1 mg IM PRN PRN PRN Reason: Hypoglycemia Guaifenesin (Mucinex) 600 mg PO Q12HR [facility] Last Admin: 07/14/17 09:07 Dose: 600 mg Hydralazine HCl (Apresoline) 10 mg SLOW IVP Q6H PRN PRN Reason: SBP Greater Than 170 Azithromycin 500 mg/ Sodium (Chloride) 250 mls @ 250 mls/hr IVPB Q24HR@1800 [facility] Last Admin: 07/13/17 18:08 Dose: 250 mls Ceftriaxone Sodium 1 gm/ (Sodium Chloride) 100 mls @ 200 mls/hr IVPB Q24HR@ 1700 [facility] Last Admin: 07/13/17 17:19 Dose: 100 mls Dextrose/Water (D5w) 1,000 mls @ 0 mls/hr IV .Q0M PRN; As Directed PRN Reason: Hypoglycemia Insulin Human Lispro (Humalog) 0 units SC .MILD SLIDING SCALE PRN PRN Reason: Mild Correctional Scale Last Admin: 07/14/17 11:59 Dose: 5 unit Losartan Potassium (Cozaar) 100 mg PO DAILY [facility] Last Admin: 07/14/17 08:15 Dose: 100 mg Metformin HCl (Glucophage) 1,000 mg PO BID-WM [facility] Last Admin: 07/14/17 08:15 Dose: 1,000 mg Methylprednisolone Sodium Succinate (Solu-Medrol) 20 mg IVP Q6HR [facility] Last Admin: 07/14/17 11:59 Dose: 20 mg Mometasone Furoate/Formoterol Fumar (Dulera 200 Mcg/5 Mcg Inhaler) 2 puff INH BID-RT [facility] Last Admin: 07/14/17 07:02 Dose: 2 puff Montelukast Sodium (Singulair) 10 mg PO QPM [facility] Pantoprazole Sodium (Protonix) 40 mg PO 2100 [facility] Last Admin: 07/13/17 20:02 Dose: 40 mg Sodium Chloride (Flush - Normal Saline) 10 ml IVF Q12HR [facility] Last Admin: 07/14/17 08:16 Dose: 10 ml Sodium Chloride (Flush - Normal Saline) 10 ml IVF PRN PRN PRN Reason: Saline Flush
[2017-07-14] MEDS: Milk Of Magnesia 30 ML UDCUP PO PRN (17:48)
[2017-07-14] MEDS: Azithromycin 500 MG in Sodium Chloride 0.9% 250 ML 250 ML IVPB SCH (17:48)
[2017-07-14] MEDS: Atorvastatin Calcium 20 MG TAB PO SCH (21:24)
[2017-07-14] MEDS: Montelukast Sodium 10 mg Tablet PO SCH (21:25)
[2017-07-15 02:46] LABS: #Lymphocytes 0.8 thou/uL (1.20-3.40); #Monocytes 0.5 thou/uL (0.11-0.59); #Neutrophils 13.1 thou/uL (1.40-6.50); %Eosinophils 0.1 % (0.0-10.0); %Lymphocytes 5.7 % (21.0-51.0); %Monocytes 3.6 % (0.0-10.0); %Neutrophils 90.6 % (42.0-75.0); Mean Corpuscular HGB CONC 31.3 g/dL (32.0-36.0); Platelet Count 272 thou/uL (130-400); RBC Distribution Width 12.7 % (11.5-14.5); Red Blood Cell (RBC) Count 3.76 mill/uL (4.70-6.10); White Blood Cell (WBC) Count 14.5 thou/uL (4.8-10.8)
[2017-07-15 03:37] LABS: Anion Gap 13 mmol/L (10-20); BUN (Urea Nitrogen) 15 mg/dL (8.4-25.7); Calc. Creatinine Clearance 104 mL/min (70-130); Calcium 9.7 mg/dL (7.8-10.44); Carbon Dioxide 29 mmol/L (23-31); Chloride 98 mmol/L (98-107); Estimated GFR-MDRD Greater than 90; Glucose 289 mg/dL (83-110); Sodium 135 mmol/L (136-145)
[2017-07-15] MEDS: HumaLOG 300 UNITS/3 ML VIAL SC PRN ×4 (05:35→20:49)
[2017-07-15] MEDS: Amlodipine 5 MG TAB PO SCH (07:52)
[2017-07-15] MEDS: Losartan 25 MG TAB PO SCH (07:52)
[2017-07-15] MEDS: metFORMIN 500 MG TAB PO SCH ×2 (07:52→16:07)
[2017-07-15] MEDS: Glimepiride 4 MG TAB PO SCH (07:52)
[2017-07-15] MEDS: Furosemide 40 MG TAB PO SCH (07:52)
[2017-07-15] MEDS: guaiFENesin ER 600 MG TAB PO SCH ×2 (07:53→20:48)
[2017-07-15] MEDS: Enoxaparin Sodium 40 MG/0.4 ML SYRINGE SC SCH (07:53)
[2017-07-15] MEDS ORDERED: Dextrose 5% in Water 1,000 ML IV PRN ×2 (08:22→18:23)
[2017-07-15] MEDS ORDERED: Dextrose 50% Abboject 50 ML SYRINGE SLOW IVP PRN ×2 (08:22→18:23)
--- NOTE | 2017-07-15 08:24 | PDOC.PULPN ---
Progress Note: Subj/Obj - Subjective Date: 07/15/17 Time: 08:22 Narrative: Difficulty with thick secretions. ZAVALETA - ROS Respiratory: congestion, cough, chest tightness, productive cough, short of breath, wheezing - Objective Allergies/Adverse Reactions: Allergies Allergy/AdvReac Type Severity Reaction Status Date / Time No Known Allergies Allergy Verified 07/13/17 02:43 MAR Reviewed: Yes Vital Signs: Vital Signs Temp 98.1 F 07/15/17 07:35 Pulse 67 07/15/17 07:52 Resp 16 07/15/17 07:35 BP 160/71 H 07/15/17 07:52 Pulse Ox 97 07/15/17 07:35 Intake & Output 07/14/17 07/15/17 07/15/17 18:59 06:59 18:59 Intake Total 1070 Balance 1070 Intake: Intake, IV Amount 350 Oral 720 Other: Voiding Method Urinal Urinal # Unmeasured Voids 3 # Bowel Movements 0 Progress Note: Exam - Physical Exam Constitutional: NAD HEENT: PERRLA, moist MMs Neck: no nodes, no JVD, supple Cardiovascular: RRR, no significant murmur Focused Respiratory Location: wheezes: Right, Left Gastrointestinal: soft, non-tender Musculoskeletal: no edema Neurological: non-focal, normal sensation, moves all 4 limbs Lymphatic: no nodes Psychiatric: normal affect, A&O x 3 Skin: no rash Progress Note: Data - Labs Result Diagrams: 07/15/17 02:14 07/15/17 02:14 Progress Note: A/P - Problems (1) COPD exacerbation Current Visit: No Status: Acute Code(s): J44.1 - CHRONIC OBSTRUCTIVE PULMONARY DISEASE W (ACUTE) EXACERBATION - Plan Plan: Needs significantly more time to recover. Continue Nebs, Steroids, Abx
[2017-07-15] MEDS: Mometasone/Formoterol 120 PUFF INHALER INH SCH ×2 (10:41→18:42)
[2017-07-15] MEDS: cefTRIAXone\\ROCEPHIN 1 GM in Sodium Chloride 0.9% 100 ML IVPB SCH (16:07)
[2017-07-15] MEDS: Azithromycin 500 MG in Sodium Chloride 0.9% 250 ML 250 ML IVPB SCH (17:18)
--- NOTE | 2017-07-15 18:15 | PDOC.PN ---
- Subjective Encounter Start Date: 07/15/17 Encounter Start Time: 09:20 Pt seen for followup re: COPD exacerbation. Denies chest pain. Shortness of breath+, wheezing+ - Objective MAR Reviewed: Yes Vital Signs & Weight: Vital Signs (12 hours) Temp Pulse Resp BP BP BP Pulse Ox 07/15/17 16:42 98 F 69 16 148/64 H 99 07/15/17 15:14 75 16 95 07/15/17 11:49 98 F 68 16 151/71 H 98 07/15/17 10:21 71 16 07/15/17 08:00 98.1 F 67 16 97 07/15/17 07:52 67 160/71 H 07/15/17 07:35 98.1 F 67 16 160/71 H 97 Weight Weight 224 lb 7.983 oz I&O: 07/14/17 07/15/17 07/16/17 06:59 06:59 06:59 Intake Total 1240 1070 Output Total 500 Balance 740 1070 Result Diagrams: 07/15/17 02:14 07/15/17 02:14 Additional Labs: Accuchecks 07/15/17 07/15/17 07/15/17 16:44 11:36 04:39 POC Glucose 256 H 364 H 333 H 07/14/17 19:47 POC Glucose 266 H Labs reviewed by me Phys Exam - Physical Examination Obese HEENT: moist MMs, oral pharynx no lesions Neck: supple Respiratory: wheezing present Cardiovascular: RRR Gastrointestinal: soft Neurological: moves all 4 limbs Psychiatric: normal affect Dx/Plan (1) COPD exacerbation Code(s): J44.1 - CHRONIC OBSTRUCTIVE PULMONARY DISEASE W (ACUTE) EXACERBATION Status: Acute Comment: Continue oxygen, steroids, bronchodilators and antibiotics. (2) DM2 (diabetes mellitus, type 2) Status: Chronic Qualifiers: Diabetes mellitus jail insulin use: without lobsterman use Diabetes mellitus complication status: without complication Qualified Code(s): E11.9 - Type 2 diabetes mellitus without complications Comment: continue accuchecks, metformin and Amaryl. Switch to aggressive sliding scale. (3) HLD (hyperlipidemia) Code(s): E78.5 - HYPERLIPIDEMIA, UNSPECIFIED Status: Chronic Qualifiers: Hyperlipidemia type: unspecified Qualified Code(s): E78.5 - Hyperlipidemia , unspecified Comment: continue statin (4) HTN (hypertension) Code(s): I10 - ESSENTIAL (PRIMARY) HYPERTENSION Status: Chronic Qualifiers: Hypertension type: essential hypertension Qualified Code(s): I10 - Essential (primary) hypertension Comment: Monitor vital signs, titrate antihypertensives as needed. (5) Obesity (BMI 30-39.9) Code(s): E66.9 - OBESITY, UNSPECIFIED Status: Chronic - Plan * . Review of Systems - Review of Systems Respiratory: Cough, Shortness of Breath, SOB with Excertion, Wheezing Cardiovascular: negative: chest pain, palpitations, orthopnea, paroxysmal nocturnal dyspnea, edema, light headedness Gastrointestinal: negative: Nausea, Vomiting, Abdominal Pain, Diarrhea, Constipation, Melena, Hematochezia - Medications/Allergies Allergies/Adverse Reactions: Allergies Allergy/AdvReac Type Severity Reaction Status Date / Time No Known Allergies Allergy Verified 07/13/17 02:43 Medications: Current Medications Acetaminophen (Tylenol) 650 mg PO Q4H PRN PRN Reason: Headache/Fever or Pain Acetaminophen (Tylenol) 650 mg AR Q4H PRN PRN Reason: Headache/Fever or Pain Albuterol/Ipratropium (Duoneb) 3 ml NEB [id number] [facility] Last Admin: 07/15/17 15:14 Dose: 3 ml Amlodipine Besylate (Norvasc) 5 mg PO DAILY [facility] Last Admin: 07/15/17 07:52 Dose: 5 mg Atorvastatin Calcium (Lipitor) 20 mg PO HS [facility] Last Admin: 07/14/17 21:24 Dose: 20 mg Bisacodyl (Dulcolax) 10 mg PO DAILYPRN PRN PRN Reason: Constipation Last Admin: 07/13/17 12:09 Dose: 10 mg Dextrose/Water (Dextrose 50%) 25 gm SLOW IVP PRN PRN PRN Reason: Hypoglycemia Enoxaparin Sodium (Lovenox) 40 mg SC 0900 [facility] Last Admin: 07/15/17 07:53 Dose: 40 mg Furosemide (Lasix) 40 mg PO DAILY [facility] Last Admin: 07/15/17 07:52 Dose: 40 mg Glimepiride (Amaryl) 4 mg PO QAM-WM [facility] Last Admin: 07/15/17 07:52 Dose: 4 mg Glucagon (Glucagon) 1 mg IM PRN PRN PRN Reason: Hypoglycemia Guaifenesin (Mucinex) 600 mg PO Q12HR [facility] Last Admin: 07/15/17 07:53 Dose: 600 mg Hydralazine HCl (Apresoline) 10 mg SLOW IVP Q6H PRN PRN Reason: SBP Greater Than 170 Azithromycin 500 mg/ Sodium (Chloride) 250 mls @ 250 mls/hr IVPB Q24HR@1800 [facility] Last Admin: 07/15/17 17:18 Dose: 250 mls Ceftriaxone Sodium 1 gm/ (Sodium Chloride) 100 mls @ 200 mls/hr IVPB Q24HR@ 1700 [facility] Last Admin: 07/15/17 16:07 Dose: 100 mls Dextrose/Water (D5w) 1,000 mls @ 0 mls/hr IV .Q0M PRN; As Directed PRN Reason: Hypoglycemia Insulin Human Lispro (Humalog) 0 units SC .MODERATE SLIDING SC PRN PRN Reason: Moderate Correctional Scale Last Admin: 07/15/17 17:18 Dose: 6 unit Losartan Potassium (Cozaar) 100 mg PO DAILY [facility] Last Admin: 07/15/17 07:52 Dose: 100 mg Magnesium Hydroxide (Milk Of Magnesium) 30 ml PO BIDPRN PRN PRN Reason: Constipation Last Admin: 07/14/17 17:48 Dose: 30 ml Metformin HCl (Glucophage) 1,000 mg PO BID-WM [facility] Last Admin: 07/15/17 16:07 Dose: 1,000 mg Methylprednisolone Sodium Succinate (Solu-Medrol) 20 mg IVP Q6HR [facility] Last Admin: 07/15/17 17:18 Dose: 20 mg Mometasone Furoate/Formoterol Fumar (Dulera 200 Mcg/5 Mcg Inhaler) 2 puff INH BID-RT [facility] Last Admin: 07/15/17 10:41 Dose: 2 puff Montelukast Sodium (Singulair) 10 mg PO QPM [facility] Last Admin: 07/14/17 21:25 Dose: 10 mg Pantoprazole Sodium (Protonix) 40 mg PO 2100 [facility] Last Admin: 07/14/17 21:25 Dose: 40 mg Sodium Chloride (Flush - Normal Saline) 10 ml IVF Q12HR [facility] Last Admin: 07/15/17 07:53 Dose: 10 ml Sodium Chloride (Flush - Normal Saline) 10 ml IVF PRN PRN PRN Reason: Saline Flush
[2017-07-15] MEDS: Milk Of Magnesia 30 ML UDCUP PO PRN (19:17)
[2017-07-15] MEDS ORDERED: Sodium Chloride 0.9% 10 ML ONE (19:47)
[2017-07-15] MEDS: Montelukast Sodium 10 mg Tablet PO SCH (20:48)
[2017-07-15] MEDS: Atorvastatin Calcium 20 MG TAB PO SCH (20:48)
[2017-07-16] MEDS: HumaLOG 300 UNITS/3 ML VIAL SC PRN ×3 (06:07→17:31)
[2017-07-16] MEDS: Mometasone/Formoterol 120 PUFF INHALER INH SCH ×2 (06:52→18:22)
[2017-07-16] MEDS: Amlodipine 5 MG TAB PO SCH (08:03)
[2017-07-16] MEDS: Furosemide 40 MG TAB PO SCH (08:03)
[2017-07-16] MEDS: Losartan 25 MG TAB PO SCH (08:03)
[2017-07-16] MEDS: Glimepiride 4 MG TAB PO SCH (08:04)
[2017-07-16] MEDS: Enoxaparin Sodium 40 MG/0.4 ML SYRINGE SC SCH (08:04)
[2017-07-16] MEDS: guaiFENesin ER 600 MG TAB PO SCH ×2 (08:04→21:05)
[2017-07-16] MEDS: metFORMIN 500 MG TAB PO SCH ×2 (08:04→17:11)
[2017-07-16] MEDS: Milk Of Magnesia 30 ML UDCUP PO PRN (08:09)
[2017-07-16] MEDS: Azithromycin 250 MG TAB PO SCH (10:06)
[2017-07-16] MEDS: predniSONE 20 MG TAB PO SCH (10:06)
--- NOTE | 2017-07-16 10:58 | PRG ---
DATE OF SERVICE: 07/16/2017 SUBJECTIVE: The patient is doing better. He has no acute complaints. PHYSICAL EXAMINATION: VITAL SIGNS: On exam, his temperature is 97.4, pulse 72, blood pressure 136/62, and O2 sat 97%. HEENT: Unremarkable. NECK: No JVD. LUNGS: Clear without wheezing or rhonchi today. CARDIAC: S1 and S2 regular. ABDOMEN: Soft. EXTREMITIES: No edema. ASSESSMENT: 1. Chronic obstructive pulmonary disease with exacerbation. 2. Hyperglycemia. PLAN: I will go ahead and convert him over to oral steroids. His antibiotics will be changed to oral medic ation. I think he will be suitable for hospital discharge by Thursday.
--- NOTE | 2017-07-16 15:24 | PDOC.PN ---
- Subjective Encounter Start Date: 07/16/17 Encounter Start Time: 15:23 Subjective: feels much better but still ZAVALETA and wheezing - Objective MAR Reviewed: Yes Vital Signs & Weight: Vital Signs (12 hours) Temp Pulse Resp BP BP Pulse Ox 07/16/17 14:10 75 20 07/16/17 11:16 97.6 F 72 22 H 144/61 H 97 07/16/17 09:58 72 16 97 07/16/17 08:03 72 136/62 07/16/17 08:00 97.4 F L 72 22 H 07/16/17 07:22 97.4 F L 72 22 H 136/62 97 07/16/17 06:54 97 07/16/17 06:53 60 20 97 Weight Weight 224 lb 7.983 oz I&O: 07/15/17 07/16/17 07/17/17 06:59 06:59 06:59 Intake Total 1070 1422 480 Output Total 650 Balance 1070 772 480 Result Diagrams: 07/15/17 02:14 07/15/17 02:14 Additional Labs: Accuchecks 07/16/17 07/16/17 07/15/17 11:27 04:35 19:40 POC Glucose 309 H 283 H 293 H 07/15/17 16:44 POC Glucose 256 H Phys Exam - Physical Examination Constitutional: NAD HEENT: PERRLA, moist MMs, sclera anicteric, oral pharynx no lesions Neck: no nodes, no JVD, supple, full ROM Respiratory: no rales, no rhonchi, wheezing present, clear to auscultation bilateral Cardiovascular: RRR, no significant murmur, no rub Gastrointestinal: soft, non-tender, no distention, positive bowel sounds Musculoskeletal: no edema, pulses present Neurological: non-focal, normal sensation, moves all 4 limbs Psychiatric: normal affect, A&O x 3 Skin: no rash Dx/Plan (1) Acute on chronic respiratory failure with hypoxia Code(s): J96.21 - ACUTE AND CHRONIC RESPIRATORY FAILURE WITH HYPOXIA Status: Acute Comment: Continue supportive mgmt as outlined below, near baseline home O2 requirements (2) COPD exacerbation Code(s): J44.1 - CHRONIC OBSTRUCTIVE PULMONARY DISEASE W (ACUTE) EXACERBATION Status: Acute Comment: Continue oxygen, steroids, bronchodilators and antibiotics. (3) DM2 (diabetes mellitus, type 2) Status: Chronic Qualifiers: Diabetes mellitus exterminator termite insulin use: without exterminator termite use Diabetes mellitus complication status: without complication Qualified Code(s): E11.9 - Type 2 diabetes mellitus without complications Comment: continue accuchecks, metformin and Amaryl. Switch to aggressive sliding scale. (4) Former smoker Status: Chronic Comment: quit 10 years ago (5) HLD (hyperlipidemia) Code(s): E78.5 - HYPERLIPIDEMIA, UNSPECIFIED Status: Chronic Qualifiers: Hyperlipidemia type: unspecified Qualified Code(s): E78.5 - Hyperlipidemia , unspecified Comment: continue statin (6) HTN (hypertension) Code(s): I10 - ESSENTIAL (PRIMARY) HYPERTENSION Status: Chronic Qualifiers: Hypertension type: essential hypertension Qualified Code(s): I10 - Essential (primary) hypertension Comment: Monitor vital signs, titrate antihypertensives as needed. (7) Obesity (BMI 30-39.9) Code(s): E66.9 - OBESITY, UNSPECIFIED Status: Chronic - Plan DVT proph w/SCDs changed to Po steroids and PO ABx,cont nebs -: EDE melendez tomorrow. -: PCCM following. -: ISS -: home meds as below * . Review of Systems - Review of Systems Constitutional: negative: fever, chills, sweats, weakness, malaise, other ENT: negative: Ear Pain, Ear Discharge, Nose Pain, Nose Discharge, Nose Congestion, Mouth Pain, Mouth Swelling, Throat Pain, Throat Swelling, Other Respiratory: SOB with Excertion, Wheezing. negative: Cough, Dry, Shortness of Breath, Hemoptysis, Pleuritic Pain, Sputum Cardiovascular: negative: chest pain, palpitations, orthopnea, paroxysmal nocturnal dyspnea, edema, light headedness, other Gastrointestinal: negative: Nausea, Vomiting, Abdominal Pain, Diarrhea, Constipation, Melena, Hematochezia, Other Genitourinary: negative: Dysuria, Frequency, Incontinence, Hematuria, Retention , Other Musculoskeletal: negative: Neck Pain, Shoulder Pain, Arm Pain, Back Pain, Hand Pain, Leg Pain, Foot Pain, Other Skin: negative: Rash, Lesions, Sky, Bruising, Other Neurological: negative: Weakness, Numbness, Incoordination, Change in Speech, Confusion, Seizures, Other - Medications/Allergies Allergies/Adverse Reactions: Allergies Allergy/AdvReac Type Severity Reaction Status Date / Time No Known Allergies Allergy Verified 07/13/17 02:43 Medications: Current Medications Acetaminophen (Tylenol) 650 mg PO Q4H PRN PRN Reason: Headache/Fever or Pain Acetaminophen (Tylenol) 650 mg SD Q4H PRN PRN Reason: Headache/Fever or Pain Albuterol/Ipratropium (Duoneb) 3 ml NEB [id number] [facility] Last Admin: 07/16/17 14:10 Dose: 3 ml Amlodipine Besylate (Norvasc) 5 mg PO DAILY [facility] Last Admin: 07/16/17 08:03 Dose: 5 mg Atorvastatin Calcium (Lipitor) 20 mg PO HS [facility] Last Admin: 07/15/17 20:48 Dose: 20 mg Azithromycin (Zithromax) 250 mg PO DAILY [facility] Stop: 07/23/17 09:01 Last Admin: 07/16/17 10:06 Dose: 250 mg Bisacodyl (Dulcolax) 10 mg PO DAILYPRN PRN PRN Reason: Constipation Last Admin: 07/13/17 12:09 Dose: 10 mg Dextrose/Water (Dextrose 50%) 25 gm SLOW IVP PRN PRN PRN Reason: Hypoglycemia Dextrose/Water (Dextrose 50%) 25 gm SLOW IVP PRN PRN PRN Reason: Hypoglycemia Enoxaparin Sodium (Lovenox) 40 mg SC 0900 [facility] Last Admin: 07/16/17 08:04 Dose: 40 mg Furosemide (Lasix) 40 mg PO DAILY [facility] Last Admin: 07/16/17 08:03 Dose: 40 mg Glimepiride (Amaryl) 4 mg PO QAM-[facility] Last Admin: 07/16/17 08:04 Dose: 4 mg Glucagon (Glucagon) 1 mg IM PRN PRN PRN Reason: Hypoglycemia Glucagon (Glucagon) 1 mg IM PRN PRN PRN Reason: Hypoglycemia Guaifenesin (Mucinex) 600 mg PO Q12HR [facility] Last Admin: 07/16/17 08:04 Dose: 600 mg Hydralazine HCl (Apresoline) 10 mg SLOW IVP Q6H PRN PRN Reason: SBP Greater Than 170 Dextrose/Water (D5w) 1,000 mls @ 0 mls/hr IV .Q0M PRN; As Directed PRN Reason: Hypoglycemia Dextrose/Water (D5w) 1,000 mls @ 0 mls/hr IV .Q0M PRN; As Directed PRN Reason: Hypoglycemia Insulin Human Lispro (Humalog) 0 units SC .AGGRESSIVE SLIDING PRN PRN Reason: Aggressive Correctional Scale Last Admin: 07/16/17 12:44 Dose: 11 unit Losartan Potassium (Cozaar) 100 mg PO DAILY [facility] Last Admin: 07/16/17 08:03 Dose: 100 mg Magnesium Hydroxide (Milk Of Magnesium) 30 ml PO BIDPRN PRN PRN Reason: Constipation Last Admin: 07/16/17 08:09 Dose: 30 ml Metformin HCl (Glucophage) 1,000 mg PO BID-WM [facility] Last Admin: 07/16/17 08:04 Dose: 1,000 mg Mometasone Furoate/Formoterol Fumar (Dulera 200 Mcg/5 Mcg Inhaler) 2 puff INH BID-RT [facility] Last Admin: 07/16/17 06:52 Dose: 2 puff Montelukast Sodium (Singulair) 10 mg PO QPM [facility] Last Admin: 07/15/17 20:48 Dose: 10 mg Pantoprazole Sodium (Protonix) 40 mg PO 2100 [facility] Last Admin: 07/15/17 20:48 Dose: 40 mg Prednisone (Prednisone) 40 mg PO DAILY [facility] Last Admin: 07/16/17 10:06 Dose: 40 mg Sodium Chloride (Flush - Normal Saline) 10 ml IVF Q12HR [facility] Last Admin: 07/16/17 08:05 Dose: 10 ml Sodium Chloride (Flush - Normal Saline) 10 ml IVF PRN PRN PRN Reason: Saline Flush
[2017-07-16] MEDS: Bisacodyl 5 MG TAB PO PRN (17:15)
[2017-07-16] MEDS: Atorvastatin Calcium 20 MG TAB PO SCH (21:05)
[2017-07-16] MEDS: Montelukast Sodium 10 mg Tablet PO SCH (21:05)
[2017-07-17] MEDS: Mometasone/Formoterol 120 PUFF INHALER INH SCH (06:57)
[2017-07-17] MEDS: metFORMIN 500 MG TAB PO SCH (08:13)
[2017-07-17] MEDS: Amlodipine 5 MG TAB PO SCH (08:13)
[2017-07-17] MEDS: Losartan 25 MG TAB PO SCH (08:13)
[2017-07-17] MEDS: predniSONE 20 MG TAB PO SCH (08:13)
[2017-07-17] MEDS: guaiFENesin ER 600 MG TAB PO SCH (08:13)
[2017-07-17] MEDS: Azithromycin 250 MG TAB PO SCH (08:13)
[2017-07-17] MEDS: Furosemide 40 MG TAB PO SCH (08:13)
[2017-07-17] MEDS: Glimepiride 4 MG TAB PO SCH (08:13)
[2017-07-17] MEDS: Enoxaparin Sodium 40 MG/0.4 ML SYRINGE SC SCH (08:14)
[2017-07-17] MEDS: Bisacodyl 5 MG TAB PO PRN (08:18)
[2017-07-17 11:50] VITALS: BP 121/68; TEMP 98.1
[2017-07-17] MEDS: HumaLOG 300 UNITS/3 ML VIAL SC PRN (12:28)
--- NOTE | 2017-07-17 12:54 | PRG ---
DATE OF SERVICE: 07/17/2017 SUBJECTIVE: He feels better and wants to go home. PHYSICAL EXAMINATION: VITAL SIGNS: Temperature 98.4, pulse 63, respirations 20, O2 sat 100%, and blood pressure 146/71. HEENT: Unremarkable. NECK: No JVD. LUNGS: Few end expiratory wheezes. CARDIAC: S1 and S2 regular. ABDOMEN: Soft. EXTREMITIES: No edema. ASSESSMENT: Chronic obstructive pulmonary disease exacerbation. PLAN: I think he is stable to go home on his nebulization treatments, inhalers and tapered steroid d ose over 2 weeks. I would finish out about a week of total of antibiotics. He needs to come back an d see me in the office in 2-3 weeks.
--- NOTE | 2017-07-17 21:02 | DIS ---
DATE OF ADMISSION: 07/12/2017 DATE OF DISCHARGE: 07/17/2017 CONDITION AT THE TIME OF DISCHARGE: Stable and improved. DISCHARGE DIAGNOSES: 1. Acute on chronic respiratory failure with hypoxia. 2. Acute chronic obstructive pulmonary disease exacerbation. 3. Diabetes mellitus type 2. 4. Hyperlipidemia. 5. Hypertension. 6. Obesity with a BMI of 36.2. CONSULTATIONS: Pulmonary medicine, Dr. Palma. PROCEDURES DONE: Chest x-ray. PRIMARY CARE PHYSICIAN: Dr. Saul Elkins M.D. at [facility] [place]. DISCHARGE MEDICATIONS: New medications: Azithromycin 250 mg daily for 3 more days, nebulizers q.i.d . p.r.n., Medrol Dosepak, Singulair 10 mg daily. RESUME HOME MEDICATIONS: As follows: Metformin 1000 mg p.o. b.i.d., simvastatin 40 mg daily, potass ium chloride 8 mEq daily, MiraLax as needed, Protonix 40 mg daily, Cozaar 100 mg daily, Atrovent as n eeded q.i.d., Amaryl 4 mg in the morning, Lasix 40 mg daily, Symbicort 160/4.5 two puffs b.i.d., Norv asc 5 mg daily. HISTORY OF PRESENTING ILLNESS: Mr. Salinas is a pleasant 76-year-old male with known history of COPD an d chronic respiratory failure on home oxygen, who presented to the emergency room with complaints of cough. He was recently hospitalized to our facility about 2 months ago from 05/04/2017 to 05/09/2017 for COPD exacerbation. Once again at this time upon presentation, he was hypoxic and was diagnosed with acute COPD exacerbation. His chest x-ray was unremarkable and his EKG was negative for any evid ence of acute coronary syndrome. Please see admission history and physical for further detail. He w as started on oxygen, steroids, bronchodilators, antibiotics and Pulmonary Medicine was consulted. HOSPITAL COURSE: The patient had slow improvement in his symptoms and was continued on the above-men tioned treatments. Dr. Palma saw the patient as well and followed along. Eventually, he was taper ed off to oral antibiotics and oral steroids and was continued on nebulizers. He was started on Spir anya as well. He remained afebrile and hemodynamically stable and this morning has been cleared by [facility] Medicine for discharge on oral steroids and oral antibiotics. PHYSICAL EXAMINATION: He was seen and examined prior to discharge. VITAL SIGNS: Temperature 98.1, pulse of 68, saturating 100% on 2 liters nasal cannula, respirations 20, blood pressure 121/68. GENERAL: No acute distress, awake, alert, oriented x3. CHEST: Diffuse scant wheezes and expiratory phase, otherwise equal air entry bilaterally. HEART: Rate and rhythm is regular without any murmur, rubs or gallops. ABDOMEN: Soft, nontender, nondistended. EXTREMITIES: Free of any cyanosis, clubbing, or edema. DISCHARGE INSTRUCTIONS: He is instructed to follow up with his primary care physician in 7-10 days a nd medication compliance is encouraged and he verbalized understanding for the discharge plan.
--- NOTE | 2017-07-18 14:36 | EKG ---
Test Reason : ALEKSANDRA MRA1 Blood Pressure : / mmHG Vent. Rate : 076 BPM Atrial Rate : 076 BPM P-R Int : 144 ms QRS Dur : 086 ms QT Int : 352 ms P-R-T Axes : -10 033 002 degrees QTc Int : 396 ms Poor data quality, interpretation may be adversely affected Normal sinus rhythm Normal ECG No ST elevation/MT Confirmed by WENDY STALLINGS M.D. ([id number]), school photograph editor CARLYLE CISNEROS ([id number]) on 07/18/2017 2:36:26 PM Referred By: Confirmed By:WENDY STALLINGS M.D.
== END 2017-07-17 14:52 | disposition home or self-care (01) | DRG 189 ==
LOC: ERS 16:39 → ERHOLD 18:56 → IMCU/EMU 22:04 → T4-B 07-13 09:19
PROVIDERS: ADMIT Internal Medicine; ATTEND Internal Medicine
DX: J96.21 Acute and chronic respiratory failure with hypoxia (principal); J44.1 Chronic obstructive pulmonary disease with (acute) exacerbation; E78.5 Hyperlipidemia, unspecified; E66.9 Obesity, unspecified; Z68.36 Body mass index [BMI] 36.0-36.9, adult; Z99.81 Dependence on supplemental oxygen; I10 Essential (primary) hypertension; Z79.899 Other long term (current) drug therapy; Z79.891 Long term (current) use of opiate analgesic; E11.65 Type 2 diabetes mellitus with hyperglycemia; Z87.891 Personal history of nicotine dependence
CPT/HCPCS: 36415; 36416; 71045; 80048; 80053; 82553; 83605; 83735; 83880; 84484; 85025; 93005; 94640; 94660; 94664; 94760; 96365; 96367; 96375; A4216; J0456; J0696; J1650; J2920; J2930; J7050; J7506; J7620

== ENCOUNTER 2017-08-11 11:55 | Outpatient (CLI) | payer MEDICARE, BC ==
--- NOTE | 2017-08-11 13:46 | RAD ---
PA AND LATERAL CHEST RADIOGRAPH: Date: 08-11-17 History: Dyspnea. Comparison: 07-12-17 FINDINGS: Again noted is elevation of the right hemidiaphragm with linear scarring again seen at the right lung base. Left lung remains clear. Metallic foreign body again overlies the expected location of the pos terior mediastinum. Vascular calcifications are seen in the thoracic aorta. Degenerative changes are again seen in the spine. There has been no interval change compared to the prior exam. IMPRESSION: 1. Chronic changes right lung base with persistent elevation right hemidiaphragm. 2. No acute cardiopulmonary process. 3. Stable mild prominence of the main pulmonary artery. 4. Stable metallic foreign body overlying the upper mediastinum. POS: [facility]
== END 2017-08-11 11:56 | disposition home or self-care (01) ==
LOC: RAD 11:55
PROVIDERS: ATTEND Internal Medicine Critical Care Medicine
DX: R06.00 Dyspnea, unspecified (principal); J98.6 Disorders of diaphragm; T18.9XXA Foreign body of alimentary tract, part unspecified, initial encounter
CPT/HCPCS: 71046

== ENCOUNTER 2017-10-26 13:47 | Emergency (ER) | payer MEDICARE, BC ==
[2017-10-26 15:17] LABS: #Basophils 0.1 thou/uL (0.0-0.2); #Eosinphils 0.1 thou/uL (0.0-0.7); #Lymphocytes 2.2 thou/uL (1.20-3.40); #Monocytes 0.6 thou/uL (0.11-0.59); #Neutrophils 8.5 thou/uL (1.40-6.50); %Basophils 0.6 % (0.0-1.0); %Eosinophils 1.2 % (0.0-10.0); %Lymphocytes 18.7 % (21.0-51.0); %Monocytes 5.3 % (0.0-10.0); %Neutrophils 74.2 % (42.0-75.0); Hemoglobin 12.5 g/dL (14.0-18.0); Mean Corpuscular HGB CONC 33.4 g/dL (32.0-36.0); Mean Corpuscular Hemoglobin 33.3 pg (27.0-31.0); Mean Corpuscular Volume 99.6 fL (78.0-98.0); Mean Platelet Volume 8.4 fL (7.4-10.4); Platelet Count 230 thou/uL (130-400); RBC Distribution Width 13.2 % (11.5-14.5); Red Blood Cell (RBC) Count 3.77 mill/uL (4.70-6.10); White Blood Cell (WBC) Count 11.5 thou/uL (4.8-10.8)
[2017-10-26 15:37] LABS: ALT (SGPT) 10 U/L (8-55); AST (SGOT) 17 U/L (5-34); Albumin 3.9 g/dL (3.4-4.8); Alkaline Phosphatase 48 U/L (40-150); Anion Gap 15 mmol/L (10-20); BUN (Urea Nitrogen) 15 mg/dL (8.4-25.7); Bilirubin, Total 0.3 mg/dL (0.2-1.2); Calc. Creatinine Clearance 0 mL/min (70-130); Calcium 9.4 mg/dL (7.8-10.44); Carbon Dioxide 26 mmol/L (23-31); Chloride 104 mmol/L (98-107); Estimated GFR-MDRD 80; Globulin 3.1 g/dL (2.4-3.5); Glucose 123 mg/dL (83-110); Sodium 140 mmol/L (136-145)
[2017-10-26 15:43] LABS: CKMB 3.1 ng/mL (0-6.6); Troponin I Less than 0.010 ng/mL (< 0.028)
--- NOTE | 2017-10-26 15:44 | RAD ---
AP CHEST: Indication: Dyspnea. Comparison: 08-11-17 FINDINGS: There is stable elevation of the right hemidiaphragm. There is right basilar atelectasis and/or scarr ing that is stable. Mild cardiomegaly is similar appearing. Metallic foreign body in the upper medias tinum has a similar appearance. Cardiac osseous changes are similar. IMPRESSION: No acute abnormality. Stable findings as above. POS: [facility]
[2017-10-26 15:55] LABS: Bilirubin Negative (Negative); Blood, Urine Negative (Negative); Clarity CLEAR (Clear); Glucose, Urine (Dipstick) Negative (Negative); Leukocyte Negative (Negative); Nitrite Negative (Negative); Protein, Urine (Dipstick) Negative (Neg-Trace); Specific Gravity, Urine 1.018 (1.002-1.036); pH, Urine 6.5 (5.0-9.0)
[2017-10-26] MEDS ORDERED: predniSONE 20 MG TAB ONE (17:21)
--- NOTE | 2017-10-28 14:51 | EKG ---
Test Reason : Blood Pressure : / mmHG Vent. Rate : 069 BPM Atrial Rate : 069 BPM P-R Int : 140 ms QRS Dur : 086 ms QT Int : 384 ms P-R-T Axes : -10 017 027 degrees QTc Int : 411 ms Normal sinus rhythm Normal ECG Confirmed by FOUZIA CARLOS ([id number]), editorial intern MASHA FUNES ([id number]) on 10/28/2017 2:51:15 PM Referred By: Confirmed By:FOUZIA CARLOS
== END 2017-10-26 17:54 | disposition home or self-care (01) ==
LOC: ERS 13:47
DX: J40 Bronchitis, not specified as acute or chronic (principal); E11.9 Type 2 diabetes mellitus without complications; E78.5 Hyperlipidemia, unspecified; I10 Essential (primary) hypertension; J44.9 Chronic obstructive pulmonary disease, unspecified; F20.9 Schizophrenia, unspecified; Z87.891 Personal history of nicotine dependence; Z79.899 Other long term (current) drug therapy; Z79.84 Long term (current) use of oral hypoglycemic drugs
CPT/HCPCS: 71045; 80053; 81003; 82553; 83880; 84484; 85025; 93005; 94640; J7506; J7620

== ENCOUNTER 2017-12-29 11:03 | Day surgery (SDC) | payer MEDICARE, BC ==
--- NOTE | 2017-12-29 14:33 | OP ---
DATE OF PROCEDURE: 12/29/2017 PROCEDURE: Colonoscopy with snare polypectomy. PREOPERATIVE DIAGNOSIS: Colon cancer screening. PROCEDURE IN DETAIL: Informed consent was obtained from the patient. He was sedated with total intr avenous anesthesia. The rectal exam was performed and was normal. The colonoscope was advanced to t he cecum where the ileocecal valve and appendiceal orifice were clearly identified. There was melano sis coli diffusely throughout the colon. A 6 mm polyp was removed from the ascending colon by cold s nare polypectomy. A 3 mm polyp was removed from the descending colon by cold snare polypectomy. The remainder of the colonic mucosa was normal. Retroflexed views in the rectum revealed small internal hemorrhoids. IMPRESSION: 1. Melanosis throughout the colon. 2. A 6 mm polyp removed from the ascending colon. 3. A 3 mm polyp removed from the descending colon. 4. Small internal hemorrhoids. RECOMMENDATIONS: 1. Await histopathology. 2. He should not require future colonoscopy based on age alone.
[2017-12-29] MEDS ORDERED: Lidocaine 1% PF 5 ML VIAL ONE (17:35)
[2017-12-29] MEDS ORDERED: PROPOFOL 200 MG/20 ML VIAL ONE (17:35)
== END 2017-12-29 15:10 | disposition home or self-care (01) ==
LOC: SDC 11:03
PROVIDERS: ATTEND Internal Medicine Gastroenterology
PROC: 0DBK8ZX Excision of Ascending Colon, Via Natural or Artificial Opening Endoscopic, Diagnostic (ICD-10-PCS; principal; 2017-12-29)
PROC: 0DBM8ZX Excision of Descending Colon, Via Natural or Artificial Opening Endoscopic, Diagnostic (ICD-10-PCS; 2017-12-29)
DX: D12.2 Benign neoplasm of ascending colon (principal); D12.4 Benign neoplasm of descending colon; K63.89 Other specified diseases of intestine; K64.8 Other hemorrhoids; K59.00 Constipation, unspecified; K21.9 Gastro-esophageal reflux disease without esophagitis; J44.9 Chronic obstructive pulmonary disease, unspecified; I10 Essential (primary) hypertension; E78.00 Pure hypercholesterolemia, unspecified; F17.200 Nicotine dependence, unspecified, uncomplicated; Z86.010 Personal history of colon polyps; Z79.82 Long term (current) use of aspirin; Z79.84 Long term (current) use of oral hypoglycemic drugs; Z79.52 Long term (current) use of systemic steroids; Z79.899 Other long term (current) drug therapy
CPT/HCPCS: 88305; J2001; J2704

== ENCOUNTER 2018-01-17 09:45 | Emergency (ER) | payer MEDICARE, BC ==
[2018-01-17 10:26] LABS: #Basophils 0.1 thou/uL (0.0-0.2); #Eosinphils 0.4 thou/uL (0.0-0.7); #Lymphocytes 3.8 thou/uL (1.20-3.40); #Monocytes 0.8 thou/uL (0.11-0.59); #Neutrophils 6.4 thou/uL (1.40-6.50); %Basophils 0.7 % (0.0-1.0); %Eosinophils 3.3 % (0.0-10.0); %Lymphocytes 33.2 % (21.0-51.0); %Monocytes 7.3 % (0.0-10.0); %Neutrophils 55.4 % (42.0-75.0); Hemoglobin 12.9 g/dL (14.0-18.0); Mean Corpuscular HGB CONC 31.1 g/dL (32.0-36.0); Mean Corpuscular Hemoglobin 31.5 pg (27.0-31.0); Mean Platelet Volume 8.7 fL (7.4-10.4); Platelet Count 260 thou/uL (130-400); RBC Distribution Width 13.4 % (11.5-14.5); Red Blood Cell (RBC) Count 4.09 mill/uL (4.70-6.10); White Blood Cell (WBC) Count 11.5 thou/uL (4.8-10.8)
[2018-01-17] MEDS ORDERED: Magnesium 2 GM/50 ML 2 GM in Premix Bag 1 BAG IVPB SCH (10:30)
[2018-01-17 10:49] LABS: ALT (SGPT) 15 U/L (8-55); AST (SGOT) 13 U/L (5-34); Albumin 3.8 g/dL (3.4-4.8); Alkaline Phosphatase 46 U/L (40-150); Anion Gap 13 mmol/L (10-20); BUN (Urea Nitrogen) 12 mg/dL (8.4-25.7); Bilirubin, Total 0.6 mg/dL (0.2-1.2); CK (CPK) 134 U/L (30-200); Calc. Creatinine Clearance 0 mL/min (70-130); Carbon Dioxide 25 mmol/L (23-31); Chloride 103 mmol/L (98-107); Estimated GFR-MDRD Greater than 90; Globulin 2.8 g/dL (2.4-3.5); Glucose 168 mg/dL (83-110); Lipase 13 U/L (8-78); Potassium 4.2 mmol/L (3.5-5.1); Protein, Total 6.6 g/dL (5.8-8.1); Sodium 137 mmol/L (136-145)
[2018-01-17 10:53] LABS: CKMB 2.7 ng/mL (0-6.6); Troponin I Less than 0.010 ng/mL (< 0.028)
--- NOTE | 2018-01-17 11:53 | RAD ---
PORTABLE CHEST 1 VIEW: Date: 01/17/18 Time: 0923 hours HISTORY: Dyspnea. FINDINGS: Comparison made with exam of 10/26/17. There is continued elevation of the right hemidiaphragm. There is minimal scarring in the right lower lung. The heart size is mildly prominent, but stable. No lobar consolidation, pneumothoraces, tessa pulmonary edema, or pleural effusions are seen. IMPRESSION: No acute process. POS: [facility]
[2018-01-17] MEDS ORDERED: ISOVUE-370 76%-LOCM 1 ML ONE (12:53)
--- NOTE | 2018-01-17 13:51 | CT ---
CTA THORAX WITH CONTRAST: (Computed Tomographic Angiography, chest(noncoronary) with contrast material, and image postprocessin g) (PE protocol) Date: 01/17/18 HISTORY: 77-year-old female with dyspnea, left chest pain, and cough. TECHNIQUE: IV injection of iodinated contrast: 100 mL [id number]. Scan acquisition timing attempted to coincide with iodinated contrast bolus reaching maximal density in pulmonary arteries. 3D MIP reconstructions. FINDINGS: No pulmonary thromboembolism. No thoracic aortic aneurysm or dissection. Calcification of left main, LAD, and LCX, and to a lesser degree RCA. No cardiomegaly, pericardial effusion, pleural effusion, or pneumothorax. Chronic pulmonary densities, asymmetrically worse in the right lung compared to the le ft, with numerous blebs and bullae throughout the right upper lobe, right lower lobe, and to a lesser degree right middle lobe. Peribronchial thickening in the basilar segments of right lower lobe. Foca l triangular pulmonary density consistent with pulmonary scar at the lateral aspect of right middle l obe abutting the right lateral costophrenic angle. There is a large number of mildly enlarged bilateral axillary lymph nodes. This is nonspecific. IMPRESSION: 1. No evidence of pulmonary thromboembolism. 2. emphysema throughout the right lung unilaterally. 3. Coronary atherosclerotic disease. 4. Bilateral axillary lymphadenopathy. jn[] POS: [facility]
== END 2018-01-17 13:24 | disposition home or self-care (01) ==
LOC: ERS 09:45
DX: J44.1 Chronic obstructive pulmonary disease with (acute) exacerbation (principal); E11.9 Type 2 diabetes mellitus without complications; E78.5 Hyperlipidemia, unspecified; I10 Essential (primary) hypertension; Z87.891 Personal history of nicotine dependence; Z79.899 Other long term (current) drug therapy; Z79.84 Long term (current) use of oral hypoglycemic drugs
CPT/HCPCS: 36415; 71045; 71275; 80053; 82550; 82553; 83690; 83880; 84484; 85025; 85379; 93005; 96365

== ENCOUNTER 2018-03-03 07:01 | Inpatient (IN) | payer MEDICARE, BC ==
[2018-03-03 07:34] LABS: #Eosinphils 0.8 thou/uL (0.0-0.7); #Lymphocytes 3.9 thou/uL (1.20-3.40); #Monocytes 0.9 thou/uL (0.11-0.59); #Neutrophils 7.6 thou/uL (1.40-6.50); %Basophils 0.3 % (0.0-1.0); %Eosinophils 6.2 % (0.0-10.0); %Lymphocytes 29.3 % (21.0-51.0); %Monocytes 7.1 % (0.0-10.0); %Neutrophils 57.1 % (42.0-75.0); Hemoglobin 12.6 g/dL (14.0-18.0); Mean Corpuscular HGB CONC 31.6 g/dL (32.0-36.0); Mean Corpuscular Hemoglobin 31.9 pg (27.0-31.0); Platelet Count 240 thou/uL (130-400); RBC Distribution Width 13.2 % (11.5-14.5); Red Blood Cell (RBC) Count 3.97 mill/uL (4.70-6.10); White Blood Cell (WBC) Count 13.3 thou/uL (4.8-10.8)
[2018-03-03 07:57] LABS: ALT (SGPT) 24 U/L (8-55); AST (SGOT) 18 U/L (5-34); Alkaline Phosphatase 54 U/L (40-150); Anion Gap 15 mmol/L (10-20); BUN (Urea Nitrogen) 12 mg/dL (8.4-25.7); Bilirubin, Total 0.4 mg/dL (0.2-1.2); Calc. Creatinine Clearance 0 mL/min (70-130); Calcium 8.9 mg/dL (7.8-10.44); Carbon Dioxide 24 mmol/L (23-31); Chloride 103 mmol/L (98-107); Estimated GFR-MDRD Greater than 90; Globulin 2.6 g/dL (2.4-3.5); Glucose 181 mg/dL (83-110); Magnesium 2.6 mg/dL (1.6-2.6); Potassium 4.6 mmol/L (3.5-5.1); Protein, Total 6.6 g/dL (5.8-8.1); Sodium 137 mmol/L (136-145)
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
[2018-03-03] MEDS ORDERED: Acetaminophen 325 MG TAB PO PRN (10:17)
[2018-03-03] MEDS ORDERED: Dextrose 50% Abboject 50 ML SYRINGE SLOW IVP PRN (10:23)
[2018-03-03] MEDS ORDERED: Dextrose 5% in Water 1,000 ML IV PRN (10:23)
[2018-03-03 11:37] VITALS: BMI 35.2
[2018-03-03 12:06] LABS: Troponin I 0.015 ng/mL (< 0.028)
[2018-03-03] MEDS: HumaLOG 300 UNITS/3 ML VIAL SC PRN ×3 (12:42→21:27)
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
[2018-03-03] MEDS: metFORMIN 500 MG TAB PO SCH (16:15)
[2018-03-03 17:13] LABS: Troponin I 0.025 ng/mL (< 0.028)
[2018-03-03] MEDS: HYDROcodone/Acetaminophen 10/325 mg Tablet PO SCH ×2 (17:50→23:48)
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
[2018-03-03] MEDS: Famotidine 20 MG TAB PO SCH (20:19)
[2018-03-03] MEDS: Doxycycline 100 MG CAP PO SCH (20:19)
[2018-03-04 05:43] LABS: #Lymphocytes 0.9 thou/uL (1.20-3.40); #Monocytes 0.3 thou/uL (0.11-0.59); #Neutrophils 9.4 thou/uL (1.40-6.50); %Basophils 0.2 % (0.0-1.0); %Eosinophils 0.1 % (0.0-10.0); %Lymphocytes 8.3 % (21.0-51.0); %Monocytes 2.4 % (0.0-10.0); %Neutrophils 88.9 % (42.0-75.0); Hemoglobin 13.1 g/dL (14.0-18.0); Mean Corpuscular HGB CONC 31.5 g/dL (32.0-36.0); Mean Corpuscular Hemoglobin 31.9 pg (27.0-31.0); Mean Platelet Volume 9.2 fL (7.4-10.4); Platelet Count 248 thou/uL (130-400); RBC Distribution Width 13.2 % (11.5-14.5); Red Blood Cell (RBC) Count 4.11 mill/uL (4.70-6.10); White Blood Cell (WBC) Count 10.5 thou/uL (4.8-10.8)
[2018-03-04] MEDS: HYDROcodone/Acetaminophen 10/325 mg Tablet PO SCH ×3 (05:59→17:30)
[2018-03-04 06:02] LABS: Anion Gap 15 mmol/L (10-20); BUN (Urea Nitrogen) 14 mg/dL (8.4-25.7); Calc. Creatinine Clearance 111 mL/min (70-130); Calcium 9.5 mg/dL (7.8-10.44); Carbon Dioxide 26 mmol/L (23-31); Chloride 98 mmol/L (98-107); Estimated GFR-MDRD Greater than 90; Glucose 242 mg/dL (83-110); Potassium 4.7 mmol/L (3.5-5.1); Sodium 134 mmol/L (136-145)
--- NOTE | 2018-03-04 09:29 | PRG ---
DATE OF SERVICE: 03/04/2018 SUBJECTIVE: He is coughing more today than he was yesterday. He says his wheezing remains persistent. OBJECTIVE: VITAL SIGNS: Temperature 98.4, pulse 76, respirations 18, O2 sat 96%, blood pressure 137/63. HEENT: Unremarkable. NECK: No JVD. LUNGS: Diffuse expiratory wheezing. CARDIAC: S1 and S2. Regular. ABDOMEN: Soft. EXTREMITIES: No edema. LABORATORY DATA: Sodium 134, potassium 4.7, BUN 14, creatinine 0.8. White blood cell count 10.5, hematocrit 41.6, and platelet count 248. ASSESSMENT: Chronic obstructive pulmonary disease with exacerbation of symptoms. PLAN: 1. Continue steroids, nebulization treatments, antibiotics. 2. Added Mucinex at the patient's request. Job ID: [id number]
[2018-03-04] MEDS: Amlodipine 5 MG TAB PO SCH (09:30)
[2018-03-04] MEDS: metFORMIN 500 MG TAB PO SCH ×2 (09:30→17:31)
[2018-03-04] MEDS: Potassium Chloride 8 MEQ TAB PO SCH (09:30)
[2018-03-04] MEDS: Furosemide 40 MG TAB PO SCH (09:30)
[2018-03-04] MEDS: Glimepiride 4 MG TAB PO SCH (09:30)
[2018-03-04] MEDS: Enoxaparin Sodium 40 MG/0.4 ML SYRINGE SC SCH (09:31)
[2018-03-04] MEDS: Losartan 25 MG TAB PO SCH (09:31)
[2018-03-04] MEDS: Doxycycline 100 MG CAP PO SCH ×2 (09:31→20:25)
[2018-03-04] MEDS: Famotidine 20 MG TAB PO SCH ×2 (09:32→20:25)
[2018-03-04] MEDS: guaiFENesin/DM ER PO SCH ×2 (09:33→20:25)
[2018-03-04] MEDS: Senokot S 8.6-50 MG TAB PO PRN (12:16)
--- NOTE | 2018-03-04 19:40 | PDOC.PN ---
- Subjective Encounter Start Date: 03/04/18 Encounter Start Time: 07:45 Says he is still not doing great. Only slight improvement from yesterday. He is cough much more today than yesterday. Minimally productive. Request something to help him have a bm. - Objective Resuscitation Status - Order Detail: 03/03/18 10:17 Resuscitation Status Routine Resuscitation Status: FULL: Full Resuscitation Discussed with: Patient Vital Signs & Weight: Vital Signs (12 hours) Temp Pulse Resp BP Pulse Ox 03/04/18 19:34 98 03/04/18 19:33 85 16 98 03/04/18 16:01 98.7 F 72 18 124/58 L 95 03/04/18 13:31 87 16 99 03/04/18 12:20 98.0 F 86 18 136/60 94 L 03/04/18 09:35 75 18 99 03/04/18 09:15 96 Weight Weight 231 lb 7.766 oz I&O: 03/03/18 03/04/18 03/05/18 06:59 06:59 06:59 Output Total 450 Balance -450 Result Diagrams: 03/04/18 05:24 03/04/18 05:24 Additional Labs: Accuchecks 03/04/18 03/04/18 03/04/18 17:12 11:05 06:08 POC Glucose 197 H 337 H 234 H 03/03/18 21:18 POC Glucose 275 H Phys Exam - Physical Examination Constitutional: NAD Still audible rales. Scattered rales and wheezes. Cardiovascular: RRR, no significant murmur Gastrointestinal: soft, non-tender, no distention, positive bowel sounds Trace edema. Psychiatric: normal affect, A&O x 3 Dx/Plan (1) Acute on chronic respiratory failure with hypoxia Code(s): J96.21 - ACUTE AND CHRONIC RESPIRATORY FAILURE WITH HYPOXIA Status: Acute Comment: Continue supportive mgmt as outlined below, near baseline home O2 requirements (2) COPD exacerbation Code(s): J44.1 - CHRONIC OBSTRUCTIVE PULMONARY DISEASE W (ACUTE) EXACERBATION Status: Acute Comment: Continue oxygen, steroids, bronchodilators and antibiotics. (3) Constipation Code(s): K59.00 - CONSTIPATION, UNSPECIFIED Status: Acute (4) DM2 (diabetes mellitus, type 2) Status: Chronic Qualifiers: Diabetes mellitus fdc insulin use: without probe operator use Diabetes mellitus complication status: without complication Qualified Code(s): E11.9 - Type 2 diabetes mellitus without complications Comment: continue accuchecks, metformin and Amaryl. Switch to aggressive sliding scale. (5) HLD (hyperlipidemia) Code(s): E78.5 - HYPERLIPIDEMIA, UNSPECIFIED Status: Chronic Qualifiers: Hyperlipidemia type: unspecified Qualified Code(s): E78.5 - Hyperlipidemia , unspecified Comment: continue statin (6) HTN (hypertension) Code(s): I10 - ESSENTIAL (PRIMARY) HYPERTENSION Status: Chronic Qualifiers: Hypertension type: essential hypertension Qualified Code(s): I10 - Essential (primary) hypertension Comment: Monitor vital signs, titrate antihypertensives as needed. - Plan * Pulmonology consulted. * Continue abx, nebs, oxygen and steroids * Has PRN's for constipation. * Blood sugars tolerable. Will watch with the steroids. Continue SSI.
[2018-03-05] MEDS: HYDROcodone/Acetaminophen 10/325 mg Tablet PO SCH ×5 (00:14→23:03)
[2018-03-05] MEDS: Bisacodyl 5 MG TAB PO PRN (06:05)
[2018-03-05] MEDS: Glimepiride 4 MG TAB PO SCH (08:41)
[2018-03-05] MEDS: Amlodipine 5 MG TAB PO SCH (08:42)
[2018-03-05] MEDS: metFORMIN 500 MG TAB PO SCH ×2 (08:42→15:56)
[2018-03-05] MEDS: Doxycycline 100 MG CAP PO SCH ×2 (08:42→20:53)
[2018-03-05] MEDS: Losartan 25 MG TAB PO SCH (08:42)
[2018-03-05] MEDS: Famotidine 20 MG TAB PO SCH ×2 (08:43→20:52)
[2018-03-05] MEDS: guaiFENesin/DM ER PO SCH ×2 (08:43→20:53)
[2018-03-05] MEDS: Potassium Chloride 8 MEQ TAB PO SCH (08:43)
[2018-03-05] MEDS: Furosemide 40 MG TAB PO SCH (08:43)
[2018-03-05] MEDS: Enoxaparin Sodium 40 MG/0.4 ML SYRINGE SC SCH (08:44)
[2018-03-05] MEDS: HumaLOG 300 UNITS/3 ML VIAL SC PRN ×3 (08:56→20:35)
--- NOTE | 2018-03-05 09:19 | PRG ---
DATE OF SERVICE: SUBJECTIVE: The patient is feeling better, but not completely back to baseline. OBJECTIVE: VITAL SIGNS: Temperature 98.1, pulse 68, respirations 16, O2 saturation 98% on 3 L, and blood pressure 140/63. HEENT: Unremarkable. NECK: No JVD. LUNGS: He has diffuse mild wheezing. CARDIAC: S1, S2. Regular. ABDOMEN: Soft. EXTREMITIES: No edema. ASSESSMENT: Chronic obstructive pulmonary disease with exacerbation. PLAN: The patient is likely on trach, to go home by tomorrow. I will try to reduce the steroid dose today. I think he can be moved to the medical floor. Job ID: [id number]
--- NOTE | 2018-03-05 17:14 | PDOC.PN ---
- Subjective Encounter Start Date: 03/05/18 Encounter Start Time: 13:20 Doing well. Breathing is much improved. Worried because he was transferred from the tele floor to the medical floor. Worried it means something bad. - Objective Resuscitation Status - Order Detail: 03/03/18 10:17 Resuscitation Status Routine Resuscitation Status: FULL: Full Resuscitation Discussed with: Patient Vital Signs & Weight: Vital Signs (12 hours) Temp Pulse Resp BP Pulse Ox 03/05/18 16:10 97.5 F L 73 18 144/66 H 92 L 03/05/18 13:05 85 16 98 03/05/18 11:49 98.2 F 70 20 120/66 97 03/05/18 11:15 97 03/05/18 09:30 87 16 99 03/05/18 08:52 97.8 F 77 18 133/63 94 L 03/05/18 06:20 88 16 98 Weight Weight 231 lb 7.766 oz I&O: 03/04/18 03/05/18 03/06/18 06:59 06:59 06:59 Intake Total 450 Output Total 450 200 Balance -450 250 Result Diagrams: 03/04/18 05:24 03/04/18 05:24 Additional Labs: Accuchecks 03/05/18 03/05/18 03/05/18 15:46 10:32 05:39 POC Glucose 292 H 293 H 233 H 03/04/18 03/04/18 20:45 17:12 POC Glucose 207 H 197 H Phys Exam - Physical Examination Constitutional: NAD Scattered rales, but much improved. Much better air exchange. Cardiovascular: RRR, no significant murmur Gastrointestinal: soft, non-tender, no distention, positive bowel sounds Musculoskeletal: no edema Psychiatric: normal affect, A&O x 3 Dx/Plan (1) Acute on chronic respiratory failure with hypoxia Code(s): J96.21 - ACUTE AND CHRONIC RESPIRATORY FAILURE WITH HYPOXIA Status: Acute Comment: Continue supportive mgmt as outlined below, near baseline home O2 requirements (2) COPD exacerbation Code(s): J44.1 - CHRONIC OBSTRUCTIVE PULMONARY DISEASE W (ACUTE) EXACERBATION Status: Acute Comment: Continue oxygen, steroids, bronchodilators and antibiotics. (3) Constipation Code(s): K59.00 - CONSTIPATION, UNSPECIFIED Status: Acute (4) DM2 (diabetes mellitus, type 2) Status: Chronic Qualifiers: Diabetes mellitus care home insulin use: without local intermodal truck driver use Diabetes mellitus complication status: without complication Qualified Code(s): E11.9 - Type 2 diabetes mellitus without complications Comment: continue accuchecks, metformin and Amaryl. Switch to aggressive sliding scale. (5) HLD (hyperlipidemia) Code(s): E78.5 - HYPERLIPIDEMIA, UNSPECIFIED Status: Chronic Qualifiers: Hyperlipidemia type: unspecified Qualified Code(s): E78.5 - Hyperlipidemia , unspecified Comment: continue statin (6) HTN (hypertension) Code(s): I10 - ESSENTIAL (PRIMARY) HYPERTENSION Status: Chronic Qualifiers: Hypertension type: essential hypertension Qualified Code(s): I10 - Essential (primary) hypertension Comment: Monitor vital signs, titrate antihypertensives as needed. - Plan * reassured that he is doing better and coming off of the tele is a good thing. * Continue nebs, steroids, abx. * If doing this well in am, will likely discharge. * Blood sugars are running high with the steroids, but should improve with tapering the steroids.
[2018-03-06] MEDS: HYDROcodone/Acetaminophen 10/325 mg Tablet PO SCH ×4 (05:48→23:17)
[2018-03-06] MEDS: HumaLOG 300 UNITS/3 ML VIAL SC PRN ×4 (05:56→20:58)
[2018-03-06] MEDS: Bisacodyl 5 MG TAB PO PRN (06:38)
[2018-03-06] MEDS: Glimepiride 4 MG TAB PO SCH (08:31)
[2018-03-06] MEDS: metFORMIN 500 MG TAB PO SCH ×2 (08:31→18:02)
[2018-03-06] MEDS: Amlodipine 5 MG TAB PO SCH (08:31)
[2018-03-06] MEDS: Losartan 25 MG TAB PO SCH (08:31)
[2018-03-06] MEDS: Famotidine 20 MG TAB PO SCH ×2 (08:32→20:53)
[2018-03-06] MEDS: Furosemide 40 MG TAB PO SCH (08:32)
[2018-03-06] MEDS: Enoxaparin Sodium 40 MG/0.4 ML SYRINGE SC SCH (08:32)
[2018-03-06] MEDS: Doxycycline 100 MG CAP PO SCH ×2 (10:50→20:54)
[2018-03-06] MEDS: Potassium Chloride 8 MEQ TAB PO SCH (10:50)
[2018-03-06] MEDS: guaiFENesin/DM ER PO SCH ×2 (10:51→20:53)
--- NOTE | 2018-03-06 11:52 | PRG ---
DATE OF SERVICE: 03/06/2018 SUBJECTIVE: Maribeth is worse than he was yesterday in terms of wheezing. OBJECTIVE: VITAL SIGNS: On exam, temperature is 97.2, pulse 61, blood pressure 141/67, and O2 sat 97% on 2.5 L. HEENT: Unremarkable. NECK: No bruits. LUNGS: Diffuse moderate wheezing. CARDIAC: S1 and S2, regular. ABDOMEN: Soft. EXTREMITIES: No edema. ASSESSMENT: Chronic obstructive pulmonary disease with exacerbation. PLAN: Continue IV steroids, nebulization treatments, and antibiotics. He probably needs a couple or more days in the hospital. Job ID: [id number]
--- NOTE | 2018-03-06 13:33 | PDOC.PN ---
- Subjective Encounter Start Date: 03/06/18 Encounter Start Time: 10:45 Feels a little worse today. More SOB. - Objective Resuscitation Status - Order Detail: 03/03/18 10:17 Resuscitation Status Routine Resuscitation Status: FULL: Full Resuscitation Discussed with: Patient Vital Signs & Weight: Vital Signs (12 hours) Temp Pulse Resp BP BP Pulse Ox 03/06/18 11:28 67 20 03/06/18 11:10 98.1 F 67 12 153/71 H 95 03/06/18 08:31 61 141/67 H 03/06/18 08:08 97 03/06/18 08:07 61 20 97 03/06/18 07:50 97 03/06/18 07:10 97.2 F L 64 20 141/67 H 96 03/06/18 03:28 98.2 F 71 18 136/70 98 03/06/18 02:27 68 20 98 Weight Weight 231 lb 7.766 oz I&O: 03/05/18 03/06/18 03/07/18 06:59 06:59 06:59 Intake Total 1410 Output Total 205 Balance 1205 Result Diagrams: 03/04/18 05:24 03/04/18 05:24 Additional Labs: Accuchecks 03/06/18 03/05/18 11:09 15:46 POC Glucose 232 H 292 H Phys Exam - Physical Examination Constitutional: NAD Respiratory: wheezing present Cardiovascular: RRR, no significant murmur Gastrointestinal: soft, non-tender, no distention, positive bowel sounds Musculoskeletal: no edema Neurological: non-focal Psychiatric: normal affect, A&O x 3 Dx/Plan (1) Acute on chronic respiratory failure with hypoxia Code(s): J96.21 - ACUTE AND CHRONIC RESPIRATORY FAILURE WITH HYPOXIA Status: Acute Comment: Continue supportive mgmt as outlined below, near baseline home O2 requirements (2) COPD exacerbation Code(s): J44.1 - CHRONIC OBSTRUCTIVE PULMONARY DISEASE W (ACUTE) EXACERBATION Status: Acute Comment: Continue oxygen, steroids, bronchodilators and antibiotics. (3) Constipation Code(s): K59.00 - CONSTIPATION, UNSPECIFIED Status: Acute Comment: PRN's available. (4) DM2 (diabetes mellitus, type 2) Status: Chronic Qualifiers: Diabetes mellitus chcf insulin use: without local company intermodal truck driver use Diabetes mellitus complication status: without complication Qualified Code(s): E11.9 - Type 2 diabetes mellitus without complications Comment: continue accuchecks, metformin and Amaryl. Switch to aggressive sliding scale. (5) HLD (hyperlipidemia) Code(s): E78.5 - HYPERLIPIDEMIA, UNSPECIFIED Status: Chronic Qualifiers: Hyperlipidemia type: unspecified Qualified Code(s): E78.5 - Hyperlipidemia , unspecified Comment: continue statin (6) HTN (hypertension) Code(s): I10 - ESSENTIAL (PRIMARY) HYPERTENSION Status: Chronic Qualifiers: Hypertension type: essential hypertension Qualified Code(s): I10 - Essential (primary) hypertension Comment: Monitor vital signs, titrate antihypertensives as needed. - Plan * Slight regression today. Will continue current regimen. * Pulm consulted. * SSI as sugars are up due to steroids.
[2018-03-06] MEDS: Senokot S 8.6-50 MG TAB PO PRN (21:05)
[2018-03-07] MEDS: HYDROcodone/Acetaminophen 10/325 mg Tablet PO SCH ×4 (05:36→23:24)
[2018-03-07] MEDS: Bisacodyl 5 MG TAB PO PRN (06:16)
[2018-03-07] MEDS: HumaLOG 300 UNITS/3 ML VIAL SC PRN ×3 (06:18→21:02)
[2018-03-07] MEDS: Amlodipine 5 MG TAB PO SCH (09:10)
[2018-03-07] MEDS: metFORMIN 500 MG TAB PO SCH ×2 (09:11→16:47)
[2018-03-07] MEDS: Glimepiride 4 MG TAB PO SCH (09:11)
[2018-03-07] MEDS: Losartan 25 MG TAB PO SCH (09:11)
[2018-03-07] MEDS: Famotidine 20 MG TAB PO SCH ×2 (09:11→20:56)
[2018-03-07] MEDS: Furosemide 40 MG TAB PO SCH (09:11)
[2018-03-07] MEDS: Potassium Chloride 8 MEQ TAB PO SCH (09:12)
[2018-03-07] MEDS: Doxycycline 100 MG CAP PO SCH ×2 (09:12→20:56)
[2018-03-07] MEDS: guaiFENesin/DM ER PO SCH ×2 (09:13→20:56)
[2018-03-07] MEDS: Enoxaparin Sodium 40 MG/0.4 ML SYRINGE SC SCH (09:13)
--- NOTE | 2018-03-07 11:56 | PRG ---
DATE OF SERVICE: 03/07/2018 SUBJECTIVE: The patient is doing reasonably well. He is breathing better than yesterday. OBJECTIVE: VITAL SIGNS: On exam, temperature is 98.5, pulse 65, respirations 14, O2 sat 93% on room air, and blood pressure 143/66. HEENT: Unremarkable. NECK: No JVD. LUNGS: He has mild expiratory wheezing. CARDIAC: S1 and S2, regular. ABDOMEN: Soft. EXTREMITIES: No edema. ASSESSMENT: Chronic obstructive pulmonary disease with exacerbation. PLAN: He can probably go home tomorrow. For the time being, continue the steroids and nebulization treatments. Job ID: [id number]
[2018-03-07] MEDS: Milk Of Magnesia 30 ML UDCUP PO PRN ×2 (14:54→23:31)
--- NOTE | 2018-03-07 16:46 | PRG ---
DATE OF SERVICE: 03/07/2018 SUBJECTIVE: The patient continues to have some wheezing and shortness of breath today. He also complains of some constipation. OBJECTIVE: VITAL SIGNS: Temperature 98.3, pulse 72, respirations are 18, O2 saturation 98% on room air, and blood pressure 155/67. GENERAL APPEARANCE: Age-appropriate male, no distress. He is lying in bed relatively comfortably. HEENT: PERRL. No OP lesions. HEART: Regular rate and rhythm without murmur. LUNGS: Lungs have diffuse wheezes and scattered rales, although air exchange is fair. ABDOMEN: Soft, nontender, and nondistended. EXTREMITIES: No cyanosis, clubbing, or edema. Good skin turgor. NEUROLOGIC: Intact with no deficits. PSYCHIATRY: Normal behavior and affect. LABORATORY DATA: Blood sugar 218 to 253. IMPRESSION AND PLAN: 1. Krnel-nh-chrsqvd hypoxic respiratory failure. He seems to be back to his baseline oxygen requirements. 2. Chronic obstructive pulmonary disease exacerbation. Continue steroids, bronchodilators, oxygen supplementation as needed and antibiotics. Pulmonology consulting, Dr. Palma knows the patient well and feels like he may be ready for discharge early as tomorrow. 3. Constipation. The patient had p.r.n. available, but feels like milk of magnesia works better. We will go ahead and give him that. 4. Diabetes. Blood sugars run a little bit high because of his steroids. Continue with the aggressive sliding scale insulin. 5. Hyperlipidemia. Continue his home statins. 6. Hypertension, stable. Job ID: [id number]
[2018-03-08] MEDS: HYDROcodone/Acetaminophen 10/325 mg Tablet PO SCH ×4 (05:53→23:10)
[2018-03-08] MEDS: Bisacodyl 5 MG TAB PO PRN (05:54)
[2018-03-08] MEDS: HumaLOG 300 UNITS/3 ML VIAL SC PRN ×3 (06:01→18:02)
--- NOTE | 2018-03-08 09:08 | PRG ---
DATE OF SERVICE: 03/08/2018 SUBJECTIVE: The patient is still having difficulty with shortness of breath, wheezing, and sweats. OBJECTIVE: VITAL SIGNS: Temperature 98.6, pulse , respirations 18, O2 sat 95%, and blood pressure 143/64. HEENT: Unremarkable. NECK: No adenopathy or JVD. LUNGS: Diffuse wheezing. CARDIAC: S1 and S2, regular. ABDOMEN: Soft. EXTREMITIES: No edema. DIAGNOSTIC STUDIES: An echocardiogram from several days ago showed EF of 60% to 65%. ASSESSMENT: Chronic obstructive pulmonary disease with exacerbation. PLAN: He is continuing antibiotics, diuretics, breathing treatments, and steroids. I do not think we have much choice but just wait and give him some time. Job ID: [id number]
[2018-03-08] MEDS: metFORMIN 500 MG TAB PO SCH ×2 (09:15→17:03)
[2018-03-08] MEDS: Losartan 25 MG TAB PO SCH (09:15)
[2018-03-08] MEDS: Doxycycline 100 MG CAP PO SCH ×2 (09:15→20:02)
[2018-03-08] MEDS: Furosemide 40 MG TAB PO SCH (09:16)
[2018-03-08] MEDS: guaiFENesin/DM ER PO SCH ×2 (09:16→20:02)
[2018-03-08] MEDS: Potassium Chloride 8 MEQ TAB PO SCH (09:16)
[2018-03-08] MEDS: Amlodipine 5 MG TAB PO SCH (09:16)
[2018-03-08] MEDS: Enoxaparin Sodium 40 MG/0.4 ML SYRINGE SC SCH (09:16)
[2018-03-08] MEDS: Glimepiride 4 MG TAB PO SCH (09:16)
[2018-03-08] MEDS: Famotidine 20 MG TAB PO SCH ×2 (09:16→20:02)
--- NOTE | 2018-03-08 09:51 | PDOC.PN ---
- Subjective Encounter Start Date: 03/08/18 Encounter Start Time: 12:15 Subjective: Patient with some mild improvement in cough/SOB. - Objective Resuscitation Status - Order Detail: 03/03/18 10:17 Resuscitation Status Routine Resuscitation Status: FULL: Full Resuscitation Discussed with: Jeremy CANNON Reviewed: Yes Vital Signs & Weight: Vital Signs (12 hours) Temp Pulse Resp BP BP Pulse Ox 03/08/18 09:16 73 143/64 H 03/08/18 08:00 98.6 F 73 18 143/64 H 95 03/08/18 06:59 72 16 98 03/08/18 04:00 98.5 F 68 20 153/67 H 97 03/08/18 03:12 68 16 97 03/08/18 00:00 98.2 F 71 20 153/63 H 96 03/07/18 23:23 62 20 98 Weight Weight 231 lb 7.766 oz I&O: 03/07/18 03/08/18 03/09/18 06:59 06:59 06:59 Intake Total 720 Output Total 5 Balance 715 Result Diagrams: 03/04/18 05:24 03/04/18 05:24 Additional Labs: Accuchecks 03/08/18 03/07/18 03/07/18 06:02 20:28 15:38 POC Glucose 260 H 295 H 143 H 03/07/18 03/06/18 03/05/18 11:14 05:55 20:28 POC Glucose 253 H 203 H 455 H Phys Exam - Physical Examination Constitutional: NAD HEENT: moist MMs Respiratory: wheezing present Cardiovascular: RRR, no significant murmur Gastrointestinal: soft, positive bowel sounds Neurological: non-focal, moves all 4 limbs Psychiatric: normal affect, A&O x 3 Dx/Plan (1) Acute on chronic respiratory failure with hypoxia Code(s): J96.21 - ACUTE AND CHRONIC RESPIRATORY FAILURE WITH HYPOXIA Status: Acute Comment: Continue supportive mgmt as outlined below, back on baseline home O2 requirements (2) COPD exacerbation Code(s): J44.1 - CHRONIC OBSTRUCTIVE PULMONARY DISEASE W (ACUTE) EXACERBATION Status: Acute Comment: Continue oxygen, steroids, bronchodilators and antibiotics. (3) Constipation Code(s): K59.00 - CONSTIPATION, UNSPECIFIED Status: Acute Comment: PRN's available. (4) DM2 (diabetes mellitus, type 2) Status: Chronic Qualifiers: Diabetes mellitus retirement insulin use: without terminal supervisor use Diabetes mellitus complication status: without complication Qualified Code(s): E11.9 - Type 2 diabetes mellitus without complications Comment: continue accuchecks, metformin and Amaryl. Switch to aggressive sliding scale. (5) HLD (hyperlipidemia) Code(s): E78.5 - HYPERLIPIDEMIA, UNSPECIFIED Status: Chronic Qualifiers: Hyperlipidemia type: unspecified Qualified Code(s): E78.5 - Hyperlipidemia , unspecified Comment: continue statin (6) HTN (hypertension) Code(s): I10 - ESSENTIAL (PRIMARY) HYPERTENSION Status: Chronic Qualifiers: Hypertension type: essential hypertension Qualified Code(s): I10 - Essential (primary) hypertension Comment: Monitor vital signs, titrate antihypertensives as needed. (7) Obesity (BMI 30-39.9) Code(s): E66.9 - OBESITY, UNSPECIFIED Status: Chronic - Plan cont current plan of care, respiratory therapy Not ready for home yet per Pulmonology * . - Discharge Day Encounter end time: 12:30
[2018-03-09] MEDS: HYDROcodone/Acetaminophen 10/325 mg Tablet PO SCH ×2 (05:18→11:33)
[2018-03-09] MEDS: HumaLOG 300 UNITS/3 ML VIAL SC PRN ×2 (06:10→11:37)
[2018-03-09] MEDS: metFORMIN 500 MG TAB PO SCH (07:26)
[2018-03-09] MEDS: Glimepiride 4 MG TAB PO SCH (07:26)
[2018-03-09] MEDS: Enoxaparin Sodium 40 MG/0.4 ML SYRINGE SC SCH (08:21)
[2018-03-09] MEDS: Potassium Chloride 8 MEQ TAB PO SCH (08:22)
[2018-03-09] MEDS: Doxycycline 100 MG CAP PO SCH (08:22)
[2018-03-09] MEDS: guaiFENesin/DM ER PO SCH (08:22)
[2018-03-09] MEDS: Losartan 25 MG TAB PO SCH (08:23)
[2018-03-09] MEDS: Furosemide 40 MG TAB PO SCH (08:24)
[2018-03-09] MEDS: Amlodipine 5 MG TAB PO SCH (08:24)
[2018-03-09] MEDS: Famotidine 20 MG TAB PO SCH (08:24)
--- NOTE | 2018-03-09 09:16 | PDOC.PN ---
- Subjective Encounter Start Date: 03/09/18 Encounter Start Time: 11:00 Subjective: Patient feeling back to baseline. Good BM yesterday.Ready to go home today. - Objective Resuscitation Status - Order Detail: 03/03/18 10:17 Resuscitation Status Routine Resuscitation Status: FULL: Full Resuscitation Discussed with: Jeremy CANNON Reviewed: Yes Vital Signs & Weight: Vital Signs (12 hours) Temp Pulse Resp BP Pulse Ox 03/09/18 08:24 66 03/09/18 07:53 95 03/09/18 07:33 67 18 93 L 03/09/18 07:25 98 F 66 18 139/64 98 03/09/18 03:49 98.3 F 65 20 131/62 96 03/09/18 01:41 98 03/09/18 01:40 98 03/08/18 23:10 98.4 F 75 20 152/63 H 94 L 03/08/18 22:50 98 Weight Weight 231 lb 7.766 oz I&O: 03/08/18 03/09/18 03/10/18 06:59 06:59 06:59 Intake Total 720 500 Output Total 5 Balance 715 500 Result Diagrams: 03/04/18 05:24 03/04/18 05:24 Additional Labs: Accuchecks 03/09/18 03/08/18 03/08/18 05:50 19:59 18:00 POC Glucose 288 H 273 H 256 H 03/08/18 10:55 POC Glucose 323 H Phys Exam - Physical Examination Constitutional: NAD HEENT: moist MMs Respiratory: no rales, no rhonchi, wheezing present no increased WOB Cardiovascular: RRR, no significant murmur Gastrointestinal: soft, non-tender Neurological: non-focal, moves all 4 limbs Psychiatric: normal affect, A&O x 3 Dx/Plan (1) Acute on chronic respiratory failure with hypoxia Code(s): J96.21 - ACUTE AND CHRONIC RESPIRATORY FAILURE WITH HYPOXIA Status: Acute Comment: Continue supportive mgmt as outlined below, back on baseline home O2 requirements (2) COPD exacerbation Code(s): J44.1 - CHRONIC OBSTRUCTIVE PULMONARY DISEASE W (ACUTE) EXACERBATION Status: Acute Comment: Continue oxygen, steroids, bronchodilators and antibiotics. (3) Constipation Code(s): K59.00 - CONSTIPATION, UNSPECIFIED Status: Acute Comment: PRN's available. (4) DM2 (diabetes mellitus, type 2) Status: Chronic Qualifiers: Diabetes mellitus rn long term care insulin use: without rn long term care use Diabetes mellitus complication status: without complication Qualified Code(s): E11.9 - Type 2 diabetes mellitus without complications Comment: continue accuchecks, metformin and Amaryl. Switch to aggressive sliding scale. (5) HLD (hyperlipidemia) Code(s): E78.5 - HYPERLIPIDEMIA, UNSPECIFIED Status: Chronic Qualifiers: Hyperlipidemia type: unspecified Qualified Code(s): E78.5 - Hyperlipidemia , unspecified Comment: continue statin (6) HTN (hypertension) Code(s): I10 - ESSENTIAL (PRIMARY) HYPERTENSION Status: Chronic Qualifiers: Hypertension type: essential hypertension Qualified Code(s): I10 - Essential (primary) hypertension Comment: Monitor vital signs, titrate antihypertensives as needed. (7) Obesity (BMI 30-39.9) Code(s): E66.9 - OBESITY, UNSPECIFIED Status: Chronic - Plan cont current plan of care, respiratory therapy Cleared for d/c by pulmonology -: Finished 1 week of abx today -: Discharge on steroid taper over 20 days -: F/u in Dr. Palma's office * . - Discharge Day Encounter end time: 11:30
--- NOTE | 2018-03-09 11:06 | PRG ---
DATE OF SERVICE: 03/09/2018 SUBJECTIVE: He feels better and wants to go home. OBJECTIVE: VITAL SIGNS: On exam, his temperature is 98, pulse 67, respirations 16, O2 saturation 96% on 1 L. HEENT: Unremarkable. NECK: No JVD. CHEST: Clear except for a few wheeze in the bases. CARDIAC: S1, S2. Regular. ABDOMEN: Soft. EXTREMITIES: No edema. ASSESSMENT: Chronic obstructive pulmonary disease exacerbation. PLAN: The patient is stable to go home. He needs to be on a prednisone taper over couple of weeks. Continue oxygen at home as needed. Finish out a week of antibiotics. Follow up in the office in about a month. Job ID: [id number]
[2018-03-09 12:22] VITALS: BP 155/72; TEMP 97.7
--- NOTE | 2018-03-10 04:04 | DIS ---
DATE OF ADMISSION: 03/03/2018 DATE OF DISCHARGE: 03/09/2018 PRIMARY CARE PHYSICIAN: Elton Oakley. REASON FOR ADMISSION: Exacerbation of COPD. DIAGNOSES AT DISCHARGE: 1. Acute on chronic respiratory failure with hypoxia, improved. 2. Acute exacerbation of chronic obstructive pulmonary disease. 3. Constipation, resolved. 4. Diabetes mellitus type 2. 5. Hyperlipidemia. 6. Hypertension. 7. Obesity. CONSULTATIONS: Pulmonology, Dr. Palma. PROCEDURES: Echocardiogram showing an ejection fraction of 60% to 65%. SUMMARY OF HOSPITAL COURSE: This is a 77-year-old male with a known history of COPD on 1 L of oxygen at home. He came in after feeling poorly for about 4 days, increased shortness of breath, and coughing with minimally productive and some squeezing chest pain. The patient was evaluated in the hospital and was found to be having exacerbation of COPD. His cardiac workup was negative. Echo was fine. He did have a little bit of edema, so he was given extra dose of Lasix. The patient has slowly improved during hospitalization on antibiotics, steroids and nebulizers. On the day of discharge, he was back to his baseline. He did have some constipation during hospitalization, which resolved with his home milk of magnesia. No other complications during this hospitalization. DISCHARGE MANAGEMENT: Discharged home. FOLLOWUP: Follow up with Dr. Palma in 3 to 4 weeks and with Elton Oakley as well. ACTIVITY: As tolerated. DIET: Diabetic diet. He is to continue using his home oxygen as needed. DISCHARGE MEDICATIONS: 1. Prednisone 10 mg tablets tapered over 2 weeks. 2. Metformin 1000 mg twice a day. 3. Glimepiride 4 mg daily. 4. Furosemide 40 mg daily. 5. Protonix 40 mg daily. 6. Norvasc 5 mg daily. 7. Potassium chloride 8 mEq daily. 8. Wilber 10/325 as needed. 9. Losartan 100 mg daily. The arrangement of the details for discharge took 35 minutes. Job ID: [id number]
== END 2018-03-09 12:50 | disposition home or self-care (01) | DRG 189 ==
LOC: ERS 07:01 → 2NO 10:46 → SURG B 03-05 11:04
PROVIDERS: ADMIT Internal Medicine; ATTEND Internal Medicine
DX: J96.21 Acute and chronic respiratory failure with hypoxia (principal); J44.1 Chronic obstructive pulmonary disease with (acute) exacerbation; E11.9 Type 2 diabetes mellitus without complications; I10 Essential (primary) hypertension; E78.5 Hyperlipidemia, unspecified; E66.9 Obesity, unspecified; Z68.35 Body mass index [BMI] 35.0-35.9, adult; K59.00 Constipation, unspecified; Z79.84 Long term (current) use of oral hypoglycemic drugs; Z83.3 Family history of diabetes mellitus
CPT/HCPCS: 36415; 36416; 71045; 80048; 80053; 83735; 83880; 84484; 85025; 87040; 87804; 93306; 94640; J1650; J2920; J7620

== ENCOUNTER 2018-04-19 17:01 | Inpatient (IN) | payer MEDICARE, BC ==
--- NOTE | 2018-04-19 17:42 | RAD ---
CHEST 1 VIEW: Date: 04/19/18 INDICATION: History of shortness of breath. COMPARISON: Prior exam dated 03/03/18. IMPRESSION: There is stable elevation of the right hemidiaphragm with scarring within the right lung base. Retain ed metallic density overlying the upper midline thorax is stable. Left lung is clear. Heart size is n ormal. Vascular calcifications involving the aortic arch are stable. Chronic osseous changes are stab le. POS: KARL
[2018-04-19 18:01] LABS: #Basophils 0.1 thou/uL (0.0-0.2); #Eosinphils 0.6 thou/uL (0.0-0.7); #Lymphocytes 2.7 thou/uL (1.20-3.40); #Monocytes 0.8 thou/uL (0.11-0.59); #Neutrophils 5.9 thou/uL (1.40-6.50); %Basophils 1.1 % (0.0-1.0); %Lymphocytes 26.5 % (21.0-51.0); %Monocytes 7.8 % (0.0-10.0); %Neutrophils 58.6 % (42.0-75.0); Hemoglobin 12.3 g/dL (14.0-18.0); Mean Corpuscular HGB CONC 30.8 g/dL (32.0-36.0); Mean Corpuscular Hemoglobin 31.8 pg (27.0-31.0); Mean Platelet Volume 8.9 fL (7.4-10.4); Platelet Count 261 thou/uL (130-400); RBC Distribution Width 13.5 % (11.5-14.5); Red Blood Cell (RBC) Count 3.86 mill/uL (4.70-6.10)
[2018-04-19 18:08] LABS: ALT (SGPT) 18 U/L (8-55); AST (SGOT) 17 U/L (5-34); Albumin 3.9 g/dL (3.4-4.8); Alkaline Phosphatase 62 U/L (40-150); Anion Gap 14 mmol/L (10-20); BUN (Urea Nitrogen) 9 mg/dL (8.4-25.7); Bilirubin, Total 0.4 mg/dL (0.2-1.2); CK (CPK) 306 U/L (30-200); Calc. Creatinine Clearance 0 mL/min (70-130); Calcium 9.7 mg/dL (7.8-10.44); Carbon Dioxide 29 mmol/L (23-31); Chloride 102 mmol/L (98-107); Estimated GFR-MDRD 81; Globulin 2.9 g/dL (2.4-3.5); Glucose 141 mg/dL (83-110); Potassium 5.2 mmol/L (3.5-5.1); Protein, Total 6.8 g/dL (5.8-8.1); Sodium 140 mmol/L (136-145)
[2018-04-19] MEDS ORDERED: Magnesium 2 GM/50 ML BAG (IN WATER) ONE (20:35)
[2018-04-19] MEDS ORDERED: methylPREDNISolone Sod Succ/PF 125 MG/2 ML VIAL ONE (20:35)
[2018-04-19] MEDS ORDERED: Albuterol Sulfate 2.5 mg/3 ml Neb ONE ×2 (21:20→22:37)
[2018-04-19] MEDS ORDERED: Albuterol Sulfate 2.5 mg/0.5 ml Neb ONE (22:37)
[2018-04-20 01:00] VITALS: BMI 37.8
[2018-04-20] MEDS: methylPREDNISolone Sod Succ 40 MG VIAL IVP SCH ×4 (04:09→20:52)
[2018-04-20] MEDS: cefTRIAXone\\ROCEPHIN 1 GM in Sodium Chloride 0.9% 100 ML IVPB SCH (04:09)
[2018-04-20] MEDS: Azithromycin 500 MG in Sodium Chloride 0.9% 250 ML 250 ML IVPB SCH (04:48)
[2018-04-20] MEDS ORDERED: Dextrose 50% Abboject 50 ML SYRINGE IVP PRN (05:28)
[2018-04-20] MEDS ORDERED: Dextrose 5% in Water 1,000 ML IV PRN (05:28)
[2018-04-20] MEDS: HumaLOG 300 UNITS/3 ML VIAL SC PRN ×4 (05:32→22:17)
[2018-04-20] MEDS ORDERED: methylPREDNISolone Sod Succ 40 MG VIAL IVP SCH (06:00)
[2018-04-20 15:58] LABS: #Monocytes 0.3 thou/uL (0.11-0.59); #Neutrophils 8.5 thou/uL (1.40-6.50); %Basophils 0.1 % (0.0-1.0); %Eosinophils 0.2 % (0.0-10.0); %Lymphocytes 10.2 % (21.0-51.0); %Neutrophils 86.5 % (42.0-75.0); Hemoglobin 12.3 g/dL (14.0-18.0); Mean Corpuscular HGB CONC 31.5 g/dL (32.0-36.0); Mean Corpuscular Hemoglobin 32.3 pg (27.0-31.0); Mean Platelet Volume 8.6 fL (7.4-10.4); Platelet Count 260 thou/uL (130-400); RBC Distribution Width 13.5 % (11.5-14.5); Red Blood Cell (RBC) Count 3.81 mill/uL (4.70-6.10); White Blood Cell (WBC) Count 9.8 thou/uL (4.8-10.8)
[2018-04-20 16:18] LABS: Anion Gap 14 mmol/L (10-20); BUN (Urea Nitrogen) 13 mg/dL (8.4-25.7); Calc. Creatinine Clearance 100 mL/min (70-130); Calcium 9.7 mg/dL (7.8-10.44); Carbon Dioxide 26 mmol/L (23-31); Chloride 101 mmol/L (98-107); Estimated GFR-MDRD Greater than 90; Glucose 255 mg/dL (83-110); Sodium 136 mmol/L (136-145)
[2018-04-20] MEDS: Mometasone/Formoterol 120 PUFF INHALER INH SCH (18:23)
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
[2018-04-20] MEDS: guaiFENesin/DM ER PO SCH (20:46)
[2018-04-20] MEDS: HYDROcodone/Acetaminophen 10/325 mg Tablet PO PRN (20:46)
[2018-04-20] MEDS: metFORMIN 500 MG TAB PO SCH (20:46)
[2018-04-21] MEDS: cefTRIAXone\\ROCEPHIN 1 GM in Sodium Chloride 0.9% 100 ML IVPB SCH (03:21)
[2018-04-21] MEDS: methylPREDNISolone Sod Succ 40 MG VIAL IVP SCH ×4 (03:21→21:04)
[2018-04-21] MEDS: Azithromycin 500 MG in Sodium Chloride 0.9% 250 ML 250 ML IVPB SCH (03:26)
[2018-04-21] MEDS: HumaLOG 300 UNITS/3 ML VIAL SC PRN ×4 (05:48→20:50)
[2018-04-21] MEDS: Mometasone/Formoterol 120 PUFF INHALER INH SCH ×2 (06:56→18:44)
[2018-04-21] MEDS ORDERED: Magnesium Sulfate 4 GM in Sodium Chloride 0.9% 250 ML 250 ML IVPB SCH (08:30)
--- NOTE | 2018-04-21 09:11 | CON ---
DATE OF CONSULTATION: 04/21/2018 CONSULTING PHYSICIAN: Brit Dove. REASON FOR CONSULTATION: COPD exacerbation. HISTORY OF PRESENT ILLNESS: Mr. Salinas is a 77-year-old male with severe COPD, who comes to the hospital quite frequently with exacerbation of symptoms. Current situation started about 4 or 5 days ago. His symptoms include cough, sometimes productive of sputum, wheezing, and shortness of breath. He denies any fever or chills. PAST MEDICAL HISTORY: 1. Chronic obstructive pulmonary disease. 2. Diabetes mellitus. 3. Hypertension. 4. Hyperlipidemia. PAST SURGICAL HISTORY: 1. Left shoulder surgery. 2. Left knee surgery. FAMILY MEDICAL HISTORY: Diabetes. SOCIAL HISTORY: Former smoker. Does not currently smoke. Lives at home with his . Does not consume alcohol. ALLERGIES: NONE. MEDICATIONS: Prior to admission; 1. Albuterol. 2. Symbicort. 3. Metformin. 4. Losartan. 5. Hydrocodone. 6. Potassium. 7. Protonix. 8. Furosemide. 9. Glimepiride. 10. He is also on oxygen 2 L nasal cannula. REVIEW OF SYSTEMS: A 12-point review of systems is otherwise negative. PHYSICAL EXAMINATION: VITAL SIGNS: Temperature 98.0, pulse 74, respirations 18, O2 saturation 95%, and blood pressure 126/63. GENERAL: He is awake and alert, in no distress. HEENT: Pupils are reactive. Sclerae anicteric. Oropharynx clear. NECK: No adenopathy, JVD, or bruits. LUNGS: He has expiratory wheezing bilateral, best heard posteriorly. No dullness to percussion. No egophony. CARDIAC: S1 and S2. Regular without murmur. ABDOMEN: Soft, obese, nontender, and nondistended. EXTREMITIES: No clubbing, cyanosis, or edema. NEUROLOGIC: Nonfocal. SKIN: Shows no rashes, bruising, or jaundice. LABORATORY DATA: White blood cell count 9.8, hematocrit 39, and platelet count 260. Sodium 136, potassium 5, chloride 101, CO2 of 26, BUN 13, creatinine 0.9, and glucose 255. His chest x-ray demonstrates clear lung jules without obvious infiltrate. ASSESSMENT: Chronic obstructive pulmonary disease with exacerbation. PLAN: 1. Steroids, antibiotics, and nebulization treatment. 2. One dose of magnesium sulfate. 3. Early ambulation. 4. May need to have his blood sugars covered with regular scheduled insulin while he is on the high-dose steroids. Job ID: [id number]
[2018-04-21] MEDS: Potassium Chloride 8 MEQ TAB PO SCH (09:32)
[2018-04-21] MEDS: Glimepiride 4 MG TAB PO SCH (09:32)
[2018-04-21] MEDS: metFORMIN 500 MG TAB PO SCH ×2 (09:32→20:49)
[2018-04-21] MEDS: Furosemide 40 MG TAB PO SCH (09:33)
[2018-04-21] MEDS: Losartan 25 MG TAB PO SCH (09:33)
[2018-04-21] MEDS: guaiFENesin/DM ER PO SCH ×2 (09:33→20:50)
[2018-04-21] MEDS: HYDROcodone/Acetaminophen 10/325 mg Tablet PO PRN (09:45)
[2018-04-21 10:52] LABS: Actual Bicarbonate (HCO3a) 27.6 mEq/L (22-28); Base Excess (BEa) 1.8 mEq/L (-2.0 to +3.0); CO2 Tension 47.9 mmHg (35.0-45.0); Calcium, Ionized 1.24 mmol/L (1.12-1.30); Carboxyhemoglobin (COHb) 0.8 gm% (0.0-3.0); Hemoglobin (Hb) 12.6 g/dL (14.0-18.0); Potassium - ABG Lab 4.77 mmol/L (3.70-5.30); pH, Arterial 7.38 (7.35-7.45)
[2018-04-21 10:54] LABS: ALV-art Gradient 76.025 (0-20); Puncture Site RR
--- NOTE | 2018-04-21 10:59 | PDOC.PN ---
- Subjective Encounter Start Date: 04/21/18 Encounter Start Time: 09:47 Subjective: Patient found resting comfortably in bed. Continues with dry cough. -: Frequent coughing fits. Denies any sputum or hemoptysis. No chest pain. -: Eating/drinking without difficulty. Feels slightly better compared to yest but still does not feel he is at his baseline with regards to his breathing. Feels like he has a cold with nasal congestion. No runny nose. Remains afebrile. - Objective Vital Signs & Weight: Vital Signs (12 hours) Temp Pulse Resp BP BP Pulse Ox 04/21/18 10:36 89 18 04/21/18 07:53 98.0 F 74 18 123/63 95 04/21/18 06:58 96 04/21/18 06:57 91 20 96 04/21/18 04:00 98.1 F 79 20 168/68 H 93 L 04/21/18 02:42 74 18 96 04/21/18 00:00 98.1 F 76 20 150/71 H 92 L Weight Weight 227 lb I&O: 04/20/18 04/21/18 04/22/18 06:59 06:59 06:59 Intake Total 1020 1680 Output Total 350 Balance 670 1680 Result Diagrams: 04/20/18 15:49 04/20/18 15:49 Additional Labs: Accuchecks 04/21/18 04/20/18 04/20/18 04:51 22:16 16:25 POC Glucose 320 H 232 H 269 H 04/20/18 11:09 POC Glucose 379 H Phys Exam - Physical Examination Constitutional: NAD HEENT: PERRLA, moist MMs, sclera anicteric, oral pharynx no lesions Neck: no nodes, supple, full ROM Respiratory: wheezing present bilateral inspiratory and expiratory wheezing, no crackles Cardiovascular: RRR Gastrointestinal: soft, non-tender, no distention, positive bowel sounds Musculoskeletal: no edema, pulses present Neurological: normal sensation, moves all 4 limbs Psychiatric: normal affect, A&O x 3 Skin: no rash Dx/Plan (1) Acute on chronic respiratory failure with hypoxia Code(s): J96.21 - ACUTE AND CHRONIC RESPIRATORY FAILURE WITH HYPOXIA Status: Acute Comment: Continue supportive mgmt as outlined below, back on baseline home O2 requirements (2) Constipation Code(s): K59.00 - CONSTIPATION, UNSPECIFIED Status: Chronic Comment: PRN's available. (3) Former smoker Status: Chronic Comment: quit 10 years ago (4) HLD (hyperlipidemia) Code(s): E78.5 - HYPERLIPIDEMIA, UNSPECIFIED Status: Chronic Qualifiers: Hyperlipidemia type: unspecified Qualified Code(s): E78.5 - Hyperlipidemia , unspecified Comment: continue statin (5) HTN (hypertension) Code(s): I10 - ESSENTIAL (PRIMARY) HYPERTENSION Status: Chronic Qualifiers: Hypertension type: essential hypertension Qualified Code(s): I10 - Essential (primary) hypertension Comment: Monitor vital signs, titrate antihypertensives as needed. (6) Obesity (BMI 30-39.9) Code(s): E66.9 - OBESITY, UNSPECIFIED Status: Chronic - Plan cont current plan of care, continue antibiotics, DVT proph w/SCDs Continue steroids. On ISS as well as home meds. Continue to monitor glucose -: Still wheezing, sob associated with coughing. Continue scheduled duo nebs. -: Start Tessalon 100 mg PO TID. -: Further management and disposition as per Dr. Palma. -: Miralax daily for constipation. * . Review of Systems - Review of Systems Constitutional: negative: fever, chills, sweats, weakness, malaise Eyes: negative: Pain, Vision Change, Conjunctivae Inflammation, Eyelid Inflammation, Redness ENT: Nose Congestion. negative: Ear Pain, Ear Discharge, Nose Pain, Nose Discharge, Mouth Pain, Mouth Swelling, Throat Pain, Throat Swelling Respiratory: Cough, Dry, Shortness of Breath, SOB with Excertion, Wheezing Cardiovascular: negative: chest pain, palpitations, orthopnea, paroxysmal nocturnal dyspnea, edema, light headedness Gastrointestinal: Constipation (suffers from constipation. last bowel movement yesterday, hard with straining. No melena. ). negative: Nausea, Vomiting, Abdominal Pain, Diarrhea, Melena, Hematochezia Genitourinary: negative: Dysuria, Frequency, Incontinence, Hematuria, Retention Musculoskeletal: negative: Neck Pain, Shoulder Pain, Arm Pain, Back Pain, Hand Pain, Leg Pain, Foot Pain Skin: negative: Rash, Lesions Neurological: negative: Weakness - Medications/Allergies Allergies/Adverse Reactions: Allergies Allergy/AdvReac Type Severity Reaction Status Date / Time No Known Allergies Allergy Verified 04/20/18 00:58 Medications: Current Medications Hydrocodone Bitart/Acetaminophen (Lohn 10/325) 1 tab PO Q6HR PRN PRN Reason: Pain Last Admin: 04/21/18 09:45 Dose: 1 tab Albuterol/Ipratropium (Duoneb) 3 ml NEB T5OT-KE [facility] [place] Last Admin: 04/21/18 10:36 Dose: 3 ml Dextrose/Water (Dextrose 50%) 25 gm IVP PRN PRN PRN Reason: HYPOGLYCEMIA PROTOCOL Furosemide (Lasix) 40 mg PO DAILY [facility] [place] Last Admin: 04/21/18 09:33 Dose: 40 mg Glimepiride (Amaryl) 4 mg PO DAILY-AC [facility] [place] Last Admin: 04/21/18 09:32 Dose: 4 mg Glucagon (Glucagon) 1 mg IM PRN PRN PRN Reason: HYPOGLYCEMIA PROTOCOL Guaifenesin/Dextromethorphan (Mucinex Dm) 1 tab PO Q12HR [facility] [place] Last Admin: 04/21/18 09:33 Dose: 1 tab Azithromycin 500 mg/ Sodium (Chloride) 250 mls @ 250 mls/hr IVPB 0400 [facility] [place] Last Admin: 04/21/18 03:26 Dose: 250 mls Ceftriaxone Sodium 1 gm/ (Sodium Chloride) 100 mls @ 200 mls/hr IVPB 0330 [facility] [place] Last Admin: 04/21/18 03:21 Dose: 100 mls Dextrose/Water (D5w) 1,000 mls @ 0 mls/hr IV INF PRN PRN Reason: HYPOGLYCEMIA PROTOCOL Magnesium Sulfate 4 gm/ Sodium (Chloride) 258 mls @ 86 mls/hr IVPB ONE [facility] [place] Stop: 04/21/18 12:00 Last Admin: 04/21/18 09:34 Dose: 258 mls Insulin Human Lispro (Humalog) 0 units SC .MODERATE SLIDING SC PRN; Protocol PRN Reason: MODERATE SLIDING SCALE Last Admin: 04/21/18 05:48 Dose: 8 unit Losartan Potassium (Cozaar) 100 mg PO DAILY [facility] [place] Last Admin: 04/21/18 09:33 Dose: 100 mg Metformin HCl (Glucophage) 1,000 mg PO BID [facility] [place] Last Admin: 04/21/18 09:32 Dose: 1,000 mg Methylprednisolone Sodium Succinate (Solu-Medrol) 40 mg IVP 0400,1000,1600, 2200 [facility] [place] Last Admin: 04/21/18 09:34 Dose: 40 mg Mometasone Furoate/Formoterol Fumar (Dulera 200 Mcg/5 Mcg Inhaler) 2 puff INH BID-RT [facility] [place] Last Admin: 04/21/18 06:56 Dose: 2 puff Pantoprazole Sodium (Protonix) 40 mg PO DAILY [facility] Last Admin: 04/21/18 09:33 Dose: 40 mg Potassium Chloride (Slow-K 8 Meq) 8 meq PO DAILY [facility] [place] Last Admin: 04/21/18 09:32 Dose: 8 meq Sodium Chloride (Flush - Normal Saline) 10 ml IVF PRN PRN PRN Reason: Saline Flush Last Admin: 04/21/18 09:37 Dose: 10 ml
[2018-04-21] MEDS: Benzonatate 100 MG CAP PO SCH ×2 (16:00→20:50)
[2018-04-22] MEDS: cefTRIAXone\\ROCEPHIN 1 GM in Sodium Chloride 0.9% 100 ML IVPB SCH (03:20)
[2018-04-22] MEDS: methylPREDNISolone Sod Succ 40 MG VIAL IVP SCH ×4 (03:20→21:04)
[2018-04-22] MEDS: Azithromycin 500 MG in Sodium Chloride 0.9% 250 ML 250 ML IVPB SCH (03:32)
[2018-04-22] MEDS: HumaLOG 300 UNITS/3 ML VIAL SC PRN ×4 (05:48→20:10)
[2018-04-22] MEDS: Mometasone/Formoterol 120 PUFF INHALER INH SCH ×2 (06:32→19:22)
[2018-04-22 06:37] LABS: #Lymphocytes 0.6 thou/uL (1.20-3.40); #Monocytes 0.4 thou/uL (0.11-0.59); #Neutrophils 11.9 thou/uL (1.40-6.50); %Eosinophils 0.2 % (0.0-10.0); %Lymphocytes 4.6 % (21.0-51.0); %Monocytes 2.9 % (0.0-10.0); %Neutrophils 92.4 % (42.0-75.0); Mean Corpuscular HGB CONC 30.5 g/dL (32.0-36.0); Mean Corpuscular Hemoglobin 31.6 pg (27.0-31.0); Mean Platelet Volume 9.5 fL (7.4-10.4); Platelet Count 257 thou/uL (130-400); RBC Distribution Width 13.4 % (11.5-14.5); Red Blood Cell (RBC) Count 3.79 mill/uL (4.70-6.10); White Blood Cell (WBC) Count 12.9 thou/uL (4.8-10.8)
[2018-04-22 07:11] LABS: ALT (SGPT) 16 U/L (8-55); AST (SGOT) 15 U/L (5-34); Albumin 3.5 g/dL (3.4-4.8); Alkaline Phosphatase 58 U/L (40-150); Anion Gap 13 mmol/L (10-20); BUN (Urea Nitrogen) 17 mg/dL (8.4-25.7); Bilirubin, Total 0.2 mg/dL (0.2-1.2); Calc. Creatinine Clearance 76 mL/min (70-130); Calcium 9.3 mg/dL (7.8-10.44); Carbon Dioxide 27 mmol/L (23-31); Chloride 101 mmol/L (98-107); Estimated GFR-MDRD 73; Globulin 2.9 g/dL (2.4-3.5); Glucose 291 mg/dL (83-110); Protein, Total 6.4 g/dL (5.8-8.1); Sodium 136 mmol/L (136-145)
[2018-04-22] MEDS: Potassium Chloride 8 MEQ TAB PO SCH (08:28)
[2018-04-22] MEDS: Losartan 25 MG TAB PO SCH (08:29)
[2018-04-22] MEDS: Benzonatate 100 MG CAP PO SCH ×3 (08:29→20:08)
[2018-04-22] MEDS: Furosemide 40 MG TAB PO SCH (08:29)
[2018-04-22] MEDS: guaiFENesin/DM ER PO SCH ×2 (08:29→20:08)
[2018-04-22] MEDS: metFORMIN 500 MG TAB PO SCH ×2 (08:29→20:08)
[2018-04-22] MEDS: Polyethylene Glycol 3350 17 GM Packet PO SCH (08:30)
[2018-04-22] MEDS: Glimepiride 4 MG TAB PO SCH (08:30)
--- NOTE | 2018-04-22 08:32 | PRG ---
DATE OF SERVICE: 04/22/2018 SUBJECTIVE: He is still wheezing and coughing. Otherwise, no new complaints. OBJECTIVE: VITAL SIGNS: Temperature 98.4, pulse 74, respirations 18, O2 saturation 94% at 2.5 L. HEENT: Unremarkable. NECK: No JVD. CHEST: Wheezes bilaterally anteriorly and posteriorly. CARDIAC: S1, S2. Regular. ABDOMEN: Soft. EXTREMITIES: No edema. LABORATORY DATA: White blood cell count 12.9, hematocrit 39.2, and platelet count 257. PH of 7.38, pCO2 of 47, pO2 of 78. Sodium 136, potassium 5, BUN 17, creatinine 1.2, glucose 291. ASSESSMENT: Chronic obstructive pulmonary disease with exacerbation. PLAN: Continue antibiotics, steroids, nebulization treatments. It usually takes him 3-4 days to improve to the point where he can go home. Job ID: [id number]
--- NOTE | 2018-04-22 14:32 | PDOC.EVN ---
Event Note - Event Note Event Note: COPD exacerbation being seen by pulmonology
--- NOTE | 2018-04-22 15:05 | PDOC.PN ---
- Subjective Encounter Start Date: 04/22/18 Encounter Start Time: 13:30 Subjective: Patient examined, still has diffuse wheezing -: Denies worsening dyspnea, CP, palpations - Objective Vital Signs & Weight: Vital Signs (12 hours) Temp Pulse Resp BP Pulse Ox 04/22/18 13:29 76 16 96 04/22/18 09:29 89 16 96 04/22/18 08:00 98.9 F 72 16 127/66 98 04/22/18 06:32 74 18 94 L 04/22/18 06:29 74 18 94 L Weight Weight 102.965 kg I&O: 04/21/18 04/22/18 04/23/18 06:59 06:59 06:59 Intake Total 1680 2050 Output Total 1300 Balance 1680 750 Result Diagrams: 04/22/18 06:18 04/22/18 06:18 Additional Labs: Accuchecks 04/22/18 04/22/18 04/21/18 11:18 04:32 19:52 POC Glucose 389 H 269 H 223 H 04/21/18 16:08 POC Glucose 186 H Phys Exam - Physical Examination HEENT: PERRLA, moist MMs Neck: no nodes, no JVD Respiratory: wheezing present diffuse wheezing and rhonchi Cardiovascular: RRR Gastrointestinal: soft, non-tender Musculoskeletal: pulses present Neurological: non-focal, moves all 4 limbs Lymphatic: no nodes Psychiatric: normal affect, A&O x 3 Skin: cap refill <2 seconds Dx/Plan (1) Acute on chronic respiratory failure with hypoxia Code(s): J96.21 - ACUTE AND CHRONIC RESPIRATORY FAILURE WITH HYPOXIA Status: Acute Comment: Continue supportive mgmt as outlined below, back on baseline home O2 requirements (2) COPD exacerbation Code(s): J44.1 - CHRONIC OBSTRUCTIVE PULMONARY DISEASE W (ACUTE) EXACERBATION Status: Acute Comment: Continue oxygen, steroids, bronchodilators and antibiotics. (3) LLL pneumonia Code(s): J18.1 - LOBAR PNEUMONIA, UNSPECIFIED ORGANISM Status: Acute Comment : Likely due to strep spp, continue Levaquin, d/c Vancomycin and Zosyn, Duonebs , Solumedrol (4) Sepsis Code(s): A41.9 - SEPSIS, UNSPECIFIED ORGANISM Status: Acute Comment: Suspected, mild, continue IV Levaquin and supportive therapy, resolving (5) DM2 (diabetes mellitus, type 2) Status: Chronic Qualifiers: Diabetes mellitus termination clerk insulin use: without termination clerk use Diabetes mellitus complication status: without complication Qualified Code(s): E11.9 - Type 2 diabetes mellitus without complications Comment: continue accuchecks, metformin and Amaryl. Switch to aggressive sliding scale. (6) HLD (hyperlipidemia) Code(s): E78.5 - HYPERLIPIDEMIA, UNSPECIFIED Status: Chronic Qualifiers: Hyperlipidemia type: unspecified Qualified Code(s): E78.5 - Hyperlipidemia , unspecified Comment: continue statin (7) HTN (hypertension) Code(s): I10 - ESSENTIAL (PRIMARY) HYPERTENSION Status: Chronic Qualifiers: Hypertension type: essential hypertension Qualified Code(s): I10 - Essential (primary) hypertension Comment: Monitor vital signs, titrate antihypertensives as needed. - Plan cont current plan of care, continue antibiotics, respiratory therapy Dr. Louie patel for pulmonology -: Continue to ABX, steroids and neb treatments -: Will recheck labs in AM, will DC when Pulmonary agrees. * . Review of Systems - Review of Systems Respiratory: Cough, Shortness of Breath, Wheezing - Medications/Allergies Allergies/Adverse Reactions: Allergies Allergy/AdvReac Type Severity Reaction Status Date / Time No Known Allergies Allergy Verified 04/20/18 00:58 Medications: Current Medications Hydrocodone Bitart/Acetaminophen (Steele 10/325) 1 tab PO Q6HR PRN PRN Reason: Pain Last Admin: 04/21/18 09:45 Dose: 1 tab Albuterol/Ipratropium (Duoneb) 3 ml NEB [id number] [facility] Last Admin: 04/22/18 13:29 Dose: 3 ml Benzonatate (Tessalon) 100 mg PO TID [facility] Last Admin: 04/22/18 15:17 Dose: 100 mg Dextrose/Water (Dextrose 50%) 25 gm IVP PRN PRN PRN Reason: HYPOGLYCEMIA PROTOCOL Furosemide (Lasix) 40 mg PO DAILY [facility] Last Admin: 04/22/18 08:29 Dose: 40 mg Glimepiride (Amaryl) 4 mg PO DAILY-AC [facility] Last Admin: 04/22/18 08:30 Dose: 4 mg Glucagon (Glucagon) 1 mg IM PRN PRN PRN Reason: HYPOGLYCEMIA PROTOCOL Guaifenesin/Dextromethorphan (Mucinex Dm) 1 tab PO Q12HR [facility] Last Admin: 04/22/18 08:29 Dose: 1 tab Azithromycin 500 mg/ Sodium (Chloride) 250 mls @ 250 mls/hr IVPB 0400 [facility] Last Admin: 04/22/18 03:32 Dose: 250 mls Ceftriaxone Sodium 1 gm/ (Sodium Chloride) 100 mls @ 200 mls/hr IVPB 0330 [facility] Last Admin: 04/22/18 03:20 Dose: 100 mls Dextrose/Water (D5w) 1,000 mls @ 0 mls/hr IV INF PRN PRN Reason: HYPOGLYCEMIA PROTOCOL Insulin Human Lispro (Humalog) 0 units SC .MODERATE SLIDING SC PRN; Protocol PRN Reason: MODERATE SLIDING SCALE Last Admin: 04/22/18 12:47 Dose: 10 unit Losartan Potassium (Cozaar) 100 mg PO DAILY [facility] Last Admin: 04/22/18 08:29 Dose: 100 mg Metformin HCl (Glucophage) 1,000 mg PO BID [facility] Last Admin: 04/22/18 08:29 Dose: 1,000 mg Methylprednisolone Sodium Succinate (Solu-Medrol) 40 mg IVP 0400,1000,1600, 2200 [facility] Last Admin: 04/22/18 15:17 Dose: 40 mg Mometasone Furoate/Formoterol Fumar (Dulera 200 Mcg/5 Mcg Inhaler) 2 puff INH BID-RT [facility] Last Admin: 04/22/18 06:32 Dose: 2 puff Pantoprazole Sodium (Protonix) 40 mg PO DAILY [facility] Last Admin: 04/22/18 08:29 Dose: 40 mg Polyethylene Glycol (Miralax) 17 gm PO DAILY [facility] Last Admin: 04/22/18 08:30 Dose: 17 gm Potassium Chloride (Slow-K 8 Meq) 8 meq PO DAILY [facility] Last Admin: 04/22/18 08:28 Dose: 8 meq Sodium Chloride (Flush - Normal Saline) 10 ml IVF PRN PRN PRN Reason: Saline Flush Last Admin: 04/21/18 09:37 Dose: 10 ml
[2018-04-23] MEDS: methylPREDNISolone Sod Succ 40 MG VIAL IVP SCH ×3 (03:22→15:58)
[2018-04-23] MEDS: cefTRIAXone\\ROCEPHIN 1 GM in Sodium Chloride 0.9% 100 ML IVPB SCH (03:22)
[2018-04-23] MEDS: Azithromycin 500 MG in Sodium Chloride 0.9% 250 ML 250 ML IVPB SCH (03:32)
[2018-04-23] MEDS: HumaLOG 300 UNITS/3 ML VIAL SC PRN ×2 (05:30→12:20)
[2018-04-23] MEDS: Mometasone/Formoterol 120 PUFF INHALER INH SCH (05:45)
[2018-04-23 07:17] LABS: #Lymphocytes 0.6 thou/uL (1.20-3.40); #Monocytes 0.5 thou/uL (0.11-0.59); #Neutrophils 10.9 thou/uL (1.40-6.50); %Eosinophils 0.2 % (0.0-10.0); %Lymphocytes 5.4 % (21.0-51.0); %Neutrophils 90.4 % (42.0-75.0); Hemoglobin 12.5 g/dL (14.0-18.0); Mean Corpuscular HGB CONC 30.3 g/dL (32.0-36.0); Mean Corpuscular Hemoglobin 31.3 pg (27.0-31.0); Mean Platelet Volume 9.7 fL (7.4-10.4); Platelet Count 263 thou/uL (130-400); RBC Distribution Width 13.4 % (11.5-14.5); Red Blood Cell (RBC) Count 3.99 mill/uL (4.70-6.10)
[2018-04-23 07:41] LABS: ALT (SGPT) 18 U/L (8-55); AST (SGOT) 12 U/L (5-34); Albumin 3.8 g/dL (3.4-4.8); Alkaline Phosphatase 53 U/L (40-150); Anion Gap 14 mmol/L (10-20); BUN (Urea Nitrogen) 17 mg/dL (8.4-25.7); Bilirubin, Total 0.3 mg/dL (0.2-1.2); Calc. Creatinine Clearance 97 mL/min (70-130); Calcium 9.6 mg/dL (7.8-10.44); Carbon Dioxide 29 mmol/L (23-31); Chloride 97 mmol/L (98-107); Estimated GFR-MDRD Greater than 90; Globulin 2.9 g/dL (2.4-3.5); Glucose 253 mg/dL (83-110); Potassium 4.4 mmol/L (3.5-5.1); Protein, Total 6.7 g/dL (5.8-8.1); Sodium 136 mmol/L (136-145)
--- NOTE | 2018-04-23 09:06 | PRG ---
DATE OF SERVICE: 04/23/2018 SUBJECTIVE: The patient is doing better, but does not feel well enough to go home. OBJECTIVE: VITAL SIGNS: Temperature 98.8, pulse 74, respiratory rate 20, O2 92% on 2.5 L, and blood pressure 152/69. HEENT: Unremarkable. NECK: No JVD. LUNGS: Expiratory wheezing bilaterally. CARDIAC: S1, S2. Regular. ABDOMEN: Soft. EXTREMITIES: No edema. LABORATORY DATA: White blood cell count 12, hematocrit 41.2, and platelet count 263. Sodium 136, potassium 4.4, BUN 17, creatinine 0.9, glucose 253. ASSESSMENT: Chronic obstructive pulmonary disease exacerbation. PLAN: Continue steroids, nebs, and antibiotics. I would anticipate discharge tomorrow. Job ID: [id number]
[2018-04-23] MEDS: Benzonatate 100 MG CAP PO SCH ×2 (09:33→15:59)
[2018-04-23] MEDS: guaiFENesin/DM ER PO SCH (09:34)
[2018-04-23] MEDS: Furosemide 40 MG TAB PO SCH (09:34)
[2018-04-23] MEDS: metFORMIN 500 MG TAB PO SCH (09:34)
[2018-04-23] MEDS: Potassium Chloride 8 MEQ TAB PO SCH (09:34)
[2018-04-23] MEDS: Polyethylene Glycol 3350 17 GM Packet PO SCH (09:34)
[2018-04-23] MEDS: Losartan 25 MG TAB PO SCH (09:34)
[2018-04-23] MEDS: Glimepiride 4 MG TAB PO SCH (09:35)
[2018-04-23 16:06] VITALS: BP 126/68; TEMP 98.3
--- NOTE | 2018-04-23 16:44 | PDOC.EVN ---
Event Note - Event Note Event Note: DC SUMMARY [id number]
--- NOTE | 2018-04-26 08:53 | DIS ---
DATE OF ADMISSION: 04/22/2018 DATE OF DISCHARGE: 04/23/2018 ADMITTING DIAGNOSES: Chronic obstructive pulmonary disease exacerbation, shortness of breath, obesity, hypertension, and diabetes mellitus type 2. DISCHARGE DIAGNOSES: Chronic obstructive pulmonary disease exacerbation, resolved. Obesity, hypertension, and type 2 diabetes stable. HISTORY OF PRESENT ILLNESS: This is a 77-year-old male, admitted to Internal Medicine Team, followed very closely by Pulmonary as well for COPD exacerbation. The patient was admitted to the team, started on IV steroids. The patient was having a good response to IV steroids. Upon the time of discharge denied any nausea, vomiting, diarrhea, constipation, chest pain, fevers, chills, or shortness of breath. The patient was given a prescription for prednisone 20 mg to be taken daily for 20 days. 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 The patient also given antibiotics upon time of discharge. Denied any complaints or any issues, was stable. CONDITION: Stable. PROGNOSIS: Good. DIET: Low-fat, low-calorie, and high-fiber diet. FOLLOWUP: Follow up with PCP and Pulmonary within 2 weeks. Take all medications as directed. Keep followup appointment was requested. Case and plan discussed with the patient at length. He understood and agreed to this plan. Job ID: [id number]
--- NOTE | 2018-04-26 12:17 | PQF ---
ANDREZ PATTEN JR NEFTALI ELISE [id number] CLINICAL DOCUMENTATION CLARIFICATION FORM: POST DISCHARGE Addendum to original discharge summary date: ____ Late entry note date: 05/06/2018 DATE: 04/26/18 ATTN: Dr. Hudson, Please exercise your independent, professional judgment in responding to the clarification form. Clinical indicators are provided on the bottom of this form for your review Please check appropriate box(s) to clarify if the following diagnosis has been ruled in or ruled out: Sepsis [ x ] Ruled in diagnosis [ x ] Continue to treat [ ] Resolved [ ] Ruled out diagnosis [ ] Cannot rule out diagnosis [ ] Other diagnosis [ ] Unable to determine In addition, please specify: Present on Admission (POA): [ ] Yes [ ] No [ ] Unable to determine For continuity of documentation, please document condition throughout progress notes and discharge summary. Thank You. CLINICAL INDICATORS - SIGNS / SYMPTOMS / LABS Sepsis----04/22 Progress note COPD exacerbation---Discharge summary RISK FACTORS LLL pneumonia---04/22 Progress notes Acute on Chronic Respiratory Failure with hypoxia--04/22 Progress notes TREATMENTS IV Levaquin--04/22 Progress notes Oxygen Therapy--Ordered 04/22 Thank you, Erin Moreira, [facility] 04/26/18 12:12 PM (This form is maintained as a part of the permanent medical record) 2014 [employer]. All Rights Reserved Erin [email or web address] [phone] MTDD
--- NOTE | 2018-04-28 10:24 | PQF ---
CLINICAL DOCUMENTATION IMPROVEMENT CLARIFICATION FORM: ICD-10 Updated PLEASE DO AN ADDENDUM TO THE PROGRESS NOTE WITH ANY DOCUMENTATION UPDATES OR ADDITIONS AND CARRY THROUGH TO DC SUMMARY. THANK YOU. DATE: 04/28/18 ATTN: DR. BOOTHE Please exercise your independent, professional judgment in responding to the clarification form. Clinical indicators are provided on the bottom of this form for your review Please check appropriate box(s) to clarify if the following diagnosis has been ruled in or ruled out: "PNEUMONIA" [ x ] Ruled in diagnosis [ x ] Continue to treat [ ] Resolved [ ] Ruled out diagnosis [ ] Cannot rule out diagnosis [ ] Other diagnosis [ ] Unable to determine In addition, please specify: Present on Admission (POA): [ x ] Yes [ ] No [ ] Unable to determine For continuity of documentation, please document condition throughout progress notes and discharge summary. Thank You. CLINICAL INDICATORS - SIGNS / SYMPTOMS / LABS PROGRESS NOTE 04/22/18: "LLL PNEUMONIA- ACUTE" WBC 02/19: 12.9 RISKS: ACUTE RESPIRATORY FAILURE COPD TREATMENT: PULMONARY CONSULT NEBS (04/20-04/23) IV SOLUMEDROL (04/20) IV ROCEPHIN (04/20-04/23) AZITHROMYCIN (04/20-04/23) SUPPLEMENTAL OXYGEN [employer] Winform Viewer (This form is maintained as a part of the permanent medical record) 2014 [employer]. All Rights Reserved SOPHIA [email or web address] Office: [phone] [facility] HOSPITALSteve
--- NOTE | 2018-05-06 15:33 | EKG ---
Test Reason : Blood Pressure : / mmHG Vent. Rate : 074 BPM Atrial Rate : 074 BPM P-R Int : 148 ms QRS Dur : 074 ms QT Int : 368 ms P-R-T Axes : -07 022 024 degrees QTc Int : 408 ms Normal sinus rhythm Normal ECG Confirmed by NERY RANGEL, JOAN ([id number]), desk editor MASHA FUNES ([id number]) on 05/06/2018 3:32:55 PM Referred By: Confirmed By:JOAN GABRIEL MD
== END 2018-04-23 18:11 | disposition home or self-care (01) | DRG 189 ==
LOC: ERS 17:01 → T4-A 21:25 → OBSVTOIN 04-22 12:02
PROVIDERS: ADMIT Hospitalist; ATTEND Hospitalist
DX: J96.21 Acute and chronic respiratory failure with hypoxia (principal); J44.1 Chronic obstructive pulmonary disease with (acute) exacerbation; E11.9 Type 2 diabetes mellitus without complications; I10 Essential (primary) hypertension; E78.5 Hyperlipidemia, unspecified; E66.9 Obesity, unspecified; Z68.37 Body mass index [BMI] 37.0-37.9, adult; K59.00 Constipation, unspecified; Z87.891 Personal history of nicotine dependence; Z79.84 Long term (current) use of oral hypoglycemic drugs; Z79.899 Other long term (current) drug therapy; Z79.51 Long term (current) use of inhaled steroids; Z83.3 Family history of diabetes mellitus
CPT/HCPCS: 36415; 36416; 71045; 80048; 80053; 82550; 82805; 83880; 84484; 85025; 93005; 94640; 94644; 94664; 94760; 96365; 96375; J0456; J0696; J2920; J2930; J3475; J7050; J7611; J7620

== ENCOUNTER 2018-04-25 23:46 | Inpatient (IN) | payer MEDICARE, BC ==
[2018-04-26] MEDS ORDERED: methylPREDNISolone Sod Succ/PF 125 MG/2 ML VIAL ONE (00:02)
[2018-04-26] MEDS ORDERED: Magnesium 2 GM/50 ML BAG (IN WATER) ONE (00:02)
[2018-04-26 00:11] LABS: #Eosinphils 0.4 thou/uL (0.0-0.7); #Lymphocytes 2.9 thou/uL (1.20-3.40); #Monocytes 1.2 thou/uL (0.11-0.59); #Neutrophils 14.1 thou/uL (1.40-6.50); %Basophils 0.1 % (0.0-1.0); %Lymphocytes 15.5 % (21.0-51.0); %Monocytes 6.2 % (0.0-10.0); %Neutrophils 76.3 % (42.0-75.0); Hemoglobin 13.3 g/dL (14.0-18.0); Mean Corpuscular HGB CONC 30.7 g/dL (32.0-36.0); Mean Corpuscular Hemoglobin 31.6 pg (27.0-31.0); Mean Platelet Volume 9.6 fL (7.4-10.4); Platelet Count 263 thou/uL (130-400); RBC Distribution Width 13.2 % (11.5-14.5); Red Blood Cell (RBC) Count 4.21 mill/uL (4.70-6.10); White Blood Cell (WBC) Count 18.5 thou/uL (4.8-10.8)
[2018-04-26] MEDS ORDERED: Albuterol Sulfate 2.5 mg/3 ml Neb ONE (00:12)
[2018-04-26] MEDS ORDERED: cefTRIAXone\\ROCEPHIN 1 GM VIAL ONE (00:22)
[2018-04-26] MEDS ORDERED: Acetaminophen 500 MG TAB ONE (00:22)
[2018-04-26] MEDS ORDERED: Azithromycin 500 MG VIAL ONE (00:22)
[2018-04-26 00:23] LABS: Actual Bicarbonate (HCO3a) 31.7 mEq/L (22-28); Analyzer IN Cardio ER; Base Excess (BEa) 5.4 mEq/L (-2.0 to +3.0); CO2 Tension 53.5 mmHg (35.0-45.0); Calcium, Ionized 1.22 mmol/L (1.12-1.30); Carboxyhemoglobin (COHb) 1.2 gm% (0.0-3.0); Hemoglobin (Hb) 13.4 g/dL (14.0-18.0); O2 Tension (PaO2) 152.4 mmHg (> 70.0); Potassium - ABG Lab 3.83 mmol/L (3.70-5.30); pH, Arterial 7.39 (7.35-7.45)
[2018-04-26 00:26] LABS: ALV-art Gradient 30.275 (0-20); Puncture Site RRA
[2018-04-26 00:35] LABS: ALT (SGPT) 16 U/L (8-55); AST (SGOT) 15 U/L (5-34); Albumin 4.1 g/dL (3.4-4.8); Alkaline Phosphatase 53 U/L (40-150); Anion Gap 14 mmol/L (10-20); BUN (Urea Nitrogen) 15 mg/dL (8.4-25.7); Bilirubin, Total 0.4 mg/dL (0.2-1.2); Calc. Creatinine Clearance 0 mL/min (70-130); Calcium 9.9 mg/dL (7.8-10.44); Carbon Dioxide 30 mmol/L (23-31); Chloride 101 mmol/L (98-107); Estimated GFR-MDRD 80; Globulin 2.8 g/dL (2.4-3.5); Glucose 237 mg/dL (83-110); Magnesium 1.9 mg/dL (1.6-2.6); Potassium 3.9 mmol/L (3.5-5.1); Protein, Total 6.9 g/dL (5.8-8.1); Sodium 141 mmol/L (136-145)
[2018-04-26] MEDS ORDERED: Oseltamivir 75 MG CAP PO SCH (01:00)
--- NOTE | 2018-04-26 02:41 | HP ---
PRIMARY CARE PHYSICIAN: Elton Oakley. CHIEF COMPLAINT: Shortness of breath. HISTORY OF PRESENT ILLNESS: Mr. Salinas is a 77-year-old male with past medical history of hypertension, diabetes, hyperlipidemia, COPD, who presents to the emergency department for shortness of breath. The patient was seen in the ER earlier this week and was started on levofloxacin. The patient's symptoms started to get worse over the past 2 days and he was brought to the ER. The patient was noted to be extremely short of breath on admission and was started on BiPAP. The patient reports that he is feeling better at this point. The patient last smoked about 5 years ago, but he does have a history of 20 years of smoking. The patient reports compliance with his medications. PAST MEDICAL HISTORY: COPD, diabetes, hypertension, and hyperlipidemia. PAST SURGICAL HISTORY: Include left shoulder surgery. FAMILY HISTORY: Positive for diabetes. SOCIAL HISTORY: The patient denies alcohol or drug use. The patient last smoked about 5 years ago, has 20 year history of smoking. ALLERGIES: NO KNOWN ALLERGIES TO DRUGS. CURRENT MEDICATIONS: 1. Potassium. 2. Metformin. 3. Losartan. 4. Pantoprazole. 5. Glimepiride. 6. Symbicort. 7. Lasix. 8. Albuterol. 9. [place]. REVIEW OF SYSTEMS: A 10-point review of systems negative other than mentioned in the HPI. PHYSICAL EXAMINATION: VITAL SIGNS: Blood pressure 144/73, pulse 88, respiration rate 26, O2 saturation 100% on BiPAP. GENERAL: The patient is alert and interactive, unable to talk much due to BiPAP being on. EYES: Extraocular movement intact. NOSE, EARS AND THROAT: No exudate or drainage noted. NECK: No lymphadenopathy. CARDIOVASCULAR: Regular rate and rhythm. No murmur, rubs, or gallops. PULMONARY: The patient noted to have diminished breath sounds with bilateral both expiratory and inspiratory wheezes noted. The patient is still on BiPAP. ABDOMEN: Soft, nontender. Bowel sounds positive. EXTREMITIES: Lower extremity, no edema noted. NEUROLOGIC: The patient is alert and interactive at this point. SKIN: No rashes noted. LABORATORY DATA: Sodium 141, potassium 3.9, chloride 101, bicarb 30, BUN 15, creatinine 1.08, glucose 237. Troponin 0.014. BNP 82, lactic acid 3.1. White blood cell count 18.5, hemoglobin 13.3, hematocrit 43.3, platelets 263. Blood gases, ABG, pH 7.39, pCO2 53.5, PO2 152.4, bicarb 31.7. ABG was taken on BiPAP. Chest x-ray, initial report per the ER noted to have bilateral infiltrate. ASSESSMENT AND PLAN: 1. Sepsis likely due to pneumonia. 2. Pneumonia. 3. Influenza A positive. 4. Lactic acidosis. 5. Chronic obstructive pulmonary disease exacerbation. 6. Acute on chronic respiratory failure with hypoxia. 7. Hypertension. 8. Diabetes. 9. Hyperlipidemia. PLAN: 1. The patient's acute respiratory failure likely due to influenza and suspected pneumonia. The patient was given Tamiflu, ceftriaxone, azithromycin, steroids, nebs and was started on BiPAP in the ER. We will continue ceftriaxone, azithromycin, and Tamiflu. Cultures ordered, pending. Continue BiPAP, being off BiPAP once the patient starts to improve. We will continue steroids and nebulizer treatments at this point. The patient uses CPAP at home, but does not have his machine over here. The patient may have obstructive sleep apnea. 2. Lactic acidosis and leukocytosis, likely due to above. Repeat lactic acid in the morning. We will have the patient on gentle IVF for a short time as the patient is n.p.o. while he is on BiPAP. 3. Hypertension. Continue home medication plus hydralazine p.r.n. 4. For diabetes, sliding scale insulin. 5. CT of the chest without contrast ordered. 6. The patient's present at bedside. Plan explained. The patient has bedbugs and therefore he is on contact isolation. 7. The patient is full code. 8. Medical power of commercial real estate attorney, . 9. DVT prophylaxis addressed. Job ID: [id number]
[2018-04-26] MEDS ORDERED: Sodium Chloride 0.45% 1,000 ML IV SCH (02:45)
[2018-04-26 04:06] VITALS: BMI 36.6
[2018-04-26] MEDS ORDERED: HYDROcodone/Acetaminophen 5/325 mg Tablet PO PRN (04:23)
[2018-04-26] MEDS ORDERED: Dextrose 5% in Water 1,000 ML IV PRN (04:23)
[2018-04-26] MEDS ORDERED: hydrALAZINE 20 MG/ML VIAL SLOW IVP PRN (04:23)
[2018-04-26] MEDS ORDERED: Sodium Chloride 0.9% 1,000 ML IV SCH (04:23)
[2018-04-26] MEDS ORDERED: Ondansetron PF 4 MG/2 ML Vial IVP PRN (04:23)
[2018-04-26] MEDS ORDERED: Acetaminophen 325 MG TAB PO PRN (04:23)
[2018-04-26] MEDS ORDERED: Dextrose 50% Abboject 50 ML SYRINGE SLOW IVP PRN (04:23)
[2018-04-26] MEDS ORDERED: Bacteriostatic Water 30 ML VIAL FS PRN (04:36)
[2018-04-26] MEDS ORDERED: methylPREDNISolone Sod Succ 40 MG VIAL IVP SCH ×2 (06:00)
--- NOTE | 2018-04-26 06:03 | RAD ---
CHEST ONE VIEW: INDICATIONS: Shortness of breath. COMPARISON: Prior exam dated 04/09/2018. FINDINGS: There are low lung volumes and right basilar atelectasis. No consolidation is evident. No pleural e ffusion or pneumothorax is evident. No acute osseous abnormality is noted. IMPRESSION: Low lung volumes and bibasilar atelectasis. POS: BH
[2018-04-26] MEDS: HumaLOG 300 UNITS/3 ML VIAL SC PRN ×3 (06:22→17:10)
[2018-04-26] MEDS: Mometasone/Formoterol 120 PUFF INHALER INH SCH ×2 (07:52→18:33)
[2018-04-26] MEDS: Oseltamivir 75 MG CAP PO SCH ×2 (08:22→20:28)
[2018-04-26] MEDS: Heparin 5,000 UNITS/ML VIAL SC SCH ×3 (08:25→20:27)
[2018-04-26] MEDS: Furosemide 40 MG TAB PO SCH (08:25)
--- NOTE | 2018-04-26 11:23 | CON ---
DATE OF CONSULTATION: 04/26/2018 SERVICE: Pulmonary Medicine. REASON FOR CONSULT: CU patient. HISTORY OF PRESENT ILLNESS: The patient is a 77-year-old male with past medical history significant for COPD. He was recently in the hospital for an exacerbation. He was ultimately discharged a couple of days ago. He did well initially, but for the last 2 to 3 days, he has had increasing cough, fever, sputum production, chills. He returned to the emergency department where he is discovered to have a repeat COPD exacerbation, but this time secondary to influenza. Overnight, he was placed on BiPAP. This morning, he tolerated 2-hour break, but need to go back on it to improve comfort. He has a very severe cough. He is bringing up yellow sputum. Otherwise, he denies any chest pain, palpitations, abdominal pain, diarrhea, or constipation. He does not have any hot, red, swollen joints, rashes. He is having a little bit of food aversion, but no nausea. PAST MEDICAL HISTORY: 1. COPD. 2. Dyslipidemia. 3. Hypertension. 4. Type 2 diabetes mellitus. PAST SURGICAL HISTORY: Left shoulder surgery. FAMILY HISTORY: Noncontributory. SOCIAL HISTORY: Denies any alcohol or illicit drug use. He had a greater than 20-lfap-jfnf history of smoking, but quit about five years ago. He has no exposure to chemicals, dust, asbestos, or tuberculosis. ALLERGIES: NO KNOWN DRUG ALLERGIES. MEDICATIONS: List of his inpatient medications was reviewed. Multiple updates were made at this time. REVIEW OF SYSTEMS: General, head, ears, eyes, nose, throat, cardiovascular, respiratory, GI, , musculoskeletal, neurologic, and skin is negative except as mentioned in the HPI. PHYSICAL EXAMINATION: VITAL SIGNS: Afebrile, pulse 71, blood pressure 125/62 respirations 24, saturation 100% on 25% FiO2 and a PEEP of 5. GENERAL: The patient is awake and alert. He is talking in full sentences. He is in no apparent distress. HEENT: Normocephalic and atraumatic. Sclerae are white. Conjunctivae are pink. Oral mucosa is moist without lesions. LUNGS: Decent air entry. There is a prolonged expiratory phase and polyphonic wheezing. I do not appreciate any crackles in the dependent regions. HEART: Normal rate, regular. ABDOMEN: Soft, nontender, nondistended. Bowel sounds are positive. MUSCULOSKELETAL: No cyanosis or clubbing. There is a trace 1+ pitting in the bilateral lower extremities. NEUROLOGIC: Grossly nonfocal. LABORATORY DATA: WBC 18.5, hemoglobin 13.3, platelets 263,000. PH 7.39, pCO2 53, PO2 152. This is when he was on BiPAP. Basic metabolic profile and liver function studies are otherwise unremarkable. BNP is negative, lactate is 1.0 and downtrending from 3.1, glucose 300. Troponin is negative x1. Influenza A is positive. Influenza B is unremarkable. IMAGING: Chest x-ray demonstrates low lung volumes and bilateral atelectasis. There appears to be some fluid in the minor fissure. Cephalization is noted. Cardiac silhouette falls within the normal limit the upper limits of normal on this PA film. I do not see any overt consolidating changes. Interstitial fullness is otherwise appreciated. ASSESSMENT: 1. Chronic hypercapnic respiratory failure. 2. Chronic obstructive pulmonary disease exacerbation secondary to influenza. 3. Influenza A. 4. Volume overload, mild. DISCUSSION AND PLAN: We will give him 40 mg of prednisone daily. We will continue the Tamiflu for a period of 5 days. IV fluids will be interrupted as the patient is slightly volume overloaded. We will continue to diurese him with his home dose of daily Lasix. Pulmonary Critical Care will continue to follow along. We will give him BiPAP breaks and increase as tolerated. Once he is off this for 24 hours, he can be transitioned out of the ICU to the medical unit. 70 minutes have been devoted to this patient in various activities. I personally reviewed all imaging studies and laboratory data noted within this document. For fifty percent of this time, I was interacting with the patient at the bedside or coordinating care with the care team. For the remainder of the time I was immediately available to the patient in the hospital unit. Job ID: [id number] [facility]
--- NOTE | 2018-04-26 17:02 | CT ---
NONCONTRAST CT THORAX: DATE: 04/26/2018. HISTORY: Shortness of breath since Thursday. History of COPD and CHF. History of smoking. COMPARISON: 01/17/2018. FINDINGS: There is evidence of emphysematous changes greater involving the right upper lobe similar to prior ex am. There are linear areas of scarring again seen within each lung base greater on the right. Pleur al and parenchymal scarring is seen within the right middle lobe stable from prior study. No discret e pulmonary nodule or mass is appreciated. There is a calcified granuloma at the posterior aspect ri ght lower lobe. Lack of intravenous contrast limits sensitivity for evaluation of vascular structures and mediastinum . Vascular calcifications are seen in the thoracic aorta. No definite enlarged lymph nodes are seen by CT size criteria. Limited visualized upper abdomen demonstrates a grossly normal nonenhanced CT appearance. Degenerative changes are again seen in the spine. There has been no significant interval change from the prior exam. IMPRESSION: 1. No acute findings are seen on this nonenhanced CT scan of the thorax. 2. Chronic lung changes with scarring bilaterally as well as emphysematous changes. However, these findings primarily involve the right lung compared to the left which is a stable finding. 3. Vascular calcifications. POS: KARL
[2018-04-26] MEDS ORDERED: Benzonatate 100 MG CAP PO PRN (17:59)
[2018-04-26] MEDS: metFORMIN 500 MG TAB PO SCH (20:28)
[2018-04-27] MEDS: cefTRIAXone\\ROCEPHIN 1 GM in Sodium Chloride 0.9% 100 ML IVPB SCH (00:56)
[2018-04-27] MEDS ORDERED: Azithromycin 500 MG in Sodium Chloride 0.9% 250 ML 250 ML IVPB SCH (01:00)
[2018-04-27 05:22] LABS: #Eosinphils 0.1 thou/uL (0.0-0.7); #Lymphocytes 1.8 thou/uL (1.20-3.40); #Monocytes 1.3 thou/uL (0.11-0.59); #Neutrophils 9.6 thou/uL (1.40-6.50); %Basophils 0.3 % (0.0-1.0); %Eosinophils 0.9 % (0.0-10.0); %Neutrophils 74.7 % (42.0-75.0); Hemoglobin 12.7 g/dL (14.0-18.0); Mean Platelet Volume 9.5 fL (7.4-10.4); Platelet Count 241 thou/uL (130-400); RBC Distribution Width 13.4 % (11.5-14.5); Red Blood Cell (RBC) Count 3.97 mill/uL (4.70-6.10); White Blood Cell (WBC) Count 12.8 thou/uL (4.8-10.8)
[2018-04-27 05:42] LABS: Anion Gap 12 mmol/L (10-20); BUN (Urea Nitrogen) 15 mg/dL (8.4-25.7); Calc. Creatinine Clearance 116 mL/min (70-130); Calcium 9.1 mg/dL (7.8-10.44); Carbon Dioxide 30 mmol/L (23-31); Chloride 99 mmol/L (98-107); Estimated GFR-MDRD Greater than 90; Glucose 187 mg/dL (83-110); Potassium 4.1 mmol/L (3.5-5.1); Sodium 137 mmol/L (136-145)
[2018-04-27] MEDS: Mometasone/Formoterol 120 PUFF INHALER INH SCH ×2 (07:51→19:25)
--- NOTE | 2018-04-27 08:25 | PRG ---
DATE OF SERVICE: 04/27/2018 SUBJECTIVE: Mr. Salinas is back in the hospital with chronic obstructive pulmonary disease exacerbation that has been made worse by new onset type A flu. He wore BiPAP last night. He was found to have some obstructive apnea symptoms. OBJECTIVE: VITAL SIGNS: On exam, his temperature is 99.3, pulse 79, blood pressure 150/73, O2 saturation 97%. 24-hour intake 997, output 1500. HEENT: Unremarkable except for his cough. NECK: He has stridorous noises coming from his airway. LUNGS: Difficulty to hear wheezing secondary to the noise from his neck. CARDIOVASCULAR: S1 and S2 regular. ABDOMEN: Soft. EXTREMITIES: No edema. LABORATORY DATA: White blood cell count 12.8, hematocrit 41, platelet count 241. Sodium 137, potassium 4.1, BUN 15, creatinine 0.8 glucose 187. ASSESSMENT: 1. Chronic obstructive pulmonary disease with exacerbation. 2. Type A flu. PLAN: He is continuing Tamiflu, steroids, and his nebulization treatments. Leave in [facility] for the time being. Job ID: [id number]
[2018-04-27] MEDS: Potassium Chloride 8 MEQ TAB PO SCH (10:08)
[2018-04-27] MEDS: Furosemide 40 MG TAB PO SCH (10:08)
[2018-04-27] MEDS: Glimepiride 4 MG TAB PO SCH (10:09)
[2018-04-27] MEDS: Oseltamivir 75 MG CAP PO SCH ×2 (10:11→20:43)
[2018-04-27] MEDS: Losartan 25 MG TAB PO SCH (10:11)
[2018-04-27] MEDS: Heparin 5,000 UNITS/ML VIAL SC SCH ×3 (10:11→20:43)
[2018-04-27] MEDS: predniSONE 20 MG TAB PO SCH (10:26)
[2018-04-27] MEDS: metFORMIN 500 MG TAB PO SCH ×2 (10:26→20:43)
--- NOTE | 2018-04-27 16:58 | PDOC.PN ---
- Subjective Encounter Start Date: 04/27/18 Encounter Start Time: 14:00 Doing much better. Still a little SOB and wheezing. - Objective Resuscitation Status - Order Detail: 04/26/18 01:53 Resuscitation Status Routine Resuscitation Status: FULL: Full Resuscitation Vital Signs & Weight: Vital Signs (12 hours) Temp Pulse Pulse BP BP Pulse Ox Pulse Ox 04/27/18 16:00 98.8 F 04/27/18 12:28 98.6 F 04/27/18 09:42 80 83 128/65 148/68 H 97 04/27/18 08:00 99 04/27/18 07:27 99.3 F Pulse Ox 04/27/18 16:00 04/27/18 12:28 04/27/18 09:42 97 04/27/18 08:00 04/27/18 07:27 Weight Weight 234 lb 1.6 oz Most Recent Monitor Data Heart Rate from ECG 77 NIBP 123/52 NIBP BP-Mean 75 Respiration from ECG 20 SpO2 99 I&O: 04/26/18 04/27/18 04/28/18 06:59 06:59 06:59 Intake Total 270 997 Output Total 1500 220 Balance 270 -503 -220 Result Diagrams: 04/27/18 04:52 04/27/18 04:52 Additional Labs: Accuchecks 04/27/18 04/27/18 04/26/18 10:58 05:51 20:08 POC Glucose 204 H 184 H 188 H Phys Exam - Physical Examination Constitutional: NAD Scattered expriratory wheezes. Fair air exchange. Cardiovascular: RRR, no significant murmur Gastrointestinal: soft, non-tender, no distention Musculoskeletal: no edema Psychiatric: normal affect, A&O x 3 Dx/Plan (1) Influenza A Code(s): J10.1 - FLU DUE TO OTH IDENT INFLUENZA VIRUS W OTH RESP MANIFEST Status: Acute (2) Acute respiratory failure with hypoxia Code(s): J96.01 - ACUTE RESPIRATORY FAILURE WITH HYPOXIA Status: Acute (3) COPD exacerbation Code(s): J44.1 - CHRONIC OBSTRUCTIVE PULMONARY DISEASE W (ACUTE) EXACERBATION Status: Acute Comment: Continue oxygen, steroids, bronchodilators and antibiotics. (4) Former smoker Status: Chronic Comment: quit 10 years ago (5) HLD (hyperlipidemia) Code(s): E78.5 - HYPERLIPIDEMIA, UNSPECIFIED Status: Chronic Qualifiers: Comment: continue statin (6) HTN (hypertension) Code(s): I10 - ESSENTIAL (PRIMARY) HYPERTENSION Status: Chronic Qualifiers: Comment: Monitor vital signs, titrate antihypertensives as needed. (7) Diabetes mellitus Code(s): E11.9 - TYPE 2 DIABETES MELLITUS WITHOUT COMPLICATIONS Status: Acute - Plan * Continue Tamiflu, abx, nebs, steroids and oxygen. * Pulmon following. Remain in IMCU today. * Blood sugars are running a little high with the steroids. SSI as needed. Glimepiride and Metformin. * Continue Losartan.
[2018-04-27] MEDS: Saccharomyces boulardii 250 MG CAP PO SCH (20:42)
[2018-04-28] MEDS: cefTRIAXone\\ROCEPHIN 1 GM in Sodium Chloride 0.9% 100 ML IVPB SCH (00:52)
[2018-04-28] MEDS: Mometasone/Formoterol 120 PUFF INHALER INH SCH ×2 (07:14→18:39)
[2018-04-28] MEDS: Saccharomyces boulardii 250 MG CAP PO SCH ×2 (10:02→20:46)
[2018-04-28] MEDS: Losartan 25 MG TAB PO SCH (10:02)
[2018-04-28] MEDS: metFORMIN 500 MG TAB PO SCH ×2 (10:02→20:45)
[2018-04-28] MEDS: Furosemide 40 MG TAB PO SCH (10:02)
[2018-04-28] MEDS: Heparin 5,000 UNITS/ML VIAL SC SCH ×3 (10:03→20:46)
[2018-04-28] MEDS: Glimepiride 4 MG TAB PO SCH (10:03)
--- NOTE | 2018-04-28 10:03 | PRG ---
DATE OF SERVICE: 04/28/2018 SUBJCTIVE: Mr. Salinas feels better today. He is currently resting on BiPAP and appears comfortable on exam. OBJECTIVE: VITAL SIGNS: His temperature is 98.4, pulse 81, blood pressure 118/54, sats 100%. HEENT: Unremarkable. NECK: No adenopathy. No JVD. No bruits. LUNGS: Expiratory wheezing. CARDIAC: S1, S2. Regular. Abdomen: Soft. EXTREMITIES: No edema. LABORATORY DATA: No labs were obtained today. ASSESSMENT: 1. Chronic obstructive pulmonary disease exacerbation. 2. Type A flu. PLAN: Continuing Tamiflu, steroids, and nebulization treatments. I will switch his steroids over to IV since he does not appear to be responding to oral steroids. Job ID: [id number]
[2018-04-28] MEDS: Potassium Chloride 8 MEQ TAB PO SCH (10:04)
[2018-04-28] MEDS: Oseltamivir 75 MG CAP PO SCH ×2 (10:04→20:46)
[2018-04-28] MEDS ORDERED: Bacteriostatic Water 30 ML VIAL FS PRN (10:09)
[2018-04-28] MEDS: predniSONE 20 MG TAB PO SCH (10:09)
[2018-04-28] MEDS: methylPREDNISolone Sod Succ 40 MG VIAL IVP SCH ×2 (11:57→19:25)
[2018-04-28] MEDS: HumaLOG 300 UNITS/3 ML VIAL SC PRN (20:46)
--- NOTE | 2018-04-28 22:16 | PDOC.PN ---
- Subjective Encounter Start Date: 04/28/18 Encounter Start Time: 10:20 Still has some wheezes. Still has some cough. No other complaints. - Objective Resuscitation Status - Order Detail: 04/26/18 01:53 Resuscitation Status Routine Resuscitation Status: FULL: Full Resuscitation Vital Signs & Weight: Vital Signs (12 hours) Temp Pulse Pulse Pulse Resp BP BP 04/28/18 19:17 99.2 F 04/28/18 18:39 80 26 H 04/28/18 15:30 98.0 F 04/28/18 13:41 69 79 108/50 L 122/58 L 04/28/18 11:53 76 20 04/28/18 10:50 99.3 F Weight Weight 234 lb 1.6 oz Most Recent Monitor Data Heart Rate from ECG 105 NIBP 105/59 NIBP BP-Mean 74 Respiration from ECG 21 SpO2 100 I&O: 04/27/18 04/28/18 04/29/18 06:59 06:59 06:59 Intake Total 997 1670 22 Output Total 1500 2470 1400 Balance -728 -443 -2084 Result Diagrams: 04/27/18 04:52 04/27/18 04:52 Additional Labs: Accuchecks 04/28/18 04/28/18 04/28/18 20:08 16:39 10:35 POC Glucose 302 H 261 H 164 H 04/28/18 05:35 POC Glucose 156 H Phys Exam - Physical Examination Scattered wheezes and rales. Upper tracheal wheezes Cardiovascular: RRR, no significant murmur, no rub Gastrointestinal: soft, non-tender, no distention, positive bowel sounds Musculoskeletal: no edema Neurological: non-focal Dx/Plan (1) Influenza A Code(s): J10.1 - FLU DUE TO OTH IDENT INFLUENZA VIRUS W OTH RESP MANIFEST Status: Acute (2) Acute respiratory failure with hypoxia Code(s): J96.01 - ACUTE RESPIRATORY FAILURE WITH HYPOXIA Status: Acute (3) COPD exacerbation Code(s): J44.1 - CHRONIC OBSTRUCTIVE PULMONARY DISEASE W (ACUTE) EXACERBATION Status: Acute Comment: Continue oxygen, steroids, bronchodilators and antibiotics. (4) Former smoker Status: Chronic Comment: quit 10 years ago (5) HLD (hyperlipidemia) Code(s): E78.5 - HYPERLIPIDEMIA, UNSPECIFIED Status: Chronic Qualifiers: Comment: continue statin (6) HTN (hypertension) Code(s): I10 - ESSENTIAL (PRIMARY) HYPERTENSION Status: Chronic Qualifiers: Comment: Monitor vital signs, titrate antihypertensives as needed. (7) Diabetes mellitus Code(s): E11.9 - TYPE 2 DIABETES MELLITUS WITHOUT COMPLICATIONS Status: Acute - Plan * Still has some wheezing. * Followed by Pulm. * Changing to IV steroids. * Continue nebs, oxygen, antivirals, abx.
[2018-04-29] MEDS: methylPREDNISolone Sod Succ 40 MG VIAL IVP SCH ×4 (00:37→18:18)
[2018-04-29] MEDS: cefTRIAXone\\ROCEPHIN 1 GM in Sodium Chloride 0.9% 100 ML IVPB SCH (00:47)
[2018-04-29] MEDS: HumaLOG 300 UNITS/3 ML VIAL SC PRN ×4 (06:17→21:11)
[2018-04-29] MEDS: Mometasone/Formoterol 120 PUFF INHALER INH SCH ×2 (08:03→18:52)
--- NOTE | 2018-04-29 08:22 | PRG ---
DATE OF SERVICE: 04/29/2018 SUBJECTIVE: Mr. Salinas is about the same. He is continuing on BiPAP at night. OBJECTIVE: VITAL SIGNS: On exam, his temperature is 97.6, pulse 75, blood pressure 134/63, O2 saturation 100%. HEENT: Unremarkable. NECK: No JVD. LUNGS: Diffuse expiratory wheezing. CARDIAC: S1, S2. Regular. ABDOMEN: Soft. LABORATORY DATA: No labs were done today. ASSESSMENT: 1. Chronic obstructive pulmonary disease with exacerbation. 2. Type A flu. PLAN: 1. Continue nocturnal BiPAP. 2. Continue antibiotics, Tamiflu, IV steroids, and nebulization treatments. Job ID: [id number]
[2018-04-29] MEDS: Glimepiride 4 MG TAB PO SCH (08:52)
[2018-04-29] MEDS: metFORMIN 500 MG TAB PO SCH ×2 (08:52→21:11)
[2018-04-29] MEDS: Heparin 5,000 UNITS/ML VIAL SC SCH ×3 (08:52→21:11)
[2018-04-29] MEDS: Oseltamivir 75 MG CAP PO SCH ×2 (08:53→21:10)
[2018-04-29] MEDS: Furosemide 40 MG TAB PO SCH (08:53)
[2018-04-29] MEDS: Losartan 25 MG TAB PO SCH (08:53)
[2018-04-29] MEDS: Potassium Chloride 8 MEQ TAB PO SCH (08:53)
[2018-04-29] MEDS: Saccharomyces boulardii 250 MG CAP PO SCH ×2 (08:53→21:10)
[2018-04-30] MEDS: methylPREDNISolone Sod Succ 40 MG VIAL IVP SCH ×4 (00:03→18:03)
[2018-04-30] MEDS: cefTRIAXone\\ROCEPHIN 1 GM in Sodium Chloride 0.9% 100 ML IVPB SCH (00:04)
[2018-04-30] MEDS: HumaLOG 300 UNITS/3 ML VIAL SC PRN ×4 (06:22→20:20)
[2018-04-30] MEDS: Mometasone/Formoterol 120 PUFF INHALER INH SCH ×2 (08:21→18:38)
--- NOTE | 2018-04-30 08:46 | PRG ---
DATE OF SERVICE: 04/30/2018 SUBJECTIVE: The patient is doing better. He did use BiPAP last night. OBJECTIVE: VITAL SIGNS: On exam, his temperature is 97.5, pulse 68, blood pressure 137/64. HEENT: Unremarkable. NECK: No JVD. LUNGS: Diffuse bilateral rhonchi, but better. CARDIAC: S1, S2 regular. ABDOMEN: Soft. EXTREMITIES: No edema. ASSESSMENT: 1. Influenza. 2. Chronic obstructive pulmonary disease exacerbation. PLAN: 1. We will go ahead and try to withhold BiPAP tonight and see how he does. If he can do well without the BiPAP, then he can be transferred out to the medical floor tomorrow. 2. Continue the IV steroids. Schedule nebulization treatments, antibiotics, and Tamiflu. Job ID: [id number]
[2018-04-30] MEDS: metFORMIN 500 MG TAB PO SCH ×2 (09:31→20:20)
[2018-04-30] MEDS: Potassium Chloride 8 MEQ TAB PO SCH (09:31)
[2018-04-30] MEDS: Oseltamivir 75 MG CAP PO SCH ×2 (09:32→20:20)
[2018-04-30] MEDS: Saccharomyces boulardii 250 MG CAP PO SCH ×2 (09:32→20:19)
[2018-04-30] MEDS: Glimepiride 4 MG TAB PO SCH (09:32)
[2018-04-30] MEDS: Furosemide 40 MG TAB PO SCH (09:32)
[2018-04-30] MEDS: Heparin 5,000 UNITS/ML VIAL SC SCH ×3 (09:33→20:20)
[2018-04-30] MEDS: Losartan 25 MG TAB PO SCH (12:56)
--- NOTE | 2018-04-30 22:04 | PDOC.PN ---
- Subjective Encounter Start Date: 04/29/18 Encounter Start Time: 13:00 Continues to have some wheezing. Cough improved. - Objective Resuscitation Status - Order Detail: 04/26/18 01:53 Resuscitation Status Routine Resuscitation Status: FULL: Full Resuscitation Vital Signs & Weight: Vital Signs (12 hours) Temp Pulse Resp Pulse Ox 04/30/18 19:51 98.0 F 04/30/18 18:35 67 18 95 04/30/18 15:40 82 20 96 04/30/18 15:16 97.2 F L 04/30/18 11:20 98.2 F Weight Weight 234 lb 1.6 oz Most Recent Monitor Data Heart Rate from ECG 70 NIBP 130/55 NIBP BP-Mean 80 Respiration from ECG 21 SpO2 100 I&O: 04/29/18 04/30/18 05/01/18 06:59 06:59 06:59 Intake Total 542 1180 800 Output Total 1975 325 700 Balance -1433 855 100 Result Diagrams: 04/27/18 04:52 04/27/18 04:52 Additional Labs: Accuchecks 04/30/18 04/30/18 04/30/18 20:08 16:53 10:55 POC Glucose 340 H 250 H 319 H 04/30/18 06:11 POC Glucose 270 H Phys Exam - Physical Examination Constitutional: NAD Scattered wheezes and rales. Cardiovascular: RRR, no significant murmur Gastrointestinal: soft, non-tender, no distention, positive bowel sounds Musculoskeletal: no edema Dx/Plan (1) Influenza A Code(s): J10.1 - FLU DUE TO OTH IDENT INFLUENZA VIRUS W OTH RESP MANIFEST Status: Acute (2) Acute respiratory failure with hypoxia Code(s): J96.01 - ACUTE RESPIRATORY FAILURE WITH HYPOXIA Status: Acute (3) COPD exacerbation Code(s): J44.1 - CHRONIC OBSTRUCTIVE PULMONARY DISEASE W (ACUTE) EXACERBATION Status: Acute Comment: Continue oxygen, steroids, bronchodilators and antibiotics. (4) Former smoker Status: Chronic Comment: quit 10 years ago (5) HLD (hyperlipidemia) Code(s): E78.5 - HYPERLIPIDEMIA, UNSPECIFIED Status: Chronic Qualifiers: Comment: continue statin (6) HTN (hypertension) Code(s): I10 - ESSENTIAL (PRIMARY) HYPERTENSION Status: Chronic Qualifiers: Comment: Monitor vital signs, titrate antihypertensives as needed. (7) Diabetes mellitus Code(s): E11.9 - TYPE 2 DIABETES MELLITUS WITHOUT COMPLICATIONS Status: Acute - Plan * Doing a little better. * Continue current plan. * Pulm following. * Blood sugars adequately controlled.
--- NOTE | 2018-04-30 22:07 | PDOC.PN ---
- Subjective Encounter Start Date: 04/30/18 Encounter Start Time: 14:00 Feeling significantly better today. Breathing improved. - Objective Resuscitation Status - Order Detail: 04/26/18 01:53 Resuscitation Status Routine Resuscitation Status: FULL: Full Resuscitation Vital Signs & Weight: Vital Signs (12 hours) Temp Pulse Resp Pulse Ox 04/30/18 19:51 98.0 F 04/30/18 18:35 67 18 95 04/30/18 15:40 82 20 96 04/30/18 15:16 97.2 F L 04/30/18 11:20 98.2 F Weight Weight 234 lb 1.6 oz Most Recent Monitor Data Heart Rate from ECG 70 NIBP 130/55 NIBP BP-Mean 80 Respiration from ECG 21 SpO2 100 I&O: 04/29/18 04/30/18 05/01/18 06:59 06:59 06:59 Intake Total 542 1180 800 Output Total 1975 325 700 Balance -1433 855 100 Result Diagrams: 04/27/18 04:52 04/27/18 04:52 Additional Labs: Accuchecks 04/30/18 04/30/18 04/30/18 20:08 16:53 10:55 POC Glucose 340 H 250 H 319 H 04/30/18 06:11 POC Glucose 270 H Phys Exam - Physical Examination Constitutional: NAD Respiratory: no rales, no rhonchi Wheezing mild, improved. Cardiovascular: RRR, no significant murmur, no rub Gastrointestinal: soft, non-tender, no distention, positive bowel sounds Musculoskeletal: no edema Dx/Plan (1) Influenza A Code(s): J10.1 - FLU DUE TO OTH IDENT INFLUENZA VIRUS W OTH RESP MANIFEST Status: Acute (2) Acute respiratory failure with hypoxia Code(s): J96.01 - ACUTE RESPIRATORY FAILURE WITH HYPOXIA Status: Acute (3) COPD exacerbation Code(s): J44.1 - CHRONIC OBSTRUCTIVE PULMONARY DISEASE W (ACUTE) EXACERBATION Status: Acute Comment: Continue oxygen, steroids, bronchodilators and antibiotics. (4) Former smoker Status: Chronic Comment: quit 10 years ago (5) HLD (hyperlipidemia) Code(s): E78.5 - HYPERLIPIDEMIA, UNSPECIFIED Status: Chronic Qualifiers: Comment: continue statin (6) HTN (hypertension) Code(s): I10 - ESSENTIAL (PRIMARY) HYPERTENSION Status: Chronic Qualifiers: Comment: Monitor vital signs, titrate antihypertensives as needed. (7) Diabetes mellitus Code(s): E11.9 - TYPE 2 DIABETES MELLITUS WITHOUT COMPLICATIONS Status: Acute - Plan * Much improved. * Pulm following. * Continue nebs, oxygen, steroids, antivirals. * Blood sugars are running higher due to steroids. Will increase the insulin sliding scale.
[2018-05-01] MEDS: methylPREDNISolone Sod Succ 40 MG VIAL IVP SCH ×3 (00:58→10:46)
[2018-05-01] MEDS: cefTRIAXone\\ROCEPHIN 1 GM in Sodium Chloride 0.9% 100 ML IVPB SCH (00:58)
[2018-05-01] MEDS: HumaLOG 300 UNITS/3 ML VIAL SC PRN ×4 (06:23→20:27)
[2018-05-01] MEDS: Mometasone/Formoterol 120 PUFF INHALER INH SCH ×2 (06:42→18:55)
[2018-05-01] MEDS ORDERED: Bisacodyl 5 MG TAB PO PRN (08:53)
--- NOTE | 2018-05-01 09:20 | PRG ---
DATE OF SERVICE: 05/01/2018 SUBJECTIVE: The patient is seen and examined at the bedside. He started wheezing this morning, but he is not more short of breath. He does not have any chest pain. OBJECTIVE: VITAL SIGNS: Blood pressure is 136/67, pulse is 70, respiratory rate is 15, and O2 saturation is 100% on O2 2 L by nasal cannula. HEENT: His head is atraumatic and normocephalic. Eyes, PERRLA. Sclerae are nonicteric. Oral mucosa is somewhat dry. NECK: Supple. LUNGS: Bilateral wheezing, moderate. HEART: S1 and S2 normal. No S3. No S4. ABDOMEN: Soft, obese, and nontender. Bowel sounds are present. No organomegaly. EXTREMITIES: 1+ peripheral edema similar bilaterally especially around both ankles. NEUROLOGICAL: He is alert and oriented x4. There are no any sensory or motor deficits present. Cranial nerves are intact. LABORATORY DATA: Labs showed glycemia is ranging from 270 to 340. IMPRESSION: 1. Influenza A. 2. Acute respiratory failure with hypoxia. 3. Chronic obstructive pulmonary disease exacerbation. 4. Hyperlipidemia. 5. Hypertension. 6. Diabetes mellitus, worsened secondary to use of IV steroids. PLAN: The patient is constipated. We will start him on Dulcolax 10 mg p.r.n. p.o. We will continue his current O2 IV steroids and DuoNeb. We will go up on his glimepiride to 4 mg twice a day and continue on Mucinex DM. Continue inhaled steroids. Job ID: [id number]
[2018-05-01] MEDS: Glimepiride 4 MG TAB PO SCH ×3 (10:43→20:28)
[2018-05-01] MEDS: Furosemide 40 MG TAB PO SCH (10:43)
[2018-05-01] MEDS: Losartan 25 MG TAB PO SCH (10:43)
[2018-05-01] MEDS: Saccharomyces boulardii 250 MG CAP PO SCH ×2 (10:43→20:28)
[2018-05-01] MEDS: guaiFENesin ER 600 MG TAB PO SCH ×2 (10:44→20:27)
[2018-05-01] MEDS: Heparin 5,000 UNITS/ML VIAL SC SCH ×3 (10:44→20:27)
[2018-05-01] MEDS: metFORMIN 500 MG TAB PO SCH ×2 (10:44→20:27)
[2018-05-01] MEDS: Potassium Chloride 8 MEQ TAB PO SCH (10:45)
--- NOTE | 2018-05-01 13:32 | PRG ---
DATE OF SERVICE: 05/01/2018 SERVICE: Pulmonary Medicine. INTERVAL HISTORY: The patient is doing fine from respiratory standpoint. He is breathing comfortably. He tolerated being off BiPAP yesterday. Otherwise, his cough is settling down. He has decreasing sputum production. Overall, he feels much improved. PHYSICAL EXAMINATION: VITAL SIGNS: Pulse 68, blood pressure 129/73, respirations 15, saturation 94% on 2 L nasal cannula. GENERAL: The patient is awake and alert, in no apparent distress. LUNGS: Excellent air entry with no prolonged expiratory phase or wheezing present. HEART: Normal rate and regular. ABDOMEN: Soft, nontender, nondistended. Bowel sounds are positive. MUSCULOSKELETAL: No cyanosis or clubbing. No pitting in the bilateral lower extremities. NEUROLOGIC: Grossly nonfocal. LABORATORY DATA: Blood sugars ranged from 250 to 350. Blood cultures x2, respiratory cultures are negative. Influenza A is positive, B is negative. ASSESSMENT: 1. Acute on chronic hypoxic and hypercapnic respiratory failure. 2. Chronic obstructive pulmonary disease with acute exacerbation. 3. Influenza A. DISCUSSION AND PLAN: The patient is doing fine from respiratory standpoint. He is stable for transition out of the [facility] to the Medical Unit. Pulmonary/Critical Care will continue to follow along while the patient remains inhouse. If all goes well, tomorrow morning, he can be considered for transition out of the hospital. He will need to complete a 10 to 14-day course of tapering steroids, and his 5 days of antibiotics. Job ID: [id number]
[2018-05-02] MEDS: HumaLOG 300 UNITS/3 ML VIAL SC PRN ×3 (06:21→20:28)
[2018-05-02] MEDS: Mometasone/Formoterol 120 PUFF INHALER INH SCH ×2 (07:34→19:01)
[2018-05-02] MEDS: guaiFENesin ER 600 MG TAB PO SCH ×2 (09:10→20:28)
[2018-05-02] MEDS: Saccharomyces boulardii 250 MG CAP PO SCH ×2 (09:10→20:28)
[2018-05-02] MEDS: predniSONE 20 MG TAB PO SCH (09:10)
[2018-05-02] MEDS: metFORMIN 500 MG TAB PO SCH ×2 (09:10→20:28)
[2018-05-02] MEDS: Glimepiride 4 MG TAB PO SCH ×2 (09:10→20:28)
[2018-05-02] MEDS: Losartan 25 MG TAB PO SCH (09:11)
[2018-05-02] MEDS: Potassium Chloride 8 MEQ TAB PO SCH (09:11)
[2018-05-02] MEDS: Heparin 5,000 UNITS/ML VIAL SC SCH ×3 (09:12→20:27)
[2018-05-02] MEDS: Furosemide 40 MG TAB PO SCH (09:12)
[2018-05-02] MEDS ORDERED: Dextrose 50% Abboject 50 ML SYRINGE SLOW IVP PRN (11:54)
[2018-05-02] MEDS ORDERED: Dextrose 5% in Water 1,000 ML IV PRN (11:54)
--- NOTE | 2018-05-02 12:34 | PRG ---
DATE OF SERVICE: 05/02/2018 SUBJECTIVE: The patient was seen and examined at the bedside. He is feeling better, but he noticed quite a bit of wheezing this morning in his lungs. His appetite is fair and he is able to ambulate in the room. OBJECTIVE: VITAL SIGNS: Blood pressure is 111/59, pulse is 77, respiratory rate is 16, and O2 saturation is 93% on room air. HEENT: His head is atraumatic and normocephalic. Eyes are PERRLA. Sclerae nonicteric. LUNGS: Bilateral rales and rhonchi, moderate. HEART: S1 and S2 normal. No S3. No S4. ABDOMEN: Soft, nontender. EXTREMITIES: 1+ peripheral edema similar bilaterally. NEUROLOGIC: He is alert and oriented x4. There are no any motor or sensory deficits present. Cranial nerves are intact. LABORATORY DATA: Labs showed glycemia ranging from 213 to 347. Microbiology, no new findings. IMPRESSION: 1. Acute respiratory failure with hypoxemia. 2. Influenza A. 3. Chronic obstructive pulmonary disease exacerbation. 4. Hyperlipidemia. 5. Hypertension. 6. Diabetes mellitus, worsened secondary to use of IV steroids. PLAN: We will continue his p.o. medications. We will check his CBC and BMP today. We will go up on his sliding scale to aggressive since his glycemia is ranging constantly above 200. Yesterday, his glimepiride was increased to twice a day. We will continue DuoNeb every 4 hours. He was switched to oral prednisone by it program auditor, and because of his severe hyperglycemia, we are going to postpone his discharge. Job ID: [id number]
[2018-05-02 12:55] LABS: Anion Gap 16 mmol/L (10-20); BUN (Urea Nitrogen) 15 mg/dL (8.4-25.7); Band 3 % (5-11); Calc. Creatinine Clearance 88 mL/min (70-130); Calcium 9.5 mg/dL (7.8-10.44); Carbon Dioxide 25 mmol/L (23-31); Chloride 97 mmol/L (98-107); Estimated GFR-MDRD 82; Glucose 232 mg/dL (83-110); Hemoglobin 13.4 g/dL (14.0-18.0); Lymphocytes 9 % (21-51); MDiff Complete? YES; Mean Corpuscular HGB CONC 30.6 g/dL (32.0-36.0); Mean Corpuscular Hemoglobin 31.5 pg (27.0-31.0); Mean Platelet Volume 9.4 fL (7.4-10.4); Monocytes 9 % (0-10); Neutrophil 79 % (42-75); Platelet Count 273 thou/uL (130-400); Potassium 4.2 mmol/L (3.5-5.1); RBC Distribution Width 13.5 % (11.5-14.5); Red Blood Cell (RBC) Count 4.24 mill/uL (4.70-6.10); Sodium 134 mmol/L (136-145); White Blood Cell (WBC) Count 18.5 thou/uL (4.8-10.8)
--- NOTE | 2018-05-02 13:40 | PRG ---
DATE OF SERVICE: 05/02/2018 SERVICE: Pulmonary Medicine. INTERVAL HISTORY: The patient is doing outstanding from respiratory standpoint. He indicates his breathing is basically back to baseline. That being said, because he is having ongoing wheezing, he was told that he will need to stay for an additional day. He is going to remain in the ICU because of his bedbug infestation. They do not want to involve more rooms in this place. Otherwise, he has basically returned to his usual state of health. PHYSICAL EXAMINATION: VITAL SIGNS: Afebrile, pulse 77, blood pressure 111/59, respirations 16, and saturation 93% on room air. GENERAL: The patient is awake and alert, in no apparent distress. LUNGS: He has much improved air entry. That being said, we can now appreciate polyphonic wheezing. Minimal dependent crackles are noted. No rhonchi. HEART: Normal rate, regular. ABDOMEN: Soft, nontender, and nondistended. Bowel sounds are positive. MUSCULOSKELETAL: No cyanosis or clubbing. There is no pitting in the bilateral lower extremities. NEUROLOGIC: Grossly nonfocal. LABORATORY DATA: WBC 18.5, hemoglobin 13.4, and platelets 273,000. Band counts are low. Sodium 134. Basic metabolic profile is otherwise unremarkable. His creatinine is 1.06. Respiratory culture is negative x2, blood cultures x2 are unremarkable. Influenza A was positive. ASSESSMENT: 1. Acute on chronic hypoxic and hypercapnic respiratory failure. 2. Chronic obstructive pulmonary disease with acute exacerbation secondary to influenza A. 3. Influenza A. DISCUSSION AND PLAN: The patient is stable for transition out of the hospital. He will need to complete a 10- to 14-day course of tapering steroids. He has completed his antibiotic course. From my perspective, he is stable for transition out of the hospital. He will need to follow up with Dr. Palma in the outpatient setting as previously directed. Pulmonary Critical Care will continue to follow so long as he remains in-house, but if all goes well, he will be a candidate for dismissal tomorrow. Job ID: [id number]
[2018-05-03 04:03] VITALS: BP 114/48
[2018-05-03] MEDS: Mometasone/Formoterol 120 PUFF INHALER INH SCH (07:44)
--- NOTE | 2018-05-03 08:18 | PRG ---
DATE OF SERVICE: 05/03/2018 SUBJECTIVE: Mr. Salinas is doing well and he wants to go home. OBJECTIVE: VITAL SIGNS: His temperature is 98.2, pulse 69, blood pressure 114/48, and O2 sat 93%. HEENT: Unremarkable. NECK: No adenopathy. No JVD. CHEST: A few expiratory wheezes best heard posteriorly. CARDIAC: S1 and S2, regular. ABDOMEN: Soft. EXTREMITIES: No edema. ASSESSMENT: 1. Influenza type A. 2. Chronic obstructive pulmonary disease exacerbation. PLAN: The patient is stable to go home. He needs to have his prednisone tapered over about 2 weeks. It is probably not necessary to have him on any further antibiotic therapy. He can follow up in 1 month. Job ID: [id number]
[2018-05-03] MEDS: guaiFENesin ER 600 MG TAB PO SCH (09:47)
[2018-05-03] MEDS: Glimepiride 4 MG TAB PO SCH (09:47)
[2018-05-03] MEDS: metFORMIN 500 MG TAB PO SCH (09:47)
[2018-05-03] MEDS: predniSONE 20 MG TAB PO SCH (09:47)
[2018-05-03] MEDS: Saccharomyces boulardii 250 MG CAP PO SCH (09:47)
[2018-05-03] MEDS: Furosemide 40 MG TAB PO SCH (09:48)
[2018-05-03] MEDS: Potassium Chloride 8 MEQ TAB PO SCH (09:48)
[2018-05-03] MEDS: Losartan 25 MG TAB PO SCH (09:57)
[2018-05-03] MEDS: Heparin 5,000 UNITS/ML VIAL SC SCH (10:02)
[2018-05-03 11:25] VITALS: TEMP 97.2
--- NOTE | 2018-05-03 11:56 | DIS ---
DATE OF ADMISSION: 04/26/2018 DATE OF DISCHARGE: 05/03/2018 DIAGNOSIS AT THE TIME OF DISCHARGE: 1. Acute respiratory failure with hypoxemia. 2. Influenza A. 3. Chronic obstructive pulmonary disease exacerbation. 4. Hyperlipidemia. 5. Hypertension. 6. Diabetes mellitus, worsened glycemia with steroid use. CONSULTANTS: Nic Moralez MD and Stephane Palma MD for Pulmonary Services. HOSPITAL COURSE: The patient is a 77-year-old male, who was admitted to the hospital with shortness of breath. He has a history of COPD, hyperlipidemia, diabetes mellitus type 2 and hypertension. Apparently, he was seen in the ER earlier several days prior to this hospitalization and he was started on levofloxacin, but in couple days, his condition got worse and he was brought to the emergency room for further evaluation and possible admission. He was found to be hypoxic and was started on BiPAP and got admitted to the [facility]. He was placed on Tamiflu since he was found to be positive for influenza A. He was placed on ceftriaxone and azithromycin, steroids, nebulizers and BiPAP was continued. White count at the time of admission was up to 18.5, hemoglobin 13.3, hematocrit 43.3, platelet count 263,000. Blood gases showed ABGs, pH of 7.39, pCO2 of 53.5, PO2 of 152.4, bicarb 31.7. This was taken when he was on BiPAP. His sodium was 141, potassium 3.9, chloride 101, bicarb 30, BUN 15, creatinine 1.08, glucose 237. Troponin was 0.014. BNP 82. Lactic acid was 3.1. The patient's chest x-ray showed low volume and bibasilar atelectasis, some suspicion that he has pneumonia, so he was treated as such, but the CT of the chest was subsequently done, which showed chronic lung changes with scarring bilaterally as well as emphysematous changes and vascular calcification along with this and there was no any good evidence of pneumonia. The patient was treated with above-mentioned regimen. The patient was seen by excavating contractor, who recommended to switch him to oral prednisone, continue Tamiflu, which was completed 5-day course. He was switched gradually to nasal cannula from BiPAP. Continue to use BiPAP p.r.n. He required several days of steroids and nebulized breathing treatments to improve to the point that he is able to go home. His glycemia was running high since he was started on steroids, so he has been treated with aggressive sliding scale with Humalog along with his home medications, metformin 1000 mg twice a day and his glimepiride 4 mg twice a day. Despite of all this regimen, his glycemia was ranging still around 300; today, he is down to 88 this morning. He is doing well. He still had some wheezes, but that is somewhat residual. He is seen and examined before he was discharged. DISPOSITION: Home. ACTIVITIES: As tolerated. DIET: 2000 calories ADA. MEDICATIONS AT THE TIME OF DISCHARGE: 1. Florastor 250 mg twice a day. 2. Prednisone 40 mg once a day for additional 3 days, then 30 mg for 3 days, then 20 mg for 3 days, then 10 mg for 3 days. 3. He will continue his metformin 1000 mg twice a day. 4. He will have prescription for guaifenesin ER, which is Mucinex 1200 mg twice a day. 5. His Amaryl is increased to 4 mg twice a day. 6. He will continue his Symbicort 2 puffs twice a day. 7. Furosemide 40 mg once a day. 8. Losartan 100 mg once a day. 9. Pantoprazole 40 mg once a day. 10. Potassium chloride 10 mEq once a day. 11. He will continue his DuoNeb and p.r.n. hydrocodone. FOLLOWUP: He will follow up with his primary doctor in 1 week and with excavating contractor in 1 month. The patient is seen and examined before his discharge and discharge time is more than 30 minutes. Job ID: [id number]
== END 2018-05-03 14:15 | disposition home or self-care (01) | DRG 193 ==
LOC: ERS 23:46 → IMCU/EMU 04-26 02:29
PROVIDERS: ADMIT Family Medicine; ATTEND Family Medicine
PROC: 5A09457 Assistance with Respiratory Ventilation, 24-96 Consecutive Hours, Continuous Positive Airway Pressure (ICD-10-PCS; principal; 2018-04-26)
DX: J10.00 Influenza due to other identified influenza virus with unspecified type of pneumonia (principal); J96.21 Acute and chronic respiratory failure with hypoxia; J96.22 Acute and chronic respiratory failure with hypercapnia; J44.1 Chronic obstructive pulmonary disease with (acute) exacerbation; E87.2 Acidosis; J44.0 Chronic obstructive pulmonary disease with (acute) lower respiratory infection; E11.65 Type 2 diabetes mellitus with hyperglycemia; I10 Essential (primary) hypertension; E78.5 Hyperlipidemia, unspecified; Z87.891 Personal history of nicotine dependence; Z79.84 Long term (current) use of oral hypoglycemic drugs; Z79.899 Other long term (current) drug therapy; Z79.51 Long term (current) use of inhaled steroids; Z83.3 Family history of diabetes mellitus
CPT/HCPCS: 36415; 36416; 71045; 71250; 80048; 80053; 82805; 83605; 83735; 83880; 84484; 85025; 87040; 87070; 87205; 87804; 93005; 94640; 94644; 96365; 96367; 96375; 99406; J0456; J0696; J1644; J1956; J2920; J2930; J3475; J7050; J7611; J7620

== ENCOUNTER 2018-06-07 14:13 | Emergency (ER) | payer MEDICARE, BC ==
[2018-06-07 14:40] LABS: #Basophils 0.1 thou/uL (0.0-0.2); #Eosinphils 0.3 thou/uL (0.0-0.7); #Lymphocytes 3.7 thou/uL (1.20-3.40); #Monocytes 0.9 thou/uL (0.11-0.59); #Neutrophils 7.6 thou/uL (1.40-6.50); %Basophils 0.9 % (0.0-1.0); %Eosinophils 2.7 % (0.0-10.0); %Lymphocytes 29.1 % (21.0-51.0); %Monocytes 7.2 % (0.0-10.0); %Neutrophils 60.1 % (42.0-75.0); Hemoglobin 11.3 g/dL (14.0-18.0); Mean Corpuscular HGB CONC 31.3 g/dL (32.0-36.0); Mean Corpuscular Hemoglobin 31.8 pg (27.0-31.0); Mean Platelet Volume 8.3 fL (7.4-10.4); Platelet Count 369 thou/uL (130-400); RBC Distribution Width 13.5 % (11.5-14.5); Red Blood Cell (RBC) Count 3.55 mill/uL (4.70-6.10); White Blood Cell (WBC) Count 12.6 thou/uL (4.8-10.8)
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
[2018-06-07 15:06] LABS: ALT (SGPT) 12 U/L (8-55); AST (SGOT) 17 U/L (5-34); Albumin 3.9 g/dL (3.4-4.8); Alkaline Phosphatase 71 U/L (40-150); Anion Gap 13 mmol/L (10-20); BUN (Urea Nitrogen) 13 mg/dL (8.4-25.7); Bilirubin, Total 0.2 mg/dL (0.2-1.2); Calc. Creatinine Clearance 0 mL/min (70-130); Calcium 9.1 mg/dL (7.8-10.44); Carbon Dioxide 27 mmol/L (23-31); Chloride 105 mmol/L (98-107); Estimated GFR-MDRD 77; Globulin 2.7 g/dL (2.4-3.5); Glucose 173 mg/dL (83-110); Potassium 4.6 mmol/L (3.5-5.1); Protein, Total 6.6 g/dL (5.8-8.1); Sodium 140 mmol/L (136-145)
[2018-06-07] MEDS ORDERED: methylPREDNISolone Sod Succ/PF 125 MG/2 ML VIAL ONE (18:26)
== END 2018-06-07 19:20 | disposition home or self-care (01) ==
LOC: ERS 14:13
DX: J44.1 Chronic obstructive pulmonary disease with (acute) exacerbation (principal); E11.9 Type 2 diabetes mellitus without complications; E78.5 Hyperlipidemia, unspecified; I10 Essential (primary) hypertension; F20.9 Schizophrenia, unspecified; Z79.899 Other long term (current) drug therapy; Z79.84 Long term (current) use of oral hypoglycemic drugs; Z79.51 Long term (current) use of inhaled steroids
CPT/HCPCS: 71045; 80053; 82550; 83880; 84484; 85025; 93005; 94640; 96374; J2930; J7620

== ENCOUNTER 2018-06-21 14:59 | Emergency (ER) | payer MEDICARE, BC ==
[2018-06-21 15:35] LABS: #Basophils 0.1 thou/uL (0.0-0.2); #Eosinphils 0.9 thou/uL (0.0-0.7); #Lymphocytes 4.3 thou/uL (1.20-3.40); #Neutrophils 8.2 thou/uL (1.40-6.50); %Basophils 0.9 % (0.0-1.0); %Eosinophils 6.3 % (0.0-10.0); %Lymphocytes 29.4 % (21.0-51.0); %Monocytes 7.1 % (0.0-10.0); %Neutrophils 56.3 % (42.0-75.0); Hemoglobin 11.9 g/dL (14.0-18.0); Mean Corpuscular HGB CONC 30.9 g/dL (32.0-36.0); Mean Corpuscular Hemoglobin 31.1 pg (27.0-31.0); Mean Platelet Volume 8.9 fL (7.4-10.4); Platelet Count 282 thou/uL (130-400); RBC Distribution Width 13.5 % (11.5-14.5); Red Blood Cell (RBC) Count 3.82 mill/uL (4.70-6.10); White Blood Cell (WBC) Count 14.6 thou/uL (4.8-10.8)
[2018-06-21] MEDS ORDERED: methylPREDNISolone Sod Succ/PF 125 MG/2 ML VIAL ONE (15:40)
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
[2018-06-21 15:58] LABS: ALT (SGPT) 10 U/L (8-55); AST (SGOT) 14 U/L (5-34); Albumin 3.8 g/dL (3.4-4.8); Alkaline Phosphatase 61 U/L (40-150); Anion Gap 15 mmol/L (10-20); BUN (Urea Nitrogen) 10 mg/dL (8.4-25.7); Bilirubin, Total 0.4 mg/dL (0.2-1.2); Calc. Creatinine Clearance 0 mL/min (70-130); Calcium 9.7 mg/dL (7.8-10.44); Carbon Dioxide 27 mmol/L (23-31); Chloride 101 mmol/L (98-107); Estimated GFR-MDRD 86; Globulin 3.2 g/dL (2.4-3.5); Glucose 136 mg/dL (83-110); Potassium 4.5 mmol/L (3.5-5.1); Sodium 138 mmol/L (136-145)
[2018-06-21] MEDS ORDERED: Albuterol Sulfate 2.5 mg/3 ml Neb ONE (17:17)
[2018-06-21] MEDS ORDERED: Albuterol Sulfate 2.5 mg/0.5 ml Neb ONE (17:17)
== END 2018-06-21 18:06 | disposition home or self-care (01) ==
LOC: ERS 14:59
DX: J44.1 Chronic obstructive pulmonary disease with (acute) exacerbation (principal); E11.9 Type 2 diabetes mellitus without complications; E78.5 Hyperlipidemia, unspecified; I10 Essential (primary) hypertension; Z87.891 Personal history of nicotine dependence; Z79.899 Other long term (current) drug therapy
CPT/HCPCS: 71045; 80053; 83880; 85025; 93005; 94640; 94760; 96374; J2930; J7611; J7620

== ENCOUNTER 2018-12-17 07:26 | Emergency (ER) | payer MEDICARE, BC ==
[2018-12-17] MEDS ORDERED: HYDROcodone/Acetaminophen 5/325 mg Tablet ONE (07:50)
[2018-12-17] MEDS ORDERED: Acyclovir 800 mg Tablet PO SCH (08:00)
== END 2018-12-17 08:22 | disposition home or self-care (01) ==
LOC: ERS 07:26
DX: B02.9 Zoster without complications (principal); E11.9 Type 2 diabetes mellitus without complications; E78.5 Hyperlipidemia, unspecified; I10 Essential (primary) hypertension; J44.9 Chronic obstructive pulmonary disease, unspecified; F20.9 Schizophrenia, unspecified; Z87.891 Personal history of nicotine dependence
CPT/HCPCS: 94760

== ENCOUNTER 2018-12-19 10:49 | Inpatient (IN) | payer MEDICARE, BC ==
[2018-12-19] MEDS ORDERED: Albuterol Sulfate 2.5 mg/3 ml Neb ONE (10:56)
[2018-12-19 11:13] LABS: Analyzer IN Cardio ER; Base Excess (BEa) -0.7 mEq/L (-2.0 to +3.0); CO2 Tension 34.9 mmHg (35.0-45.0); Calcium, Ionized 1.19 mmol/L (1.12-1.30); Carboxyhemoglobin (COHb) 0.6 gm% (0.0-3.0); Hemoglobin (Hb) 12.4 g/dL (14.0-18.0); O2 Tension (PaO2) 161.2 mmHg (> 70.0); Potassium - ABG Lab 4.23 mmol/L (3.70-5.30); Puncture Site LRA; pH, Arterial 7.44 (7.35-7.45)
[2018-12-19 11:15] LABS: ALV-art Gradient 23.335 (0-20)
[2018-12-19] MEDS ORDERED: Piperacillin/Tazobactam 4.5 GM VIAL ONE (11:19)
[2018-12-19] MEDS ORDERED: Magnesium 2 GM/50 ML BAG (IN WATER) ONE (11:19)
[2018-12-19] MEDS ORDERED: Acetaminophen 650 MG Suppository ONE (11:21)
[2018-12-19] MEDS ORDERED: Acetaminophen 325 MG Suppository ONE (11:21)
[2018-12-19 11:22] LABS: Bacteria/HPF None Seen HPF (None Seen); Bilirubin Negative (Negative); Blood, Urine Negative (Negative); Clarity Clear (Clear); Glucose, Urine (Dipstick) Normal (Negative); Leukocyte Negative Leu/uL (Negative); Nitrite Negative (Negative); Protein, Urine (Dipstick) 50 mg/dL (Neg-Trace); Squamous Epithelial None Seen HPF (0-3); Urobilinogen Normal mg/dL (Less than 2); WBC/HPF 0-3 HPF (0-3)
[2018-12-19 11:42] LABS: #Lymphocytes 2.3 thou/uL (1.20-3.40); #Monocytes 0.8 thou/uL (0.11-0.59); #Neutrophils 8.5 thou/uL (1.40-6.50); %Basophils 0.1 % (0.0-1.0); %Eosinophils 0.2 % (0.0-10.0); %Lymphocytes 19.5 % (21.0-51.0); %Monocytes 7.2 % (0.0-10.0); Hemoglobin 11.8 g/dL (14.0-18.0); Mean Corpuscular HGB CONC 31.4 g/dL (32.0-36.0); Mean Corpuscular Hemoglobin 30.2 pg (27.0-31.0); Mean Corpuscular Volume 96.2 fL (78.0-98.0); Mean Platelet Volume 9.4 fL (7.4-10.4); Platelet Count 207 thou/uL (130-400); RBC Distribution Width 15.2 % (11.5-14.5); White Blood Cell (WBC) Count 11.6 thou/uL (4.8-10.8)
[2018-12-19 12:09] LABS: ALT (SGPT) 11 U/L (8-55); AST (SGOT) 14 U/L (5-34); Albumin 3.9 g/dL (3.4-4.8); Alkaline Phosphatase 50 U/L (40-110); Anion Gap 14 mmol/L (10-20); BUN (Urea Nitrogen) 13 mg/dL (8.4-25.7); Bilirubin, Total 0.4 mg/dL (0.2-1.2); CK (CPK) 90 U/L (30-200); Calc. Creatinine Clearance 0 mL/min (70-130); Calcium 8.9 mg/dL (7.8-10.44); Carbon Dioxide 22 mmol/L (23-31); Chloride 102 mmol/L (98-107); Estimated GFR-MDRD Greater than 90; Globulin 2.9 g/dL (2.4-3.5); Glucose 106 mg/dL (83-110); Lipase 12 U/L (8-78); Potassium 4.5 mmol/L (3.5-5.1); Protein, Total 6.8 g/dL (5.8-8.1); Sodium 133 mmol/L (136-145)
[2018-12-19 12:29] LABS: CKMB 1.3 ng/mL (0-6.6)
--- NOTE | 2018-12-19 12:40 | RAD ---
Portable chest: HISTORY: Shingles COMPARISON: 06/21/2018 FINDINGS:Elevation right hemidiaphragm is stable. There is cardiomegaly and mild vascular congestion which is more prominent than on the prior study. I cannot exclude mild interstitial edema. IMPRESSION:Mild vascular congestion is more pronounced than on the prior study.
--- NOTE | 2018-12-19 13:09 | CT ---
CT BRAIN NONCONTRAST: DATE: 12/19/2018 HISTORY: 78-year-old male with altered mental status. FINDINGS: There is no evidence of acute intra-axial or extra-axial hemorrhage. There is no midline shift or any other mass effect. There is no extra-axial fluid collection. There is no evidence of obstructive hydrocephalus. Calvarium is intact. IMPRESSION: No acute intracranial findings.
[2018-12-19] MEDS ORDERED: Aspirin Chewable 81 MG TAB ONE (13:42)
[2018-12-19] MEDS ORDERED: Furosemide 40 MG/4 ML VIAL ONE (13:42)
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
[2018-12-19] MEDS ORDERED: Vancomycin HCl 1.5 GM in Sodium Chloride 0.9% 250 ML 300 ML IVPB SCH ×2 (14:45→15:15)
[2018-12-19] MEDS ORDERED: Acyclovir 800 mg Tablet PO SCH (15:15)
[2018-12-19 15:17] LABS: Troponin I 0.101 ng/mL (< 0.028)
[2018-12-19] MEDS ORDERED: Dextrose 50% Abboject 50 ML SYRINGE SLOW IVP PRN (16:44)
[2018-12-19] MEDS ORDERED: Dextrose 5% in Water 1,000 ML IV PRN (16:44)
[2018-12-19] MEDS ORDERED: Acetaminophen 325 MG TAB PO PRN (16:44)
[2018-12-19] MEDS ORDERED: Bacteriostatic Water 30 ML VIAL FS PRN (16:52)
[2018-12-19] MEDS ORDERED: methylPREDNISolone Sod Succ/PF 125 MG/2 ML VIAL IVP SCH (17:00)
[2018-12-19] MEDS ORDERED: Acetaminophen 325 MG TAB ONE (17:52)
[2018-12-19 18:15] LABS: Troponin I 0.131 ng/mL (< 0.028)
[2018-12-19 21:24] LABS: Troponin I 0.111 ng/mL (< 0.028)
[2018-12-19] MEDS: Azithromycin 500 MG in Sodium Chloride 0.9% 250 ML 250 ML IVPB SCH (22:57)
[2018-12-19 23:38] VITALS: BMI 36.3
--- NOTE | 2018-12-20 03:12 | PDOC.BPN ---
- Brief Progress Note Pt's bed alarm sounded around 21:40, and nurses found him sitting on the floor in his urine. He was trying to get up to urinate, but did not make it to the bathroom. I was paged and went to evaluate the patient. The patient is at the same encephalopathic level he was on admission. No worsening. He denied any pain. On PE he had no evident bruising, laceration on body or head. CN II-XII grossly intact. Sensory and motor intact in all 4 extremities. Oriented to Person. Vitals stable. No evidence to suspect head injury from suspected fall. No imaging ordered. Continue close monitoring of patient.
[2018-12-20 05:32] LABS: Anion Gap 16 mmol/L (10-20); BUN (Urea Nitrogen) 11 mg/dL (8.4-25.7); Calc. Creatinine Clearance 94 mL/min (70-130); Calcium 8.8 mg/dL (7.8-10.44); Carbon Dioxide 21 mmol/L (23-31); Chloride 102 mmol/L (98-107); Estimated GFR-MDRD Greater than 90; Glucose 200 mg/dL (83-110); Potassium 4.5 mmol/L (3.5-5.1); Sodium 134 mmol/L (136-145)
[2018-12-20 05:37] LABS: Band 13 % (5-11); Hemoglobin 11.2 g/dL (14.0-18.0); Hypochromia SLIGHT = 6-15 cells (100X) (0-5/hpf); Lymphocytes 8 % (21-51); MDiff Complete? YES; Mean Corpuscular Hemoglobin 30.5 pg (27.0-31.0); Mean Corpuscular Volume 95.4 fL (78.0-98.0); Mean Platelet Volume 9.9 fL (7.4-10.4); Neutrophil 79 % (42-75); Platelet Count 206 thou/uL (130-400); Platelet Morphology Comment Appears Adequate; RBC Distribution Width 15.3 % (11.5-14.5); Red Blood Cell (RBC) Count 3.68 mill/uL (4.70-6.10); White Blood Cell (WBC) Count 10.1 thou/uL (4.8-10.8)
--- NOTE | 2018-12-20 06:02 | PDOC.FM ---
- Subjective Subjective: Overnight pt was found on the ground in his urine. Stated he was trying to get up to use the restroom and fell. Night team assessed and no focal deficits, no head trauma. Since that time pt has been doing well. Now A/O x2, much improved per at bedside. Dyspnea resolved, denies any fever/chills, CP, n/v, d/c. - Objective MAR Reviewed: Yes Vital Signs & Weight: Vital Signs (12 hours) Temp Pulse Resp BP Pulse Ox 12/20/18 05:00 100.4 F H 78 23 H 160/70 H 92 L 12/20/18 02:24 72 12 12/19/18 22:17 76 16 12/19/18 20:30 100.9 F H 69 20 143/66 H 100 12/19/18 20:00 100.9 F H 69 20 143/66 H 100 Weight Weight 101.968 kg Result Diagrams: 12/20/18 04:34 12/20/18 04:34 EKG Reviewed by me: Yes (Tele: Sinus, no acute events) Phys Exam - Physical Examination Constitutional: NAD (resting comfortably in bed) HEENT: moist MMs Neck: supple Respiratory: no rales, no rhonchi, wheezing present (end-expiratory, L>R), clear to auscultation bilateral (no increased WOB or signs of acute distress) Cardiovascular: RRR, no significant murmur, no rub Gastrointestinal: soft, non-tender, no distention, positive bowel sounds Musculoskeletal: no edema Neurological: non-focal Psychiatric: normal affect Deviation from normal: A/O x2 Deviation from normal: dermatomal, blistering rash under right breast extended to back, TTP Dx/Plan (1) Elevated troponin Code(s): R79.89 - OTHER SPECIFIED ABNORMAL FINDINGS OF BLOOD CHEMISTRY Status : Resolved (2) Encephalopathy acute Code(s): G93.40 - ENCEPHALOPATHY, UNSPECIFIED Status: Acute (3) Acute on chronic respiratory failure with hypoxia Code(s): J96.21 - ACUTE AND CHRONIC RESPIRATORY FAILURE WITH HYPOXIA Status: Acute (4) Diabetes mellitus Code(s): E11.9 - TYPE 2 DIABETES MELLITUS WITHOUT COMPLICATIONS Status: Chronic Qualifiers: Diabetes mellitus type: type 2 (5) HLD (hyperlipidemia) Code(s): E78.5 - HYPERLIPIDEMIA, UNSPECIFIED Status: Chronic Qualifiers: (6) HTN (hypertension) Code(s): I10 - ESSENTIAL (PRIMARY) HYPERTENSION Status: Chronic Qualifiers: - Plan Plan: 78yo M with h/o DMII, HTN, HLD, COPD presents with AMS and hypoxia. # Acute on chronic hypoxic respiratory failure - suspected 2/2 COPD exacerbation - Chronic 2L O2 use at home - Required continuous nebs and mag in ED, received vanc, zosyn, and levaquin - CXR neg for consolidation - Ordered q4r duoneb sena, q2 prn, still slight wheeze on exam, will continue. Restarted home Dulera - Steroid burst w/ 125 medrol - Azithro 500mg starting today - VSS and satting well on 2L - respiratory status improving, will cont to monitor closely #Acute encephalopathy likely 2/2 hypoxia from COPD exacerbation, now resolving - Likely related to hypoxia - Improved after duonebs and now nearing baseline, A/Ox2, not to time - Will continue to monitor - PT eval this morning # Elevated troponins, resolved - Likely demand ischemia 2/2 hypoxia, now downtrending, no CP sxs, will cont to monitor # Elevated BNP - SOB and BNP above baseline - s/p 40 lasix in ED. Will cont home lasix dose of 60mg BID and KCl - Strict I/O - TTE ordered - Previous echo 9mo ago EF 60-65%, no dysfunction # Shingles - Was on prednisone and acyclovir, will d/c and start valacyclovir - gabapetin 100mg qhs for pain # DM II - Resume home metformin and actos, will d/c amaryl 2/2 risk of hypoglycemia - Hypoglycemic protocol - Mild SSI - cont to monitor # Hypertension - Resume home lasix, monitor and consider adding medication as needed # HLD - Resume home zocor VTE: Lovenox Code: Full Diet: CC Dispo: Admitted to tele inpt. Cont resp supportive care. Further evaluation of poss HF as cause of SOB and elevated trop. Anticipate hospitalization 3-4 days. Addendum - Attending - Attending Attestation Date/Time: 12/20/18 2648 I personally evaluated the patient and discussed the management with Dr. Kelin Rosales I agree with the History, Examination, Assessment and Plan documented above with any addition or exceptions noted below. Patient alert reponsive c/o shingles pain gabapentin and [place] ordered. Patient will need continued conditioning.
[2018-12-20] MEDS ORDERED: Prevnar 13-Val Conj/PF 0.5 ML SYRINGE IM ONE (09:00)
[2018-12-20] MEDS ORDERED: FLU VACC TS2019-20(65YR UP)/PF 180 MCG/0.5 ML SYRINGE IM ONE (09:00)
[2018-12-20] MEDS ORDERED: Benzonatate 100 MG CAP PO PRN (09:26)
[2018-12-20] MEDS: Aspirin Chewable 81 MG TAB PO SCH (09:49)
[2018-12-20] MEDS: Enoxaparin Sodium 40 MG/0.4 ML SYRINGE SC SCH (09:49)
[2018-12-20] MEDS: HumaLOG 300 UNITS/3 ML VIAL SC PRN (09:50)
[2018-12-20] MEDS: Gabapentin 100 MG CAP PO SCH ×2 (14:42→21:34)
[2018-12-20] MEDS: valACYclovir 500 MG TAB PO SCH ×2 (14:43→21:29)
[2018-12-20] MEDS: Azithromycin 500 MG in Sodium Chloride 0.9% 250 ML 250 ML IVPB SCH (17:53)
[2018-12-20] MEDS: Mometasone/Formoterol 120 PUFF INHALER INH SCH (18:45)
[2018-12-20] MEDS ORDERED: Gabapentin 100 MG CAP PO SCH (21:00)
[2018-12-20] MEDS ORDERED: Atorvastatin Calcium 40 MG TAB PO SCH (21:00)
[2018-12-20] MEDS: Furosemide 40 MG TAB PO SCH (21:29)
[2018-12-20] MEDS: metFORMIN 500 MG TAB PO SCH (21:29)
--- NOTE | 2018-12-21 05:42 | PDOC.FM ---
- Subjective Subjective: Doing well this morning, states he is feeling much better, dyspnea has decreased. No acute evens overnight. Denies any CP, n/v, abdominal pain, diaphoresis, fever/chills. States his shingles pain is well-controlled with gabapentin. SOB improved with duonebs. Voiding without difficulty. - Objective MAR Reviewed: Yes Vital Signs & Weight: Vital Signs (12 hours) Temp Pulse Resp BP Pulse Ox 12/21/18 04:00 99.1 F 71 16 118/52 L 98 12/21/18 02:38 78 16 97 12/20/18 23:47 99.4 F 12/20/18 22:11 67 16 96 12/20/18 21:34 99.8 F H 79 18 151/67 H 97 12/20/18 18:45 71 16 97 Weight Weight 100.879 kg I&O: 12/19/18 12/20/18 12/21/18 06:59 06:59 06:59 Intake Total 240 1210 Balance 240 1210 Result Diagrams: 12/21/18 05:15 12/21/18 05:15 Radiology Reviewed by me: Yes (CXR, mild edema and BL LL patchy infiltrates, stable from previous exams) Phys Exam - Physical Examination Constitutional: NAD (resting comfortably in bed) HEENT: moist MMs Neck: supple Respiratory: no rales, no rhonchi, wheezing present (BL end exp wheeze. Last neb >4hours prior to exam) Decreased breath sounds RLL Cardiovascular: RRR, no significant murmur, no rub Gastrointestinal: soft, non-tender, no distention, positive bowel sounds Musculoskeletal: no edema, pulses present Neurological: non-focal, normal sensation Deviation from normal: Shingles dermatoma rash on right under breast extending to back -: no erythema or exudates, only mild TTP Dx/Plan (1) Elevated troponin Code(s): R79.89 - OTHER SPECIFIED ABNORMAL FINDINGS OF BLOOD CHEMISTRY Status : Resolved (2) Encephalopathy acute Code(s): G93.40 - ENCEPHALOPATHY, UNSPECIFIED Status: Acute (3) Acute on chronic respiratory failure with hypoxia Code(s): J96.21 - ACUTE AND CHRONIC RESPIRATORY FAILURE WITH HYPOXIA Status: Acute (4) Diabetes mellitus Code(s): E11.9 - TYPE 2 DIABETES MELLITUS WITHOUT COMPLICATIONS Status: Chronic Qualifiers: Diabetes mellitus type: type 2 (5) HLD (hyperlipidemia) Code(s): E78.5 - HYPERLIPIDEMIA, UNSPECIFIED Status: Chronic Qualifiers: (6) HTN (hypertension) Code(s): I10 - ESSENTIAL (PRIMARY) HYPERTENSION Status: Chronic Qualifiers: - Plan Plan: 78yo M with h/o DMII, HTN, HLD, COPD presented with AMS and hypoxia. # Acute on chronic hypoxic respiratory failure - suspected 2/2 COPD exacerbation - Chronic 2L O2 use at home, weaned to 2L and satting well - Required continuous nebs and mag in ED, received vanc, zosyn, and levaquin. Medrol of 125mg - CXR neg for consolidation at admit. Repeat CXR on 12/21 demonstrated mild edema and BL LE pulm infiltrates however stable from previous exams, no focal consolidation - q4r duoneb sena, q2 prn, Cont home Dulera - Azithro Day 3 - VSS and satting well on 2L, last febrile at 0940 on 12/20 - respiratory status improving, will cont to monitor closely - Prednisone 40mg daily for 5d course - BCx 1/2 coag neg staph, likely contaminate - Procal negative #Acute encephalopathy likely 2/2 hypoxia from COPD exacerbation, resolved - A/Ox3, back to baseline - Will continue to monitor #Generalized weakness - 2/2 deconditioning and COPD - PT eval and rec discharge home with home health, CM for assistance # Elevated troponins, resolved - Likely demand ischemia 2/2 hypoxia, downtrending, no CP sxs, will cont to monitor # HFpEF - Elevated BNP to 234 with sxs of dyspnea - s/p 40 lasix in ED. Will cont home lasix dose of 60mg BID and KCl - Strict I/O - Echo demonstrated EF 60-65% with diastolic dysfunction, previous echo 9mo ago similar but no dysfunction # Shingles - Was on prednisone and acyclovir at home, now on valacyclovir TID x7d - gabapetin 100mg TID for pain # DM II - Resume home metformin and actos, d/c amaryl 2/2 risk of hypoglycemia - Hyperglycemic protocol - Mild SSI - cont to monitor # Hypertension - Resume home lasix, monitor and consider adding medication as needed # HLD - Resume home zocor VTE: Lovenox Code: Full Diet: CC Dispo: Admitted to tele inpt. Cont resp supportive care. Sxs improving and nearing baseline. Anticipate hospitalization 3-4 days. Addendum - Attending - Attending Attestation Date/Time: 12/21/18 0631 I personally evaluated the patient and discussed the management with Dr.G Rosales I agree with the History, Examination, Assessment and Plan documented above with any addition or exceptions noted below. patient reaching [facility] hospital benefit discussed transitioning out of hospital to home with po steroid continued pulmonary rx and finish course antibiotic.
[2018-12-21 05:59] LABS: #Eosinphils 0.1 thou/uL (0.0-0.7); #Monocytes 1.5 thou/uL (0.11-0.59); #Neutrophils 10.8 thou/uL (1.40-6.50); %Basophils 0.2 % (0.0-1.0); %Eosinophils 0.6 % (0.0-10.0); %Lymphocytes 19.3 % (21.0-51.0); %Monocytes 9.9 % (0.0-10.0); %Neutrophils 70.1 % (42.0-75.0); Hemoglobin 10.8 g/dL (14.0-18.0); Mean Corpuscular HGB CONC 31.3 g/dL (32.0-36.0); Mean Corpuscular Hemoglobin 29.8 pg (27.0-31.0); Mean Corpuscular Volume 95.1 fL (78.0-98.0); Mean Platelet Volume 9.7 fL (7.4-10.4); Platelet Count 215 thou/uL (130-400); RBC Distribution Width 15.4 % (11.5-14.5); Red Blood Cell (RBC) Count 3.64 mill/uL (4.70-6.10); White Blood Cell (WBC) Count 15.5 thou/uL (4.8-10.8)
[2018-12-21 06:07] LABS: Anion Gap 12 mmol/L (10-20); BUN (Urea Nitrogen) 12 mg/dL (8.4-25.7); Calc. Creatinine Clearance 106 mL/min (70-130); Calcium 8.6 mg/dL (7.8-10.44); Carbon Dioxide 26 mmol/L (23-31); Chloride 103 mmol/L (98-107); Estimated GFR-MDRD Greater than 90; Glucose 147 mg/dL (83-110); Potassium 3.9 mmol/L (3.5-5.1); Sodium 137 mmol/L (136-145)
[2018-12-21] MEDS: Mometasone/Formoterol 120 PUFF INHALER INH SCH (06:55)
--- NOTE | 2018-12-21 08:19 | RAD ---
2 views chest: 12/21/2018 COMPARISON: 12/19/2018 and 04/26/2018 HISTORY: Shortness of breath, pneumonia, COPD FINDINGS: Prominent elevation of the right hemidiaphragm again noted. Blunting of bilateral costophre emanuel angles noted, similar when compared to prior imaging. This may signify pleural thickening or small volume pleural fluid. There is asymmetric increased linear density in both lung bases, left gre ater than right, similar when compared to prior imaging as well. While this could be on the basis of inflammatory change or edema, this may be chronic in nature IMPRESSION: Probable chronic findings. Mild edema or infectious pneumonitis cannot be excluded. If cl inically warranted, findings could be better assessed with CT examination of the chest.
[2018-12-21] MEDS ORDERED: Pioglitazone HCl 15 MG TAB PO SCH (09:00)
[2018-12-21] MEDS ORDERED: Glimepiride 4 MG TAB PO SCH (09:00)
[2018-12-21] MEDS ORDERED: Potassium Chloride 8 MEQ TAB PO SCH (09:00)
[2018-12-21] MEDS ORDERED: predniSONE 20 MG TAB PO SCH (09:30)
[2018-12-21] MEDS: Furosemide 40 MG TAB PO SCH (10:07)
[2018-12-21] MEDS: Enoxaparin Sodium 40 MG/0.4 ML SYRINGE SC SCH (10:07)
[2018-12-21] MEDS: Aspirin Chewable 81 MG TAB PO SCH (10:07)
[2018-12-21] MEDS: Gabapentin 100 MG CAP PO SCH ×2 (10:08→16:06)
[2018-12-21] MEDS: metFORMIN 500 MG TAB PO SCH (10:08)
[2018-12-21] MEDS: valACYclovir 500 MG TAB PO SCH ×2 (10:09→16:05)
[2018-12-21] MEDS: HumaLOG 300 UNITS/3 ML VIAL SC PRN (12:56)
[2018-12-21 15:29] VITALS: BP 133/60; TEMP 98.5
--- NOTE | 2018-12-22 03:03 | DIS ---
DATE OF ADMISSION: 12/19/2018 DATE OF DISCHARGE: 12/21/2018 RESIDENT: Antelmo Rosales MD ADMITTING ATTENDING: Thomas Lubin MD DISCHARGE ATTENDING: Nathan Le MD CONSULTS: None. PROCEDURES: 1. Chest x-ray on 12/19/2018, demonstrating mild vascular congestion more pronounced than on prior study. 2. Brain CT on 12/19/2018, without contrast demonstrating no acute intracranial findings. 3. Echocardiogram on 12/20/2018, demonstrating ejection fraction of 60% to 65%, impaired relaxation compatible with diastolic dysfunction. 4. Chest x-ray on 12/21/2018, demonstrating probable chronic findings, mild edema or infectious pneumonitis cannot be excluded. PRIMARY DIAGNOSES: 1. Acute on chronic hypoxic respiratory failure due to chronic obstructive pulmonary disease exacerbation. 2. Acute encephalopathy secondary to hypoxia from chronic obstructive pulmonary disease exacerbation. 3. Elevated troponin, resolved. SECONDARY DIAGNOSES: 1. Generalized weakness and deconditioning. 2. Heart failure, preserved ejection fraction. 3. Shingles. 4. Type 2 diabetes. 5. Hypertension. 6. Hyperlipidemia. DISCHARGE MEDICATIONS: 1. Lasix 60 mg p.o. b.i.d. 2. Protonix 40 mg p.o. daily. 3. Potassium chloride 8 mEq p.o. daily. 4. Metformin 1000 mg p.o. b.i.d. 5. Dulera 200 mcg/5 mcg inhaler, 120 puffs per aerosol two puffs b.i.d. 6. ProAir one inhalation q.6 hours p.r.n. 7. Tessalon Perles 100 mg t.i.d. p.r.n. 8. Actos 15 mg p.o. daily. 9. Gabapentin 100 mg p.o. at bedtime. 10. Zocor 80 mg p.o. daily. 11. Aspirin 81 mg p.o. daily. 12. Azithromycin 250 mg p.o. daily x2 days. 13. Prednisone 40 mg p.o. q.a.m. with meals x4 days. 14. Valtrex 1000 mg p.o. t.i.d. x5 days. 15. DuoNeb inhalation one nebulizer q.4 hours p.r.n. DISCONTINUED MEDICATIONS: 1. Prednisone 50 mg p.o. q.a.m. 2. Acyclovir 800 mg p.o. t.i.d. 3. Glimepiride 4 mg p.o. daily. HISTORY OF PRESENT ILLNESS AND HOSPITAL COURSE: The patient is a 78-year-old Afro-[place] male brought to the ED by EMS for an altered mental status. On initial evaluation of the patient by EMS showed to be hypoxic with saturation of 80%. The patient received DuoNebs en route and continuous DuoNeb upon arrival to the ED. Mental status appeared to be improving in near baseline per on initial evaluation. and the patient both denied any symptoms leading up to the event over the past several days including no cough, fevers, chills, increased shortness of breath, or change in sputum consistency or quantity. The patient did have fever upon arrival however. The patient did have multiple admissions in the past for COPD exacerbations, some requiring BiPAP. Initial ABG was reassuring suggestive of supplemental oxygen with hyperventilation. BNP was elevated above the patient's baseline, though the patient denies any history of heart failure. In the ED, the patient was given vancomycin and Zosyn and a dose of Levaquin as well as magnesium 500 mL bolus and 40 mg of Lasix. The patient's initial lab work significant for white blood cell count of 11.6. Remainder of CBC and electrolytes were within normal limits. The patient was then admitted for acute on chronic hypoxic respiratory failure likely due to COPD exacerbation as well as acute encephalopathy, also likely due to hypoxia and COPD exacerbation. The patient uses 2 L of home O2. The patient was continued on supplemental oxygen and continued to saturate well on 2 L. The patient's chest x-ray was negative for any consolidation. The patient was continued on q.4 hours DuoNeb and q.2 hours p.r.n. He was given a dose of steroids upon admission. The patient was also started on azithromycin for coverage of atypical pneumonia. The patient had initial troponins that were indeterminate at 0.08. These were trended and remained stable. The patient had a procalcitonin that was negative. Repeat lab work showed no significant abnormalities. UA was negative. The patient did have one of two blood cultures grew out coag-negative Staph, likely skin contaminant. Remaining blood culture was negative at 48 hours upon discharge. Urine culture was also negative. The patient was negative for flu. The patient did have one event overnight following admission, where he was found to be sitting on the floor in his own urine at approximately 2200. The patient said he was trying to get up out of the bed to urinate and did not make it to the bathroom. The patient was seen and examined by the Family Medicine Team. It appeared to be his baseline mentation from admission. The patient had no evidence of bruising or lacerations on the body or head, denied any symptoms. Neurologically intact. Vital signs stable. No imaging was thus warranted. The patient was continued to be monitored closely. On the following morning, the patient was doing well. He was A and O x2, much improved per his . The patient denied any further symptoms. The patient was continued on azithromycin as well as DuoNeb. His vitals remained stable and he is saturating well on his 2 L. A repeat echocardiogram demonstrated a normal ejection fraction with diastolic dysfunction. The patient is on home Lasix and thus this was continued. As for the patient's shingles, he was started on valacyclovir and gabapentin for the pain. The remainder of his medications for his chronic medical conditions was continued other than his Amaryl that was discontinued due to risk of hypoglycemia in the elderly with the patient's generalized deconditioning. On the morning of discharge, the patient was A and O x3, at baseline mentation per , the patient is doing very well. He was able to ambulate with PT the day prior and recommended home health for continued physical therapy for generalized deconditioning. client services account manager was consulted for assistance. The patient was afebrile for over 24 hours. He denies any fevers, chills, shortness of breath, or chest pain, whatsoever. Discharge plan was discussed with the patient and at bedside including continuation of steroid course for a total of 5 days, continuation of azithromycin for a total of 5 days, to continue use of his nebulizer DuoNeb q.4 hours for the next few days and then to space out to q.6 hours and p.r.n. The patient is to follow up with the primary care physician within 7 days of discharge. The patient will also be sent home on a total course of 7 days of valacyclovir for his shingles. Return precautions were given. The patient and voiced agreement understanding of discharge plan and appropriate followup. All questions were answered appropriately. DISPOSITION: Stable. DISCHARGE INSTRUCTIONS: 1. Location: Home with home health. 2. Diet: Heart healthy, low-sodium. 3. Activity: As tolerated with continued physical therapy. 4. Followup: The patient is to follow with primary care physician within 7 days of discharge. Job ID: [id number]
[2018-12-22] MEDS ORDERED: predniSONE 20 MG TAB PO SCH (08:00)
--- NOTE | 2018-12-23 06:25 | PQF ---
[employer] Crystal Reports Winform ViewerEARLINE HEKASSANDRAESTHELA LAI MD [id number] [id number] CLINICAL DOCUMENTATION CLARIFICATION FORM: POST DISCHARGE Addendum to original discharge summary date: ____ Late entry note date: __ DATE: 12/23/2018 ATTN: ESTHELA SIMMONS MD Please exercise your independent, professional judgment in responding to the clarification form. Clinical indicators are provided on the bottom of this form for your review Please check appropriate box(s): HEART FAILURE: B. ACUITY [ ] Acute [ ] Acute on Chronic [ ] Chronic [ ] Other diagnosis [ ] Unable to determine In addition, please specify: Present on Admission (POA): [ ] Yes [ ] No [ ] Unable to determine For continuity of documentation, please document condition throughout progress notes and discharge summary. Thank You. CLINICAL INDICATORS - SIGNS / SYMPTOMS / LABS Ejection fraction = 60 - 65 % documented in Echocardiogram on 12/20 DS Previous echo 9 month ago Ejection Fraction =60-55% - Documented in H&P on by Mauricio Newell DO new onset HFpEF - Documented in H&P on 12/19 by Mauricio Newell DO BNP 234 on 12/19 - Documented in H&P on 12/19 by Mauricio Newell DO SOB and lower extremity edema - Documented in H&P on 12/19 by Mauricio Newell DO RISKS: Acute hypoxic respiratory failure 2/2 copd exacerbation - Documented in H&P on 12/19 by Mauricio Newell DO HTN DM TREATMENTS: s/p 40mg of lasix - Documented in H&P on 12/19 by Mauricio Newell DO Continue Lasix - Documented in H&P on 12/19 by Mauricio Newell DO cardiology consult TTE ordered [employer] Crystal Reports Winform Viewer (This form is maintained as a part of the permanent medical record) 2014 [employer] All Rights Reserved [email or web address] [email or web address] [not provided] MTDD
== END 2018-12-21 16:20 | disposition home health service (06) | DRG 189 ==
LOC: ERS 10:49 → ERHOLD 14:35 → 2NO 19:44
PROVIDERS: ADMIT Student in an Organized Health Care Education/Training Program; ATTEND Student in an Organized Health Care Education/Training Program
DX: J96.21 Acute and chronic respiratory failure with hypoxia (principal); J44.1 Chronic obstructive pulmonary disease with (acute) exacerbation; G93.49 Other encephalopathy; I24.8 Other forms of acute ischemic heart disease; I50.30 Unspecified diastolic (congestive) heart failure; I11.0 Hypertensive heart disease with heart failure; E78.5 Hyperlipidemia, unspecified; E11.9 Type 2 diabetes mellitus without complications; F20.9 Schizophrenia, unspecified; E66.9 Obesity, unspecified; B02.9 Zoster without complications; Z79.84 Long term (current) use of oral hypoglycemic drugs; Z79.899 Other long term (current) drug therapy; Z86.73 Personal history of transient ischemic attack (TIA), and cerebral infarction without residual deficits; Z87.891 Personal history of nicotine dependence; Z99.81 Dependence on supplemental oxygen
CPT/HCPCS: 36415; 36416; 51701; 70450; 71045; 71046; 80048; 80053; 81003; 81015; 82550; 82553; 82805; 83605; 83690; 83735; 83880; 84145; 84484; 85025; 87040; 87086; 87149; 87804; 93005; 93306; 94640; 94644; 94760; 96365; 96366; 96367; 96368; 96375; J0456; J1650; J1940; J1956; J2543; J2930; J3370; J3475; J7050; J7512; J7611; J7620

== ENCOUNTER 2019-03-17 11:03 | Emergency (ER) | payer MEDICARE, BC ==
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
[2019-03-17 12:37] LABS: #Basophils 0.1 thou/uL (0.0-0.2); #Eosinphils 0.3 thou/uL (0.0-0.7); #Lymphocytes 2.8 thou/uL (1.20-3.40); #Monocytes 0.7 thou/uL (0.11-0.59); #Neutrophils 6.1 thou/uL (1.40-6.50); %Basophils 0.9 % (0.0-1.0); %Eosinophils 2.7 % (0.0-10.0); %Lymphocytes 28.1 % (21.0-51.0); %Monocytes 6.7 % (0.0-10.0); %Neutrophils 61.7 % (42.0-75.0); Hemoglobin 10.4 g/dL (14.0-18.0); Mean Corpuscular HGB CONC 31.1 g/dL (32.0-36.0); Mean Corpuscular Volume 99.7 fL (78.0-98.0); Mean Platelet Volume 8.4 fL (7.4-10.4); Platelet Count 302 thou/uL (130-400); RBC Distribution Width 14.3 % (11.5-14.5); Red Blood Cell (RBC) Count 3.35 mill/uL (4.70-6.10); White Blood Cell (WBC) Count 9.9 thou/uL (4.8-10.8)
[2019-03-17] MEDS ORDERED: Ketorolac Tromethamine 60 MG/2 ML VIAL ONE (12:43)
[2019-03-17 12:53] LABS: ALT (SGPT) Less than 7 U/L (8-55); AST (SGOT) 12 U/L (5-34); Albumin 4.1 g/dL (3.4-4.8); Alkaline Phosphatase 49 U/L (40-110); Anion Gap 14 mmol/L (10-20); BUN (Urea Nitrogen) 24 mg/dL (8.4-25.7); Bilirubin, Total 0.5 mg/dL (0.2-1.2); Calc. Creatinine Clearance 0 mL/min (70-130); Calcium 9.2 mg/dL (7.8-10.44); Carbon Dioxide 30 mmol/L (23-31); Chloride 101 mmol/L (98-107); Estimated GFR-MDRD 71; Globulin 2.5 g/dL (2.4-3.5); Glucose 81 mg/dL (83-110); Potassium 4.8 mmol/L (3.5-5.1); Protein, Total 6.6 g/dL (5.8-8.1); Sodium 140 mmol/L (136-145)
--- NOTE | 2019-03-19 15:33 | EKG ---
Test Reason : Blood Pressure : / mmHG Vent. Rate : 067 BPM Atrial Rate : 067 BPM P-R Int : 158 ms QRS Dur : 080 ms QT Int : 374 ms P-R-T Axes : -03 023 016 degrees QTc Int : 395 ms Normal sinus rhythm Normal ECG Confirmed by SERGIO RANGEL, ISMAEL ([id number]), editorial manager CARLYLE CISNEROS ([id number]) on 03/19/2019 3:33:09 PM Referred By: Confirmed By:ISMAEL HILL MD
== END 2019-03-17 13:15 | disposition home or self-care (01) ==
LOC: ERS 11:03
DX: M75.51 Bursitis of right shoulder (principal); E11.9 Type 2 diabetes mellitus without complications; E78.5 Hyperlipidemia, unspecified; I10 Essential (primary) hypertension; J44.9 Chronic obstructive pulmonary disease, unspecified; F20.9 Schizophrenia, unspecified; Z79.899 Other long term (current) drug therapy
CPT/HCPCS: 36415; 80053; 85025; 85652; 86140; 93005; 96372; J1885

== ENCOUNTER 2019-04-21 07:16 | Outpatient (CLI) | payer MEDICARE, BC ==
--- NOTE | 2019-04-21 09:56 | MRI ---
MRI RIGHT SHOULDER WITHOUT CONTRAST: HISTORY: Tear of right rotator cuff. COMPARISON: Radiograph of 03/17/2019 for reference. FINDINGS: BICEPS TENDON: Moderate extraarticular biceps tenosynovitis and interstitial tearing. LABRUM: There is chondrolabral junction tear throughout the superior labrum and posterior superior labrum lorena t extends to the posterior inferior labrum. There is also intrasubstance tear of the anterior inferi or labrum. ROTATOR CUFF: Full-thickness [id number] supraspinatus tendon tear from the footprint extending from the free e dge to the conjoined tendon. This has an AP length of approximately 1.8 cm. There is retraction chey roximately 1.5 cm. High-grade tendinosis of the torn tendons. There is high-grade tendinosis and in terstitial tearing throughout the infraspinatus tendon with predominantly bursal surface tearing. High-grade tendinosis or undersurface partial tearing of the subscapularis from the lesser tuberosity . BONES: High-grade degenerative disease of the acromioclavicular joint. There is a type 3 acromion narrowing the subacromial space. Subcoracoid space measures approximately 9 mm. There is a normal glenoid ve rsion. MUSCLES: There is moderate atrophy of the supraspinatus muscle and mild atrophy of the infraspinatus muscle. IMPRESSION: 1. Moderate intraarticular tendinosis and interstitial tearing of the biceps tendon without full-thi ckness rupture. 2. Full-thickness near full-width supraspinatus tendon tear from the footprint with significant lead ing edge AP of 1.5 cm. 3. High-grade tendinosis and bursal surface tearing, greater than 50%, of the infraspinatus tendon. 4. Moderate supraspinatus and mild infraspinatus muscle atrophy. 5. Near circumferential labral tear of the chondrolabral junction with extensive tear to the anterio r inferior glenoid cartilage. No significant chondrolysis of the humeral head. 6. Type 3 acromion narrowing the subacromial space with subacromial impingement. POS: TPC
== END 2019-04-21 07:17 | disposition home or self-care (01) ==
LOC: BICMRI 07:16
PROVIDERS: ATTEND Orthopaedic Surgery
DX: M75.101 Unspecified rotator cuff tear or rupture of right shoulder, not specified as traumatic (principal); S46.211A Strain of muscle, fascia and tendon of other parts of biceps, right arm, initial encounter; M75.91 Shoulder lesion, unspecified, right shoulder; M75.121 Complete rotator cuff tear or rupture of right shoulder, not specified as traumatic; S43.491A Other sprain of right shoulder joint, initial encounter; M25.811 Other specified joint disorders, right shoulder; M62.511 Muscle wasting and atrophy, not elsewhere classified, right shoulder

== ENCOUNTER 2019-06-13 00:50 | Emergency (ER) | payer MEDICARE, BC, OTHER ==
[2019-06-13 01:40] LABS: #Basophils 0.1 thou/uL (0.0-0.2); #Eosinphils 0.8 thou/uL (0.0-0.7); #Lymphocytes 3.2 thou/uL (1.20-3.40); #Monocytes 0.9 thou/uL (0.11-0.59); #Neutrophils 5.8 thou/uL (1.40-6.50); %Basophils 1.1 % (0.0-1.0); %Eosinophils 7.5 % (0.0-10.0); %Lymphocytes 29.5 % (21.0-51.0); %Monocytes 8.3 % (0.0-10.0); %Neutrophils 53.6 % (42.0-75.0); Hemoglobin 9.3 g/dL (14.0-18.0); Mean Corpuscular HGB CONC 30.5 g/dL (32.0-36.0); Mean Corpuscular Hemoglobin 29.1 pg (27.0-31.0); Mean Corpuscular Volume 95.4 fL (78.0-98.0); Mean Platelet Volume 8.6 fL (7.4-10.4); Platelet Count 380 thou/uL (130-400); RBC Distribution Width 15.3 % (11.5-14.5); White Blood Cell (WBC) Count 10.9 thou/uL (4.8-10.8)
[2019-06-13] MEDS ORDERED: Albuterol 200 PUFF (6.7GM INHALER) INH SCH (02:00)
[2019-06-13 02:43] LABS: Albumin 3.7 g/dL (3.4-4.8)
[2019-06-13 02:44] LABS: Chloride 105 mmol/L (98-107); Potassium 4.6 mmol/L (3.5-5.1); Sodium 140 mmol/L (136-145)
[2019-06-13 02:45] LABS: Calcium 9.3 mg/dL (7.8-10.44); Glucose 82 mg/dL (83-110)
[2019-06-13 02:46] LABS: Globulin 2.7 g/dL (2.4-3.5); Protein, Total 6.4 g/dL (5.8-8.1)
[2019-06-13 02:47] LABS: Anion Gap 14 mmol/L (10-20); Bilirubin, Total 0.2 mg/dL (0.2-1.2); Carbon Dioxide 26 mmol/L (23-31)
[2019-06-13 02:48] LABS: Alkaline Phosphatase 50 U/L (40-110)
[2019-06-13 02:49] LABS: Calc. Creatinine Clearance 0 mL/min (70-130); Estimated GFR-MDRD Greater than 90
[2019-06-13 02:50] LABS: BUN (Urea Nitrogen) 11 mg/dL (8.4-25.7)
[2019-06-13 02:51] LABS: ALT (SGPT) 10 U/L (8-55); AST (SGOT) 13 U/L (5-34)
[2019-06-13] MEDS ORDERED: methylPREDNISolone Sod Succ/PF 125 MG/2 ML VIAL ONE (03:33)
[2019-06-13] MEDS ORDERED: Magnesium 2 GM/50 ML BAG (IN WATER) ONE (03:33)
--- NOTE | 2019-06-13 07:43 | RAD ---
SINGLE VIEW CHEST: Date: 06/13/2019 COMPARISON: 12/19/2018. HISTORY: Shortness of breath that began five days ago that is getting worse. FINDINGS: Single view of the chest shows normal sized cardiomediastinal silhouette. There is elevation of the r ight hemidiaphragm. There is no evidence of consolidation, mass, or pleural effusion. IMPRESSION: No evidence of acute cardiopulmonary disease. POS: C
== END 2019-06-13 06:38 | disposition home or self-care (01) ==
LOC: ERS 00:50
DX: J44.1 Chronic obstructive pulmonary disease with (acute) exacerbation (principal); E11.9 Type 2 diabetes mellitus without complications; E78.5 Hyperlipidemia, unspecified; I10 Essential (primary) hypertension; F20.9 Schizophrenia, unspecified; Z79.84 Long term (current) use of oral hypoglycemic drugs; Z79.51 Long term (current) use of inhaled steroids; Z79.82 Long term (current) use of aspirin; Z79.52 Long term (current) use of systemic steroids
CPT/HCPCS: 71045; 80053; 83880; 84484; 85025; 93005; 94640 ×2; 96365; 96375; 99285; J2930; J3475; 36415

== ENCOUNTER 2019-06-30 21:56 | Emergency (ER) | payer MEDICARE, BC, OTHER ==
[~2019-06-30 21:56] MED LIST: Iopamidol-370 76% 500 ML 1 ML ONE
[2019-06-30] MEDS ORDERED: Dexamethasone 10 MG/ML VIAL ONE (22:45)
[2019-06-30] MEDS ORDERED: Magnesium 2 GM/50 ML BAG (IN WATER) ONE (22:45)
[2019-06-30 22:53] LABS: Actual Bicarbonate (HCO3a) 27.9 mEq/L (22-28); Analyzer IN Cardio ER; CO2 Tension 44.3 mmHg (35.0-45.0); Calcium, Ionized 1.18 mmol/L (1.12-1.30); Carboxyhemoglobin (COHb) 0.1 gm% (0.0-3.0); O2 Tension (PaO2) 67.7 mmHg (> 70.0); Potassium - ABG Lab 4.46 mmol/L (3.70-5.30); pH, Arterial 7.42 (7.35-7.45)
[2019-06-30 22:54] LABS: #Basophils 0.1 thou/uL (0.0-0.2); #Eosinphils 0.9 thou/uL (0.0-0.7); #Lymphocytes 2.9 thou/uL (1.20-3.40); %Basophils 1.1 % (0.0-1.0); %Eosinophils 6.9 % (0.0-10.0); %Lymphocytes 22.2 % (21.0-51.0); %Monocytes 7.4 % (0.0-10.0); %Neutrophils 62.4 % (42.0-75.0); Hemoglobin 9.5 g/dL (14.0-18.0); Mean Corpuscular HGB CONC 29.9 g/dL (32.0-36.0); Mean Corpuscular Hemoglobin 28.4 pg (27.0-31.0); Mean Corpuscular Volume 94.9 fL (78.0-98.0); Mean Platelet Volume 8.1 fL (7.4-10.4); Platelet Count 389 thou/uL (130-400); RBC Distribution Width 16.1 % (11.5-14.5); Red Blood Cell (RBC) Count 3.33 mill/uL (4.70-6.10); White Blood Cell (WBC) Count 12.8 thou/uL (4.8-10.8)
[2019-06-30 22:56] LABS: ALV-art Gradient 26.655 (0-20); Puncture Site LRA
[2019-06-30 23:13] LABS: ALT (SGPT) 8 U/L (8-55); AST (SGOT) 11 U/L (5-34); Albumin 3.9 g/dL (3.4-4.8); Alkaline Phosphatase 54 U/L (40-110); Anion Gap 13 mmol/L (10-20); BUN (Urea Nitrogen) 15 mg/dL (8.4-25.7); Bilirubin, Total 0.4 mg/dL (0.2-1.2); CK (CPK) 200 U/L (30-200); Calc. Creatinine Clearance 0 mL/min (70-130); Calcium 9.4 mg/dL (7.8-10.44); Carbon Dioxide 28 mmol/L (23-31); Chloride 102 mmol/L (98-107); Estimated GFR-MDRD 68; Glucose 88 mg/dL (83-110); Lipase 21 U/L (8-78); Potassium 4.4 mmol/L (3.5-5.1); Protein, Total 6.9 g/dL (5.8-8.1); Sodium 139 mmol/L (136-145)
--- NOTE | 2019-07-01 07:33 | RAD ---
PORTABLE CHEST: INDICATION: Dyspnea. COMPARISON: 06/13/2019. FINDINGS: Elevated right hemidiaphragm appears stable. Stranding in the right mid lung is stable. No evidence of infiltrate or significant change from 06/13/2019. IMPRESSION: Stable chest findings. POS: AGW
--- NOTE | 2019-07-01 07:45 | CT ---
CTA CHEST WITH CONTRAST: Axial tomograms were obtained through the chest following a pulmonary angio protocol. Multiplanar re construction and 3D postprocessing. INDICATION: Dyspnea. Elevated D-dimer. Hypoxia. Cough. COMPARISON: Correlation is made to a CTA chest from 2018. FINDINGS: Pulmonary arteries show suboptimal opacification. This limits the exam. There is no evidence of pro ximal pulmonary embolus. Emboli beyond the segmental level could not be excluded. The thoracic aorta is well opacified and is unremarkable. No dissection. The lungs again show chronic changes. Numerous small bullae are seen. These are more numerous in th e right lung have a similar appearance to the prior study. There is stranding and/or atelectasis in the right lung base. Focal pleural-based opacity in the right middle lobe peripherally probably repr esents a pleural-based atelectasis. This has a similar appearance to the prior study. The mediastinum shows adenopathy which is similar to the prior exam. There is a paratracheal lymph n ode measuring up to 2.0 cm which is stable. Images through the upper abdomen are unremarkable. The axillary lymph nodes described previously appear stable. The osseous structures are unremarkable. IMPRESSION: 1. Suboptimal opacification of the pulmonary arteries. No evidence of proximal pulmonary embolus. 2. Chronic lung parenchymal changes which appear stable from the prior exam. 3. Nonspecific mediastinal adenopathy and nonspecific axillary lymph nodes appear stable. POS: AGW
--- NOTE | 2019-07-01 14:33 | EKG ---
Test Reason : Blood Pressure : / mmHG Vent. Rate : 076 BPM Atrial Rate : 076 BPM P-R Int : 154 ms QRS Dur : 084 ms QT Int : 358 ms P-R-T Axes : 024 045 029 degrees QTc Int : 402 ms Normal sinus rhythm Normal ECG Confirmed by ISMAEL HILL MD ([id number]), supervising editor trailer MASHA FUNES ([id number]) on 07/01/2019 2:33:17 PM Referred By: Confirmed By:ISMAEL HILL MD
== END 2019-07-01 00:57 | disposition home or self-care (01) ==
LOC: ERS 21:56
DX: J44.1 Chronic obstructive pulmonary disease with (acute) exacerbation (principal); E11.9 Type 2 diabetes mellitus without complications; E78.5 Hyperlipidemia, unspecified; I10 Essential (primary) hypertension; F20.9 Schizophrenia, unspecified
CPT/HCPCS: 36415; 71045; 71275; 80053; 82550; 82805; 83605; 83690; 83880; 84484; 85025; 85379; 87040; 93005; 94760; 96365; 96375; J1100; J3475; J7620; Q9967

== ENCOUNTER 2019-07-20 18:07 | Inpatient (IN) | payer MEDICARE, BC, OTHER ==
[2019-07-20 18:39] LABS: #Basophils 0.2 thou/uL (0.0-0.2); #Eosinphils 1.1 thou/uL (0.0-0.7); #Lymphocytes 2.8 thou/uL (1.20-3.40); #Monocytes 0.7 thou/uL (0.11-0.59); #Neutrophils 6.9 thou/uL (1.40-6.50); %Basophils 1.3 % (0.0-1.0); %Eosinophils 9.7 % (0.0-10.0); %Monocytes 6.2 % (0.0-10.0); %Neutrophils 58.8 % (42.0-75.0); Hemoglobin 10.1 g/dL (14.0-18.0); Mean Corpuscular HGB CONC 30.8 g/dL (32.0-36.0); Mean Corpuscular Hemoglobin 28.1 pg (27.0-31.0); Mean Corpuscular Volume 91.2 fL (78.0-98.0); Mean Platelet Volume 8.4 fL (7.4-10.4); Platelet Count 387 thou/uL (130-400); RBC Distribution Width 17.1 % (11.5-14.5); Red Blood Cell (RBC) Count 3.61 mill/uL (4.70-6.10); White Blood Cell (WBC) Count 11.8 thou/uL (4.8-10.8)
--- NOTE | 2019-07-20 18:48 | RAD ---
Exam: Chest one view HISTORY:Cough times through 3 weeks. Difficulty breathing. Comparison: 06/30/2019 FINDINGS: Cardiac silhouette: Normal Aorta: Atherosclerosis. Stable metallic density projects over the upper mediastinum. Pulmonary vessels: Normal Costophrenic angles: Clear. Stable elevation the right hemidiaphragm. LUNGS: No masses or consolidation. There is atelectasis and scarring in the right lower lobe. Pneumothorax: None Osseous abnormalities: None IMPRESSION: 1. Atherosclerosis. 2. No acute cardiopulmonary process.
[2019-07-20 18:56] LABS: ALT (SGPT) 8 U/L (8-55); AST (SGOT) 12 U/L (5-34); Albumin 4.2 g/dL (3.4-4.8); Alkaline Phosphatase 60 U/L (40-110); Anion Gap 15 mmol/L (10-20); BUN (Urea Nitrogen) 18 mg/dL (8.4-25.7); Bilirubin, Total 0.3 mg/dL (0.2-1.2); Calc. Creatinine Clearance 0 mL/min (70-130); Calcium 9.3 mg/dL (7.8-10.44); Carbon Dioxide 28 mmol/L (23-31); Chloride 103 mmol/L (98-107); Estimated GFR-MDRD 60; Globulin 2.9 g/dL (2.4-3.5); Glucose 99 mg/dL (83-110); Potassium 4.6 mmol/L (3.5-5.1); Protein, Total 7.1 g/dL (5.8-8.1); Sodium 141 mmol/L (136-145)
[2019-07-20] MEDS ORDERED: methylPREDNISolone Sod Succ/PF 125 MG/2 ML VIAL ONE (19:27)
[2019-07-20] MEDS ORDERED: Dextrose 50% Abboject 50 ML SYRINGE SLOW IVP PRN (22:55)
[2019-07-20] MEDS ORDERED: Dextrose 5% in Water 1,000 ML IV PRN (22:55)
[2019-07-20] MEDS ORDERED: Acetaminophen 325 MG TAB PO PRN (22:56)
[2019-07-20 23:23] VITALS: BMI 36.1
[2019-07-20] MEDS: Albuterol 200 PUFF (6.7GM INHALER) INH PRN (23:42)
[2019-07-20] MEDS: methylPREDNISolone Sod Succ 40 MG VIAL IVP SCH (23:44)
--- NOTE | 2019-07-21 02:49 | HP ---
REASON FOR ADMISSION: Shortness of breath. HISTORY OF PRESENT ILLNESS: This is a 78-year-old male patient with known COPD, on home oxygen. He presented to the ER for persistence of his shortness of breath. He was seen in our emergency room approximately more than 2 weeks ago with similar presentation. He was given neb treatments. He was discharged on azithromycin and tapering dose of prednisone. The patient improved, but at some point, relapsed into more shortness of breath. He presents today with persistence of his shortness of breath. He has been coughing for the past few weeks producing clear sputum. He says that he sweats a lot whenever he coughs. His shortness of breath is worse with exertion, but is present at rest as well. He has to increase his oxygen supplementation to 3 L. He is using more of his neb treatments and remains short of breath. The patient is currently in the emergency room. He appeared to be comfortable after receiving neb treatments. He is currently also receiving IV Levaquin. He denies any chest pain. He denies any sick contacts. He has been at home with his and he was never in contact with anyone with positive COVID-19. I did review his records and he was admitted to our hospital in 2019 with similar presentation. Also at that time, he had a change in mental status secondary to hypoxia and also elevated troponin. His brain CT did not show any abnormalities. It was noted that in the past, he did have multiple admissions for COPD exacerbation requiring BiPAP. PAST MEDICAL HISTORY: 1. COPD, on home oxygen. 2. Shingles with persistent postherpetic neuralgia. 3. Diabetes type 2. 4. High blood pressure. 5. High cholesterol. 6. Heart failure with preserved ejection fraction. SOCIAL HISTORY: Quit smoking 15 years ago. Does not drink alcohol. ALLERGIES: NO KNOWN TO HAVE ANY DRUG ALLERGIES. FAMILY HISTORY: Negative for COPD. REVIEW OF SYSTEMS: All systems reviewed except the above-mentioned shortness of breath, found to be negative. PHYSICAL EXAMINATION: GENERAL: Awake, alert, oriented, does not appear in distress. VITAL SIGNS: His blood pressure is 122/51, heart rate 64, saturating 100% on 3 L nasal cannula. HEENT: Head is nontraumatic, normocephalic. Pupils equal, reactive. Extraocular movements are intact. Nonicteric sclerae. Well-injected conjunctivae. Oral mucosa normal. Nasal mucosa normal. NECK: Supple. No adenopathy. No murmur. Thyroid is not palpable. Trachea is midline. No supraclavicular lymphadenopathy. HEART: S1, S2 regular. No murmur. No gallops. No friction rubs. No displacement of PMI. LUNGS: Decreased air entry bilaterally. Diffuse expiratory wheezes and rhonchi bilaterally. ABDOMEN: Bowel sounds are positive. Nontender abdomen. No hepatosplenomegaly. EXTREMITIES: He does have 2+ pitting edema in bilateral lower extremities, which is chronic as per him. LABORATORY DATA: Blood work shows sodium 141, potassium 4.6, BUN 18, creatinine 1.38, previous creatinine approximately a month ago was 1.25, his baseline can be around 0.96. Hemoglobin 10.4, WBC 9.9, platelets of 302. His baseline hemoglobin is around 10.4. IMAGING DATA: His chest x-ray shows no acute process. A CT of the chest done on his previous visit shows no PE, but did show chronic changes. ASSESSMENT AND PLAN: This is a 78-year-old male patient, who is presenting with shortness of breath most likely secondary to chronic obstructive pulmonary disease exacerbation. We are also suspecting that he might have COVID-19, although the suspicion is low to intermediate. Pulmonary: The patient to be on inhalers, also IV Solu-Medrol. I believe that mainly he has chronic obstructive pulmonary disease exacerbation rather than COVID-19. We will change him to nebulizer whenever we have the test result of COVID-19, most likely tomorrow. Until then, he will be on IV Levaquin, he will be on isolation as per hospital protocol. In regard to his diabetes, he will be on insulin sliding scale. We will hold off on metformin for now. His glucose is on the low side. For his bilateral lower extremity edema, he will be on Lovenox and we will check a Doppler of lower extremity, although I believe this is chronic, may be due to his nonspecified heart failure. Renal system, electrolytes: The patient has slight worsening of his renal function. We will recheck in a.m. As per his records, he is on Lasix at home, so most likely we will hold off on that for now until his kidney function improves. I did discuss with him his code status and he wishes to be a full code. Job ID: [id number]
[2019-07-21] MEDS: Albuterol 200 PUFF (6.7GM INHALER) INH PRN ×3 (04:44→12:39)
[2019-07-21 05:31] LABS: #Lymphocytes 0.8 thou/uL (1.20-3.40); #Neutrophils 10.1 thou/uL (1.40-6.50); %Basophils 0.2 % (0.0-1.0); %Eosinophils 0.1 % (0.0-10.0); %Lymphocytes 7.6 % (21.0-51.0); %Monocytes 0.2 % (0.0-10.0); %Neutrophils 91.8 % (42.0-75.0); Hemoglobin 9.8 g/dL (14.0-18.0); Mean Corpuscular HGB CONC 29.6 g/dL (32.0-36.0); Mean Corpuscular Volume 91.2 fL (78.0-98.0); Mean Platelet Volume 8.5 fL (7.4-10.4); Platelet Count 374 thou/uL (130-400); Red Blood Cell (RBC) Count 3.63 mill/uL (4.70-6.10)
[2019-07-21 05:47] LABS: Anion Gap 13 mmol/L (10-20); BUN (Urea Nitrogen) 24 mg/dL (8.4-25.7); Calc. Creatinine Clearance 64 mL/min (70-130); Carbon Dioxide 26 mmol/L (23-31); Chloride 101 mmol/L (98-107); Estimated GFR-MDRD 61; Glucose 301 mg/dL (83-110); Potassium 4.8 mmol/L (3.5-5.1); Sodium 135 mmol/L (136-145)
[2019-07-21] MEDS: HumaLOG 300 UNITS/3 ML VIAL SC PRN ×3 (06:36→17:10)
[2019-07-21] MEDS: methylPREDNISolone Sod Succ 40 MG VIAL IVP SCH ×4 (06:37→23:48)
[2019-07-21] MEDS: Gabapentin 100 MG CAP PO SCH ×3 (08:32→21:15)
[2019-07-21] MEDS: Glimepiride 4 MG TAB PO SCH (08:32)
[2019-07-21] MEDS: Heparin 5,000 UNITS/ML VIAL SC SCH ×3 (08:33→21:14)
[2019-07-21] MEDS: Tamsulosin HCl 0.4 MG CAP PO SCH (08:33)
[2019-07-21] MEDS: Amlodipine 10 MG TAB PO SCH (08:33)
[2019-07-21 11:46] LABS: SARS-CoV-2 MS2 Positive; SARS-CoV-2 N Gene Negative; SARS-CoV-2 S Gene Negative; SARS-CoV-2 orf1ab Negative
--- NOTE | 2019-07-21 14:07 | ULT ---
EXAM: Bilateral lower extremity venous Doppler HISTORY: bilateral lower extremity edema and pain FINDINGS: Grayscale, color-flow, Doppler evaluation, spectral analysis of the bilateral lower extremity venous structures is performed with 2-D imaging. The bilateral common femoral, superficial femoral, popliteal, posterior tibial, proximal greater saphenous and profunda femoral veins are imaged. The main distal right lower extremity posterior tibial veins are unable to be visualized. There is ot herwise normal luminal compressibility, flow, and augmentation in the visualized deep venous structures of the bilateral lower extremities. Subcutaneous soft tissue swelling is seen primarily within the distal right lower extremity. IMPRESSION: Nonvisualization of the right posterior tibial vein, and thrombus at this level could not be entirely excluded. There is otherwise no evidence of a deep vein thrombosis in the visualized deep venous structures bilateral lower extremities.
[2019-07-21] MEDS ORDERED: guaiFENesin 100 MG/5 ML UDCUP PO PRN (14:54)
[2019-07-21] MEDS: Benzonatate 100 MG CAP PO PRN ×2 (15:01→23:47)
--- NOTE | 2019-07-21 15:11 | CON ---
DATE OF CONSULTATION: HISTORY OF PRESENT ILLNESS: He is a 78-year-old Latin-[place] gentleman, who sees Dr. Palma in office, presented with increased shortness of breath and cough, unresponsive with the use of his home medication. Sputum is clear. He denies any rhinitis or reflux. Mostly, he can barely walk even a couple 100 feet without getting markedly short of breath. He was here recently in the ER, where a CT chest was done. He has no PE. Sent home on antibiotics. His primary care physician is at [facility]. PAST MEDICAL HISTORY: Diabetes, hypertension, hyperlipidemia, COPD, former smoker, and noncardiac issues. PAST SURGICAL HISTORY: Previous surgery; shoulder surgery and knee surgery. SOCIAL HISTORY: Former smoker, none recently. No alcohol abuse. HOME MEDICINE: 1. Lasix 60 twice a day. 2. Protonix 40 daily. 3. Metformin 1000 twice a day. 4. . 5. Neurontin 100 three times a day. 6. Amlodipine 10. 7. Zocor 80. 8. Flomax 0.4. 9. Metoprolol 50. 10. Dulera. ALLERGIES: NONE. REVIEW OF SYSTEMS: Otherwise, unremarkable. PHYSICAL EXAMINATION: GENERAL: He is in mild distress. VITAL SIGNS: Temperature 98, pulse 61, respirations 16, saturating 90% on 3 L, and blood pressure 123/58. CHEST: Bilateral wheezing. CARDIAC: Normal S1 and S2. No gallops. ABDOMEN: No masses. LABORATORY DATA: White count 11,000, H and H unremarkable. Platelet count is normal. Creatinine 1.37. Chest x-ray is normal venogram was unremarkable. ASSESSMENT: COPD exacerbation, bronchitis, former smoker, history of bipolar schizophrenia disorder, hypertension, and diabetes. PLAN: I added Dulera to his present regimes, otherwise continue as prescribed. There are steroids empiric antibiotics. Consultation note, 70 minutes, 50% direct patient care. Job ID: [id number]
--- NOTE | 2019-07-21 15:23 | EKG ---
Test Reason : Blood Pressure : / mmHG Vent. Rate : 060 BPM Atrial Rate : 060 BPM P-R Int : 154 ms QRS Dur : 084 ms QT Int : 392 ms P-R-T Axes : 063 047 058 degrees QTc Int : 392 ms Normal sinus rhythm Normal ECG Confirmed by GISSELLE CHEN DO ([id number]), video editor MASHA FUNES ([id number]) on 07/21/2019 3:22:49 PM Referred By: Confirmed By:GISSELLE CHEN DO
[2019-07-21] MEDS: Bacteriostatic Water 30 ML VIAL FS PRN (17:10)
[2019-07-21] MEDS: Mometasone 200 MCG/Formoterol 5 MCG 120 PUFF INHALER INH SCH (19:19)
--- NOTE | 2019-07-21 19:53 | PDOC.HOSPP ---
- Subjective Encounter Date: 07/21/19 Encounter Time: 19:51 Subjective: Pt seen for followup re: acute hypoxic respiratory failure. c/o SOBOE. Cough with clear sputum+. No fever. - Objective Vital Signs & Weight: Vital Signs (12 hours) Temp Pulse Resp BP BP Pulse Ox 07/21/19 19:18 69 18 97 07/21/19 14:35 98 07/21/19 14:30 97.5 F L 66 20 134/65 98 07/21/19 11:37 98.6 F 64 16 123/58 L 98 07/21/19 08:40 98.8 F 69 18 146/69 H 96 07/21/19 08:33 61 Weight Weight 223 lb 8 oz I&O: 07/20/19 07/21/19 07/22/19 06:59 06:59 06:59 Intake Total 450 Output Total 300 Balance 150 Result Diagrams: 07/21/19 04:58 07/21/19 04:58 Additional Labs: Accuchecks 07/21/19 07/21/19 16:45 11:23 POC Glucose 184 H 233 H Labs and MARs reviewed by ri Hospitalist ROS - Review of Systems Constitutional: denies: fever, chills, sweats, weakness, malaise Respiratory: reports: cough, SOB with excertion, sputum. denies: dry, shortness of breath, hemoptysis, pleuritic pain, wheezing Cardiovascular: denies: chest pain, palpitations, orthopnea, paroxysmal noc. dyspnea, edema, light headedness Gastrointestinal: denies: nausea, vomiting, abdominal pain, diarrhea, constipation, melena, hematochezia Genitourinary: denies: dysuria, frequency, incontinence, hematuria, retention - Medication Medications: Active Medications Generic Name Dose Route Start Last Admin Trade Name Freq PRN Reason Stop Dose Admin Acetaminophen 650 mg 07/20/19 22:56 07/20/19 23:43 Tylenol PO 650 mg Q4H PRN Administration Headache/Fever/Mild Pain (1-3) Albuterol Sulfate 2 puff 07/20/19 23:17 07/21/19 12:39 Proventil Hfa INH 2 puff Q6H PRN Administration SOB &/or Wheezing Albuterol/Ipratropium 3 ml 07/21/19 19:00 07/21/19 19:18 Duoneb NEB 3 ml [id number] FAITH Administration Amlodipine Besylate 10 mg 07/21/19 09:00 07/21/19 08:33 Norvasc PO 10 mg DAILY FAITH Administration Benzonatate 100 mg 07/21/19 14:55 07/21/19 15:01 Tessalon PO 100 mg TIDPRN PRN Administration Cough Gabapentin 100 mg 07/21/19 09:00 07/21/19 15:01 Neurontin PO 100 mg TID FAITH Administration Glimepiride 4 mg 07/21/19 09:00 07/21/19 08:32 Amaryl PO 4 mg QAM FAITH Administration Heparin Sodium (Porcine) 5,000 units 07/21/19 09:00 07/21/19 15:02 Heparin SC 5,000 units TID FAITH Administration Insulin Human Lispro 0 units 07/20/19 22:55 07/21/19 17:10 Humalog SC 2 unit .MILD SLIDING SCALE PRN Administration Mild Correctional Scale Methylprednisolone Sodium Succinate 40 mg 07/20/19 23:59 07/21/19 17:10 Solu-Medrol IVP 40 mg Q6HR FAITH Administration Metoprolol Succinate 50 mg 07/21/19 09:00 07/21/19 08:32 Toprol Xl PO 50 mg DAILY FAITH Administration Mometasone Furoate/Formoterol Fumar 2 puff 07/21/19 18:30 07/21/19 19:19 Dulera 200 Mcg/5 Mcg Inhaler INH 2 puff BID-RT FAITH Administration Pantoprazole Sodium 40 mg 07/21/19 09:00 07/21/19 08:32 Protonix PO 40 mg DAILY FAITH Administration Sodium Chloride 10 ml 07/21/19 09:00 07/21/19 08:33 Flush - Normal Saline IVF 10 ml Q12HR FAITH Administration Sterile Water 1 ml 07/20/19 22:55 07/21/19 17:10 Bacteriostatic Water FS 1 ml PRN PRN Administration RECONSTITUTION Tamsulosin HCl 0.4 mg 07/21/19 09:00 07/21/19 08:33 Flomax PO 0.4 mg DAILY FAITH Administration - Exam General - other findings: Obese ENT: normocephalic atraumatic, no oropharyngeal lesions Neck: supple, symmetric, no JVD, no thyromegaly Heart: RRR, no gallops, no rubs, normal peripheral pulses Respiratory: normal chest expansion, wheezes Gastrointestinal: soft, non-tender, non-distended, normal bowel sounds Extremities: 2+ LE edema Musculoskeletal: no muscle wasting Psychiatric: normal affect, normal behavior, A&O x 3 Hosp A/P (1) Acute respiratory failure with hypoxia Code(s): J96.01 - ACUTE RESPIRATORY FAILURE WITH HYPOXIA Status: Acute (2) COPD exacerbation Code(s): J44.1 - CHRONIC OBSTRUCTIVE PULMONARY DISEASE W (ACUTE) EXACERBATION Status: Acute (3) DM2 (diabetes mellitus, type 2) Status: Chronic Qualifiers: Diabetes mellitus intermediate insulin use: without intermediate use Diabetes mellitus complication status: without complication Qualified Code(s): E11.9 - Type 2 diabetes mellitus without complications (4) HLD (hyperlipidemia) Code(s): E78.5 - HYPERLIPIDEMIA, UNSPECIFIED Status: Chronic Qualifiers: (5) HTN (hypertension) Code(s): I10 - ESSENTIAL (PRIMARY) HYPERTENSION Status: Chronic Qualifiers: - Plan continue antibiotics, out of bed/ambulate, DVT proph w/heparin Continue oxygen, steroids, bronchodilators and antibiotic. COVID 19 test negative. HTN controlled. Switch to moderate insulin sliding scale. Mild worsening of stage 2 renal failure, follow labs. Furosemide is on hold.
[2019-07-21] MEDS ORDERED: Non-Formulary Item 1 EACH (Simvastatin [Zocor] 80 MG) PO SCH (21:00)
[2019-07-21] MEDS: Atorvastatin Calcium 40 MG TAB PO SCH (21:15)
[2019-07-21] MEDS: Diabetic Tussin 200 MG/10 ML UDCUP PO PRN (22:02)
[2019-07-22] MEDS: methylPREDNISolone Sod Succ 40 MG VIAL IVP SCH ×4 (05:59→23:05)
[2019-07-22] MEDS: HumaLOG 300 UNITS/3 ML VIAL SC PRN ×4 (06:34→22:40)
[2019-07-22] MEDS: Mometasone 200 MCG/Formoterol 5 MCG 120 PUFF INHALER INH SCH ×2 (07:08→21:52)
[2019-07-22] MEDS: Tamsulosin HCl 0.4 MG CAP PO SCH (07:59)
[2019-07-22] MEDS: Amlodipine 10 MG TAB PO SCH (07:59)
[2019-07-22] MEDS: Benzonatate 100 MG CAP PO PRN ×3 (07:59→21:23)
[2019-07-22] MEDS: Glimepiride 4 MG TAB PO SCH (07:59)
[2019-07-22] MEDS: Gabapentin 100 MG CAP PO SCH ×3 (08:00→21:23)
[2019-07-22] MEDS: Heparin 5,000 UNITS/ML VIAL SC SCH ×3 (08:00→21:24)
--- NOTE | 2019-07-22 09:00 | PRG ---
DATE OF SERVICE: 07/22/2019 SUBJECTIVE: The patient is doing a little better. OBJECTIVE: VITAL SIGNS: His O2 saturations 96% on 3 L, pulse 72, respirations 18. HEENT: Unremarkable. NECK: No adenopathy. No JVD. LUNGS: Soft. Expiratory wheezing. CARDIAC: S1 and S2. Regular. ABDOMEN: Soft. EXTREMITIES: No edema. ASSESSMENT: Chronic obstructive pulmonary disease with exacerbation. PLAN: I recommend continue treatment with IV steroids, antibiotics, and nebulization medications. I will put his nebulizer treatments every 4 hours. I would assume he would probably need to stay in the hospital over the weekend and be re-evaluated on Thursday. Job ID: [id number]
[2019-07-22 09:05] LABS: Anion Gap 14 mmol/L (10-20); BUN (Urea Nitrogen) 24 mg/dL (8.4-25.7); Calc. Creatinine Clearance 75 mL/min (70-130); Calcium 8.9 mg/dL (7.8-10.44); Carbon Dioxide 25 mmol/L (23-31); Chloride 102 mmol/L (98-107); Estimated GFR-MDRD 74; Glucose 271 mg/dL (83-110); Potassium 4.6 mmol/L (3.5-5.1); Sodium 136 mmol/L (136-145)
[2019-07-22] MEDS ORDERED: Bisacodyl 5 MG TAB PO SCH (09:15)
[2019-07-22 09:36] LABS: #Monocytes 0.4 thou/uL (0.11-0.59); #Neutrophils 10.2 thou/uL (1.40-6.50); %Basophils 0.1 % (0.0-1.0); %Eosinophils 0.1 % (0.0-10.0); %Lymphocytes 8.3 % (21.0-51.0); %Neutrophils 88.6 % (42.0-75.0); Anisocytosis SLIGHT = 6-15 cells (100X) (0-5/hpf); Hemoglobin 9.7 g/dL (14.0-18.0); Hypochromia SLIGHT = 6-15 cells (100X) (0-5/hpf); MDiff Complete? YES; Mean Corpuscular HGB CONC 28.5 g/dL (32.0-36.0); Mean Corpuscular Hemoglobin 26.7 pg (27.0-31.0); Mean Corpuscular Volume 93.6 fL (78.0-98.0); Mean Platelet Volume 8.8 fL (7.4-10.4); Platelet Count 389 thou/uL (130-400); Platelet Morphology Comment Appears Adequate; Red Blood Cell (RBC) Count 3.65 mill/uL (4.70-6.10); White Blood Cell (WBC) Count 11.5 thou/uL (4.8-10.8)
[2019-07-22] MEDS: Bacteriostatic Water 30 ML VIAL FS PRN ×2 (11:31→17:12)
--- NOTE | 2019-07-22 19:14 | PDOC.HOSPP ---
- Subjective Encounter Date: 07/22/19 Encounter Time: 11:20 Subjective: Pt seen for followup re: COPD exacerbation. Feels slightly better, still SOBOE. - Objective Vital Signs & Weight: Vital Signs (12 hours) Temp Pulse Resp BP BP Pulse Ox 07/22/19 18:37 20 07/22/19 13:48 58 L 18 97 07/22/19 11:40 98.1 F 60 16 122/65 97 07/22/19 10:06 63 18 99 07/22/19 08:00 98.6 F 63 16 07/22/19 07:59 63 146/62 H 07/22/19 07:36 96 Weight Weight 223 lb 8 oz I&O: 07/21/19 07/22/19 07/23/19 06:59 06:59 06:59 Intake Total 1250 1000 Output Total 1050 920 Balance 200 80 Result Diagrams: 07/22/19 08:39 07/22/19 08:39 Additional Labs: Accuchecks 07/22/19 07/22/19 07/22/19 16:54 11:44 06:08 POC Glucose 223 H 217 H 207 H Labs and MARs reviewed by md Hospitalist ROS - Review of Systems Respiratory: reports: cough, dry, SOB with excertion, wheezing. denies: shortness of breath, hemoptysis, pleuritic pain, sputum Cardiovascular: denies: chest pain, palpitations, orthopnea, paroxysmal noc. dyspnea, edema, light headedness Gastrointestinal: denies: nausea, vomiting, abdominal pain, diarrhea, constipation, melena, hematochezia - Medication Medications: Active Medications Generic Name Dose Route Start Last Admin Trade Name Raq PRN Reason Stop Dose Admin Acetaminophen 650 mg 07/20/19 22:56 07/20/19 23:43 Tylenol PO 650 mg Q4H PRN Administration Headache/Fever/Mild Pain (1-3) Albuterol Sulfate 2 puff 07/20/19 23:17 07/21/19 12:39 Proventil Hfa INH 2 puff Q6H PRN Administration SOB &/or Wheezing Albuterol/Ipratropium 3 ml 07/22/19 11:00 07/22/19 18:37 Duoneb NEB 3 ml [id number] FAITH Administration Amlodipine Besylate 10 mg 07/21/19 09:00 07/22/19 07:59 Norvasc PO 10 mg DAILY FAITH Administration Atorvastatin Calcium 40 mg 07/21/19 21:00 07/21/19 21:15 Lipitor PO 40 mg HS FAITH Administration Benzonatate 100 mg 07/21/19 14:55 07/22/19 15:41 Tessalon PO 100 mg TIDPRN PRN Administration Cough Gabapentin 100 mg 07/21/19 09:00 07/22/19 15:41 Neurontin PO 100 mg TID FAITH Administration Glimepiride 4 mg 07/21/19 09:00 07/22/19 07:59 Amaryl PO 4 mg QAM FAITH Administration Guaifenesin 100 mg 07/21/19 21:31 07/21/19 22:02 Robitussin Sf PO 100 mg Q4H PRN Administration Cough Heparin Sodium (Porcine) 5,000 units 07/21/19 09:00 07/22/19 15:41 Heparin SC 5,000 units TID FAITH Administration Levofloxacin 750 mg/ Device 150 mls @ 100 mls/hr 07/21/19 21:00 07/21/19 21: 14 IVPB 150 mls 2100 FAITH Administration Insulin Human Lispro 0 units 07/21/19 19:55 07/22/19 17:14 Humalog SC 4 unit .MODERATE SLIDING SC PRN Administration Moderate Correctional Scale Methylprednisolone Sodium Succinate 40 mg 07/20/19 23:59 07/22/19 17:12 Solu-Medrol IVP 40 mg Q6HR FAITH Administration Metoprolol Succinate 50 mg 07/21/19 09:00 07/22/19 08:00 Toprol Xl PO 50 mg DAILY FAITH Administration Mometasone Furoate/Formoterol Fumar 2 puff 07/21/19 18:30 07/22/19 07:08 Dulera 200 Mcg/5 Mcg Inhaler INH 2 puff BID-RT FAITH Administration Pantoprazole Sodium 40 mg 07/21/19 09:00 07/22/19 07:59 Protonix PO 40 mg DAILY FAITH Administration Sodium Chloride 10 ml 07/21/19 09:00 07/22/19 08:01 Flush - Normal Saline IVF 10 ml Q12HR FAITH Administration Sterile Water 1 ml 07/20/19 22:55 07/22/19 17:12 Bacteriostatic Water FS 1 ml PRN PRN Administration RECONSTITUTION Tamsulosin HCl 0.4 mg 07/21/19 09:00 07/22/19 07:59 Flomax PO 0.4 mg DAILY FAITH Administration - Exam General - other findings: Obesity Eye: anicteric sclera ENT: moist mucosa Neck: supple Heart: RRR, no rubs Respiratory: normal chest expansion, wheezes Gastrointestinal: soft, non-tender Extremities: 1+ LE edema Psychiatric: normal affect, normal behavior Hosp A/P (1) COPD exacerbation Code(s): J44.1 - CHRONIC OBSTRUCTIVE PULMONARY DISEASE W (ACUTE) EXACERBATION Status: Acute (2) Acute respiratory failure with hypoxia Code(s): J96.01 - ACUTE RESPIRATORY FAILURE WITH HYPOXIA Status: Acute (3) HLD (hyperlipidemia) Code(s): E78.5 - HYPERLIPIDEMIA, UNSPECIFIED Status: Chronic Qualifiers: (4) DM2 (diabetes mellitus, type 2) Status: Chronic Qualifiers: Diabetes mellitus accounting bookkeeper insulin use: without accounting bookkeeper use Diabetes mellitus complication status: without complication Qualified Code(s): E11.9 - Type 2 diabetes mellitus without complications (5) HTN (hypertension) Code(s): I10 - ESSENTIAL (PRIMARY) HYPERTENSION Status: Chronic Qualifiers: - Plan COPD exacerbation improving. Continue oxygen, steroids, bronchodilators and antibiotic. COVID 19 test negative. HTN controlled. Switch to aggressive insulin sliding scale. Furosemide is on hold.
[2019-07-22] MEDS: Atorvastatin Calcium 40 MG TAB PO SCH (21:23)
[2019-07-23] MEDS: Benzonatate 100 MG CAP PO PRN (03:54)
[2019-07-23] MEDS: HumaLOG 300 UNITS/3 ML VIAL SC PRN ×4 (06:13→23:54)
[2019-07-23] MEDS: methylPREDNISolone Sod Succ 40 MG VIAL IVP SCH ×4 (06:13→23:48)
[2019-07-23 06:31] LABS: Anion Gap 12 mmol/L (10-20); BUN (Urea Nitrogen) 24 mg/dL (8.4-25.7); Calc. Creatinine Clearance 84 mL/min (70-130); Carbon Dioxide 28 mmol/L (23-31); Chloride 100 mmol/L (98-107); Estimated GFR-MDRD 84; Glucose 209 mg/dL (83-110); Potassium 4.6 mmol/L (3.5-5.1); Sodium 135 mmol/L (136-145)
[2019-07-23] MEDS: Mometasone 200 MCG/Formoterol 5 MCG 120 PUFF INHALER INH SCH ×2 (06:40→18:25)
[2019-07-23 07:45] LABS: #Basophils 0.1 thou/uL (0.0-0.2); #Lymphocytes 0.7 thou/uL (1.20-3.40); #Monocytes 0.4 thou/uL (0.11-0.59); #Neutrophils 10.5 thou/uL (1.40-6.50); %Basophils 0.5 % (0.0-1.0); %Eosinophils 0.1 % (0.0-10.0); %Lymphocytes 6.2 % (21.0-51.0); %Monocytes 3.3 % (0.0-10.0); Hemoglobin 9.6 g/dL (14.0-18.0); Mean Corpuscular HGB CONC 29.2 g/dL (32.0-36.0); Mean Corpuscular Hemoglobin 27.3 pg (27.0-31.0); Mean Corpuscular Volume 93.7 fL (78.0-98.0); Mean Platelet Volume 9.7 fL (7.4-10.4); Platelet Count 370 thou/uL (130-400); RBC Distribution Width 16.5 % (11.5-14.5); Red Blood Cell (RBC) Count 3.52 mill/uL (4.70-6.10); White Blood Cell (WBC) Count 11.7 thou/uL (4.8-10.8)
[2019-07-23] MEDS: Amlodipine 10 MG TAB PO SCH (09:22)
[2019-07-23] MEDS: Heparin 5,000 UNITS/ML VIAL SC SCH ×3 (09:23→21:28)
[2019-07-23] MEDS: Gabapentin 100 MG CAP PO SCH ×3 (09:23→21:28)
[2019-07-23] MEDS: Tamsulosin HCl 0.4 MG CAP PO SCH (09:23)
[2019-07-23] MEDS ORDERED: Glimepiride 4 MG TAB PO SCH (10:30)
[2019-07-23] MEDS: Glimepiride 4 MG TAB PO SCH (11:12)
[2019-07-23] MEDS ORDERED: methylPREDNISolone Sod Succ 40 MG VIAL IVP SCH (12:43)
[2019-07-23] MEDS ORDERED: Bacteriostatic Water 30 ML VIAL FS PRN (12:45)
--- NOTE | 2019-07-23 13:00 | PRG ---
DATE OF SERVICE: 07/23/2019 SUBJECTIVE: Mr. Salinas has no complaints. He denies shortness of breath. OBJECTIVE: VITAL SIGNS: He is afebrile, heart rate 60, respiratory rate 16, oximetry 99, and blood pressure 135/67. LUNGS: Still remarkable for diffuse wheezes. HEART: Regular rhythm. ABDOMEN: Soft. He says he is not in a hurry to get out of the hospital. Reviewing his medications, he is on a p.r.n. albuterol metered-dose inhaler and is receiving nebulized treatments every 4 hours. He is still on IV Levaquin. This could be switched to p.o. His steroid dosing will be decreased today. We will continue to follow. Job ID: [id number]
--- NOTE | 2019-07-23 18:13 | PDOC.HOSPP ---
- Subjective Encounter Date: 07/23/19 Encounter Time: 18:12 Subjective: Pt seen for followup re: acute on chronic hypoxic respiratory failure. Feels better. Constipated. - Objective Vital Signs & Weight: Vital Signs (12 hours) Temp Pulse Resp BP BP Pulse Ox 07/23/19 16:33 98.4 F 62 16 117/64 97 07/23/19 14:34 60 12 99 07/23/19 11:32 98.0 F 60 16 135/67 99 07/23/19 10:51 65 16 97 07/23/19 09:22 65 138/52 L 07/23/19 08:00 97 07/23/19 07:52 98.0 F 65 16 138/52 L 97 07/23/19 06:41 60 16 Weight Weight 223 lb 8 oz I&O: 07/22/19 07/23/19 07/24/19 06:59 06:59 06:59 Intake Total 1250 1800 600 Output Total 1050 1670 Balance 200 130 600 Result Diagrams: 07/23/19 05:38 07/23/19 05:38 Additional Labs: Accuchecks 07/23/19 07/23/19 07/23/19 16:36 11:36 05:51 POC Glucose 270 H 259 H 222 H 07/22/19 20:04 POC Glucose 288 H Labs and MARs reviewed by ar Hospitalist ROS - Review of Systems Constitutional: reports: weakness. denies: fever, chills, sweats, malaise Respiratory: reports: cough, dry, SOB with excertion, wheezing. denies: shortness of breath, hemoptysis, pleuritic pain, sputum Gastrointestinal: reports: constipation. denies: nausea, vomiting, abdominal pain, diarrhea, melena, hematochezia - Medication Medications: Active Medications Generic Name Dose Route Start Last Admin Trade Name Freq PRN Reason Stop Dose Admin Acetaminophen 650 mg 07/20/19 22:56 07/20/19 23:43 Tylenol PO 650 mg Q4H PRN Administration Headache/Fever/Mild Pain (1-3) Albuterol Sulfate 2 puff 07/20/19 23:17 07/21/19 12:39 Proventil Hfa INH 2 puff Q6H PRN Administration SOB &/or Wheezing Albuterol/Ipratropium 3 ml 07/22/19 11:00 07/23/19 14:34 Duoneb NEB 3 ml [id number] FAITH Administration Amlodipine Besylate 10 mg 07/21/19 09:00 07/23/19 09:22 Norvasc PO 10 mg DAILY FAITH Administration Atorvastatin Calcium 40 mg 07/21/19 21:00 07/22/19 21:23 Lipitor PO 40 mg HS FAITH Administration Benzonatate 100 mg 07/21/19 14:55 07/23/19 03:54 Tessalon PO 100 mg TIDPRN PRN Administration Cough Gabapentin 100 mg 07/21/19 09:00 07/23/19 14:56 Neurontin PO 100 mg TID FAITH Administration Glimepiride 4 mg 07/21/19 09:00 07/23/19 11:12 Amaryl PO Not Given QAM [facility] Guaifenesin 100 mg 07/21/19 21:31 07/21/19 22:02 Robitussin Sf PO 100 mg Q4H PRN Administration Cough Heparin Sodium (Porcine) 5,000 units 07/21/19 09:00 07/23/19 14:56 Heparin SC 5,000 units TID FAITH Administration Insulin Human Lispro 0 units 07/22/19 19:16 07/23/19 17:36 Humalog SC 9 unit .AGGRESSIVE SLIDING PRN Administration Aggressive Correctional Scale Insulin Human Lispro 0 units 07/22/19 21:37 07/22/19 22:40 Humalog SC 3 unit .BEDTIME SLIDING SC PRN Administration Bedtime Correctional Scale Methylprednisolone Sodium Succinate 20 mg 07/23/19 18:00 07/23/19 17:37 Solu-Medrol IVP 20 mg Q6HR FAITH Administration Metoprolol Succinate 50 mg 07/21/19 09:00 07/23/19 09:22 Toprol Xl PO 50 mg DAILY FAITH Administration Mometasone Furoate/Formoterol Fumar 2 puff 07/21/19 18:30 07/23/19 06:40 Dulera 200 Mcg/5 Mcg Inhaler INH 2 puff BID-RT [facility] Administration Pantoprazole Sodium 40 mg 07/21/19 09:00 07/23/19 09:23 Protonix PO 40 mg DAILY FAITH Administration Sodium Chloride 10 ml 07/21/19 09:00 07/23/19 09:56 Flush - Normal Saline IVF Not Given Q12HR [facility] Tamsulosin HCl 0.4 mg 07/21/19 09:00 07/23/19 09:23 Flomax PO 0.4 mg DAILY FAITH Administration - Exam General Appearance: awake alert General - other findings: Obese ENT: normocephalic atraumatic, no oropharyngeal lesions Neck: supple, no lymphadenopathy Heart: RRR Respiratory: no rales, normal chest expansion, wheezes Gastrointestinal: soft, non-tender Extremities: 1+ LE edema Skin: no rashes Psychiatric: normal affect, normal behavior Hosp A/P (1) Acute on chronic respiratory failure with hypoxia Code(s): J96.21 - ACUTE AND CHRONIC RESPIRATORY FAILURE WITH HYPOXIA Status: Acute (2) COPD exacerbation Code(s): J44.1 - CHRONIC OBSTRUCTIVE PULMONARY DISEASE W (ACUTE) EXACERBATION Status: Acute (3) HLD (hyperlipidemia) Code(s): E78.5 - HYPERLIPIDEMIA, UNSPECIFIED Status: Chronic Qualifiers: (4) DM2 (diabetes mellitus, type 2) Status: Chronic Qualifiers: Diabetes mellitus usp insulin use: without usp use Diabetes mellitus complication status: without complication Qualified Code(s): E11.9 - Type 2 diabetes mellitus without complications (5) HTN (hypertension) Code(s): I10 - ESSENTIAL (PRIMARY) HYPERTENSION Status: Chronic Qualifiers: - Plan out of bed/ambulate COPD exacerbation improving. Oral antibiotics started. COVID 19 test negative. HTN controlled. Blood sugars high, start Lantus 5 units HS and continue glimepiride and aggressive insulin sliding scale. Resume furosemide. Trial mag citrate for constipation.
[2019-07-23] MEDS ORDERED: Magnesium Citrate 300 ML BOT PO SCH (18:15)
[2019-07-23] MEDS: Atorvastatin Calcium 40 MG TAB PO SCH (21:28)
[2019-07-23] MEDS: Insulin Glargine 5 UNITS in Pre-Filled Syringe SC SCH (21:29)
[2019-07-23] MEDS: HYDROcodone/Acetaminophen 10/325 mg Tablet PO PRN (23:59)
[2019-07-24] MEDS: HYDROcodone/Acetaminophen 10/325 mg Tablet PO PRN ×2 (05:52→22:36)
[2019-07-24] MEDS: methylPREDNISolone Sod Succ 40 MG VIAL IVP SCH ×3 (05:54→17:29)
[2019-07-24] MEDS: HumaLOG 300 UNITS/3 ML VIAL SC PRN ×2 (05:59→17:25)
[2019-07-24 06:19] LABS: #Lymphocytes 0.9 thou/uL (1.20-3.40); #Monocytes 0.6 thou/uL (0.11-0.59); #Neutrophils 10.1 thou/uL (1.40-6.50); %Basophils 0.1 % (0.0-1.0); %Eosinophils 0.1 % (0.0-10.0); %Lymphocytes 7.9 % (21.0-51.0); %Monocytes 5.2 % (0.0-10.0); %Neutrophils 86.6 % (42.0-75.0); Hemoglobin 9.5 g/dL (14.0-18.0); Mean Corpuscular HGB CONC 29.3 g/dL (32.0-36.0); Mean Corpuscular Hemoglobin 27.3 pg (27.0-31.0); Mean Corpuscular Volume 93.1 fL (78.0-98.0); Mean Platelet Volume 9.3 fL (7.4-10.4); Platelet Count 356 thou/uL (130-400); RBC Distribution Width 16.8 % (11.5-14.5); Red Blood Cell (RBC) Count 3.47 mill/uL (4.70-6.10); White Blood Cell (WBC) Count 11.6 thou/uL (4.8-10.8)
[2019-07-24 06:22] LABS: Anion Gap 12 mmol/L (10-20); BUN (Urea Nitrogen) 22 mg/dL (8.4-25.7); Calc. Creatinine Clearance 86 mL/min (70-130); Calcium 8.8 mg/dL (7.8-10.44); Carbon Dioxide 30 mmol/L (23-31); Chloride 101 mmol/L (98-107); Estimated GFR-MDRD 87; Glucose 184 mg/dL (83-110); Potassium 5.9 mmol/L (3.5-5.1); Sodium 137 mmol/L (136-145)
[2019-07-24] MEDS: Mometasone 200 MCG/Formoterol 5 MCG 120 PUFF INHALER INH SCH ×2 (06:28→19:30)
[2019-07-24] MEDS ORDERED: Bisacodyl 5 MG TAB PO SCH (07:15)
[2019-07-24] MEDS: Gabapentin 100 MG CAP PO SCH ×3 (08:10→22:37)
[2019-07-24] MEDS: Glimepiride 4 MG TAB PO SCH (08:10)
[2019-07-24] MEDS: Tamsulosin HCl 0.4 MG CAP PO SCH (08:10)
[2019-07-24] MEDS: Furosemide 40 MG TAB PO SCH ×2 (08:11→15:02)
[2019-07-24] MEDS: Amlodipine 10 MG TAB PO SCH (08:11)
[2019-07-24] MEDS: Heparin 5,000 UNITS/ML VIAL SC SCH ×3 (08:13→22:37)
[2019-07-24] MEDS ORDERED: Dextrose 50% Abboject 50 ML SYRINGE SLOW IVP SCH (10:45)
[2019-07-24] MEDS ORDERED: Insulin Regular 300 UNITS/3 ML VIAL IVP SCH (10:45)
[2019-07-24] MEDS ORDERED: Albuterol Sulfate 2.5 mg/3 ml Neb NEB SCH (10:45)
[2019-07-24] MEDS ORDERED: Fleet Enema 133 ML BOT PR SCH (11:00)
--- NOTE | 2019-07-24 12:39 | PRG ---
DATE OF SERVICE: 07/24/2019 SUBJECTIVE: Mr. Salinas says he is feeling better. OBJECTIVE: VITAL SIGNS: His heart rate is in 60s. He is afebrile. Respiratory rates in the teens, blood pressure 123/63. LUNGS: Still remarkable for mild wheezes, but he has improved compared to yesterday. HEART: Regular rhythm. ABDOMEN: Soft. LABORATORY DATA: White count 11.6, hemoglobin 9.5. Potassium is 5.9, creatinine is 1.01. IMPRESSION: 1. Chronic obstructive pulmonary disease exacerbation. 2. Borderline hyperkalemia. 3. Diabetes. I will switch him to prednisone today. Dr. Palma normally sees him and will assess him in the morning. He is probably close to being a candidate for discharge. Job ID: [id number]
[2019-07-24 13:32] LABS: Potassium 4.9 mmol/L (3.5-5.1)
[2019-07-24] MEDS: Benzonatate 100 MG CAP PO PRN (17:28)
[2019-07-24] MEDS: Diabetic Tussin 200 MG/10 ML UDCUP PO PRN (17:28)
--- NOTE | 2019-07-24 18:22 | PDOC.HOSPP ---
- Subjective Encounter Date: 07/24/19 Encounter Time: 11:00 Subjective: Pt seen for followup re: COPD exacerbation. Feels better. Constipation+ - Objective Vital Signs & Weight: Vital Signs (12 hours) Temp Pulse Resp BP BP Pulse Ox 07/24/19 14:57 60 12 07/24/19 11:01 61 16 96 07/24/19 08:11 61 123/63 07/24/19 08:00 96 07/24/19 07:54 97.8 F 61 16 123/63 96 07/24/19 06:28 59 L 16 97 Weight Weight 223 lb 8 oz I&O: 07/23/19 07/24/19 07/25/19 06:59 06:59 06:59 Intake Total 1800 1000 1500 Output Total 1670 Balance 130 1000 1500 Result Diagrams: 07/24/19 05:34 07/24/19 13:06 Additional Labs: Accuchecks 07/24/19 07/24/19 07/24/19 16:30 11:30 05:06 POC Glucose 256 H 287 H 187 H 07/23/19 21:21 POC Glucose 218 H Labs and MARs reviewed by wi Hospitalist ROS - Review of Systems Respiratory: reports: SOB with excertion. denies: cough, shortness of breath, pleuritic pain, wheezing Cardiovascular: denies: chest pain, palpitations, orthopnea, paroxysmal noc. dyspnea, edema, light headedness Gastrointestinal: reports: constipation - Medication Medications: Active Medications Generic Name Dose Route Start Last Admin Trade Name Freq PRN Reason Stop Dose Admin Acetaminophen 650 mg 07/20/19 22:56 07/20/19 23:43 Tylenol PO 650 mg Q4H PRN Administration Headache/Fever/Mild Pain (1-3) Hydrocodone Bitart/Acetaminophen 1 tab 07/21/19 06:33 07/24/19 05:52 [place] 10/325 PO 1 tab Q6H PRN Administration Pain Albuterol Sulfate 2 puff 07/20/19 23:17 07/21/19 12:39 Proventil Hfa INH 2 puff Q6H PRN Administration SOB &/or Wheezing Albuterol/Ipratropium 3 ml 07/22/19 11:00 07/24/19 14:58 Duoneb NEB Not Given [id number] FAITH Amlodipine Besylate 10 mg 07/21/19 09:00 07/24/19 08:11 Norvasc PO 10 mg DAILY FAITH Administration Atorvastatin Calcium 40 mg 07/21/19 21:00 07/23/19 21:28 Lipitor PO 40 mg HS FAITH Administration Benzonatate 100 mg 07/21/19 14:55 07/24/19 17:28 Tessalon PO 100 mg TIDPRN PRN Administration Cough Furosemide 40 mg 07/24/19 09:00 07/24/19 15:02 Lasix PO 40 mg 0900,1400 FAITH Administration Gabapentin 100 mg 07/21/19 09:00 07/24/19 15:02 Neurontin PO 100 mg TID FAIHT Administration Glimepiride 4 mg 07/21/19 09:00 07/24/19 08:10 Amaryl PO 4 mg QAM FAITH Administration Guaifenesin 100 mg 07/21/19 21:31 07/24/19 17:28 Robitussin Sf PO 100 mg Q4H PRN Administration Cough Heparin Sodium (Porcine) 5,000 units 07/21/19 09:00 07/24/19 15:02 Heparin SC 5,000 units TID FAITH Administration Insulin Glargine 5 units/ 0.05 mls @ 0 mls/hr 07/23/19 21:00 07/23/19 21:29 Miscellaneous Medication SC 0.05 mls HS FAITH Administration Insulin Human Lispro 0 units 07/22/19 19:16 07/24/19 17:25 Humalog SC 9 unit .AGGRESSIVE SLIDING PRN Administration Aggressive Correctional Scale Insulin Human Lispro 0 units 07/22/19 21:37 07/23/19 23:54 Humalog SC 2 unit .BEDTIME SLIDING SC PRN Administration Bedtime Correctional Scale Levofloxacin 750 mg 07/23/19 21:00 07/23/19 21:27 Levaquin PO 750 mg 2100 FAITH Administration Methylprednisolone Sodium Succinate 20 mg 07/23/19 18:00 07/24/19 17:29 Solu-Medrol IVP 20 mg Q6HR FAITH Administration Metoprolol Succinate 50 mg 07/21/19 09:00 07/24/19 08:10 Toprol Xl PO 50 mg DAILY FAITH Administration Mometasone Furoate/Formoterol Fumar 2 puff 07/21/19 18:30 07/24/19 06:28 Dulera 200 Mcg/5 Mcg Inhaler INH 2 puff BID-RT FAITH Administration Pantoprazole Sodium 40 mg 07/21/19 09:00 07/24/19 08:11 Protonix PO 40 mg DAILY FAITH Administration Sodium Chloride 10 ml 07/21/19 09:00 07/24/19 08:13 Flush - Normal Saline IVF 10 ml Q12HR FAITH Administration Tamsulosin HCl 0.4 mg 07/21/19 09:00 07/24/19 08:10 Flomax PO 0.4 mg DAILY FAITH Administration - Exam General Appearance: awake alert Eye: anicteric sclera ENT: moist mucosa Neck: supple, no JVD Heart: RRR Respiratory: wheezes Gastrointestinal: soft, non-tender Psychiatric: normal affect, normal behavior Hosp A/P (1) COPD exacerbation Code(s): J44.1 - CHRONIC OBSTRUCTIVE PULMONARY DISEASE W (ACUTE) EXACERBATION Status: Acute (2) Acute on chronic respiratory failure with hypoxia Code(s): J96.21 - ACUTE AND CHRONIC RESPIRATORY FAILURE WITH HYPOXIA Status: Acute (3) HLD (hyperlipidemia) Code(s): E78.5 - HYPERLIPIDEMIA, UNSPECIFIED Status: Chronic Qualifiers: (4) DM2 (diabetes mellitus, type 2) Status: Chronic Qualifiers: Diabetes mellitus retirement insulin use: without terminal carman use Diabetes mellitus complication status: without complication Qualified Code(s): E11.9 - Type 2 diabetes mellitus without complications (5) HTN (hypertension) Code(s): I10 - ESSENTIAL (PRIMARY) HYPERTENSION Status: Chronic Qualifiers: - Plan continue antibiotics, out of bed/ambulate COPD exacerbation improved Trial Fleet enema COVID 19 test negative. HTN controlled. Blood sugars high, start Lantus 5 units HS and continue glimepiride and aggressive insulin sliding scale. Continue furosemide. Kayexalate/albuterol/insulin for hyperkalemia.
[2019-07-24] MEDS: Atorvastatin Calcium 40 MG TAB PO SCH (22:36)
[2019-07-24] MEDS: Insulin Glargine 5 UNITS in Pre-Filled Syringe SC SCH (22:38)
[2019-07-25] MEDS: methylPREDNISolone Sod Succ 40 MG VIAL IVP SCH ×3 (00:21→12:22)
[2019-07-25 06:01] LABS: Anion Gap 14 mmol/L (10-20); BUN (Urea Nitrogen) 20 mg/dL (8.4-25.7); Calc. Creatinine Clearance 87 mL/min (70-130); Calcium 8.5 mg/dL (7.8-10.44); Carbon Dioxide 28 mmol/L (23-31); Chloride 99 mmol/L (98-107); Estimated GFR-MDRD 88; Glucose 198 mg/dL (83-110); Potassium 4.2 mmol/L (3.5-5.1); Sodium 137 mmol/L (136-145)
[2019-07-25] MEDS: HumaLOG 300 UNITS/3 ML VIAL SC PRN ×2 (06:41→12:19)
[2019-07-25] MEDS: Mometasone 200 MCG/Formoterol 5 MCG 120 PUFF INHALER INH SCH (07:16)
[2019-07-25] MEDS: Gabapentin 100 MG CAP PO SCH (07:58)
[2019-07-25] MEDS: Tamsulosin HCl 0.4 MG CAP PO SCH (07:58)
[2019-07-25] MEDS: Glimepiride 4 MG TAB PO SCH (07:58)
[2019-07-25] MEDS: Heparin 5,000 UNITS/ML VIAL SC SCH (08:00)
[2019-07-25] MEDS ORDERED: predniSONE 20 MG TAB PO SCH (08:00)
[2019-07-25] MEDS: Amlodipine 10 MG TAB PO SCH (08:00)
[2019-07-25] MEDS: Furosemide 40 MG TAB PO SCH (08:00)
[2019-07-25 08:10] VITALS: TEMP 98.3
[2019-07-25 08:17] LABS: #Lymphocytes 1.1 thou/uL (1.20-3.40); #Monocytes 0.6 thou/uL (0.11-0.59); #Neutrophils 10.7 thou/uL (1.40-6.50); %Eosinophils 0.3 % (0.0-10.0); %Monocytes 4.5 % (0.0-10.0); %Neutrophils 86.1 % (42.0-75.0); Anisocytosis SLIGHT = 6-15 cells (100X) (0-5/hpf); Hemoglobin 9.6 g/dL (14.0-18.0); MDiff Complete? YES; Mean Corpuscular HGB CONC 29.7 g/dL (32.0-36.0); Mean Corpuscular Hemoglobin 27.3 pg (27.0-31.0); Mean Corpuscular Volume 92.1 fL (78.0-98.0); Mean Platelet Volume 9.5 fL (7.4-10.4); Platelet Count 322 thou/uL (130-400); RBC Distribution Width 16.7 % (11.5-14.5); Red Blood Cell (RBC) Count 3.52 mill/uL (4.70-6.10); White Blood Cell (WBC) Count 12.4 thou/uL (4.8-10.8)
--- NOTE | 2019-07-25 12:29 | PRG ---
DATE OF SERVICE: 07/25/2019 SUBJECTIVE: He is doing well. He has already packed his bags and wants to go home. OBJECTIVE: VITAL SIGNS: Temperature 98.3, pulse 64, respirations 16, O2 saturation 100% on 3 L, and blood pressure 130/64. HEENT: Clear. NECK: No JVD. LUNGS: Clear anteriorly with few wheezes heard posteriorly at the bases. CARDIAC: S1 and S2. Regular. ABDOMEN: Soft. EXTREMITIES: No edema. LABORATORY DATA: Sodium 137, potassium 4.2, BUN 20, creatinine 1.0, glucose 198. White blood cell count 12, hematocrit 32.5, and platelet count 322. ASSESSMENT: Chronic obstructive pulmonary disease with exacerbation. PLAN: He is medically stable for discharge to home. He needs to finish 7 days of antibiotics and be tapered over his prednisone over about 2 weeks. He can follow up with me in 6 weeks. Job ID: [id number]
--- NOTE | 2019-07-25 13:01 | DIS ---
DATE OF ADMISSION: 07/20/2019 DATE OF DISCHARGE: 07/25/2019 PRIMARY CARE PROVIDER: Elton Oakley in [place]. DISCHARGE DIAGNOSES: 1. Acute on chronic hypoxic respiratory failure. 2. Chronic obstructive pulmonary disease exacerbation. 3. Hyperkalemia. 4. Hyperglycemia. 5. Hyponatremia. CONDITION: Condition of the patient on the day of discharge: Stable. I assessed Mr. Salinas on the day of discharge. He denies any chest pain. Shortness of breath has improved. Vital signs are stable. S1 and S2 are heard, regular. Lungs are clear to auscultation bilaterally. CONSULTATIONS DURING THIS HOSPITALIZATION: Pulmonary and Critical Care Medicine, Dr. Myers. HOSPITAL COURSE: Mr. Salinas is a pleasant 78-year-old gentleman, who was admitted to [facility] on July 20, 2019, for acute on chronic hypoxic respiratory failure. He was ruled out for COVID-19. He improved with oxygen, steroids, bronchodilators, and antibiotics. He is being discharged home in a stable condition. DISCHARGE MEDICATIONS: 1. [place] p.r.n. 2. Amlodipine 10 mg daily. 3. Lasix 60 mg 2 times a day. 4. Potassium chloride 8 mEq daily. 5. Gabapentin 100 mg 3 times a day. 6. Glimepiride 4 mg daily. 7. Metformin 1000 mg 2 times a day. 8. Toprol-XL 50 mg daily. 9. Protonix 40 mg daily. 10. Zocor 80 mg at bedtime. 11. Flomax 0.4 mg daily. 12. Proventil HFA p.r.n. 13. Tessalon p.r.n. 14. Levofloxacin 500 mg daily for 5 more days. 15. Dulera 200/5 mcg two puffs 2 times a day. 16. Oral prednisone taper. POST-ACUTE CARE FOLLOWUP: With primary care provider in 3 days and with floating derrick operator as outpatient. ACTIVITY: As tolerated. DIET: Diabetic and heart healthy. DISCHARGE DESTINATION: Home. TIME SPENT: Total amount of time spent in coordinating this discharge: 32 minutes. Job ID: [id number]
[2019-07-25 13:25] VITALS: BP 127/51
--- NOTE | 2019-07-27 06:40 | PQF ---
ANDREZ PATTEN JR, DAVID [id number] [facility]-246 [id number] CLINICAL DOCUMENTATION CLARIFICATION FORM: POST DISCHARGE Addendum to original discharge summary date: ____ Late entry note date: __ DATE:07/27/2019 ATTN: Jose Armando Reilly Please exercise your independent, professional judgment in responding to the clarification form. Clinical indicators are provided on the bottom of this form for your review Diagnosis: Acute on Chronic Hypoxic Respiratory Failure Present on Admission (POA): [ x ] Yes [ ] No [ ] Unable to determine Coding guidelines require hospitals to identify whether a diagnosis was present on admission (POA) or not. To accurately assign the appropriate POA indicator, this information must be clearly documented within the medical record. CLINICAL INDICATORS - SIGNS / SYMPTOMS / LABS Vital signs 07/19 BP 122/51, Pulse 64, Resp 18, temp 99.3 ED Notes p8 07/19 He is moving more air, but still has diffuse wheezing. He still felt very short of breath ED Notes p8 07/19 I took him off of his oxygen and he desaturated to 87% H&P p1 07/19 He persistence of his shortness of breath Discharge summary p1 07/24 Admitted for acute on chronic hypoxic respiratory failure ED Notes p3 07/19 breath sound not clear, wheezing present Vital Signs O2 sat: 07/21=96 07/23=97 07/24=98 RISK FACTORS: H&P p1 07/19 78 year-old Male H&P p1 07/19 COPD exacerbation on Oxygen home H&P p1 07/19 DM H&P 07/19 HTN H&P 07/19 Heart failure with preserved ejection fraction H&P p1 07/19 Former smoker Consult p7 07/20- CKD TREATMENT: MAR 07/19 IV Solu-Medrol 125 mg MAY 04 -Duoneb 3mg neb MAY 04 Proventil 2puff inhaler MAY 04 Prednisone 40 mg oral Respiratory panel 07/19 Oxygen 3L Chest X-ray 07/19 Pulmonolgy consult 07/20 Chalino Gaona (This form is maintained as a part of the permanent medical record) 2014 [employer]. All Rights Reserved [email or web address]
== END 2019-07-25 13:50 | disposition home or self-care (01) | DRG 189 ==
LOC: ERS 18:07 → 2SW 21:42 → T4-B 07-21 14:29
PROVIDERS: ADMIT Internal Medicine; ATTEND Internal Medicine
PROC: 8E0ZXY6 Isolation (ICD-10-PCS; principal; 2019-07-20)
DX: J96.21 Acute and chronic respiratory failure with hypoxia (principal); J44.1 Chronic obstructive pulmonary disease with (acute) exacerbation; E87.1 Hypo-osmolality and hyponatremia; I50.32 Chronic diastolic (congestive) heart failure; F20.89 Other schizophrenia; I13.0 Hypertensive heart and chronic kidney disease with heart failure and stage 1 through stage 4 chronic kidney disease, or unspecified chronic kidney disease; Z20.828 Contact with and (suspected) exposure to other viral communicable diseases; Z68.36 Body mass index [BMI] 36.0-36.9, adult; E87.5 Hyperkalemia; E78.5 Hyperlipidemia, unspecified; E11.22 Type 2 diabetes mellitus with diabetic chronic kidney disease; K59.00 Constipation, unspecified; N18.2 Chronic kidney disease, stage 2 (mild); E11.65 Type 2 diabetes mellitus with hyperglycemia; E78.00 Pure hypercholesterolemia, unspecified; Z86.19 Personal history of other infectious and parasitic diseases; Z99.81 Dependence on supplemental oxygen; Z87.891 Personal history of nicotine dependence; Z79.84 Long term (current) use of oral hypoglycemic drugs; Z79.899 Other long term (current) drug therapy; E66.9 Obesity, unspecified
CPT/HCPCS: 36415; 36416; 71045; 80048; 80053; 84484; 85025; 87635; 93005; 93970; 94640; 96365; 96375; J1644; J1815; J1956; J2920; J2930; J7512; J7611; J7620; U0003

== ENCOUNTER 2019-10-21 13:03 | Emergency (ER) | payer MEDICARE, BC ==
[2019-10-21 13:38] LABS: #Basophils 0.1 thou/uL (0.0-0.2); #Eosinphils 0.7 thou/uL (0.0-0.7); #Lymphocytes 2.7 thou/uL (1.20-3.40); #Monocytes 0.9 thou/uL (0.11-0.59); #Neutrophils 6.6 thou/uL (1.40-6.50); %Basophils 0.9 % (0.0-1.0); %Eosinophils 6.7 % (0.0-10.0); %Lymphocytes 24.3 % (21.0-51.0); %Monocytes 7.9 % (0.0-10.0); %Neutrophils 60.2 % (42.0-75.0); Hemoglobin 10.9 g/dL (14.0-18.0); Mean Corpuscular HGB CONC 30.2 g/dL (32.0-36.0); Mean Corpuscular Hemoglobin 28.4 pg (27.0-31.0); Mean Platelet Volume 9.1 fL (7.4-10.4); Platelet Count 326 thou/uL (130-400); Red Blood Cell (RBC) Count 3.85 mill/uL (4.70-6.10); White Blood Cell (WBC) Count 10.9 thou/uL (4.8-10.8)
[2019-10-21] MEDS ORDERED: Albuterol 200 PUFF (6.7GM INHALER) ONE (13:57)
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
[2019-10-21 14:01] LABS: ALT (SGPT) 7 U/L (8-55); AST (SGOT) 12 U/L (5-34); Albumin 3.9 g/dL (3.4-4.8); Alkaline Phosphatase 59 U/L (40-110); Anion Gap 16 mmol/L (10-20); BUN (Urea Nitrogen) 15 mg/dL (8.4-25.7); Bilirubin, Total 0.3 mg/dL (0.2-1.2); Calc. Creatinine Clearance 0 mL/min (70-130); Calcium 9.4 mg/dL (7.8-10.44); Carbon Dioxide 27 mmol/L (23-31); Chloride 104 mmol/L (98-107); Estimated GFR-MDRD 58; Globulin 3.3 g/dL (2.4-3.5); Glucose 83 mg/dL (83-110); Potassium 4.9 mmol/L (3.5-5.1); Protein, Total 7.2 g/dL (5.8-8.1); Sodium 142 mmol/L (136-145)
--- NOTE | 2019-10-29 15:33 | EKG ---
Test Reason : SOB Blood Pressure : / mmHG Vent. Rate : 085 BPM Atrial Rate : 085 BPM P-R Int : 146 ms QRS Dur : 082 ms QT Int : 336 ms P-R-T Axes : 042 047 021 degrees QTc Int : 399 ms Normal sinus rhythm Normal ECG Confirmed by MATIAS SANTACRUZ DO ([id number]), order editor CARLYLE CISNEROS ([id number]) on 10/29/2019 3:33:04 PM Referred By: Confirmed By:MATIAS SANTACRUZ DO
== END 2019-10-21 15:04 | disposition home or self-care (01) ==
LOC: ERS 13:03
DX: J44.1 Chronic obstructive pulmonary disease with (acute) exacerbation (principal); E11.9 Type 2 diabetes mellitus without complications; E78.5 Hyperlipidemia, unspecified; I10 Essential (primary) hypertension; F20.9 Schizophrenia, unspecified; Z87.891 Personal history of nicotine dependence
CPT/HCPCS: 36415; 71045; 80053; 83880; 84484; 85025; 93005; 94664; 96360

== ENCOUNTER 2019-11-13 12:13 | Inpatient (IN) | payer MEDICARE, BC, OTHER ==
[2019-11-13 13:41] LABS: #Eosinphils 0.8 thou/uL (0.0-0.7); #Lymphocytes 1.9 thou/uL (1.20-3.40); #Monocytes 0.7 thou/uL (0.11-0.59); #Neutrophils 7.8 thou/uL (1.40-6.50); %Basophils 0.4 % (0.0-1.0); %Eosinophils 6.8 % (0.0-10.0); %Lymphocytes 17.2 % (21.0-51.0); %Monocytes 6.2 % (0.0-10.0); %Neutrophils 69.5 % (42.0-75.0); Hemoglobin 10.4 g/dL (14.0-18.0); Mean Corpuscular HGB CONC 30.8 g/dL (32.0-36.0); Mean Corpuscular Volume 94.2 fL (78.0-98.0); Mean Platelet Volume 9.3 fL (7.4-10.4); Platelet Count 262 thou/uL (130-400); RBC Distribution Width 18.3 % (11.5-14.5); Red Blood Cell (RBC) Count 3.59 mill/uL (4.70-6.10); White Blood Cell (WBC) Count 11.2 thou/uL (4.8-10.8)
[2019-11-13] MEDS ORDERED: Albuterol 200 PUFF (6.7GM INHALER) ONE (13:46)
[2019-11-13 14:04] LABS: ALT (SGPT) 7 U/L (8-55); AST (SGOT) 11 U/L (5-34); Alkaline Phosphatase 55 U/L (40-110); Anion Gap 13 mmol/L (10-20); BUN (Urea Nitrogen) 8 mg/dL (8.4-25.7); Bilirubin, Total 0.5 mg/dL (0.2-1.2); Calc. Creatinine Clearance 0 mL/min (70-130); Calcium 9.2 mg/dL (7.8-10.44); Carbon Dioxide 30 mmol/L (23-31); Chloride 102 mmol/L (98-107); Estimated GFR-MDRD Greater than 90; Globulin 2.9 g/dL (2.4-3.5); Glucose 117 mg/dL (83-110); Potassium 4.5 mmol/L (3.5-5.1); Protein, Total 6.9 g/dL (5.8-8.1); Sodium 140 mmol/L (136-145)
[2019-11-13] MEDS ORDERED: Dexamethasone 10 MG/ML VIAL ONE (14:40)
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
[2019-11-13] MEDS ORDERED: Acetaminophen 325 MG TAB PO PRN (15:57)
[2019-11-13] MEDS ORDERED: Senokot S 8.6-50 MG TAB PO PRN (15:57)
[2019-11-13] MEDS ORDERED: Dextrose 50% Abboject 50 ML SYRINGE SLOW IVP PRN (16:08)
[2019-11-13] MEDS ORDERED: Dextrose 5% in Water 1,000 ML IV PRN (16:08)
[2019-11-13] MEDS ORDERED: hydrALAZINE 20 MG/ML VIAL SLOW IVP PRN (16:52)
--- NOTE | 2019-11-13 17:02 | PDOC.BPN ---
- Brief Progress Note Encounter Date: 11/13/19 Encounter Time: 15:30 78-year-old male with COPD, chronic hypoxic respiratory failure on 2 L home oxygen presents with shortness of breath along with intractable cough. He was saturating 88% on room air. He was started on IV steroids along with nebulizer treatment. Initial vital signs in the emergency room showed temperature 99.1, respiration of 24, pulse rate of 79 and blood pressure of 139/56. On examination there is diffuse wheezing with rhonchi. Patient is in mild respiratory distress. His lab findings were reviewed. I reviewed the chest x- ray which was negative for infiltrate. He will probably require 2 to 3 days for stabilization. 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 We will start him on O2 supplementation, IV steroids, empiric antibiotics with nebulizer treatment. Patient understood above plan of care
[2019-11-13 17:12] VITALS: BMI 36.1
[2019-11-13] MEDS ORDERED: Albuterol Sulfate 2.5 mg/3 ml Neb NEB PRN (17:30)
[2019-11-13] MEDS: HumaLOG 300 UNITS/3 ML VIAL SC PRN (18:00)
[2019-11-13] MEDS: methylPREDNISolone Sod Succ 40 MG VIAL IVP SCH (18:00)
[2019-11-13] MEDS: HYDROcodone/Acetaminophen 10/325 mg Tablet PO PRN (18:02)
[2019-11-13] MEDS: Mometasone 200 MCG/Formoterol 5 MCG 120 PUFF INHALER INH SCH (19:12)
[2019-11-13] MEDS: Famotidine 20 MG TAB PO SCH (20:11)
[2019-11-13] MEDS: guaiFENesin ER 600 MG TAB PO SCH (20:12)
[2019-11-13] MEDS: Senokot S 8.6-50 MG TAB PO SCH (20:12)
[2019-11-13] MEDS: Polyethylene Glycol 3350 17 GM Packet PO SCH (20:12)
[2019-11-14] MEDS: methylPREDNISolone Sod Succ 40 MG VIAL IVP SCH ×4 (00:10→17:42)
[2019-11-14 05:18] LABS: #Lymphocytes 0.6 thou/uL (1.20-3.40); #Monocytes 0.1 thou/uL (0.11-0.59); %Eosinophils 0.2 % (0.0-10.0); %Lymphocytes 6.5 % (21.0-51.0); %Monocytes 0.6 % (0.0-10.0); %Neutrophils 92.7 % (42.0-75.0); Hemoglobin 11.2 g/dL (14.0-18.0); Mean Corpuscular HGB CONC 30.3 g/dL (32.0-36.0); Mean Corpuscular Hemoglobin 29.2 pg (27.0-31.0); Mean Corpuscular Volume 96.3 fL (78.0-98.0); Platelet Count 254 thou/uL (130-400); RBC Distribution Width 18.3 % (11.5-14.5); Red Blood Cell (RBC) Count 3.84 mill/uL (4.70-6.10); White Blood Cell (WBC) Count 9.8 thou/uL (4.8-10.8)
[2019-11-14 05:41] LABS: ALT (SGPT) 9 U/L (8-55); AST (SGOT) 10 U/L (5-34); Albumin 3.8 g/dL (3.4-4.8); Alkaline Phosphatase 58 U/L (40-110); Anion Gap 12 mmol/L (10-20); BUN (Urea Nitrogen) 11 mg/dL (8.4-25.7); Bilirubin, Total 0.4 mg/dL (0.2-1.2); Calc. Creatinine Clearance 106 mL/min (70-130); Calcium 9.2 mg/dL (7.8-10.44); Carbon Dioxide 26 mmol/L (23-31); Chloride 101 mmol/L (98-107); Estimated GFR-MDRD Greater than 90; Globulin 3.1 g/dL (2.4-3.5); Glucose 184 mg/dL (83-110); Potassium 5.2 mmol/L (3.5-5.1); Protein, Total 6.9 g/dL (5.8-8.1); Sodium 134 mmol/L (136-145)
[2019-11-14] MEDS: Mometasone 200 MCG/Formoterol 5 MCG 120 PUFF INHALER INH SCH ×2 (07:25→18:54)
[2019-11-14] MEDS ORDERED: HumaLOG 300 UNITS/3 ML VIAL SC PRN (08:37)
[2019-11-14] MEDS: Amlodipine 5 MG TAB PO SCH (08:46)
[2019-11-14] MEDS: Senokot S 8.6-50 MG TAB PO SCH ×2 (08:46→21:11)
[2019-11-14] MEDS: Famotidine 20 MG TAB PO SCH ×2 (08:46→21:11)
[2019-11-14] MEDS: guaiFENesin ER 600 MG TAB PO SCH ×2 (08:46→21:11)
[2019-11-14] MEDS: Saccharomyces boulardii 250 MG CAP PO SCH (08:46)
[2019-11-14] MEDS: metFORMIN 500 MG TAB PO SCH ×2 (08:46→17:41)
[2019-11-14] MEDS: Enoxaparin Sodium 40 MG/0.4 ML SYRINGE SC SCH (08:47)
[2019-11-14] MEDS ORDERED: methylPREDNISolone Sod Succ/PF 125 MG/2 ML VIAL IVP SCH (09:00)
[2019-11-14] MEDS ORDERED: Magnesium Citrate 300 ML BOT PO SCH (11:00)
[2019-11-14] MEDS: HumaLOG 300 UNITS/3 ML VIAL SC PRN ×2 (11:37→17:43)
[2019-11-14 11:59] LABS: SARS-CoV-2 MS2 Positive; SARS-CoV-2 N Gene Negative; SARS-CoV-2 S Gene Negative; SARS-CoV-2 by NAA Not Detected (NotDetected); SARS-CoV-2 orf1ab Negative
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
--- NOTE | 2019-11-14 15:54 | PDOC.HOSPP ---
- Subjective Encounter Date: 11/14/19 Encounter Time: 11:00 Subjective: Patient seen and examined for COPD exacerbation. Shortness of breath improving. Continues to have productive cough with wheezing. - Objective Vital Signs & Weight: Vital Signs (12 hours) Temp Pulse Resp BP BP BP BP 11/14/19 12:59 157/63 H 11/14/19 11:38 68 175/66 H 11/14/19 11:02 98.9 F 68 18 175/66 H 11/14/19 10:35 70 16 11/14/19 08:46 74 163/69 H 11/14/19 08:00 11/14/19 07:37 98.5 F 74 18 163/69 H 11/14/19 07:15 72 16 11/14/19 04:00 98.3 F 104 H 20 145/70 H Pulse Ox 11/14/19 12:59 11/14/19 11:38 11/14/19 11:02 96 11/14/19 10:35 96 11/14/19 08:46 11/14/19 08:00 94 L 11/14/19 07:37 94 L 11/14/19 07:15 92 L 11/14/19 04:00 92 L Weight Weight 224 lb 3 oz I&O: 11/13/19 11/14/19 11/15/19 06:59 06:59 06:59 Intake Total 780 Output Total 500 Balance 280 Result Diagrams: 11/14/19 05:08 11/14/19 05:08 Additional Labs: Accuchecks 11/14/19 11/14/19 11/13/19 11:10 06:07 20:29 POC Glucose 228 H 161 H 121 H 11/13/19 17:27 POC Glucose 297 H Radiology Reviewed by me: Yes (Chest x-rayno infiltrate) Hospitalist ROS - Review of Systems Respiratory: reports: cough Cardiovascular: denies: chest pain, palpitations, orthopnea, paroxysmal noc. dyspnea, edema, light headedness, other Gastrointestinal: denies: nausea, vomiting, abdominal pain, diarrhea, constipation, melena, hematochezia, other - Medication Medications: Active Medications Generic Name Dose Route Start Last Admin Trade Name Freq PRN Reason Stop Dose Admin Hydrocodone Bitart/Acetaminophen 1 tab 11/13/19 15:57 11/13/19 18:02 [place] 10/325 PO 1 tab Q4H PRN Administration Moderate Pain (4-6) Albuterol/Ipratropium 3 ml 11/13/19 18:30 11/14/19 10:35 Duoneb NEB 3 ml [id number] FAITH Administration Amlodipine Besylate 5 mg 11/14/19 09:00 11/14/19 08:46 Norvasc PO 5 mg DAILY FAITH Administration Enoxaparin Sodium 40 mg 11/14/19 09:00 11/14/19 08:47 Lovenox SC 40 mg 0900 FAITH Administration Famotidine 20 mg 11/13/19 21:00 11/14/19 08:46 Pepcid PO 20 mg BID FAITH Administration Guaifenesin 600 mg 11/13/19 21:00 11/14/19 08:46 Mucinex PO 600 mg Q12HR FAITH Administration Hydralazine HCl 10 mg 11/13/19 16:52 11/14/19 11:38 Apresoline SLOW IVP 10 mg Q4H PRN Administration SBP GREATER THAN 160 Levofloxacin 500 mg/ Device 100 mls @ 100 mls/hr 11/13/19 18:00 11/13/19 18: 00 IVPB 100 mls 1800 FAITH Administration Insulin Human Lispro 0 units 11/13/19 16:08 11/14/19 11:37 Humalog SC 3 unit .MILD SLIDING SCALE PRN Administration Mild Correctional Scale Metformin HCl 1,000 mg 11/14/19 08:00 11/14/19 08:46 Glucophage PO 1,000 mg BID-WM FAITH Administration Methylprednisolone Sodium Succinate 40 mg 11/13/19 18:00 11/14/19 11:36 Solu-Medrol IVP 40 mg Q6HR FAITH Administration Mometasone Furoate/Formoterol Fumar 2 puff 11/13/19 18:30 11/14/19 07:25 Dulera 200 Mcg/5 Mcg Inhaler INH 2 puff BID-RT FAITH Administration Polyethylene Glycol 17 gm 11/13/19 21:00 11/13/19 20:12 Miralax PO 17 gm 2100 FAITH Administration Saccharomyces Boulardii 250 mg 11/14/19 09:00 11/14/19 08:46 Florastor PO 250 mg DAILY FAITH Administration Senna/Docusate Sodium 2 tab 11/13/19 21:00 11/14/19 08:46 Senokot S PO 2 tab BID FAITH Administration - Exam General Appearance: NAD (At rest) Neck: supple, no JVD Heart: RRR, no gallops, no rubs, normal peripheral pulses Respiratory: no rales, normal chest expansion, rhonchi, wheezes Gastrointestinal: soft, non-tender, non-distended, no guarding, no rigidity Extremities: no cyanosis, no clubbing Neurological: no new deficit Musculoskeletal: generalized weakness Psychiatric: normal affect, A&O x 3 Hosp A/P (1) Acute on chronic respiratory failure with hypoxia Code(s): J96.21 - ACUTE AND CHRONIC RESPIRATORY FAILURE WITH HYPOXIA Status: Acute (2) COPD exacerbation Code(s): J44.1 - CHRONIC OBSTRUCTIVE PULMONARY DISEASE W (ACUTE) EXACERBATION Status: Acute (3) Constipation Code(s): K59.00 - CONSTIPATION, UNSPECIFIED Status: Acute (4) DM2 (diabetes mellitus, type 2) Status: Chronic (5) Hyponatremia Code(s): E87.1 - HYPO-OSMOLALITY AND HYPONATREMIA Status: Acute (6) Hyperkalemia Code(s): E87.5 - HYPERKALEMIA Status: Acute (7) HTN (hypertension) Code(s): I10 - ESSENTIAL (PRIMARY) HYPERTENSION Status: Chronic Qualifiers: (8) Obesity (BMI 30-39.9) Code(s): E66.9 - OBESITY, UNSPECIFIED Status: Chronic (9) HLD (hyperlipidemia) Code(s): E78.5 - HYPERLIPIDEMIA, UNSPECIFIED Status: Chronic Qualifiers: - Plan 11/13 Continue Levaquin with nebulizer treatment and IV steroids. Wheezing is improving. Pulmonary input appreciated. Patient is still constipated despite MiraLAX and Senokot-S. Will start him on mag citrate. Continue insulin siding scale with metformin. Continue DVT prophylaxis. Continue Dulera. Low potassium diet. Recheck labs in a.m.
[2019-11-14] MEDS: Polyethylene Glycol 3350 17 GM Packet PO SCH (21:11)
[2019-11-15] MEDS: methylPREDNISolone Sod Succ 40 MG VIAL IVP SCH ×4 (00:10→17:17)
[2019-11-15] MEDS: Benzonatate 100 MG CAP PO PRN ×2 (02:14→20:36)
[2019-11-15 06:00] LABS: Hemoglobin 10.6 g/dL (14.0-18.0); Mean Corpuscular HGB CONC 29.2 g/dL (32.0-36.0); Mean Corpuscular Hemoglobin 27.8 pg (27.0-31.0); Mean Corpuscular Volume 95.3 fL (78.0-98.0); Mean Platelet Volume 9.6 fL (7.4-10.4); Platelet Count 270 thou/uL (130-400); RBC Distribution Width 18.5 % (11.5-14.5); White Blood Cell (WBC) Count 11.4 thou/uL (4.8-10.8)
[2019-11-15 06:15] LABS: Albumin 3.8 g/dL (3.4-4.8); Anion Gap 12 mmol/L (10-20); BUN (Urea Nitrogen) 19 mg/dL (8.4-25.7); Calc. Creatinine Clearance 92 mL/min (70-130); Calcium 9.4 mg/dL (7.8-10.44); Carbon Dioxide 30 mmol/L (23-31); Chloride 101 mmol/L (98-107); Estimated GFR-MDRD Greater than 90; Glucose 177 mg/dL (83-110); Magnesium 2.3 mg/dL (1.6-2.6); Phosphorus 2.8 mg/dL (2.3-4.7); Potassium 5.2 mmol/L (3.5-5.1); Sodium 138 mmol/L (136-145)
[2019-11-15 06:22] LABS: #Lymphocytes 0.6 thou/uL (1.20-3.40); #Monocytes 0.4 thou/uL (0.11-0.59); #Neutrophils 10.4 thou/uL (1.40-6.50); %Eosinophils 0.1 % (0.0-10.0); %Lymphocytes 5.3 % (21.0-51.0); %Monocytes 3.2 % (0.0-10.0); %Neutrophils 91.4 % (42.0-75.0); Anisocytosis SLIGHT = 6-15 cells (100X) (0-5/hpf); MDiff Complete? YES
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
[2019-11-15] MEDS: Mometasone 200 MCG/Formoterol 5 MCG 120 PUFF INHALER INH SCH ×2 (07:51→19:58)
[2019-11-15] MEDS: Famotidine 20 MG TAB PO SCH ×2 (09:03→20:36)
[2019-11-15] MEDS: metFORMIN 500 MG TAB PO SCH ×2 (09:04→16:02)
[2019-11-15] MEDS: guaiFENesin ER 600 MG TAB PO SCH ×2 (09:04→20:37)
[2019-11-15] MEDS: Saccharomyces boulardii 250 MG CAP PO SCH (09:04)
[2019-11-15] MEDS: Enoxaparin Sodium 40 MG/0.4 ML SYRINGE SC SCH (09:06)
[2019-11-15] MEDS: Senokot S 8.6-50 MG TAB PO SCH ×2 (09:06→20:36)
[2019-11-15] MEDS: Amlodipine 5 MG TAB PO SCH (09:06)
[2019-11-15] MEDS: Furosemide 40 MG TAB PO SCH ×2 (09:08→13:00)
[2019-11-15] MEDS: Tamsulosin HCl 0.4 MG CAP PO SCH (09:09)
[2019-11-15] MEDS: Gabapentin 100 MG CAP PO SCH ×3 (09:09→20:37)
[2019-11-15] MEDS: HYDROcodone/Acetaminophen 10/325 mg Tablet PO PRN (09:38)
--- NOTE | 2019-11-15 11:34 | PRG ---
DATE OF SERVICE: 11/15/2019 SUBJECTIVE: The patient is doing better. He had no acute complaints. He is currently in isolation because there was a bedbug found when he was in the emergency room. OBJECTIVE: VITAL SIGNS: His temperature is 98.7, pulse 70, respirations 16, O2 sat is 98% on 3 L, and blood pressure 147/62. HEENT: Unremarkable. NECK: No JVD. LUNGS: Wheezing. CARDIAC: S1 and S2. Regular. ABDOMEN: Soft. EXTREMITIES: No edema. ASSESSMENT: Chronic obstructive pulmonary disease with exacerbation. PLAN: Continue antibiotics, steroids, nebulization treatments. I think he could probably go home tomorrow, , if he is feeling okay as he does not look bad at this time. Job ID: [id number]
[2019-11-15] MEDS: HumaLOG 300 UNITS/3 ML VIAL SC PRN (13:12)
[2019-11-15] MEDS: Polyethylene Glycol 3350 17 GM Packet PO SCH (20:37)
[2019-11-15] MEDS ORDERED: Atorvastatin Calcium 20 MG TAB PO SCH (21:00)
--- NOTE | 2019-11-15 23:12 | PDOC.HOSPP ---
- Subjective Encounter Date: 11/15/19 Encounter Time: 10:30 Subjective: Patient seen and examined for COPD exacerbation. Shortness of breath improving. Some cough with minimal production reported. Had several bowel movements after Magnesium citrate. - Objective Vital Signs & Weight: Vital Signs (12 hours) Temp Pulse Resp BP Pulse Ox 11/15/19 21:56 66 16 97 11/15/19 20:00 98.7 F 76 18 156/66 H 98 11/15/19 19:58 74 16 98 11/15/19 16:00 98.1 F 70 20 128/62 97 11/15/19 14:05 76 16 100 Weight Weight 224 lb 3 oz I&O: 11/14/19 11/15/19 11/16/19 06:59 06:59 06:59 Intake Total 780 1850 1999 Output Total 500 Balance 280 1850 1999 Result Diagrams: 11/15/19 05:33 11/15/19 05:32 Additional Labs: Accuchecks 11/15/19 11/15/19 11/15/19 20:49 11:44 05:34 POC Glucose 241 H 222 H 178 H Hospitalist ROS - Review of Systems Cardiovascular: denies: chest pain, palpitations, orthopnea, paroxysmal noc. dyspnea, edema, light headedness, other Gastrointestinal: denies: nausea, vomiting, abdominal pain, diarrhea, constipation, melena, hematochezia, other - Medication Medications: Active Medications Generic Name Dose Route Start Last Admin Trade Name Freq PRN Reason Stop Dose Admin Hydrocodone Bitart/Acetaminophen 1 tab 11/13/19 15:57 11/15/19 09:38 [place] 10/325 PO 1 tab Q4H PRN Administration Moderate Pain (4-6) Albuterol/Ipratropium 3 ml 11/13/19 18:30 11/15/19 21:56 Duoneb NEB 3 ml [id number] FAITH Administration Amlodipine Besylate 5 mg 11/14/19 09:00 11/15/19 09:06 Norvasc PO 5 mg DAILY FAITH Administration Atorvastatin Calcium 40 mg 11/15/19 21:00 11/15/19 20:36 Lipitor PO 40 mg HS FAITH Administration Benzonatate 100 mg 11/14/19 03:30 11/15/19 20:36 Tessalon PO 100 mg TIDPRN PRN Administration Cough Enoxaparin Sodium 40 mg 11/14/19 09:00 11/15/19 09:06 Lovenox SC 40 mg 0900 FAITH Administration Famotidine 20 mg 11/13/19 21:00 11/15/19 20:36 Pepcid PO 20 mg BID FAITH Administration Furosemide 40 mg 11/15/19 09:00 11/15/19 13:00 Lasix PO 40 mg 0900,1400 FAITH Administration Gabapentin 100 mg 11/15/19 09:00 11/15/19 20:37 Neurontin PO 100 mg TID FAITH Administration Guaifenesin 600 mg 11/13/19 21:00 11/15/19 20:37 Mucinex PO 600 mg Q12HR FAITH Administration Hydralazine HCl 10 mg 11/13/19 16:52 11/14/19 11:38 Apresoline SLOW IVP 10 mg Q4H PRN Administration SBP GREATER THAN 160 Insulin Human Lispro 0 units 11/13/19 16:08 11/15/19 13:12 Humalog SC 3 unit .MILD SLIDING SCALE PRN Administration Mild Correctional Scale Insulin Human Lispro 0 units 11/14/19 08:37 11/15/19 20:44 Humalog SC 2 units .BEDTIME SLIDING SC PRN Administration Bedtime Correctional Scale Levofloxacin 500 mg 11/15/19 18:00 11/15/19 17:17 Levaquin PO 500 mg 1800 FAITH Administration Metformin HCl 1,000 mg 11/14/19 08:00 11/15/19 16:02 Glucophage PO 1,000 mg BID-WM FAITH Administration Methylprednisolone Sodium Succinate 40 mg 11/13/19 18:00 11/15/19 17:17 Solu-Medrol IVP 40 mg Q6HR FAITH Administration Metoprolol Succinate 25 mg 11/15/19 09:00 11/15/19 09:10 Toprol Xl PO 25 mg DAILY FAITH Administration Mometasone Furoate/Formoterol Fumar 2 puff 11/13/19 18:30 11/15/19 19:58 Dulera 200 Mcg/5 Mcg Inhaler INH 2 puff BID-RT FAITH Administration Polyethylene Glycol 17 gm 11/13/19 21:00 11/15/19 20:37 Miralax PO Not Given 2100 [facility] Saccharomyces Boulardii 250 mg 11/14/19 09:00 09/15/20 09:04 Florastor PO 250 mg DAILY FAITH Administration Senna/Docusate Sodium 2 tab 11/13/19 21:00 11/15/19 20:36 Senokot S PO 2 tab BID FAITH Administration Tamsulosin HCl 0.4 mg 11/15/19 09:00 11/15/19 09:09 Flomax PO 0.4 mg DAILY FAITH Administration - Exam General Appearance: NAD Neck: supple, no JVD Heart: RRR, no gallops Respiratory: rhonchi, wheezes Gastrointestinal: soft, non-tender Extremities: no cyanosis Psychiatric: normal affect, A&O x 3 Hosp A/P (1) Acute on chronic respiratory failure with hypoxia Code(s): J96.21 - ACUTE AND CHRONIC RESPIRATORY FAILURE WITH HYPOXIA Status: Acute (2) COPD exacerbation Code(s): J44.1 - CHRONIC OBSTRUCTIVE PULMONARY DISEASE W (ACUTE) EXACERBATION Status: Acute (3) Constipation Code(s): K59.00 - CONSTIPATION, UNSPECIFIED Status: Acute (4) DM2 (diabetes mellitus, type 2) Status: Chronic (5) Hyponatremia Code(s): E87.1 - HYPO-OSMOLALITY AND HYPONATREMIA Status: Acute (6) Hyperkalemia Code(s): E87.5 - HYPERKALEMIA Status: Acute (7) HTN (hypertension) Code(s): I10 - ESSENTIAL (PRIMARY) HYPERTENSION Status: Chronic Qualifiers: (8) Obesity (BMI 30-39.9) Code(s): E66.9 - OBESITY, UNSPECIFIED Status: Chronic (9) HLD (hyperlipidemia) Code(s): E78.5 - HYPERLIPIDEMIA, UNSPECIFIED Status: Chronic Qualifiers: - Plan 11/14 Continue steroids with nebulizer treatment. Levaquin changed to oral. Constipation resolved. Resume home dose of Lasix, Flomax with low-dose of beta- blockers. Continue other medications. Recheck labs in a.m. Continue Supportive care. Discharge in 1-2 days if stable. 11/13 Continue Levaquin with nebulizer treatment and IV steroids. Wheezing is improving. Pulmonary input appreciated. Patient is still constipated despite MiraLAX and Senokot-S. Will start him on mag citrate. Continue insulin siding scale with metformin. Continue DVT prophylaxis. Continue Dulera. Low potassium diet. Recheck labs in a.m.
[2019-11-16] MEDS: methylPREDNISolone Sod Succ 40 MG VIAL IVP SCH ×3 (00:36→13:00)
[2019-11-16] MEDS: Mometasone 200 MCG/Formoterol 5 MCG 120 PUFF INHALER INH SCH ×2 (06:20→11:02)
[2019-11-16 08:42] LABS: Albumin 3.7 g/dL (3.4-4.8); Anion Gap 14 mmol/L (10-20); BUN (Urea Nitrogen) 21 mg/dL (8.4-25.7); BUN/Creatinine Ratio 20.79; Calc. Creatinine Clearance 87 mL/min (70-130); Carbon Dioxide 28 mmol/L (23-31); Chloride 100 mmol/L (98-107); Estimated GFR-MDRD 87; Glucose 219 mg/dL (83-110); Magnesium 2.2 mg/dL (1.6-2.6); Phosphorus 3.2 mg/dL (2.3-4.7); Potassium 4.6 mmol/L (3.5-5.1); Sodium 137 mmol/L (136-145)
[2019-11-16] MEDS: guaiFENesin ER 600 MG TAB PO SCH (09:00)
[2019-11-16] MEDS: Enoxaparin Sodium 40 MG/0.4 ML SYRINGE SC SCH (09:00)
[2019-11-16] MEDS: Furosemide 40 MG TAB PO SCH ×2 (09:00→15:13)
[2019-11-16] MEDS: Saccharomyces boulardii 250 MG CAP PO SCH (09:00)
[2019-11-16] MEDS: Senokot S 8.6-50 MG TAB PO SCH (09:00)
[2019-11-16] MEDS: Tamsulosin HCl 0.4 MG CAP PO SCH (09:00)
[2019-11-16] MEDS: Amlodipine 5 MG TAB PO SCH (09:00)
[2019-11-16] MEDS: Famotidine 20 MG TAB PO SCH (09:00)
[2019-11-16] MEDS: Gabapentin 100 MG CAP PO SCH (09:00)
[2019-11-16] MEDS: metFORMIN 500 MG TAB PO SCH (09:00)
[2019-11-16 09:18] LABS: Hemoglobin 10.6 g/dL (14.0-18.0); Red Blood Cell (RBC) Count 3.76 mill/uL (4.70-6.10); White Blood Cell (WBC) Count 9.6 thou/uL (4.8-10.8)
[2019-11-16 09:19] LABS: Manual Diff?? YES; Mean Corpuscular HGB CONC 29.2 g/dL (32.0-36.0); Mean Corpuscular Hemoglobin 28.1 pg (27.0-31.0); Mean Corpuscular Volume 96.5 fL (78.0-98.0); Mean Platelet Volume 9.7 fL (7.4-10.4); Platelet Count 268 thou/uL (130-400); RBC Distribution Width 18.6 % (11.5-14.5)
[2019-11-16 09:20] LABS: Band 2 % (5-11); Hypochromia SLIGHT = 6-15 cells (100X) (0-5/hpf); Lymphocytes 5 % (21-51); MDiff Complete? YES; Neutrophil 93 % (42-75); Platelet Morphology Comment Appears Adequate; Polychromasia SLIGHT = 2-3 cells (100X) (0-2/hpf)
[2019-11-16 09:41] VITALS: BP 161/73; TEMP 98.6
[2019-11-16 09:49] LABS: #Lymphocytes 0.5 thou/uL (1.20-3.40); #Monocytes 0.2 thou/uL (0.11-0.59); #Neutrophils 8.9 thou/uL (1.40-6.50); %Eosinophils 0.1 % (0.0-10.0); %Lymphocytes 5.3 % (21.0-51.0); %Monocytes 2.4 % (0.0-10.0); %Neutrophils 92.1 % (42.0-75.0)
--- NOTE | 2019-11-16 09:51 | PRG ---
DATE OF SERVICE: 11/16/2019 SUBJECTIVE: He is doing well. Says he is back to his baseline. OBJECTIVE: VITAL SIGNS: Temperature 98.7, pulse rate 67, respirations are 16, and O2 saturation 96% on 3 L. HEENT: Unremarkable. NECK: No JVD. CHEST: Clear. CARDIAC: S1 and S2. Regular. ABDOMEN: Soft. EXTREMITIES: No edema. LABORATORY DATA: White blood cell count 9.6, hematocrit 36.3, and platelet count 268. Sodium 137, BUN 21, creatinine 1.0, and glucose 219. ASSESSMENT: Chronic obstructive pulmonary disease with exacerbation. PLAN: From my standpoint, he can go home. He needs to follow up in the office in 3 to 4 weeks. I will send him home with a short course of antibiotics and a tapered steroid dose over two weeks. Otherwise, continuing his other medications. Job ID: [id number]
[2019-11-16 10:56] LABS: Eosinophils 2 % (0-10); Monocytes 1 % (0-10); Ovalocytes SLIGHT = 2-5 cells (100X) (0-1/hpf)
--- NOTE | 2019-11-16 15:21 | DIS ---
DATE OF ADMISSION: 11/13/2019 DATE OF DISCHARGE: 11/16/2019 DISCHARGE DISPOSITION: Home. FOLLOWUP: 1. Follow up with primary care physician at [facility] in 1 week. 2. Follow up with Pulmonary, Dr. Palma, in 2 weeks. DISCHARGE MEDICATIONS: 1. Levaquin 500 mg daily for next 5 days. 2. Prednisone taper. All other home medications were left unchanged. HISTORY: The patient was evaluated on the day of discharge. Denies any new complaints. Shortness of breath has significantly improved. BRIEF HOSPITAL COURSE: The patient is a 78-year-old male with COPD, with chronic hypoxic respiratory failure, on home oxygen, presented to the hospital with shortness of breath on November 13, 2019. His workup was consistent with COPD exacerbation. His COVID testing came back negative. He showed good improvement with Levaquin, nebulizer treatment along with IV steroids. The patient was evaluated by Pulmonary, Dr. Palma, this admission. The patient has been cleared by Dr. Palma for discharge. He appears stable. FINAL DIAGNOSES: 1. Acute on chronic hypoxic respiratory failure. 2. Chronic obstructive pulmonary disease exacerbation. 3. Constipation, resolved. The patient received magnesium citrate after failure of Senokot S and MiraLAX. 4. Diabetes mellitus, type 2. 5. Hyponatremia. 6. Hyperkalemia. 7. Hypertension. 8. Obesity with a BMI of 36.2. 9. Hyperlipidemia. 10. Bed bugs. 11. Chronic anemia, suspected nutritional deficiency. 12. Chronic pain syndrome. The patient understands the above plan of care. Job ID: [id number]
--- NOTE | 2019-11-17 13:53 | PQF ---
CLINICAL DOCUMENTATION CLARIFICATION FORM: Dear : Zach Mcnamara Date / Time: 11/17/2019 Please exercise your independent, professional judgment in responding to the clarification form. Clinical indicators are provided on the bottom of this form for your review Diagnosis: Acute on chronic hypoxic respiratory failure Present on Admission (POA): [ x ] Yes [ ] No [ ] Unable to determine To be completed by CDI/Coding staff for physician review: Present Clinical Indicators - Signs / Symptoms / Labs Results and Location in Medical Record [ x ] Presents with COPD exacerbation. He was initially hypoxic when he arrived to the ED on room. He bumped up to 97% on 3L which he uses at home. ER gave dexamethasone and Proventil. He is back to his baseline oxygen requirements H&P [ x ] Patient with COPD, chronic hypoxic respiratory failure on 2L home oxygen. He was saturating 88% on room air. Patient is in mild respiratory distress. Will start O2 supplementation. Progress note 11/12 by Zach Mcnamara [ x ] Final diagnoses: Acute on chronic hypoxic respiratory failure, COPD exabceration Discharge summary Present Risk Factors Results and Location in Medical Record [ x ] History of COPD, home oxygen, chronic respiratory failure, heart failure H&P Present Treatments Results and Location in Medical Record [ x ] Oxygen supplementation through nasal cannula Respiratory/clinical panels [ x ] Albuterol (Duoneb) 11/12-11/15 Medications CDS/Answering Service Operator Signature: [email or web address] Phone #: Date/Time: 11/17/2019 This is a permanent part of the Medical Record [facility]
== END 2019-11-16 14:35 | disposition home or self-care (01) | DRG 189 ==
LOC: ERS 12:13 → T4-B 14:52
PROVIDERS: ADMIT Internal Medicine; ATTEND Internal Medicine
DX: J96.21 Acute and chronic respiratory failure with hypoxia (principal); J44.1 Chronic obstructive pulmonary disease with (acute) exacerbation; E87.1 Hypo-osmolality and hyponatremia; I50.32 Chronic diastolic (congestive) heart failure; Z20.828 Contact with and (suspected) exposure to other viral communicable diseases; K59.00 Constipation, unspecified; E11.9 Type 2 diabetes mellitus without complications; E66.9 Obesity, unspecified; E78.5 Hyperlipidemia, unspecified; G89.4 Chronic pain syndrome; I11.0 Hypertensive heart disease with heart failure; M54.9 Dorsalgia, unspecified; R53.81 Other malaise; F20.9 Schizophrenia, unspecified; D53.9 Nutritional anemia, unspecified; J98.6 Disorders of diaphragm; Z20.7 Contact with and (suspected) exposure to pediculosis, acariasis and other infestations; E87.5 Hyperkalemia; Z68.36 Body mass index [BMI] 36.0-36.9, adult; Z99.81 Dependence on supplemental oxygen; Z87.891 Personal history of nicotine dependence; Z79.84 Long term (current) use of oral hypoglycemic drugs; Z79.82 Long term (current) use of aspirin
CPT/HCPCS: 36415; 36416; 71045; 80053; 80069; 83735; 83880; 84484; 85025; 87635; 93005; 94640; 94664; J0360; J1100; J1650; J1956; J2920; J7620; U0003

== ENCOUNTER 2020-01-10 16:52 | Inpatient (IN) | payer MEDICARE, BC ==
--- NOTE | 2020-01-10 17:37 | RAD ---
XR Chest 1 View Portable History: Dyspnea Comparison: Radiograph November 13, 2019 Findings: Radiopaque object projects over the upper mediastinum, similar to the comparison examinatio n. Lower lobe opacities are similar. Scarring throughout the right middle lobe and right lower lobe. No pneumothorax. Heart size mildly enlarged. Impression: Similar examination of the chest with scattered scar as well as cystic bronchiectasis rig ht upper lobe.
[2020-01-10] MEDS ORDERED: methylPREDNISolone Sod Succ/PF 125 MG/2 ML VIAL ONE (17:52)
[2020-01-10 17:53] LABS: #Basophils 0.1 thou/uL (0.0-0.2); #Eosinphils 0.9 thou/uL (0.0-0.7); #Lymphocytes 2.9 thou/uL (1.20-3.40); #Monocytes 0.8 thou/uL (0.11-0.59); #Neutrophils 5.9 thou/uL (1.40-6.50); %Basophils 0.7 % (0.0-1.0); %Eosinophils 8.3 % (0.0-10.0); %Lymphocytes 27.5 % (21.0-51.0); %Monocytes 7.4 % (0.0-10.0); Hemoglobin 11.2 g/dL (14.0-18.0); Mean Corpuscular HGB CONC 31.4 g/dL (32.0-36.0); Mean Corpuscular Hemoglobin 30.1 pg (27.0-31.0); Mean Corpuscular Volume 95.9 fL (78.0-98.0); Mean Platelet Volume 8.8 fL (7.4-10.4); Platelet Count 261 thou/uL (130-400); RBC Distribution Width 17.8 % (11.5-14.5); Red Blood Cell (RBC) Count 3.72 mill/uL (4.70-6.10); White Blood Cell (WBC) Count 10.5 thou/uL (4.8-10.8)
[2020-01-10] MEDS ORDERED: Albuterol 200 PUFF (6.7GM INHALER) ONE (17:54)
[2020-01-10 18:00] LABS: ALT (SGPT) 7 U/L (8-55); AST (SGOT) 11 U/L (5-34); Albumin 3.9 g/dL (3.4-4.8); Alkaline Phosphatase 56 U/L (40-110); Anion Gap 12 mmol/L (10-20); BUN (Urea Nitrogen) 13 mg/dL (8.4-25.7); Bilirubin, Total 0.4 mg/dL (0.2-1.2); Calc. Creatinine Clearance 0 mL/min (70-130); Calcium 9.1 mg/dL (7.8-10.44); Carbon Dioxide 29 mmol/L (23-31); Chloride 105 mmol/L (98-107); Estimated GFR-MDRD 82; Globulin 2.8 g/dL (2.4-3.5); Glucose 92 mg/dL (83-110); Potassium 4.4 mmol/L (3.5-5.1); Protein, Total 6.7 g/dL (5.8-8.1); Sodium 142 mmol/L (136-145)
[2020-01-10] MEDS ORDERED: Magnesium 2 GM/50 ML BAG (IN WATER) ONE (19:04)
[2020-01-10] MEDS ORDERED: Aspirin Chewable 81 MG TAB ONE (19:04)
[2020-01-10 20:25] LABS: Bilirubin Negative (Negative); Blood, Urine Negative (Negative); Clarity Clear (Clear); Glucose, Urine (Dipstick) Normal (Negative); Ketone, Urine Negative (Negative); Leukocyte Negative Leu/uL (Negative); Nitrite Negative (Negative); Protein, Urine (Dipstick) Negative (Neg-Trace); Specific Gravity, Urine 1.016 (1.002-1.036); Urobilinogen Normal mg/dL (Less than 2)
[2020-01-11] MEDS ORDERED: Acetaminophen 325 MG TAB PO PRN (00:45)
--- NOTE | 2020-01-11 00:52 | PDOC.HHP ---
Hospitalist HPI - History of Present Illness Shortness of breath History of Present Illness: 79-year-old -Spanish gentleman with a history of COPD, chronic respiratory failure on home oxygen presented to the emergency department with progressive shortness of breath, wheezing and coughing that has not responded to her home nebulizer treatments. Patient reports a cough productive of yellow to greenish sputum. He denied any fever. He denied any orthopnea. He was requiring about 6 L of oxygen initially in the ED. chest x-ray demonstrated scarring and cystic bronchiectasis in the right middle and lower lobes which are unchanged from previous images. His oxygen was weaned down to 3 L after br onchodilator treatment in the ED. patient uses 3 L of oxygen by nasal cannula at baseline. He was desaturating on 3 L with exertion. Patient is therefore placed under observation for further treatment of COPD exacerbation. Hospitalist ROS - Review of Systems Other: He denied any abdominal pain, or dysuria or urinary frequency. Except as documented, all other systems reviewed and negative. - Medication Medications: Medication Instructions Recorded Confirmed Type Furosemide [Lasix] 60 mg PO BID 03/03/18 11/13/19 History Amlodipine [Norvasc] 10 mg PO DAILY 07/21/19 11/13/19 History Gabapentin [Neurontin] 100 mg PO TID 07/21/19 11/13/19 History Glimepiride 4 mg PO QAM 07/21/19 11/13/19 History HYDROcodone Bit/APAP 10/325 [[place]] 1 tab PO Q6HR PRN 07/21/19 11/13/19 History Metoprolol Succinate [Toprol XL] 50 mg PO DAILY 07/21/19 11/13/19 History Pantoprazole [Protonix] 40 mg PO DAILY 07/21/19 11/13/19 History Potassium Chloride 8 meq PO DAILY 07/21/19 11/13/19 History Simvastatin [Zocor] 80 mg PO HS 07/21/19 11/13/19 History Tamsulosin HCl [Flomax] 0.4 mg PO DAILY 07/21/19 11/13/19 History metFORMIN HCl [Metformin HCl] 1,000 mg PO BID 07/21/19 11/13/19 History Benzonatate [Tessalon] 100 mg PO TID PRN #30 cap 07/25/19 11/13/19 Rx Mometasone/Formoterol 200/5 2 puff INH BID-RT #1 inh 07/25/19 11/13/19 Rx [Dulera 200 Mcg/5 Mcg Inhaler] Albuterol Sulfate [Proventil Hfa] 2 puff INH Q6H PRN #1 aer 11/16/19 Rx Levofloxacin [Levaquin] 500 mg PO DAILY #5 tab 11/16/19 Rx guaiFENesin ER [Mucinex] 600 mg PO Q12HR #20 tab 11/16/19 Rx predniSONE 20 mg PO ASDIR #12 tab 11/16/19 Rx Hospitalist History - Past Medical History Other Medical History: COPD, chronic respiratory failure on home oxygen, diabetes mellitus type 2, hypertension, hypercholesterolemia. - Family History Other Family History: Father had epilepsy and heart disease. - Social History Smoking Status: Former smoker Alcohol: reports: Occassional Drugs: reports: none - Exam General Appearance: NAD, awake alert Eye: PERRL, anicteric sclera ENT: normocephalic atraumatic, moist mucosa Neck: supple, no JVD Heart: RRR, no murmur, no gallops Respiratory: normal chest expansion, rales (Mild bibasilar Rales and rhonchi.) Gastrointestinal: soft, non-tender, non-distended, normal bowel sounds Extremities: no cyanosis, no edema Skin: normal turgor, no rashes Neurological: cranial nerve grossly intact, no weakness, no focal deficits Musculoskeletal: normal tone, normal strength Psychiatric: normal affect, normal behavior, A&O x 3 Hospitalist Results - Labs Result Diagrams: 01/10/20 17:26 01/10/20 17:26 Lab results: WBC 10.5 thou/uL (4.8-10.8) 01/10/20 17:26 Hgb 11.2 g/dL (14.0-18.0) L 01/10/20 17:26 Hct 35.6 % (42.0-52.0) L 01/10/20 17:26 MCV 95.9 fL (78.0-98.0) 01/10/20 17:26 Plt Count 261 thou/uL (130-400) 01/10/20 17:26 Neutrophils % 56.0 % (42.0-75.0) 01/10/20 17:26 Sodium 142 mmol/L (136-145) 01/10/20 17:26 Potassium 4.4 mmol/L (3.5-5.1) 01/10/20 17:26 Chloride 105 mmol/L (98-107) 01/10/20 17:26 Carbon Dioxide 29 mmol/L (23-31) 01/10/20 17:26 BUN 13 mg/dL (8.4-25.7) 01/10/20 17:26 Creatinine 1.06 mg/dL (0.7-1.3) 01/10/20 17:26 Glucose 92 mg/dL (83-110) 01/10/20 17:26 Lactic Acid 0.7 mmol/L (0.5-2.2) 01/10/20 19:33 Calcium 9.1 mg/dL (7.8-10.44) 01/10/20 17:26 Total Bilirubin 0.4 mg/dL (0.2-1.2) 01/10/20 17:26 AST 11 U/L (5-34) 01/10/20 17:26 ALT 7 U/L (8-55) L 01/10/20 17:26 Alkaline Phosphatase 56 U/L (40-110) 01/10/20 17:26 Troponin I Less than 0.010 ng/mL (< 0.028) 01/10/20 17:26 B-Natriuretic Peptide 62.9 pg/mL (0-100) 01/10/20 17:26 Serum Total Protein 6.7 g/dL (5.8-8.1) 01/10/20 17:26 Albumin 3.9 g/dL (3.4-4.8) 01/10/20 17:26 Urine Ketones Negative mg/dL (Negative) 01/10/20 20:14 Urine Blood Negative (Negative) 01/10/20 20:14 Urine Nitrite Negative (Negative) 01/10/20 20:14 Ur Leukocyte Esterase Negative Corie/uL (Negative) 01/10/20 20:14 Hospitalist H&P A/P - Problem (1) Acute on chronic respiratory failure with hypoxia Code(s): J96.21 - ACUTE AND CHRONIC RESPIRATORY FAILURE WITH HYPOXIA Status: Acute (2) COPD exacerbation Code(s): J44.1 - CHRONIC OBSTRUCTIVE PULMONARY DISEASE W (ACUTE) EXACERBATION Status: Acute (3) DM2 (diabetes mellitus, type 2) Status: Chronic - Plan Plan: Placed under observation. Treat COPD exacerbation with IV Solu-Medrol, scheduled DuoNeb, oral Levaquin. Titrate oxygen. Chest physiotherapy. Insulin sliding scale for glucose management. Hold Metformin and glimepiride as inpatient. Continue home antihypertensives.
[2020-01-11] MEDS ORDERED: Dextrose 50% Abboject 50 ML SYRINGE SLOW IVP PRN (01:00)
[2020-01-11] MEDS ORDERED: Dextrose 5% in Water 1,000 ML IV PRN (01:00)
--- NOTE | 2020-01-11 01:02 | PDOC.FMACP ---
Advance Care Planning - Problem (1) Acute on chronic respiratory failure with hypoxia Status: Acute Code(s): J96.21 - ACUTE AND CHRONIC RESPIRATORY FAILURE WITH HYPOXIA (2) COPD exacerbation Status: Acute Code(s): J44.1 - CHRONIC OBSTRUCTIVE PULMONARY DISEASE W (ACUTE) EXACERBATION (3) DM2 (diabetes mellitus, type 2) Status: Chronic - Note Summary: Advanced Care Planning was discussed. The diagnosis, prognosis and goals of care were discussed. Appropriate forms and documentation to accomplish the goals of care were discussed. All questions were answered. Patient wishes to be full code. He has no documented living will. His daughter Shalini his medical decision-maker. Time Spent (mins): 18
[2020-01-11 04:48] LABS: #Lymphocytes 0.8 thou/uL (1.20-3.40); #Monocytes 0.1 thou/uL (0.11-0.59); #Neutrophils 9.7 thou/uL (1.40-6.50); %Basophils 0.2 % (0.0-1.0); %Eosinophils 0.2 % (0.0-10.0); %Lymphocytes 7.1 % (21.0-51.0); %Monocytes 0.7 % (0.0-10.0); %Neutrophils 91.8 % (42.0-75.0); Hemoglobin 11.8 g/dL (14.0-18.0); Mean Corpuscular HGB CONC 30.1 g/dL (32.0-36.0); Mean Corpuscular Hemoglobin 29.4 pg (27.0-31.0); Mean Corpuscular Volume 97.8 fL (78.0-98.0); Mean Platelet Volume 9.7 fL (7.4-10.4); Platelet Count 241 thou/uL (130-400); RBC Distribution Width 17.9 % (11.5-14.5); White Blood Cell (WBC) Count 10.6 thou/uL (4.8-10.8)
[2020-01-11 05:07] LABS: Anion Gap 14 mmol/L (10-20); BUN (Urea Nitrogen) 16 mg/dL (8.4-25.7); Calc. Creatinine Clearance 0 mL/min (70-130); Calcium 9.2 mg/dL (7.8-10.44); Carbon Dioxide 26 mmol/L (23-31); Chloride 104 mmol/L (98-107); Estimated GFR-MDRD 90; Glucose 210 mg/dL (83-110); Potassium 4.8 mmol/L (3.5-5.1); Sodium 139 mmol/L (136-145)
[2020-01-11] MEDS ORDERED: methylPREDNISolone Sod Succ 40 MG VIAL ONE (06:36)
[2020-01-11] MEDS: methylPREDNISolone Sod Succ 40 MG VIAL IVP SCH ×3 (06:38→18:12)
[2020-01-11] MEDS ORDERED: Enoxaparin Sodium 40 MG/0.4 ML SYRINGE ONE (09:05)
[2020-01-11] MEDS ORDERED: Famotidine 20 MG TAB ONE (09:05)
[2020-01-11] MEDS: Enoxaparin Sodium 40 MG/0.4 ML SYRINGE SC SCH (09:13)
[2020-01-11] MEDS: Famotidine 20 MG TAB PO SCH ×2 (09:13→21:38)
[2020-01-11] MEDS ORDERED: Bisacodyl 5 MG TAB PO PRN (10:11)
[2020-01-11] MEDS ORDERED: Bisacodyl 5 MG TAB PO SCH (10:15)
[2020-01-11] MEDS ORDERED: HYDROcodone/Acetaminophen 10/325 mg Tablet ONE (10:50)
[2020-01-11 11:01] LABS: SARS-CoV-2 MS2 Positive; SARS-CoV-2 N Gene Negative; SARS-CoV-2 S Gene Negative; SARS-CoV-2 by NAA Not Detected (NotDetected); SARS-CoV-2 orf1ab Negative
[2020-01-11] MEDS: HYDROcodone/Acetaminophen 10/325 mg Tablet PO PRN ×2 (11:11→21:37)
[2020-01-11] MEDS: guaiFENesin ER 600 MG TAB PO SCH ×2 (11:11→21:38)
[2020-01-11 14:27] VITALS: BMI 36.0
--- NOTE | 2020-01-11 17:17 | PDOC.EVN ---
Event Note - Event Note Event Note: Chart reviewed, patient seen.Denies chest pain. Shortness of breath has improved. COVID-19 test is negative. Continue steroids, bronchodilators, oxygen and nebulizers for COPD exacerbation.
[2020-01-12] MEDS: methylPREDNISolone Sod Succ 40 MG VIAL IVP SCH ×4 (00:46→18:17)
[2020-01-12] MEDS ORDERED: Benzonatate 100 MG CAP PO PRN (08:20)
--- NOTE | 2020-01-12 08:29 | PDOC.HOSPP ---
- Subjective Encounter Date: 01/12/20 Encounter Time: 08:23 Subjective: coughing, dyspneic. no fever - Objective Vital Signs & Weight: Vital Signs (12 hours) Temp Pulse Resp BP Pulse Ox 01/12/20 08:00 98.1 F 65 22 H 142/60 H 99 01/12/20 07:35 62 16 96 01/12/20 04:00 98.1 F 63 18 155/76 H 98 01/12/20 00:00 98.5 F 65 18 145/65 H 97 Weight Weight 230 lb I&O: 01/11/20 01/12/20 01/13/20 06:59 06:59 06:59 Intake Total 600 Output Total 1180 Balance -580 Result Diagrams: 01/11/20 04:24 01/11/20 04:24 Additional Labs: Accuchecks 01/12/20 01/11/20 01/11/20 05:02 19:54 16:02 POC Glucose 172 H 260 H 161 H Hospitalist ROS - Medication Medications: Active Medications Generic Name Dose Route Start Last Admin Trade Name Freq PRN Reason Stop Dose Admin Hydrocodone Bitart/Acetaminophen 1 tab 01/11/20 10:10 01/11/20 21:37 Hydrocodone/Acetaminophen 10/325 Mg Tablet PO 1 tab Q4H PRN Administration Moderate Pain (4-6) Albuterol/Ipratropium 3 ml 01/11/20 01:00 01/12/20 07:35 Ipratropium/Albuterol Sulfate 3 Ml Neb NEB 3 ml [id number] FAITH Administration Enoxaparin Sodium 40 mg 01/11/20 09:00 01/11/20 09:13 Enoxaparin Sodium 40 Mg/0.4 Ml Syringe SC 40 mg 0900 FAITH Administration Famotidine 20 mg 01/11/20 09:00 01/11/20 21:38 Famotidine 20 Mg Tab PO 20 mg BID FAITH Administration Guaifenesin 600 mg 01/11/20 09:00 01/11/20 21:38 Guaifenesin Er 600 Mg Tab PO 600 mg Q12HR FAITH Administration Levofloxacin 750 mg 01/11/20 21:00 01/11/20 21:38 Levofloxacin 750 Mg Tab PO 750 mg 2100 FAITH Administration Methylprednisolone Sodium Succinate 40 mg 01/11/20 06:00 01/12/20 05:42 Methylprednisolone Sod Succ 40 Mg Vial IVP 40 mg Q6HR FAITH Administration - Exam General Appearance: awake alert Neck: no JVD Heart: RRR, no murmur Respiratory - other findings: coarse BS, with expiratory wheezes, rhonchi Gastrointestinal: soft, non-distended, normal bowel sounds Extremities: no cyanosis, 1+ LE edema Hosp A/P (1) Acute on chronic respiratory failure with hypoxia Code(s): J96.21 - ACUTE AND CHRONIC RESPIRATORY FAILURE WITH HYPOXIA Status: Acute (2) COPD exacerbation Code(s): J44.1 - CHRONIC OBSTRUCTIVE PULMONARY DISEASE W (ACUTE) EXACERBATION Status: Acute (3) DM2 (diabetes mellitus, type 2) Status: Chronic Qualifiers: Diabetes mellitus terminal clerk insulin use: without long-term use Diabetes mellitus complication status: without complication Qualified Code(s): E11.9 - Type 2 diabetes mellitus without complications (4) HLD (hyperlipidemia) Code(s): E78.5 - HYPERLIPIDEMIA, UNSPECIFIED Status: Chronic Qualifiers: Hyperlipidemia type: unspecified (5) HTN (hypertension) Code(s): I10 - ESSENTIAL (PRIMARY) HYPERTENSION Status: Chronic Qualifiers: Hypertension type: essential hypertension - Plan cont iv steroids cont nebbs add LABA cont O2 support accu/ss/OHA selected home meds change to inpatient, will need 2 or more overnites of agressive tx
[2020-01-12] MEDS ORDERED: Non-Formulary Item 1 EACH (Metformin Hcl [Metformin Hcl] 1,000 MG Tablet) PO SCH (09:00)
[2020-01-12] MEDS ORDERED: POTASSIUM CHLORIDE 8 MEQ PO SCH (09:00)
[2020-01-12] MEDS: HYDROcodone/Acetaminophen 10/325 mg Tablet PO PRN ×2 (09:04→20:20)
[2020-01-12] MEDS: Tamsulosin HCl 0.4 MG CAP PO SCH (09:05)
[2020-01-12] MEDS: Amlodipine 10 MG TAB PO SCH (09:05)
[2020-01-12] MEDS: metFORMIN 500 MG TAB PO SCH ×2 (09:05→20:16)
[2020-01-12] MEDS: Furosemide 40 MG TAB PO SCH ×2 (09:06→20:15)
[2020-01-12] MEDS: Gabapentin 100 MG CAP PO SCH ×3 (09:06→20:17)
[2020-01-12] MEDS: Famotidine 20 MG TAB PO SCH ×2 (09:07→20:15)
[2020-01-12] MEDS: Enoxaparin Sodium 40 MG/0.4 ML SYRINGE SC SCH (09:09)
[2020-01-12] MEDS: guaiFENesin ER 600 MG TAB PO SCH ×3 (09:10→20:17)
[2020-01-12] MEDS: Glimepiride 4 MG TAB PO SCH (10:25)
[2020-01-12] MEDS: Potassium Chloride 8 MEQ TAB PO SCH (10:25)
[2020-01-12] MEDS: Polyethylene Glycol 3350 17 GM Packet PO PRN (10:29)
[2020-01-12] MEDS: HumaLOG 300 UNITS/3 ML VIAL SC PRN (12:06)
[2020-01-12] MEDS ORDERED: FLU VACC QS2020-21(65YR UP)/PF 240 MCG/0.7 ML SYRINGE IM ONE (14:45)
[2020-01-12] MEDS: Mometasone 200 MCG/Formoterol 5 MCG 120 PUFF INHALER INH SCH (19:11)
[2020-01-12] MEDS: Atorvastatin Calcium 40 MG TAB PO SCH (20:15)
[2020-01-12] MEDS ORDERED: SIMVASTATIN 80 MG PO SCH (21:00)
[2020-01-13] MEDS: methylPREDNISolone Sod Succ 40 MG VIAL IVP SCH ×5 (00:55→23:13)
[2020-01-13] MEDS: HumaLOG 300 UNITS/3 ML VIAL SC PRN ×2 (06:49→13:36)
[2020-01-13] MEDS: Mometasone 200 MCG/Formoterol 5 MCG 120 PUFF INHALER INH SCH ×2 (07:45→18:25)
[2020-01-13] MEDS: Gabapentin 100 MG CAP PO SCH ×3 (09:31→21:33)
[2020-01-13] MEDS: Furosemide 40 MG TAB PO SCH ×2 (09:32→21:31)
[2020-01-13] MEDS: guaiFENesin ER 600 MG TAB PO SCH ×2 (09:33→21:34)
[2020-01-13] MEDS: Famotidine 20 MG TAB PO SCH ×2 (09:34→21:31)
[2020-01-13] MEDS: metFORMIN 500 MG TAB PO SCH ×2 (09:34→21:34)
[2020-01-13] MEDS: Tamsulosin HCl 0.4 MG CAP PO SCH (09:34)
[2020-01-13] MEDS: Enoxaparin Sodium 40 MG/0.4 ML SYRINGE SC SCH (09:35)
[2020-01-13] MEDS: Amlodipine 10 MG TAB PO SCH (09:38)
[2020-01-13] MEDS: Potassium Chloride 8 MEQ TAB PO SCH (09:39)
[2020-01-13] MEDS: Glimepiride 4 MG TAB PO SCH (09:39)
--- NOTE | 2020-01-13 11:31 | PDOC.HOSPP ---
- Subjective Encounter Date: 01/13/20 Encounter Time: 11:31 Subjective: still sob, still has cough - Objective Vital Signs & Weight: Vital Signs (12 hours) Temp Pulse Resp BP BP Pulse Ox 01/13/20 09:38 59 L 01/13/20 08:00 97.9 F 81 18 129/66 96 01/13/20 07:43 59 L 14 97 01/13/20 07:04 98.1 F 101 H 20 148/73 H 94 L 01/13/20 04:38 97.8 F 61 16 155/72 H 97 01/13/20 01:00 97.4 F L 62 20 126/63 01/13/20 00:34 58 L 14 99 01/12/20 23:45 98.2 F 63 16 127/58 L 98 Weight Weight 230 lb I&O: 01/12/20 01/13/20 01/14/20 06:59 06:59 06:59 Intake Total 600 990 Output Total 1180 3350 Balance -580 -2360 Result Diagrams: 01/11/20 04:24 01/11/20 04:24 Additional Labs: Accuchecks 01/13/20 01/13/20 01/12/20 09:19 04:20 19:29 POC Glucose 310 H 161 H 175 H 01/12/20 01/12/20 16:11 11:23 POC Glucose 68 L 272 H Hospitalist ROS - Medication Medications: Active Medications Generic Name Dose Route Start Last Admin Trade Name Freq PRN Reason Stop Dose Admin Hydrocodone Bitart/Acetaminophen 1 tab 01/11/20 10:10 01/12/20 20:20 Hydrocodone/Acetaminophen 10/325 Mg Tablet PO 1 tab Q4H PRN Administration Moderate Pain (4-6) Albuterol/Ipratropium 3 ml 01/11/20 01:00 01/13/20 07:43 Ipratropium/Albuterol Sulfate 3 Ml Neb NEB 3 ml [id number] FAITH Administration Amlodipine Besylate 10 mg 01/12/20 09:00 01/13/20 09:38 Amlodipine 10 Mg Tab PO 10 mg DAILY FAITH Administration Atorvastatin Calcium 40 mg 01/12/20 21:00 01/12/20 20:15 Atorvastatin Calcium 40 Mg Tab PO 40 mg HS FAITH Administration Bisacodyl 10 mg 01/11/20 10:11 01/12/20 09:09 Bisacodyl 5 Mg Tab PO 10 mg DAILYPRN PRN Administration Constipation Enoxaparin Sodium 40 mg 01/11/20 09:00 01/13/20 09:35 Enoxaparin Sodium 40 Mg/0.4 Ml Syringe SC 40 mg 0900 FAITH Administration Famotidine 20 mg 01/11/20 09:00 01/13/20 09:34 Famotidine 20 Mg Tab PO 20 mg BID FAITH Administration Furosemide 60 mg 01/12/20 09:00 01/13/20 09:32 Furosemide 40 Mg Tab PO 60 mg BID FAITH Administration Gabapentin 100 mg 01/12/20 09:00 01/13/20 09:31 Gabapentin 100 Mg Cap PO 100 mg TID FAITH Administration Glimepiride 4 mg 01/12/20 09:00 01/13/20 09:39 Glimepiride 4 Mg Tab PO 4 mg QAM FAITH Administration Guaifenesin 600 mg 01/12/20 09:00 01/13/20 09:33 Guaifenesin Er 600 Mg Tab PO 600 mg Q12HR FAITH Administration Insulin Human Lispro 0 units 01/11/20 01:00 01/13/20 06:49 Humalog 300 Units/3 Ml Vial SC 2 unit .MODERATE SLIDING SC PRN Administration Moderate Correctional Scale Levofloxacin 750 mg 01/11/20 21:00 01/12/20 20:17 Levofloxacin 750 Mg Tab PO 750 mg 2100 FAITH Administration Metformin HCl 1,000 mg 01/12/20 09:00 01/13/20 09:34 Metformin 500 Mg Tab PO 1,000 mg BID FAITH Administration Methylprednisolone Sodium Succinate 40 mg 01/11/20 06:00 01/13/20 06:50 Methylprednisolone Sod Succ 40 Mg Vial IVP 40 mg Q6HR FAITH Administration Metoprolol Succinate 50 mg 01/12/20 09:00 01/12/20 09:05 Metoprolol Succinate Xl 50 Mg Tab PO 50 mg DAILY FAITH Administration Mometasone Furoate/Formoterol Fumar 2 puff 01/12/20 18:30 01/13/20 07:45 Mometasone 200 Mcg/Formoterol 5 Mcg 120 Puff Inhaler INH 2 puff BID-RT FAITH Administration Pantoprazole Sodium 40 mg 01/12/20 09:00 01/13/20 09:34 Pantoprazole 40 Mg Tab PO 40 mg DAILY FAITH Administration Polyethylene Glycol 17 gm 01/12/20 09:56 01/12/20 10:29 Polyethylene Glycol 3350 17 Gm Packet PO 17 gm DAILYPRN PRN Administration Constipation Potassium Chloride 8 meq 01/12/20 09:00 01/13/20 09:39 Potassium Chloride 8 Meq Tab PO 8 meq DAILY FAITH Administration Sodium Chloride 10 ml 01/12/20 09:00 01/12/20 20:19 Flush - Normal Saline 10 Ml Syringe IVF 10 ml Q12HR FAITH Administration Tamsulosin HCl 0.4 mg 01/12/20 09:00 01/13/20 09:34 Tamsulosin Hcl 0.4 Mg Cap PO 0.4 mg DAILY FAITH Administration - Exam General Appearance: awake alert Neck: no JVD Heart: RRR, no murmur Respiratory - other findings: diffuse tight wheezes Gastrointestinal: soft, non-distended, normal bowel sounds Extremities: no edema Hosp A/P (1) Acute on chronic respiratory failure with hypoxia Code(s): J96.21 - ACUTE AND CHRONIC RESPIRATORY FAILURE WITH HYPOXIA Status: Acute (2) COPD exacerbation Code(s): J44.1 - CHRONIC OBSTRUCTIVE PULMONARY DISEASE W (ACUTE) EXACERBATION Status: Acute (3) DM2 (diabetes mellitus, type 2) Status: Chronic Qualifiers: Diabetes mellitus senior care insulin use: without intermediate designer use Diabetes mellitus complication status: without complication Qualified Code(s): E11.9 - Type 2 diabetes mellitus without complications (4) HLD (hyperlipidemia) Code(s): E78.5 - HYPERLIPIDEMIA, UNSPECIFIED Status: Chronic Qualifiers: Hyperlipidemia type: unspecified (5) HTN (hypertension) Code(s): I10 - ESSENTIAL (PRIMARY) HYPERTENSION Status: Chronic Qualifiers: Hypertension type: essential hypertension - Plan still actively wheezing cont iv steroids cont nebs, LABA cont O2 support accu/ss/OHA selected home meds change to inpatient, will need 2 or more overnites of agressive tx
[2020-01-13] MEDS: Polyethylene Glycol 3350 17 GM Packet PO PRN (14:59)
[2020-01-13] MEDS: Atorvastatin Calcium 40 MG TAB PO SCH (21:31)
[2020-01-14] MEDS: methylPREDNISolone Sod Succ 40 MG VIAL IVP SCH ×3 (05:52→17:22)
[2020-01-14] MEDS: HumaLOG 300 UNITS/3 ML VIAL SC PRN (05:53)
[2020-01-14] MEDS: Mometasone 200 MCG/Formoterol 5 MCG 120 PUFF INHALER INH SCH (07:33)
[2020-01-14] MEDS: Tamsulosin HCl 0.4 MG CAP PO SCH (08:04)
[2020-01-14] MEDS: Amlodipine 10 MG TAB PO SCH (08:04)
[2020-01-14] MEDS: Furosemide 40 MG TAB PO SCH (08:04)
[2020-01-14] MEDS: guaiFENesin ER 600 MG TAB PO SCH (08:04)
[2020-01-14] MEDS: Glimepiride 4 MG TAB PO SCH (08:04)
[2020-01-14] MEDS: metFORMIN 500 MG TAB PO SCH (08:04)
[2020-01-14] MEDS: Famotidine 20 MG TAB PO SCH (08:05)
[2020-01-14] MEDS: Potassium Chloride 8 MEQ TAB PO SCH (08:05)
[2020-01-14] MEDS: Gabapentin 100 MG CAP PO SCH ×2 (08:05→17:21)
[2020-01-14] MEDS: Enoxaparin Sodium 40 MG/0.4 ML SYRINGE SC SCH (08:08)
[2020-01-14] MEDS: Polyethylene Glycol 3350 17 GM Packet PO PRN (08:16)
--- NOTE | 2020-01-14 16:22 | PDOC.DS.DS ---
Provider - Provider Date of Admission: 01/12/20 11:58 Admitting Provider: Nic Cintron MD Primary Care Physician: JAY HEAD Course - Hospital Course Hospital Course: History of Present Illness: 79-year-old -[place] gentleman with a history of COPD, chronic respiratory failure on home oxygen presented to the emergency department with progressive shortness of breath, wheezing and coughing that has not responded to her home nebulizer treatments. Patient reports a cough productive of yellow to greenish sputum. He denied any fever. He denied any orthopnea. He was requi ring about 6 L of oxygen initially in the ED. chest x-ray demonstrated scarring and cystic bronchiectasis in the right middle and lower lobes which are unchanged from previous images. His oxygen was weaned down to 3 L after bronchodilator treatment in the ED. patient uses 3 L of oxygen by nasal cannula at baseline. He was desaturating on 3 L with exertion. Patient is therefore placed under observation for further treatment of COPD exacerbation. Patient was admitted hospital for management of COPD exacerbation. He was treated with with nebulizer treatments, antibiotics, and corticosteroids which led to improvement in his symptoms. Resuscitation Status: 01/11/20 00:45 Resuscitation Status Routine Resuscitation Status: FULL: Full Resuscitation - Labs Lab Results: 01/11/20 04:24 01/11/20 04:24 - Physical Exam Vitals: Vital Signs (12 hours) Temp Pulse Resp BP BP Pulse Ox 01/14/20 14:14 70 16 01/14/20 11:36 98.6 F 113 H 20 133/60 92 L 01/14/20 08:04 65 150/66 H 01/14/20 08:00 99 01/14/20 07:47 98.6 F 65 18 150/66 H 99 01/14/20 07:33 97 01/14/20 07:31 74 16 97 01/14/20 05:00 68 20 96 Weight Weight 230 lb Physical Exam: The patient was seen and examined on the day of discharge. Problem - Problem (1) Acute on chronic respiratory failure with hypoxia Code(s): J96.21 - ACUTE AND CHRONIC RESPIRATORY FAILURE WITH HYPOXIA Status: Acute (2) Acute respiratory failure with hypoxia Code(s): J96.01 - ACUTE RESPIRATORY FAILURE WITH HYPOXIA Status: Acute (3) COPD exacerbation Code(s): J44.1 - CHRONIC OBSTRUCTIVE PULMONARY DISEASE W (ACUTE) EXACERBATION Status: Acute (4) Hyperkalemia Code(s): E87.5 - HYPERKALEMIA Status: Acute (5) Hyponatremia Code(s): E87.1 - HYPO-OSMOLALITY AND HYPONATREMIA Status: Acute (6) DM2 (diabetes mellitus, type 2) Status: Chronic Qualifiers: Diabetes mellitus termite exterminator helper insulin use: without termite exterminator helper use Diabetes mellitus complication status: without complication Qualified Code(s): E11.9 - Type 2 diabetes mellitus without complications (7) HLD (hyperlipidemia) Code(s): E78.5 - HYPERLIPIDEMIA, UNSPECIFIED Status: Chronic Qualifiers: Hyperlipidemia type: unspecified (8) HTN (hypertension) Code(s): I10 - ESSENTIAL (PRIMARY) HYPERTENSION Status: Chronic Qualifiers: Hypertension type: essential hypertension Plan - Discharge Medications Prescriptions: Levofloxacin [Levaquin] 750 mg PO 2100 #4 tab predniSONE 40 mg PO DAILY #10 tab Home Medications: Medication Instructions Recorded Confirmed Type Furosemide [Lasix] 60 mg PO BID 03/03/18 01/11/20 History Amlodipine [Norvasc] 10 mg PO DAILY 07/21/19 01/11/20 History Gabapentin [Neurontin] 100 mg PO TID 07/21/19 01/11/20 History Glimepiride 4 mg PO QAM 07/21/19 01/11/20 History HYDROcodone Bit/APAP 10/325 [[place]] 1 tab PO Q6HR PRN 07/21/19 01/11/20 History Metoprolol Succinate [Toprol XL] 50 mg PO DAILY 07/21/19 01/11/20 History Pantoprazole [Protonix] 40 mg PO DAILY 07/21/19 01/11/20 History Potassium Chloride 8 meq PO DAILY 07/21/19 01/11/20 History Simvastatin [Zocor] 80 mg PO HS 07/21/19 01/11/20 History Tamsulosin HCl [Flomax] 0.4 mg PO DAILY 07/21/19 01/11/20 History metFORMIN HCl [Metformin HCl] 1,000 mg PO BID 07/21/19 01/11/20 History Benzonatate [Tessalon] 100 mg PO TID PRN #30 cap 07/25/19 01/11/20 Rx Mometasone/Formoterol 200/5 2 puff INH BID-RT #1 inh 07/25/19 01/11/20 Rx [Dulera 200 Mcg/5 Mcg Inhaler] Albuterol Sulfate [Proventil Hfa] 2 puff INH Q6H PRN #1 aer 11/16/19 01/11/20 Rx guaiFENesin ER [Mucinex] 600 mg PO Q12HR #20 tab 11/16/19 01/11/20 Rx Levofloxacin [Levaquin] 750 mg PO 2100 #4 tab 01/14/20 Rx predniSONE 40 mg PO DAILY #10 tab 01/14/20 Rx Allergies: No Known Allergies Allergy (Verified 05/20/19 17:02) - Follow up Plan Referrals: PROSPER DIEHL & [Primary Care Provider] - Disposition: HOME Quality - Care Measures CORE MEASURES:: N/A
[2020-01-14 16:46] VITALS: BP 147/60; TEMP 97.7
== END 2020-01-14 17:59 | disposition home or self-care (01) | DRG 189 ==
LOC: ERS 16:52 → ERHOLD 01-11 00:03 → T4-A 01-11 14:10 → OBSVTOIN 01-12 11:58
PROVIDERS: ADMIT Internal Medicine; ATTEND Internal Medicine
DX: J96.21 Acute and chronic respiratory failure with hypoxia (principal); J44.1 Chronic obstructive pulmonary disease with (acute) exacerbation; E87.1 Hypo-osmolality and hyponatremia; E11.9 Type 2 diabetes mellitus without complications; E78.5 Hyperlipidemia, unspecified; I10 Essential (primary) hypertension; Z79.899 Other long term (current) drug therapy; Z79.82 Long term (current) use of aspirin; Z79.84 Long term (current) use of oral hypoglycemic drugs; Z99.81 Dependence on supplemental oxygen; Z87.891 Personal history of nicotine dependence; Z20.828 Contact with and (suspected) exposure to other viral communicable diseases; E87.5 Hyperkalemia
CPT/HCPCS: 36415; 36416; 71045; 80048; 80053; 81003; 83605; 83880; 84484; 85025; 87635; 93005; 94640; 94760; 96365; 96372; 96375; 96376; G0378; J1650; J2920; J2930; J3475; J7620; U0003

== ENCOUNTER 2020-03-04 08:47 | Emergency (ER) | payer MEDICARE, BC ==
[2020-03-04] MEDS ORDERED: methylPREDNISolone Sod Succ/PF 125 MG/2 ML VIAL ONE (09:05)
[2020-03-04] MEDS ORDERED: Magnesium 2 GM/50 ML BAG (IN WATER) ONE (09:05)
[2020-03-04 09:24] LABS: #Basophils 0.1 thou/uL (0.0-0.2); #Lymphocytes 3.7 thou/uL (1.20-3.40); #Monocytes 0.7 thou/uL (0.11-0.59); #Neutrophils 8.4 thou/uL (1.40-6.50); %Basophils 0.8 % (0.0-1.0); %Eosinophils 7.1 % (0.0-10.0); %Lymphocytes 26.6 % (21.0-51.0); %Monocytes 5.3 % (0.0-10.0); %Neutrophils 60.2 % (42.0-75.0); Hemoglobin 11.8 g/dL (14.0-18.0); Mean Corpuscular HGB CONC 30.3 g/dL (32.0-36.0); Mean Corpuscular Hemoglobin 29.8 pg (27.0-31.0); Mean Corpuscular Volume 98.6 fL (78.0-98.0); Mean Platelet Volume 9.1 fL (7.4-10.4); Platelet Count 297 thou/uL (130-400); RBC Distribution Width 16.8 % (11.5-14.5); Red Blood Cell (RBC) Count 3.97 mill/uL (4.70-6.10); White Blood Cell (WBC) Count 13.9 thou/uL (4.8-10.8)
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
[2020-03-04 09:47] LABS: ALT (SGPT) 12 U/L (8-55); AST (SGOT) 17 U/L (5-34); Alkaline Phosphatase 57 U/L (40-110); Anion Gap 16 mmol/L (10-20); BUN (Urea Nitrogen) 19 mg/dL (8.4-25.7); Bilirubin, Total 0.3 mg/dL (0.2-1.2); Calc. Creatinine Clearance 0 mL/min (70-130); Calcium 8.9 mg/dL (7.8-10.44); Carbon Dioxide 29 mmol/L (23-31); Chloride 100 mmol/L (98-107); Globulin 3.6 g/dL (2.4-3.5); Glucose 211 mg/dL (83-110); Potassium 4.1 mmol/L (3.5-5.1); Protein, Total 7.6 g/dL (5.8-8.1); Sodium 141 mmol/L (136-145)
[2020-03-04] MEDS ORDERED: Albuterol Sulfate 2.5 mg/0.5 ml Neb ONE (09:47)
[2020-03-04] MEDS ORDERED: Albuterol Sulfate 2.5 mg/3 ml Neb ONE (09:47)
== END 2020-03-04 11:37 | disposition home or self-care (01) ==
LOC: ERS 08:47
DX: J44.1 Chronic obstructive pulmonary disease with (acute) exacerbation (principal); E11.9 Type 2 diabetes mellitus without complications; E78.5 Hyperlipidemia, unspecified; I10 Essential (primary) hypertension; Z79.84 Long term (current) use of oral hypoglycemic drugs; Z79.899 Other long term (current) drug therapy; Z79.82 Long term (current) use of aspirin
CPT/HCPCS: 71045; 80053; 83880; 84484; 85025; 93005; 96365; 96375; J2930; J3475; J7611; J7620

== ENCOUNTER 2020-04-04 09:44 | Inpatient (IN) | payer MEDICARE, BC ==
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
[2020-04-04] MEDS ORDERED: methylPREDNISolone Sod Succ/PF 125 MG/2 ML VIAL ONE (12:40)
[2020-04-04] MEDS ORDERED: Albuterol Sulfate 2.5 mg/3 ml Neb ONE ×4 (13:18)
[2020-04-04 13:21] LABS: #Basophils 0.1 thou/uL (0.0-0.2); #Eosinphils 0.7 thou/uL (0.0-0.7); #Monocytes 0.8 thou/uL (0.11-0.59); %Basophils 0.7 % (0.0-1.0); %Eosinophils 6.5 % (0.0-10.0); %Lymphocytes 28.7 % (21.0-51.0); %Monocytes 7.5 % (0.0-10.0); %Neutrophils 56.6 % (42.0-75.0); Hemoglobin 11.4 g/dL (14.0-18.0); Mean Corpuscular HGB CONC 30.4 g/dL (32.0-36.0); Mean Corpuscular Hemoglobin 30.4 pg (27.0-31.0); Mean Platelet Volume 8.7 fL (7.4-10.4); Platelet Count 307 thou/uL (130-400); RBC Distribution Width 17.2 % (11.5-14.5); Red Blood Cell (RBC) Count 3.76 mill/uL (4.70-6.10); White Blood Cell (WBC) Count 10.5 thou/uL (4.8-10.8)
[2020-04-04 13:38] LABS: ALT (SGPT) 11 U/L (8-55); AST (SGOT) 15 U/L (5-34); Albumin 3.9 g/dL (3.4-4.8); Alkaline Phosphatase 56 U/L (40-110); Anion Gap 14 mmol/L (10-20); BUN (Urea Nitrogen) 11 mg/dL (8.4-25.7); Bilirubin, Total 0.3 mg/dL (0.2-1.2); Calc. Creatinine Clearance 0 mL/min (70-130); Calcium 9.3 mg/dL (7.8-10.44); Carbon Dioxide 29 mmol/L (23-31); Chloride 103 mmol/L (98-107); Globulin 3.1 g/dL (2.4-3.5); Glucose 105 mg/dL (83-110); Potassium 4.5 mmol/L (3.5-5.1); Sodium 141 mmol/L (136-145)
[2020-04-04] MEDS ORDERED: Magnesium 2 GM/50 ML BAG (IN WATER) ONE (15:16)
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
[2020-04-04 17:52] VITALS: BMI 35.1
[2020-04-04] MEDS ORDERED: Ondansetron PF 4 MG/2 ML Vial IVP PRN (18:00)
[2020-04-04] MEDS ORDERED: Acetaminophen 325 MG TAB PO PRN (18:00)
[2020-04-04] MEDS ORDERED: Ondansetron ODT 4 MG TAB SL PRN (18:00)
[2020-04-04] MEDS ORDERED: Dextrose 5% in Water 1,000 ML IV PRN (19:18)
[2020-04-04] MEDS ORDERED: Dextrose 50% Abboject 50 ML SYRINGE SLOW IVP PRN (19:18)
[2020-04-04] MEDS ORDERED: predniSONE 20 MG TAB PO SCH (19:30)
[2020-04-04] MEDS: Gabapentin 100 MG CAP PO SCH (21:02)
[2020-04-04] MEDS: guaiFENesin ER 600 MG TAB PO SCH (21:03)
[2020-04-04] MEDS: Atorvastatin Calcium 40 MG TAB PO SCH (21:03)
[2020-04-04] MEDS: HumaLOG 300 UNITS/3 ML VIAL SC PRN (21:08)
[2020-04-05] MEDS: Albuterol Sulfate 2.5 mg/3 ml Neb NEB PRN ×2 (00:26→06:05)
[2020-04-05 02:45] LABS: SARS-CoV-2 PCR by NAA Not Detected (NotDetected)
[2020-04-05] MEDS: HumaLOG 300 UNITS/3 ML VIAL SC PRN ×3 (05:56→21:11)
[2020-04-05] MEDS: Mometasone 200 MCG/Formoterol 5 MCG 120 PUFF INHALER INH SCH ×2 (06:14→21:39)
[2020-04-05] MEDS: Tamsulosin HCl 0.4 MG CAP PO SCH (08:43)
[2020-04-05] MEDS: predniSONE 20 MG TAB PO SCH (08:43)
[2020-04-05] MEDS: guaiFENesin ER 600 MG TAB PO SCH ×2 (08:43→21:07)
[2020-04-05] MEDS: Gabapentin 100 MG CAP PO SCH ×3 (08:44→21:08)
[2020-04-05] MEDS ORDERED: FLU VACC QS2020-21(65YR UP)/PF 240 MCG/0.7 ML SYRINGE IM ONE (09:00)
[2020-04-05] MEDS ORDERED: Furosemide 20 MG/2 ML VIAL SLOW IVP SCH (09:30)
[2020-04-05] MEDS ORDERED: Albuterol Sulfate 2.5 mg/3 ml Neb NEB PRN (09:32)
[2020-04-05] MEDS: methylPREDNISolone Sod Succ 40 MG VIAL IVP SCH ×3 (10:20→21:08)
[2020-04-05] MEDS ORDERED: Albuterol 200 PUFF (6.7GM INHALER) INH PRN (13:47)
--- NOTE | 2020-04-05 17:06 | PDOC.HOSPP ---
- Subjective Encounter Date: 04/05/20 Encounter Time: 17:05 Subjective: F/u: COPD exacerbation, pneumonia THe patient is coughing but was unable to clear up his phlegm and still congested. His shortness of breath has improved. He requested albuterol inhaler because he coughs up more phlegm with that. Switched to IV steroids and re-evaluated and sounds better Patient has no ride to go home today - Objective Vital Signs & Weight: Vital Signs (12 hours) Temp Pulse Resp BP Pulse Ox 04/05/20 16:14 98.1 F 81 16 142/67 H 98 04/05/20 14:14 73 16 98 04/05/20 11:16 98.1 F 81 16 128/57 L 98 04/05/20 10:20 73 18 99 04/05/20 07:45 97.8 F 76 16 148/63 H 97 04/05/20 06:14 85 24 H 97 04/05/20 06:05 85 24 H 97 Weight Weight 224 lb I&O: 04/04/20 04/05/20 04/06/20 06:59 06:59 06:59 Intake Total 1200 600 Output Total 700 Balance 500 600 Result Diagrams: 04/04/20 12:56 04/04/20 12:56 Additional Labs: Accuchecks 04/05/20 04/05/20 04/05/20 16:18 11:19 04:11 POC Glucose 225 H 247 H 193 H 04/04/20 20:44 POC Glucose 287 H Hospitalist ROS - Review of Systems Constitutional: denies: fever, chills - Medication Medications: Active Medications Generic Name Dose Route Start Last Admin Trade Name Freq PRN Reason Stop Dose Admin Albuterol/Ipratropium 3 ml 04/05/20 11:00 04/05/20 14:14 Ipratropium/Albuterol Sulfate 3 Ml Neb NEB 3 ml [id number] FAITH Administration Atorvastatin Calcium 40 mg 04/04/20 21:00 04/04/20 21:03 Atorvastatin Calcium 40 Mg Tab PO 40 mg HS FAITH Administration Gabapentin 100 mg 04/04/20 21:00 04/05/20 14:47 Gabapentin 100 Mg Cap PO 100 mg TID FAITH Administration Guaifenesin 600 mg 04/04/20 21:00 04/05/20 08:43 Guaifenesin Er 600 Mg Tab PO 600 mg Q12HR FAITH Administration Levofloxacin 750 mg/ Device 150 mls @ 100 mls/hr 04/05/20 16:00 04/05/20 15:43 IVPB 150 mls Q24HR AFITH Administration Insulin Human Lispro 0 units 04/04/20 19:18 04/05/20 05:56 Humalog 300 Units/3 Ml Vial SC 2 unit .MILD SLIDING SCALE PRN Administration Mild Correctional Scale Methylprednisolone Sodium Succinate 40 mg 04/05/20 10:00 04/05/20 15:43 Methylprednisolone Sod Succ 40 Mg Vial IVP 40 mg Q6H FAITH Administration Mometasone Furoate/Formoterol Fumar 2 puff 04/05/20 06:30 04/05/20 06:14 Mometasone 200 Mcg/Formoterol 5 Mcg 120 Puff Inhaler INH 2 puff BID-RT FAITH Administration Pantoprazole Sodium 40 mg 04/05/20 09:00 04/05/20 08:43 Pantoprazole 40 Mg Tab PO 40 mg DAILY FAITH Administration Prednisone 40 mg 04/05/20 08:00 04/05/20 08:43 Prednisone 20 Mg Tab PO 40 mg QAM-WM FAITH Administration Sodium Chloride 10 ml 04/04/20 19:30 04/05/20 08:43 Flush - Normal Saline 10 Ml Syringe IVF 10 ml PRN PRN Administration Saline Flush Tamsulosin HCl 0.4 mg 04/05/20 09:00 04/05/20 08:43 Tamsulosin Hcl 0.4 Mg Cap PO 0.4 mg DAILY FAITH Administration Hospitalist Exam Vitals: Vital Signs (12 hours) Temp Pulse Resp BP Pulse Ox 04/05/20 16:14 98.1 F 81 16 142/67 H 98 04/05/20 14:14 73 16 98 04/05/20 11:16 98.1 F 81 16 128/57 L 98 04/05/20 10:20 73 18 99 04/05/20 07:45 97.8 F 76 16 148/63 H 97 04/05/20 06:14 85 24 H 97 04/05/20 06:05 85 24 H 97 Weight Weight 224 lb General Appearance: NAD, awake alert Eye: PERRL, anicteric sclera ENT: normocephalic atraumatic, no oropharyngeal lesions Neck: no JVD Heart: RRR, no murmur, no gallops, no rubs Respiratory: CTAB, no rales, no ronchi Respiratory - other findings: decreased wheezing Gastrointestinal: soft, non-tender, non-distended, normal bowel sounds Extremities: no cyanosis, no clubbing, no edema Skin: normal turgor, no lesions, no rashes Neurological: cranial nerve grossly intact, normal sensation to touch, no weakness, no focal deficits Musculoskeletal: normal tone, normal strength, no muscle wasting Psychiatric: normal affect, normal behavior, A&O x 3 Hosp A/P - Plan EKG: normal sinus rhythm with sinus arrhythmia Chest Xray: left lower lobe pneumonitis This is a 79 year old male patient with history of asthma/COPD who presents to the hospital with worsening dyspnea on exertion, admitted for COPD exacerbation Acute COPD exacerbation with left lower lobe pneumonia - chest Xray showed left lower lobe pneumonia. Will continue with levaquin. Changed steroids to IV, will keep on IV for one more day and switch back to oral - Will continue albuterol prn, duonebs q4 hours and mucinex, dulera BID - currently on 2l of oxygen - ordered PT Type II diabetes - hold metformin. Continue insulin sliding scale Macrocytic anemia - Hb 11.8, stable, will monitor Dispo: likely d/c tomorrow
[2020-04-05] MEDS: Atorvastatin Calcium 40 MG TAB PO SCH (21:07)
[2020-04-06] MEDS: methylPREDNISolone Sod Succ 40 MG VIAL IVP SCH ×4 (03:50→21:09)
[2020-04-06 06:00] LABS: Hemoglobin 10.7 g/dL (14.0-18.0); Mean Corpuscular HGB CONC 30.2 g/dL (32.0-36.0); Mean Corpuscular Hemoglobin 30.1 pg (27.0-31.0); Mean Corpuscular Volume 99.8 fL (78.0-98.0); Mean Platelet Volume 8.9 fL (7.4-10.4); Platelet Count 292 thou/uL (130-400); RBC Distribution Width 17.3 % (11.5-14.5); Red Blood Cell (RBC) Count 3.54 mill/uL (4.70-6.10); White Blood Cell (WBC) Count 12.8 thou/uL (4.8-10.8)
[2020-04-06 06:13] LABS: Anion Gap 13 mmol/L (10-20); BUN (Urea Nitrogen) 21 mg/dL (8.4-25.7); Calc. Creatinine Clearance 79 mL/min (70-130); Calcium 8.7 mg/dL (7.8-10.44); Carbon Dioxide 27 mmol/L (23-31); Chloride 102 mmol/L (98-107); Glucose 206 mg/dL (83-110); Potassium 4.7 mmol/L (3.5-5.1); Sodium 137 mmol/L (136-145)
[2020-04-06] MEDS: Mometasone 200 MCG/Formoterol 5 MCG 120 PUFF INHALER INH SCH ×2 (06:29→19:18)
[2020-04-06] MEDS: Tamsulosin HCl 0.4 MG CAP PO SCH (08:23)
[2020-04-06] MEDS: guaiFENesin ER 600 MG TAB PO SCH ×2 (08:24→21:06)
[2020-04-06] MEDS: predniSONE 20 MG TAB PO SCH (08:24)
[2020-04-06] MEDS: Gabapentin 100 MG CAP PO SCH ×3 (08:24→21:06)
--- NOTE | 2020-04-06 08:33 | PDOC.HOSPP ---
- Subjective Encounter Date: 04/06/20 Encounter Time: 08:30 Subjective: F/u: pneumonia The patient was doing much better yesterday afternoon , however this morning his cough has returned and is very productive. He is wheezing significantly again. WBC up to 12 - Objective Vital Signs & Weight: Vital Signs (12 hours) Temp Pulse Resp BP Pulse Ox 04/06/20 07:40 98.0 F 78 16 145/71 H 95 04/06/20 06:27 74 100 04/06/20 05:03 97.8 F 74 20 125/70 96 04/06/20 00:52 75 20 94 L 04/06/20 00:00 97.8 F 77 22 H 137/63 92 L 04/05/20 21:38 12 Weight Weight 224 lb I&O: 04/05/20 04/06/20 04/07/20 06:59 06:59 06:59 Intake Total 1200 840 Output Total 700 3000 Balance 500 -2160 Result Diagrams: 04/06/20 05:22 04/06/20 05:22 Additional Labs: Accuchecks 04/06/20 04/05/20 04/05/20 05:07 19:59 16:18 POC Glucose 192 H 247 H 225 H 04/05/20 11:19 POC Glucose 247 H Hospitalist ROS - Review of Systems Constitutional: denies: fever, chills - Medication Medications: Active Medications Generic Name Dose Route Start Last Admin Trade Name Freq PRN Reason Stop Dose Admin Albuterol Sulfate 2.5 mg 04/05/20 09:32 04/06/20 00:52 Albuterol Sulfate 2.5 Mg/3 Ml Neb NEB 2.5 mg Q2H PRN Administration Wheezing Albuterol/Ipratropium 3 ml 04/05/20 11:00 04/06/20 06:27 Ipratropium/Albuterol Sulfate 3 Ml Neb NEB 3 ml [id number] FAITH Administration Atorvastatin Calcium 40 mg 04/04/20 21:00 04/05/20 21:07 Atorvastatin Calcium 40 Mg Tab PO 40 mg HS FAITH Administration Gabapentin 100 mg 04/04/20 21:00 04/06/20 08:24 Gabapentin 100 Mg Cap PO 100 mg TID FAITH Administration Guaifenesin 600 mg 04/04/20 21:00 04/06/20 08:24 Guaifenesin Er 600 Mg Tab PO 600 mg Q12HR FAITH Administration Insulin Human Lispro 0 units 04/04/20 19:18 04/05/20 21:11 Humalog 300 Units/3 Ml Vial SC 3 unit .MILD SLIDING SCALE PRN Administration Mild Correctional Scale Methylprednisolone Sodium Succinate 40 mg 04/05/20 10:00 04/06/20 03:50 Methylprednisolone Sod Succ 40 Mg Vial IVP 40 mg Q6H FAITH Administration Mometasone Furoate/Formoterol Fumar 2 puff 04/05/20 06:30 04/06/20 06:29 Mometasone 200 Mcg/Formoterol 5 Mcg 120 Puff Inhaler INH Not Given BID-RT FAITH Pantoprazole Sodium 40 mg 04/05/20 09:00 04/06/20 08:24 Pantoprazole 40 Mg Tab PO 40 mg DAILY FAITH Administration Prednisone 40 mg 04/05/20 08:00 04/06/20 08:24 Prednisone 20 Mg Tab PO 40 mg QAM-WM FAITH Administration Sodium Chloride 10 ml 04/04/20 19:30 04/05/20 08:43 Flush - Normal Saline 10 Ml Syringe IVF 10 ml PRN PRN Administration Saline Flush Tamsulosin HCl 0.4 mg 04/05/20 09:00 04/06/20 08:23 Tamsulosin Hcl 0.4 Mg Cap PO 0.4 mg DAILY FAITH Administration Hospitalist Exam Vitals: Vital Signs (12 hours) Temp Pulse Resp BP Pulse Ox 04/06/20 07:40 98.0 F 78 16 145/71 H 95 04/06/20 06:27 74 100 04/06/20 05:03 97.8 F 74 20 125/70 96 04/06/20 00:52 75 20 94 L 04/06/20 00:00 97.8 F 77 22 H 137/63 92 L 04/05/20 21:38 12 Weight Weight 224 lb General Appearance: NAD, awake alert Eye: PERRL, anicteric sclera ENT: normocephalic atraumatic, no oropharyngeal lesions Neck: no JVD Heart: RRR, no murmur, no gallops, no rubs Respiratory - other findings: wheezing bilaterally at bases Gastrointestinal: soft, non-tender, non-distended, normal bowel sounds Extremities: no cyanosis, no clubbing, no edema Hosp A/P - Plan EKG: normal sinus rhythm with sinus arrhythmia Chest Xray: left lower lobe pneumonitis This is a 79 year old male patient with history of asthma/COPD who presents to the hospital with worsening dyspnea on exertion, admitted for COPD exacerbation Acute COPD exacerbation with left lower lobe pneumonia - chest Xray showed left lower lobe pneumonia. Received 2 days of levaquin, but WBC has increased to 12 and cough and wheezing has increased again, so will switch antibiotics to ceftriaxone and azithromycin (although leukocytosis could just be from steroids) - continue IV steroids and breathing treatments - PT evaluation Type II diabetes - hold metformin. Continue insulin sliding scale Macrocytic anemia - Hb 10.8, will add B12/folate and TSH Dispo: re-eval tomorrow for possible d/c
[2020-04-06 09:21] LABS: Thyroid Stimulating Hormone 0.1925 uIU/mL (0.35-4.94)
[2020-04-06] MEDS: Azithromycin 500 MG in Sodium Chloride 0.9% 250 ML 250 ML IVPB SCH (10:02)
[2020-04-06] MEDS: cefTRIAXone\\ROCEPHIN 1 GM in Sodium Chloride 0.9% 100 ML IVPB SCH (10:04)
[2020-04-06] MEDS: HumaLOG 300 UNITS/3 ML VIAL SC PRN (18:17)
[2020-04-06] MEDS: Atorvastatin Calcium 40 MG TAB PO SCH (21:06)
[2020-04-07] MEDS: methylPREDNISolone Sod Succ 40 MG VIAL IVP SCH ×4 (04:33→21:06)
[2020-04-07] MEDS: HumaLOG 300 UNITS/3 ML VIAL SC PRN ×3 (04:34→16:59)
[2020-04-07] MEDS: Mometasone 200 MCG/Formoterol 5 MCG 120 PUFF INHALER INH SCH ×2 (07:52→21:24)
[2020-04-07] MEDS: guaiFENesin ER 600 MG TAB PO SCH ×2 (08:22→20:26)
[2020-04-07] MEDS: predniSONE 20 MG TAB PO SCH (08:22)
[2020-04-07] MEDS: Tamsulosin HCl 0.4 MG CAP PO SCH (08:22)
[2020-04-07] MEDS: cefTRIAXone\\ROCEPHIN 1 GM in Sodium Chloride 0.9% 100 ML IVPB SCH (08:22)
[2020-04-07] MEDS: Gabapentin 100 MG CAP PO SCH ×3 (08:22→20:25)
[2020-04-07] MEDS: Azithromycin 500 MG in Sodium Chloride 0.9% 250 ML 250 ML IVPB SCH (09:31)
[2020-04-07] MEDS ORDERED: Benzonatate 100 MG CAP PO PRN (15:34)
--- NOTE | 2020-04-07 15:35 | PDOC.HOSPP ---
- Subjective Encounter Date: 04/07/20 Encounter Time: 10:00 Subjective: Patient is talking to the family over the phone. He is still however will shortness of breath. Lung exam revealed poor aeration on both sides. Mild inspiratory wheezing. Satting 9 7% with 2 L oxygen by nasal cannula - Objective Vital Signs & Weight: Vital Signs (12 hours) Temp Pulse Resp BP Pulse Ox 04/07/20 14:00 76 16 98 04/07/20 13:18 97.9 F 70 20 131/67 99 04/07/20 10:59 77 16 97 04/07/20 07:53 70 16 99 04/07/20 07:50 98.0 F 61 20 147/63 H 99 Weight Weight 224 lb I&O: 04/06/20 04/07/20 04/08/20 06:59 06:59 06:59 Intake Total 840 1470 Output Total 3000 Balance -2160 1470 Result Diagrams: 04/06/20 05:22 04/06/20 05:22 Additional Labs: Accuchecks 04/07/20 04/07/20 04/06/20 11:16 04:24 20:27 POC Glucose 312 H 238 H 222 H 04/06/20 16:32 POC Glucose 290 H Hospitalist ROS - Medication Medications: Active Medications Generic Name Dose Route Start Last Admin Trade Name Freq PRN Reason Stop Dose Admin Albuterol Sulfate 2.5 mg 04/05/20 09:32 04/06/20 00:52 Albuterol Sulfate 2.5 Mg/3 Ml Neb NEB 2.5 mg Q2H PRN Administration Wheezing Albuterol/Ipratropium 3 ml 04/05/20 11:00 04/07/20 14:00 Ipratropium/Albuterol Sulfate 3 Ml Neb NEB 3 ml [id number] FAITH Administration Atorvastatin Calcium 40 mg 04/04/20 21:00 04/06/20 21:06 Atorvastatin Calcium 40 Mg Tab PO 40 mg HS FAITH Administration Gabapentin 100 mg 04/04/20 21:00 04/07/20 14:31 Gabapentin 100 Mg Cap PO 100 mg TID FAITH Administration Guaifenesin 600 mg 04/04/20 21:00 04/07/20 08:22 Guaifenesin Er 600 Mg Tab PO 600 mg Q12HR FAITH Administration Ceftriaxone Sodium 1 gm/ 100 mls @ 200 mls/hr 04/06/20 10:00 04/07/20 08:22 Sodium Chloride IVPB 100 mls Q24HR FAITH Administration Azithromycin 500 mg/ Sodium 250 mls @ 250 mls/hr 04/06/20 09:00 04/07/20 09:31 Chloride IVPB 250 mls Q24HR FAITH Administration Insulin Human Lispro 0 units 04/04/20 19:18 04/07/20 12:04 Humalog 300 Units/3 Ml Vial SC 5 unit .MILD SLIDING SCALE PRN Administration Mild Correctional Scale Methylprednisolone Sodium Succinate 40 mg 04/05/20 10:00 04/07/20 10:46 Methylprednisolone Sod Succ 40 Mg Vial IVP Not Given Q6H FAITH Mometasone Furoate/Formoterol Fumar 2 puff 04/05/20 06:30 04/07/20 07:52 Mometasone 200 Mcg/Formoterol 5 Mcg 120 Puff Inhaler INH 2 puff BID-RT FAITH Administration Pantoprazole Sodium 40 mg 04/05/20 09:00 04/07/20 08:22 Pantoprazole 40 Mg Tab PO 40 mg DAILY FAITH Administration Sodium Chloride 10 ml 04/04/20 19:30 04/07/20 08:23 Flush - Normal Saline 10 Ml Syringe IVF 10 ml PRN PRN Administration Saline Flush Tamsulosin HCl 0.4 mg 04/05/20 09:00 04/07/20 08:22 Tamsulosin Hcl 0.4 Mg Cap PO 0.4 mg DAILY FAITH Administration Hospitalist Exam Vitals: Vital Signs (12 hours) Temp Pulse Resp BP Pulse Ox 04/07/20 14:00 76 16 98 04/07/20 13:18 97.9 F 70 20 131/67 99 04/07/20 10:59 77 16 97 04/07/20 07:53 70 16 99 04/07/20 07:50 98.0 F 61 20 147/63 H 99 Weight Weight 224 lb General Appearance: NAD, awake alert Eye: PERRL ENT: normocephalic atraumatic Neck: supple Heart: RRR, normal peripheral pulses Respiratory: CTAB, normal chest expansion Gastrointestinal: soft, normal bowel sounds Neurological: cranial nerve grossly intact, no focal deficits Psychiatric: normal affect, normal behavior, A&O x 3 Hosp A/P - Plan 79 year old male patient with history of asthma/COPD who presents to the hospital with worsening dyspnea on exertion, admitted for COPD exacerbation Acute COPD exacerbation with left lower lobe pneumonia - chest Xray showed left lower lobe pneumonia. Received 2 days of levaquin, but WBC has increased to 12 and cough and wheezing has increased again, so will switch antibiotics to ceftriaxone and azithromycin (although leukocytosis could just be from steroids) - continue IV steroids and breathing treatments - PT evaluation Type II diabetes - hold metformin. Continue insulin sliding scale Blood glucose is high we will start him back on his Metformin creatinine normal. Macrocytic anemia - Hb 10.8, will add B12/folate and TSH Folate deficiency -Supplement started Mild hyperthyroidism -patient is not on any thyroid supplement will check a free T4 -May need to start him on low-dose methimazole, Await free T4 level
[2020-04-07] MEDS: metFORMIN 500 MG TAB PO SCH (20:25)
[2020-04-07] MEDS: Furosemide 40 MG TAB PO SCH (20:25)
[2020-04-07] MEDS: Atorvastatin Calcium 40 MG TAB PO SCH (20:26)
--- NOTE | 2020-04-07 20:42 | EKG ---
Test Reason : Blood Pressure : / mmHG Vent. Rate : 077 BPM Atrial Rate : 077 BPM P-R Int : 156 ms QRS Dur : 086 ms QT Int : 356 ms P-R-T Axes : 002 044 018 degrees QTc Int : 402 ms Normal sinus rhythm with sinus arrhythmia Normal ECG Confirmed by ROCK RANGEL, DELL ([id number]), school photograph editor CARLYLE CISNEROS ([id number]) on 04/07/2020 8:41:54 PM Referred By: Confirmed By:DELL WILKERSON MD
[2020-04-08] MEDS: methylPREDNISolone Sod Succ 40 MG VIAL IVP SCH ×3 (04:30→16:52)
[2020-04-08] MEDS: HumaLOG 300 UNITS/3 ML VIAL SC PRN ×2 (05:47→12:15)
[2020-04-08] MEDS: Mometasone 200 MCG/Formoterol 5 MCG 120 PUFF INHALER INH SCH (07:06)
[2020-04-08 07:12] LABS: Anion Gap 16 mmol/L (10-20); BUN (Urea Nitrogen) 19 mg/dL (8.4-25.7); Calc. Creatinine Clearance 71 mL/min (70-130); Carbon Dioxide 28 mmol/L (23-31); Chloride 100 mmol/L (98-107); Glucose 285 mg/dL (83-110); Potassium 5.6 mmol/L (3.5-5.1); Sodium 138 mmol/L (136-145)
[2020-04-08] MEDS ORDERED: Glimepiride 4 MG TAB PO SCH (07:30)
[2020-04-08] MEDS ORDERED: Clopidogrel Bisulfate 75 MG TAB ONE (08:02)
[2020-04-08] MEDS: Tamsulosin HCl 0.4 MG CAP PO SCH (08:25)
[2020-04-08] MEDS: metFORMIN 500 MG TAB PO SCH (08:25)
[2020-04-08] MEDS: Furosemide 40 MG TAB PO SCH (08:26)
[2020-04-08] MEDS: Gabapentin 100 MG CAP PO SCH ×2 (08:26→15:49)
[2020-04-08] MEDS: guaiFENesin ER 600 MG TAB PO SCH (08:27)
[2020-04-08] MEDS ORDERED: Potassium Chloride 8 MEQ TAB PO SCH (09:00)
[2020-04-08] MEDS ORDERED: Folic Acid/Vit B Comp W-C PO SCH (09:00)
[2020-04-08] MEDS ORDERED: Polyethylene Glycol 3350 17 GM Packet PO PRN (09:16)
[2020-04-08] MEDS: cefTRIAXone\\ROCEPHIN 1 GM in Sodium Chloride 0.9% 100 ML IVPB SCH (10:40)
[2020-04-08] MEDS: Azithromycin 500 MG in Sodium Chloride 0.9% 250 ML 250 ML IVPB SCH (12:04)
[2020-04-08 13:18] VITALS: BP 146/68; TEMP 98
--- NOTE | 2020-04-08 15:20 | PDOC.DS.DS ---
Provider Date of Admission: 04/05/20 22:48 Admitting Provider: Edelmira Cleveland MD Primary Care Physician: JAY HEAD Course Hospital Course: 79 year old male patient with history of asthma/COPD who presents to the hospital with worsening dyspnea on exertion, admitted for COPD exacerbation Acute COPD exacerbation with left lower lobe pneumonia - chest Xray showed left lower lobe pneumonia. Received 2 days of levaquin, but WBC has increased to 12 and cough and wheezing has increased again, antibiotics to ceftriaxone and azithromycin (although leukocytosis could just be from steroids) -Discharged with doxycycline and short course of prednisone Type II diabetes -Needs to start insulin regimen as an outpatient as it appears Metformin not sufficient at this point. Macrocytic anemia Folate deficiency -Supplement started and prescribed Mild hyperthyroidism -patient is not on any thyroid supplement free T4 in the normal range -I would recommend that he gets repeat TSH in his primary care clinic office If it is still elevated at then probably consideration for methimazole at that time Hyperkalemia with a potassium of 5.6 -Given Kayexalate and repeating potassium level -Patient on high-dose Lasix as well as potassium supplement -I have discontinued his home supplement PCP office -he needs repeat BMP panel and if potassium is low then restart back on low-dose potassium supplement - Need TSH level disCharge time over 30 minutes. Lab Results: 04/06/20 05:22 04/08/20 06:34 Abnormal Lab Results - Last 48 hrs 04/08/20 06:34: Potassium 5.6 H Microbiology - Entire Visit 04/04/20 23:45 Sputum Respiratory Culture - Final Vitals: Vital Signs (12 hours) Temp Pulse Resp BP BP Pulse Ox 04/08/20 13:16 98.0 F 66 20 146/68 H 99 04/08/20 08:00 98.2 F 79 20 142/68 H 97 04/08/20 07:04 62 100 Weight Weight 224 lb Physical Exam: The patient was seen and examined on the day of discharge. Quite anxious to go home today his potassium is 5.6 General Appearance: NAD, awake alert Eye: PERRL Respiratory: CTAB, normal chest expansion Cardiovascular: RRR, normal peripheral pulses Gastrointestinal: soft, normal bowel sounds Plan Home Medications: Medication Instructions Recorded Confirmed Type Furosemide [Lasix] 60 mg PO BID 03/03/18 04/05/20 History Amlodipine [Norvasc] 10 mg PO DAILY 07/21/19 04/05/20 History Gabapentin [Neurontin] 100 mg PO TID 07/21/19 04/05/20 History Glimepiride 4 mg PO QAM 07/21/19 04/05/20 History HYDROcodone Bit/APAP 10/325 [[place]] 1 tab PO Q6HR PRN 07/21/19 04/05/20 History Metoprolol Succinate [Toprol XL] 50 mg PO DAILY 07/21/19 04/05/20 History Pantoprazole [Protonix] 40 mg PO DAILY 07/21/19 04/05/20 History Simvastatin [Zocor] 80 mg PO HS 07/21/19 04/05/20 History Tamsulosin HCl [Flomax] 0.4 mg PO DAILY 07/21/19 04/05/20 History metFORMIN HCl [Metformin HCl] 1,000 mg PO BID 07/21/19 04/05/20 History Benzonatate [Tessalon] 100 mg PO TID PRN #30 cap 07/25/19 04/05/20 Rx Mometasone/Formoterol 200/5 2 puff INH BID-RT #1 inh 07/25/19 04/05/20 Rx [Dulera 200 Mcg/5 Mcg Inhaler] Albuterol Sulfate [Proventil Hfa] 2 puff INH Q6H PRN #1 aer 11/16/19 04/05/20 Rx guaiFENesin ER [Mucinex] 600 mg PO Q12HR #20 tab 11/16/19 04/05/20 Rx predniSONE 40 mg PO DAILY #10 tab 01/14/20 04/05/20 Rx Allergies: No Known Allergies Allergy (Verified 05/20/19 17:02) Activity:: Activity as Tolerated Nourishment:: Heart Healthy Diet Referrals: PROSPER DIEHL & [Primary Care Provider] - Disposition: HOME Quality CORE MEASURES:: N/A
[2020-04-08 15:53] LABS: Potassium 5.1 mmol/L (3.5-5.1)
[2020-04-08] MEDS ORDERED: Senokot S 8.6-50 MG TAB PO SCH (21:00)
--- NOTE | 2020-04-11 03:52 | PQF ---
CLINICAL DOCUMENTATION CLARIFICATION FORM: Dear : Jesu Hernandez Date / Time: 04/11/2020 6751 Please exercise your independent, professional judgment in responding to the clarification form. Clinical indicators are provided on the bottom of this form for your review Please check appropriate box(es): [ ] Empirically treating Gram Negative Pneumonia [ ] Empirically treating Anaerobic Pneumonia [ ] Simple Pneumonia [ ] Pneumonia of unknown etiology [ ] Other diagnosis, please specify __COPD exacerbation [ ] Unable to determine Physician Signature: Date/Time: For continuity of documentation, please document condition throughout progress notes and discharge summary. Thank You. To be completed by CDI/Coding staff for physician review: Present Clinical Indicators - Signs / Symptoms / Labs Results and Location in Medical Record [x] WBC 10.5; 12.8, Plt count 307, Neutrophils 56.6 Laboratory 04/04 [x] Chest X-ray: Subtle left lateral basilar parenchymal opacity/Infiltrates. Correlate for left lower lobe pneumonitis Imaging Dr Lou 04/04 [x] BP 146/92, Pulse 81, Resp 22, Temp 97.6 Vital signs 04/04 [x] chief complant of SOB onset 4 days ago H&P p1 02 Dr Cleveland [x] Acute COPD exacerbation with left lower pneumonia H&P p6 04/04 Dr Cleveland [x] reports coughwheezing HP 04/04 [x] Bilateral rhonchi at bases, decreased breath sound HP 04/04 [x] Sputum culture: moderate gram positive cocci, gram positive rods and gram negative rods Sputum culture 04/04 Present Risk Factors Results and Location in Medical Record [x] 79 year-old Male H&P p1 02/ Dr Cleveland [x] COPD H&P p1 02/ Dr Cleveland [x] Asthma H&P p1 02/ Dr Cleveland [x] DM H&P p1 02/ Dr Cleveland [x] Former smoker H&P p3 02/ Dr Cleveland Present Treatments Results and Location in Medical Record [x] Prednisone 40 mg oral MAR 04/04 [x] Dulera 200 mcg inhaler MAY 01 [x] IV Solumedrol 125 mg MAY 01 [x] Duoneb 1 puff MAY 01 [x] Ventolin 2.5 mg neb MAY 01 [x] IV Azithromycin 500 mg MAY 01 [x] IV Ceftroxone 1 gm MAY 01 [x] Oxygen 2L Respiratory panel 04/04 CDS/Seaman Officer Signature: Daphnie Stratton Phone #: [phone] Date/Time: 04/11/20 035 This is a permanent part of the Medical Record [facility]
--- NOTE | 2020-04-11 03:53 | PQF ---
CLINICAL DOCUMENTATION CLARIFICATION FORM: Dear : Jesu Hernandez Date / Time: 04/11/2020 7201 Please exercise your independent, professional judgment in responding to the clarification form. Clinical indicators are provided on the bottom of this form for your review Please check appropriate box(es): [ ] Acute Respiratory Failure with Hypoxia [ ] Hypoxia [ ] Other diagnosis, please specify __left lower lobe pneumonia [ ] Unable to determine In addition, please specify: Present on Admission (POA): [ ] Yes [ ] No [ ] Unable to determine Physician Signature: Date/Time: For continuity of documentation, please document condition throughout progress notes and discharge summary. Thank You. To be completed by CDI/Coding staff for physician review: Present Clinical Indicators - Signs / Symptoms / Labs Results and Location in Medical Record [x] Chest X-ray: Subtle left lateral basilar parenchymal opacity/Infiltrates. Correlate for left lower lobe pneumonitis Imaging Dr Lou 04/04 [x] BP 146/92, Pulse 81, Resp 22, Temp 97.6 Vital signs 04/04 [x] O2 sat 97%; 98%; 92% 94%;96% Vital signs 04/04-04/06 [x] chief complant of SOB onset 4 days ago H&P p1 04/04 Dr Cleveland [x] Acute COPD exacerbation with left lower pneumonia H&P p6 04/04 Dr Cleveland Present Risk Factors Results and Location in Medical Record [x] 79 year-old Male H&P p1 02/ Dr Cleveland [x] COPD H&P p1 02/03 Dr Cleveland [x] Asthma H&P p1 02/ Dr Cleveland [x] DM H&P p1 02/ Dr Cleveland [x] Former smoker H&P p3 02/ Dr Cleveland [x] Pneumonia H&P p6 02/ Dr Cleveland Present Treatments Results and Location in Medical Record [x] Prednisone 40 mg oral MAY 01 [x] Dulera 200 mcg inhaler MAY 01 [x] IV Solumedrol 125 mg MAR 04/04 [x] Duoneb 1 puff MAY 01 [x] Ventolin 2.5 mg neb MRA 04/04 [x] Oxygen 2L Respiratory panel 04/04 CDS/Buffing Wheel Raker Signature: Daphnie Stratton Phone #: [email or web address] [phone] Date/Time: 04/11/20 0352 Acute Respiratory Failure: ABG pH < 7.35 or > 7.45; Decreased oxygen saturation (<90% room air or < 95% on oxygen); PCO2 > 50 mm Hg; PO2 < 60 mm Hg; Labored or rapid respirations ARDS: Dx Criteria [[place] ARDS]: Respiratory symptoms within one week of a known clinical insult (e.g. shock, infection, surgery, trauma) Bilateral opacities in CXR/Chest CT not due to CHF or fluid This is a permanent part of the Medical Record [facility]
== END 2020-04-08 17:17 | disposition home or self-care (01) | DRG 190 ==
LOC: ERS 09:44 → T4-B 16:31 → OBSVTOIN 04-05 22:48
PROVIDERS: ADMIT Internal Medicine; ATTEND Internal Medicine
DX: J44.1 Chronic obstructive pulmonary disease with (acute) exacerbation (principal); J18.9 Pneumonia, unspecified organism; J44.0 Chronic obstructive pulmonary disease with (acute) lower respiratory infection; Z20.822 Contact with and (suspected) exposure to COVID-19; D52.9 Folate deficiency anemia, unspecified; E05.90 Thyrotoxicosis, unspecified without thyrotoxic crisis or storm; E87.5 Hyperkalemia; E78.00 Pure hypercholesterolemia, unspecified; E11.9 Type 2 diabetes mellitus without complications; F20.9 Schizophrenia, unspecified; E78.5 Hyperlipidemia, unspecified; Z28.21 Immunization not carried out because of patient refusal; Z79.899 Other long term (current) drug therapy; Z79.84 Long term (current) use of oral hypoglycemic drugs; Z79.52 Long term (current) use of systemic steroids; Z82.49 Family history of ischemic heart disease and other diseases of the circulatory system; Z82.0 Family history of epilepsy and other diseases of the nervous system; Z83.3 Family history of diabetes mellitus; Z87.891 Personal history of nicotine dependence
CPT/HCPCS: 36415; 36416; 71045; 80048; 80053; 82607; 82746; 84439; 84443; 84484; 85025; 85027; 87070; 87205; 87635; 93005; 94640; 94644; 96365; 96367; 96375; 96376; G0378; J0456; J0696; J1815; J1940; J1956; J2920; J2930; J3475; J3490; J7050; J7512; J7611; J7620; U0003; U0005

== ENCOUNTER 2020-04-26 17:04 | Inpatient (IN) | payer MEDICARE, BC ==
[2020-04-26] MEDS ORDERED: Albuterol Sulfate 2.5 mg/3 ml Neb ONE (17:45)
[2020-04-26] MEDS ORDERED: Albuterol 200 PUFF (6.7GM INHALER) ONE (17:45)
[2020-04-26 17:57] LABS: #Basophils 0.1 thou/uL (0.0-0.2); #Eosinphils 0.8 thou/uL (0.0-0.7); #Lymphocytes 2.6 thou/uL (1.20-3.40); #Monocytes 0.5 thou/uL (0.11-0.59); #Neutrophils 6.2 thou/uL (1.40-6.50); %Basophils 1.3 % (0.0-1.0); %Eosinophils 7.8 % (0.0-10.0); %Lymphocytes 25.4 % (21.0-51.0); %Monocytes 5.1 % (0.0-10.0); %Neutrophils 60.5 % (42.0-75.0); Hemoglobin 10.4 g/dL (14.0-18.0); Mean Corpuscular HGB CONC 30.9 g/dL (32.0-36.0); Mean Corpuscular Hemoglobin 31.4 pg (27.0-31.0); Mean Platelet Volume 8.4 fL (7.4-10.4); Platelet Count 265 thou/uL (130-400); RBC Distribution Width 16.5 % (11.5-14.5); White Blood Cell (WBC) Count 10.2 thou/uL (4.8-10.8)
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
[2020-04-26] MEDS ORDERED: predniSONE 20 MG TAB ONE (18:00)
[2020-04-26] MEDS ORDERED: Magnesium 2 GM/50 ML BAG (IN WATER) ONE (18:00)
[2020-04-26] MEDS ORDERED: Azithromycin 250 MG TAB ONE (18:00)
[2020-04-26] MEDS ORDERED: cefTRIAXone\\ROCEPHIN 2 GM VIAL ONE (18:15)
[2020-04-26 18:24] LABS: ALT (SGPT) 16 U/L (8-55); AST (SGOT) 13 U/L (5-34); Albumin 3.9 g/dL (3.4-4.8); Alkaline Phosphatase 49 U/L (40-110); Anion Gap 13 mmol/L (10-20); BUN (Urea Nitrogen) 12 mg/dL (8.4-25.7); Bilirubin, Total 0.4 mg/dL (0.2-1.2); Calc. Creatinine Clearance 0 mL/min (70-130); Calcium 9.1 mg/dL (7.8-10.44); Carbon Dioxide 31 mmol/L (23-31); Chloride 102 mmol/L (98-107); Globulin 2.9 g/dL (2.4-3.5); Glucose 129 mg/dL (83-110); Potassium 4.1 mmol/L (3.5-5.1); Protein, Total 6.8 g/dL (5.8-8.1); Sodium 142 mmol/L (136-145)
[2020-04-26 19:08] LABS: Actual Bicarbonate (HCO3a) 27.8 mEq/L (22-28); Analyzer IN Cardio ER; Base Excess (BEa) 2.4 mEq/L (-2.0 to +3.0); CO2 Tension 46.7 mmHg (35.0-45.0); Calcium, Ionized (arterial) 1.19 mmol/L (1.12-1.30); Carboxyhemoglobin (COHb) 0.2 gm% (0.0-3.0); Hemoglobin (Hb) 10.7 g/dL (14.0-18.0); pH, Arterial 7.39 (7.35-7.45)
[2020-04-26 19:14] LABS: ALV-art Gradient 63.045 mmHg (0-20); O2 Tension (PaO2), arterial 49.7 mmHg (> 70.0); Puncture Site RRA
[2020-04-26] MEDS ORDERED: Acetaminophen 650 MG Suppository PR PRN (21:03)
[2020-04-26] MEDS ORDERED: Acetaminophen 325 MG TAB PO PRN (21:03)
[2020-04-26] MEDS ORDERED: Dextrose 50% Abboject 50 ML SYRINGE SLOW IVP PRN (21:07)
[2020-04-26] MEDS ORDERED: Dextrose 5% in Water 1,000 ML IV PRN (21:07)
[2020-04-26] MEDS ORDERED: HumaLOG 300 UNITS/3 ML VIAL SC PRN (21:07)
[2020-04-26 21:30] VITALS: BMI 35.9
[2020-04-26 22:07] LABS: Lactic Acid 0.8 mmol/L (0.5-2.2)
[2020-04-26] MEDS ORDERED: Enoxaparin Sodium 40 MG/0.4 ML SYRINGE SC SCH (23:30)
[2020-04-27] MEDS: methylPREDNISolone Sod Succ 40 MG VIAL IVP SCH ×4 (00:36→17:57)
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
[2020-04-27 05:15] LABS: SARS-CoV-2 PCR by NAA Not Detected (NotDetected)
[2020-04-27] MEDS: HumaLOG 300 UNITS/3 ML VIAL SC PRN ×3 (07:06→17:58)
[2020-04-27 07:25] LABS: #Lymphocytes 0.8 thou/uL (1.20-3.40); #Neutrophils 8.1 thou/uL (1.40-6.50); %Basophils 0.2 % (0.0-1.0); %Eosinophils 0.1 % (0.0-10.0); %Lymphocytes 8.9 % (21.0-51.0); %Monocytes 0.4 % (0.0-10.0); %Neutrophils 90.4 % (42.0-75.0); Hemoglobin 11.5 g/dL (14.0-18.0); Mean Corpuscular HGB CONC 31.2 g/dL (32.0-36.0); Mean Platelet Volume 8.6 fL (7.4-10.4); Platelet Count 263 thou/uL (130-400); RBC Distribution Width 16.3 % (11.5-14.5)
[2020-04-27 07:42] LABS: Anion Gap 14 mmol/L (10-20); BUN (Urea Nitrogen) 14 mg/dL (8.4-25.7); Calc. Creatinine Clearance 84 mL/min (70-130); Calcium 9.4 mg/dL (7.8-10.44); Carbon Dioxide 29 mmol/L (23-31); Chloride 102 mmol/L (98-107); Glucose 229 mg/dL (83-110); Sodium 140 mmol/L (136-145)
--- NOTE | 2020-04-27 08:57 | CT ---
CT ANGIOGRAM THORAX WITH CONTRAST: (CTA pulmonary angiogram) DATE: 04/27/2020 HISTORY: 79-year-old male with chest pain, dyspnea, and elevated d-dimer COMPARISON: 06/30/2019 TECHNIQUE: IV injection of iodinated contrast. Scan acquisition timing attempted to coincide with iodinated contrast bolus reaching maximal density in pulmonary arteries. 3-D MIP reconstructions. FINDINGS: No thrombus in pulmonary trunk, left and right main pulmonary arteries, upper lobe pulmonary arteries and their branches, and first order and second order bilateral lower lobe pulmonary artery branches. Difficult to evaluate for more peripheral lower lobe branch pulmonary arterial thrombus because of st reak artifact from breathing motion. No thoracic aortic aneurysm or dissection. Large number of blebs throughout right upper and lower lung zones, mostly upper lung zones. Chronic interstitial changes throughout right upper lobe including centrilobular emphysematous change s, similar to prior study. Left lung is relatively clear. Moderately large 2 x 1 cm right anterior paratracheal lymph node, unchanged. No pericardial effusion. No significant interval change. IMPRESSION: 1) no pulmonary thromboembolism identified, although it is difficult to evaluate the bilateral lower lobe pulmonary artery branches because of breathing motion. 2) diffuse chronic changes of the right lung, including unilateral right centrilobular and paraseptal emphysematous changes. 3) no acute findings
[2020-04-27] MEDS: Famotidine 20 MG TAB PO SCH ×2 (09:06→20:25)
[2020-04-27] MEDS: Enoxaparin Sodium 40 MG/0.4 ML SYRINGE SC SCH (09:06)
[2020-04-27] MEDS ORDERED: Bisacodyl 5 MG TAB PO PRN (09:19)
[2020-04-27] MEDS ORDERED: Iopamidol-370 76% 500 ML 1 ML ONE (11:44)
--- NOTE | 2020-04-27 17:28 | PDOC.HOSPP ---
- Subjective Encounter Date: 04/27/20 Encounter Time: 09:30 Subjective: Patient seen for follow-up COPD exacerbation. Reports feeling better. - Objective Vital Signs & Weight: Vital Signs (12 hours) Temp Pulse Resp BP Pulse Ox Pulse Ox Pulse Ox 04/27/20 16:00 97.8 F 78 20 144/70 H 95 04/27/20 13:54 89 16 95 04/27/20 11:00 97.8 F 78 20 145/65 H 95 04/27/20 09:55 98 93 L 04/27/20 09:23 97 95 04/27/20 08:45 98 04/27/20 07:12 98.2 F 72 20 131/60 98 04/27/20 07:00 85 16 95 Pulse Ox 04/27/20 16:00 04/27/20 13:54 04/27/20 11:00 04/27/20 09:55 95 04/27/20 09:23 96 04/27/20 08:45 04/27/20 07:12 04/27/20 07:00 Weight Weight 223 lb Result Diagrams: 04/27/20 07:14 04/27/20 07:14 Additional Labs: Accuchecks 04/27/20 04/27/20 04/27/20 16:31 11:09 06:20 POC Glucose 223 H 208 H 221 H 04/26/20 21:55 POC Glucose 164 H Labs and MAR reviewed by dc Hospitalist ROS - Review of Systems Constitutional: denies: fever, chills, sweats, weakness, malaise Respiratory: reports: cough, dry, SOB with excertion, wheezing Cardiovascular: denies: chest pain, palpitations, orthopnea, paroxysmal noc. dyspnea, edema, light headedness - Medication Medications: Active Medications Generic Name Dose Route Start Last Admin Trade Name Freq PRN Reason Stop Dose Admin Albuterol/Ipratropium 3 ml 04/26/20 21:00 04/27/20 13:54 Ipratropium/Albuterol Sulfate 3 Ml Neb NEB 3 ml Q4H PRN Administration SOB &/or Wheezing Albuterol/Ipratropium 3 ml 04/27/20 14:30 04/27/20 14:20 Ipratropium/Albuterol Sulfate 3 Ml Neb NEB Not Given [id number] FAITH Bisacodyl 10 mg 04/27/20 09:19 04/27/20 11:17 Bisacodyl 5 Mg Tab PO 10 mg DAILYPRN PRN Administration Constipation Enoxaparin Sodium 40 mg 04/27/20 09:00 04/27/20 09:06 Enoxaparin Sodium 40 Mg/0.4 Ml Syringe SC 40 mg 0900 FAITH Administration Famotidine 20 mg 04/27/20 09:00 04/27/20 09:06 Famotidine 20 Mg Tab PO 20 mg BID FAITH Administration Insulin Human Lispro 0 units 04/26/20 21:07 04/27/20 11:18 Humalog 300 Units/3 Ml Vial SC 3 unit .MILD SLIDING SCALE PRN Administration Mild Correctional Scale Methylprednisolone Sodium Succinate 40 mg 04/26/20 23:59 04/27/20 11:16 Methylprednisolone Sod Succ 40 Mg Vial IVP 40 mg Q6HR FAITH Administration Hospitalist Exam Vitals: Vital Signs (12 hours) Temp Pulse Resp BP Pulse Ox Pulse Ox Pulse Ox 04/27/20 16:00 97.8 F 78 20 144/70 H 95 04/27/20 13:54 89 16 95 04/27/20 11:00 97.8 F 78 20 145/65 H 95 04/27/20 09:55 98 93 L 04/27/20 09:23 97 95 04/27/20 08:45 98 04/27/20 07:12 98.2 F 72 20 131/60 98 04/27/20 07:00 85 16 95 Pulse Ox 04/27/20 16:00 04/27/20 13:54 04/27/20 11:00 04/27/20 09:55 95 04/27/20 09:23 96 04/27/20 08:45 04/27/20 07:12 04/27/20 07:00 Weight Weight 223 lb General - other findings: Obese Eye: anicteric sclera ENT: normocephalic atraumatic, no oropharyngeal lesions Neck: supple, symmetric, no thyromegaly Heart: RRR Respiratory: wheezes Gastrointestinal: soft, non-tender Skin: no rashes Musculoskeletal: no muscle wasting Psychiatric: normal affect, normal behavior Hosp A/P - Plan Patient admitted on April 26 for COPD exacerbation. (1) COPD exacerbation Code(s): J44.1 - CHRONIC OBSTRUCTIVE PULMONARY DISEASE W (ACUTE) EXACERBATION Status: Acute Assessment and Plan: Clinically improving. Continue oxygen, steroids and bronchodilators. Consult pulmonology on Thursday, and patient's director behavioral health will be available. Marisel's director behavioral health over this weekend. (2) DM2 (diabetes mellitus, type 2) Status: Chronic Qualifiers: Diabetes mellitus bed bug exterminator insulin use: without usp use Diabetes mellitus complication status: without complication Qualified Code(s): E11.9 - Type 2 diabetes mellitus without complications Assessment and Plan: Blood sugars are high, switch to moderate insulin sliding scale. (3) HLD (hyperlipidemia) Code(s): E78.5 - HYPERLIPIDEMIA, UNSPECIFIED Status: Chronic Qualifiers: Hyperlipidemia type: unspecified Qualified Code(s): E78.5 - Hyperlipidemia, unspecified Assessment and Plan: Continue statin (4) HTN (hypertension) Code(s): I10 - ESSENTIAL (PRIMARY) HYPERTENSION Status: Chronic Qualifiers: Hypertension type: essential hypertension Qualified Code(s): I10 - Essential (primary) hypertension Assessment and Plan: Home medications have been resumed. Monitor vital signs and titrate antihypertensives as needed. (5) Obesity (BMI 30-39.9) Code(s): E66.9 - OBESITY, UNSPECIFIED Status: Chronic Plan:
[2020-04-27] MEDS ORDERED: Benzonatate 100 MG CAP PO PRN (17:49)
[2020-04-27] MEDS ORDERED: HYDROcodone/Acetaminophen 10/325 mg Tablet PO PRN (18:08)
[2020-04-27] MEDS ORDERED: Furosemide 40 MG TAB PO SCH (19:00)
[2020-04-27] MEDS: metFORMIN 500 MG TAB PO SCH (20:26)
[2020-04-27] MEDS: Gabapentin 100 MG CAP PO SCH (20:27)
[2020-04-27] MEDS: Doxycycline 100 MG CAP PO SCH (20:28)
[2020-04-27] MEDS ORDERED: Atorvastatin Calcium 40 MG TAB PO SCH (21:00)
[2020-04-27] MEDS: Mometasone 200 MCG/Formoterol 5 MCG 120 PUFF INHALER INH SCH (22:33)
[2020-04-28] MEDS: methylPREDNISolone Sod Succ 40 MG VIAL IVP SCH ×2 (00:38→05:04)
[2020-04-28] MEDS: HumaLOG 300 UNITS/3 ML VIAL SC PRN ×2 (05:04→11:10)
[2020-04-28 06:56] LABS: #Lymphocytes 0.9 thou/uL (1.20-3.40); #Monocytes 0.3 thou/uL (0.11-0.59); #Neutrophils 8.7 thou/uL (1.40-6.50); %Basophils 0.2 % (0.0-1.0); %Eosinophils 0.2 % (0.0-10.0); %Lymphocytes 8.7 % (21.0-51.0); %Monocytes 2.6 % (0.0-10.0); %Neutrophils 88.3 % (42.0-75.0); Hemoglobin 10.4 g/dL (14.0-18.0); Mean Corpuscular HGB CONC 31.4 g/dL (32.0-36.0); Mean Corpuscular Hemoglobin 31.3 pg (27.0-31.0); Mean Corpuscular Volume 99.5 fL (78.0-98.0); Mean Platelet Volume 9.2 fL (7.4-10.4); Platelet Count 261 thou/uL (130-400); RBC Distribution Width 16.6 % (11.5-14.5); Red Blood Cell (RBC) Count 3.33 mill/uL (4.70-6.10); White Blood Cell (WBC) Count 9.9 thou/uL (4.8-10.8)
[2020-04-28 07:05] LABS: Anion Gap 15 mmol/L (10-20); BUN (Urea Nitrogen) 20 mg/dL (8.4-25.7); Calc. Creatinine Clearance 85 mL/min (70-130); Carbon Dioxide 29 mmol/L (23-31); Chloride 98 mmol/L (98-107); Glucose 197 mg/dL (83-110); Potassium 4.5 mmol/L (3.5-5.1); Sodium 137 mmol/L (136-145)
[2020-04-28 07:28] VITALS: TEMP 97.7
[2020-04-28] MEDS: Mometasone 200 MCG/Formoterol 5 MCG 120 PUFF INHALER INH SCH (07:55)
[2020-04-28] MEDS: metFORMIN 500 MG TAB PO SCH (08:27)
[2020-04-28] MEDS: Famotidine 20 MG TAB PO SCH (08:27)
[2020-04-28] MEDS: Doxycycline 100 MG CAP PO SCH (08:27)
[2020-04-28] MEDS: Gabapentin 100 MG CAP PO SCH (08:28)
[2020-04-28] MEDS: Enoxaparin Sodium 40 MG/0.4 ML SYRINGE SC SCH (08:29)
[2020-04-28] MEDS ORDERED: Amlodipine 10 MG TAB PO SCH (09:00)
[2020-04-28] MEDS ORDERED: Glimepiride 4 MG TAB PO SCH (09:00)
[2020-04-28] MEDS ORDERED: Furosemide 40 MG TAB PO SCH (09:00)
[2020-04-28] MEDS ORDERED: Folic Acid/Vit B Comp W-C PO SCH (09:00)
[2020-04-28] MEDS ORDERED: Tamsulosin HCl 0.4 MG CAP PO SCH (09:00)
--- NOTE | 2020-04-28 10:38 | PDOC.DS.DS ---
Provider Date of Admission: 04/26/20 19:51 Date of Discharge: 04/28/20 Admitting Provider: Miguel Bravo MD Consultations: None Primary Care Physician: JAY HEAD Course Hospital Course: Patient is a 79-year-old male with COPD on 2 L home oxygen presented to the emergency room on 04/26 with worsening shortness of breath of 3 days duration. His work-up was consistent with COPD exacerbation. He was started on IV steroids along with O2 supplementation and empiric antibiotics. CT angiogram of the chest was negative for pulmonary embolism. Symptomatically patient has significantly improved and is requesting to be discharged. He is saturating 97% on 2 L nasal cannula with a temperature of 97.7. Patient is currently ambulating in the hallway and appears comfortable. He will follow up with Dr. Palma next week. Final diagnosis: Acute on chronic hypoxic respiratory failure due to COPD exacerbationPOA Diabetes mellitus type 2 Hyperlipidemia Hypertension Obesity with a BMI of 36 CKD stage II Chronic anemia suspected due to nutritional deficiency History of folic acid deficiencyon replacement Patient understands the above plan of care. Lab Results: 04/28/20 06:10 04/28/20 06:10 Abnormal Lab Results - Last 48 hrs 04/26/20 17:41: RBC 3.30 L, Hgb 10.4 L, Hct 33.6 L, MCV 102.0 H, MCH 31.4 H, MCHC 30.9 L, RDW 16.5 H, Basophils % 1.3 H, Eosinophils # 0.8 H 04/26/20 19:06: ABG pCO2 46.7 H, ABG pO2 49.7 L*, ABG O2 Sat (Measured) 84.6 L*, ABG O2 Content 12.6 L, ABG Hematocrit 31.0 L, ABG Hemoglobin 10.7 L, ABG Oxyhemoglobin 83.8 L, ABG Deoxyhemoglobin 15.3 H, A-a O2 Gradient 63.045 H 04/26/20 21:36: D-Dimer 1.44 H 04/27/20 07:14: RBC 3.60 L, Hgb 11.5 L, Hct 36.9 L, MCV 103.0 H, MCH 32.0 H, MCHC 31.2 L, RDW 16.3 H, Neutrophils % 90.4 H, Lymphocytes % 8.9 L, Neutrophils # 8.1 H, Lymphocytes # 0.8 L, Monocytes # 0.0 L 04/28/20 06:10: RBC 3.33 L, Hgb 10.4 L, Hct 33.2 L, MCV 99.5 H, MCH 31.3 H, MCHC 31.4 L, RDW 16.6 H, Neutrophils % 88.3 H, Lymphocytes % 8.7 L, Neutrophils # 8.7 H, Lymphocytes # 0.9 L Microbiology - Entire Visit 04/27/20 00:36 Bronchial Washing - Unknown Respiratory Culture - Preliminary Vitals: Vital Signs (12 hours) Temp Pulse Resp BP BP Pulse Ox 04/28/20 08:28 72 04/28/20 07:53 72 16 97 04/28/20 07:27 97.7 F 72 20 129/68 97 04/28/20 04:58 98.1 F 78 18 146/66 H 96 04/28/20 02:34 69 16 99 04/28/20 00:36 97.6 F 71 18 150/68 H 96 Weight Weight 223 lb Physical Exam: The patient was seen and examined on the day of discharge. General Appearance: NAD Respiratory: no wheezes, no rales Cardiovascular: RRR, no gallops Gastrointestinal: soft, non-distended Extremities: no cyanosis Neurological: no new deficit Plan Prescriptions: Doxycycline [Vibramycin] 100 mg PO Q12HR #10 cap predniSONE 20 mg PO ASDIR #12 tab Home Medications: Medication Instructions Recorded Confirmed Type Furosemide [Lasix] 60 mg PO BID 03/03/18 04/26/20 History Amlodipine [Norvasc] 10 mg PO DAILY 07/21/19 04/26/20 History Gabapentin [Neurontin] 100 mg PO TID 07/21/19 04/26/20 History Glimepiride 4 mg PO QAM 07/21/19 04/26/20 History HYDROcodone Bit/APAP 10/325 [[place]] 1 tab PO Q6HR PRN 07/21/19 04/26/20 History Metoprolol Succinate [Toprol XL] 50 mg PO DAILY 07/21/19 04/26/20 History Pantoprazole [Protonix] 40 mg PO DAILY 07/21/19 04/26/20 History Simvastatin [Zocor] 80 mg PO HS 07/21/19 04/26/20 History Tamsulosin HCl [Flomax] 0.4 mg PO DAILY 07/21/19 04/26/20 History metFORMIN HCl [Metformin HCl] 1,000 mg PO BID 07/21/19 04/26/20 History Benzonatate [Tessalon] 100 mg PO TID PRN #30 cap 07/25/19 04/26/20 Rx Mometasone/Formoterol 200/5 2 puff INH BID-RT #1 inh 07/25/19 04/26/20 Rx [Dulera 200 Mcg/5 Mcg Inhaler] Albuterol Sulfate [Proventil Hfa] 2 puff INH Q6H PRN #1 aer 11/16/19 04/26/20 Rx guaiFENesin ER [Mucinex] 600 mg PO Q12HR #20 tab 11/16/19 04/26/20 Rx Folic Acid/Vit B Comp W-C 1 tab PO DAILY 30 Days #30 tab 04/08/20 04/26/20 Rx [Nephro-Taylor] Doxycycline [Vibramycin] 100 mg PO Q12HR #10 cap 04/28/20 Rx predniSONE 20 mg PO ASDIR #12 tab 04/28/20 Rx Allergies: No Known Allergies Allergy (Verified 04/26/20 21:43) Referrals: Stephane Palma MD [Active] - 7 Days STEPHANE DIEHL & [Primary Care Provider] - 3 Days Disposition: HOME Quality CORE MEASURES:: N/A
[2020-04-28 14:25] VITALS: BP 105/59
== END 2020-04-28 11:48 | disposition home or self-care (01) | DRG 189 ==
LOC: ERS 17:04 → T4-A 19:51
PROVIDERS: ADMIT Internal Medicine; ATTEND Internal Medicine
DX: J96.21 Acute and chronic respiratory failure with hypoxia (principal); J44.1 Chronic obstructive pulmonary disease with (acute) exacerbation; Z20.822 Contact with and (suspected) exposure to COVID-19; E11.22 Type 2 diabetes mellitus with diabetic chronic kidney disease; E78.5 Hyperlipidemia, unspecified; I12.9 Hypertensive chronic kidney disease with stage 1 through stage 4 chronic kidney disease, or unspecified chronic kidney disease; E66.9 Obesity, unspecified; F20.9 Schizophrenia, unspecified; N18.2 Chronic kidney disease, stage 2 (mild); D52.9 Folate deficiency anemia, unspecified; Z89.422 Acquired absence of other left toe(s); Z79.84 Long term (current) use of oral hypoglycemic drugs; Z79.51 Long term (current) use of inhaled steroids; Z79.52 Long term (current) use of systemic steroids; Z79.899 Other long term (current) drug therapy
CPT/HCPCS: 36415; 36416; 36600; 71045; 71275; 80048; 80053; 82805; 83605; 83735; 83880; 84145; 84484; 85025; 85379; 87070; 87205; 87635; 93005; 94640; 96365; 96375; J0696; J1650; J1815; J2920; J3475; J7512; J7611; J7620; Q9967; U0003; U0005

== ENCOUNTER 2020-05-20 10:37 | Emergency (ER) | payer MEDICARE, BC ==
[2020-05-20] MEDS ORDERED: Magnesium 2 GM/50 ML BAG (IN WATER) ONE (10:57)
[2020-05-20] MEDS ORDERED: methylPREDNISolone Sod Succ/PF 125 MG/2 ML VIAL ONE (10:57)
[2020-05-20 11:17] LABS: #Basophils 0.1 thou/uL (0.0-0.2); #Eosinphils 1.1 thou/uL (0.0-0.7); #Lymphocytes 3.2 thou/uL (1.20-3.40); #Monocytes 0.7 thou/uL (0.11-0.59); #Neutrophils 6.8 thou/uL (1.40-6.50); %Basophils 1.1 % (0.0-1.0); %Eosinophils 8.9 % (0.0-10.0); %Monocytes 5.5 % (0.0-10.0); %Neutrophils 57.5 % (42.0-75.0); Hemoglobin 10.9 g/dL (14.0-18.0); Mean Corpuscular HGB CONC 31.3 g/dL (32.0-36.0); Mean Corpuscular Hemoglobin 32.4 pg (27.0-31.0); Mean Platelet Volume 8.2 fL (7.4-10.4); Platelet Count 297 thou/uL (130-400); RBC Distribution Width 16.6 % (11.5-14.5); Red Blood Cell (RBC) Count 3.36 mill/uL (4.70-6.10); White Blood Cell (WBC) Count 11.8 thou/uL (4.8-10.8)
[2020-05-20 11:41] LABS: ALT (SGPT) 12 U/L (8-55); AST (SGOT) 11 U/L (5-34); Albumin 3.9 g/dL (3.4-4.8); Alkaline Phosphatase 56 U/L (40-110); Anion Gap 14 mmol/L (10-20); BUN (Urea Nitrogen) 10 mg/dL (8.4-25.7); Bilirubin, Total 0.4 mg/dL (0.2-1.2); Calc. Creatinine Clearance 0 mL/min (70-130); Calcium 9.3 mg/dL (7.8-10.44); Carbon Dioxide 28 mmol/L (23-31); Chloride 105 mmol/L (98-107); Globulin 3.1 g/dL (2.4-3.5); Glucose 118 mg/dL (83-110); Potassium 4.2 mmol/L (3.5-5.1); Sodium 143 mmol/L (136-145)
== END 2020-05-20 12:17 | disposition home or self-care (01) ==
LOC: ERS 10:37
DX: J44.1 Chronic obstructive pulmonary disease with (acute) exacerbation (principal); E11.9 Type 2 diabetes mellitus without complications; E78.5 Hyperlipidemia, unspecified; I10 Essential (primary) hypertension
CPT/HCPCS: 71045; 80053; 83880; 84484; 85025; 93005; 94640; 96365; 96375; J2930; J3475; J7620

== ENCOUNTER 2020-06-18 15:00 | Emergency (ER) | payer MEDICARE, BC ==
[2020-06-18 16:27] LABS: #Basophils 0.1 thou/uL (0.0-0.2); #Eosinphils 0.7 thou/uL (0.0-0.7); #Lymphocytes 2.5 thou/uL (1.20-3.40); #Monocytes 0.8 thou/uL (0.11-0.59); #Neutrophils 6.3 thou/uL (1.40-6.50); %Basophils 0.9 % (0.0-1.0); %Eosinophils 6.9 % (0.0-10.0); %Lymphocytes 24.2 % (21.0-51.0); %Monocytes 7.4 % (0.0-10.0); %Neutrophils 60.7 % (42.0-75.0); Hemoglobin 11.2 g/dL (14.0-18.0); Mean Corpuscular HGB CONC 32.1 g/dL (32.0-36.0); Mean Corpuscular Hemoglobin 33.8 pg (27.0-31.0); Mean Platelet Volume 8.5 fL (7.4-10.4); Platelet Count 271 thou/uL (130-400); RBC Distribution Width 15.3 % (11.5-14.5); White Blood Cell (WBC) Count 10.3 thou/uL (4.8-10.8)
[2020-06-18 16:48] LABS: ALT (SGPT) 10 U/L (8-55); AST (SGOT) 12 U/L (5-34); Albumin 3.8 g/dL (3.4-4.8); Alkaline Phosphatase 52 U/L (40-110); Anion Gap 11 mmol/L (10-20); BUN (Urea Nitrogen) 14 mg/dL (8.4-25.7); Bilirubin, Total 0.2 mg/dL (0.2-1.2); Calc. Creatinine Clearance 0 mL/min (70-130); Calcium 9.3 mg/dL (7.8-10.44); Carbon Dioxide 31 mmol/L (23-31); Chloride 105 mmol/L (98-107); Potassium 4.4 mmol/L (3.5-5.1); Protein, Total 6.8 g/dL (5.8-8.1); Sodium 143 mmol/L (136-145)
[2020-06-18 16:53] LABS: Glucose 53 mg/dL (83-110)
[2020-06-18] MEDS ORDERED: predniSONE 20 MG TAB ONE (17:19)
== END 2020-06-18 18:14 | disposition home or self-care (01) ==
LOC: ERS 15:00
DX: J44.9 Chronic obstructive pulmonary disease, unspecified (principal); E11.9 Type 2 diabetes mellitus without complications; I10 Essential (primary) hypertension; E78.5 Hyperlipidemia, unspecified
CPT/HCPCS: 36415; 71045; 80053; 83880; 84484; 85025; 93005; 94640; 94760; J7512; J7620

== ENCOUNTER 2020-06-27 13:59 | Emergency (ER) | payer MEDICARE, BC ==
[2020-06-27] MEDS ORDERED: methylPREDNISolone Sod Succ/PF 125 MG/2 ML VIAL ONE (14:38)
[2020-06-27 14:41] LABS: #Basophils 0.1 thou/uL (0.0-0.2); #Eosinphils 0.4 thou/uL (0.0-0.7); #Lymphocytes 4.2 thou/uL (1.20-3.40); #Monocytes 1.1 thou/uL (0.11-0.59); #Neutrophils 8.9 thou/uL (1.40-6.50); %Basophils 0.9 % (0.0-1.0); %Eosinophils 2.5 % (0.0-10.0); %Lymphocytes 28.5 % (21.0-51.0); %Monocytes 7.4 % (0.0-10.0); %Neutrophils 60.7 % (42.0-75.0); Hemoglobin 11.1 g/dL (14.0-18.0); Mean Corpuscular Hemoglobin 33.2 pg (27.0-31.0); Platelet Count 252 thou/uL (130-400); RBC Distribution Width 14.7 % (11.5-14.5); Red Blood Cell (RBC) Count 3.34 mill/uL (4.70-6.10); White Blood Cell (WBC) Count 14.6 thou/uL (4.8-10.8)
[2020-06-27 15:12] LABS: ALT (SGPT) 23 U/L (8-55); AST (SGOT) 15 U/L (5-34); Albumin 3.5 g/dL (3.4-4.8); Alkaline Phosphatase 51 U/L (40-110); Anion Gap 15 mmol/L (10-20); BUN (Urea Nitrogen) 30 mg/dL (8.4-25.7); Bilirubin, Total 0.5 mg/dL (0.2-1.2); Calc. Creatinine Clearance 0 mL/min (70-130); Calcium 9.1 mg/dL (7.8-10.44); Carbon Dioxide 31 mmol/L (23-31); Chloride 102 mmol/L (98-107); Lipase 29 U/L (8-78); Potassium 4.2 mmol/L (3.5-5.1); Protein, Total 6.5 g/dL (5.8-8.1); Sodium 144 mmol/L (136-145)
[2020-06-27 15:16] LABS: Glucose 54 mg/dL (83-110)
[2020-06-27] MEDS ORDERED: Magnesium 2 GM/50 ML BAG (IN WATER) ONE ×2 (16:18)
[2020-06-27] MEDS ORDERED: Albuterol 200 PUFF (6.7GM INHALER) ONE (16:21)
== END 2020-06-27 17:12 | disposition home or self-care (01) ==
LOC: ERS 13:59
DX: J44.1 Chronic obstructive pulmonary disease with (acute) exacerbation (principal); E11.9 Type 2 diabetes mellitus without complications; E78.5 Hyperlipidemia, unspecified; I10 Essential (primary) hypertension; J44.9 Chronic obstructive pulmonary disease, unspecified
CPT/HCPCS: 36416; 71045; 80053; 83690; 83880; 84484; 85025; 93005; 96365; 96375; J2930; J3475

== ENCOUNTER 2020-07-28 10:26 | Inpatient (IN) | payer MEDICARE, BC ==
[2020-07-28] MEDS ORDERED: Magnesium 2 GM/50 ML BAG (IN WATER) ONE (10:58)
[2020-07-28] MEDS ORDERED: Dexamethasone 10 MG/ML VIAL ONE (10:58)
[2020-07-28 11:17] LABS: #Basophils 0.1 thou/uL (0.0-0.2); #Eosinphils 0.8 thou/uL (0.0-0.7); #Monocytes 0.7 thou/uL (0.11-0.59); #Neutrophils 7.4 thou/uL (1.40-6.50); %Basophils 0.9 % (0.0-1.0); %Eosinophils 6.9 % (0.0-10.0); %Lymphocytes 24.7 % (21.0-51.0); %Monocytes 5.6 % (0.0-10.0); %Neutrophils 61.9 % (42.0-75.0); Hemoglobin 11.3 g/dL (14.0-18.0); Mean Corpuscular HGB CONC 32.5 g/dL (32.0-36.0); Mean Platelet Volume 8.5 fL (7.4-10.4); Platelet Count 266 thou/uL (130-400); RBC Distribution Width 14.7 % (11.5-14.5); Red Blood Cell (RBC) Count 3.31 mill/uL (4.70-6.10); White Blood Cell (WBC) Count 11.9 thou/uL (4.8-10.8)
[2020-07-28 11:36] LABS: ALT (SGPT) 10 U/L (8-55); AST (SGOT) 15 U/L (5-34); Albumin 3.7 g/dL (3.4-4.8); Alkaline Phosphatase 49 U/L (40-110); Anion Gap 12 mmol/L (10-20); BUN (Urea Nitrogen) 12 mg/dL (8.4-25.7); Bilirubin, Total 0.4 mg/dL (0.2-1.2); CK (CPK) 116 U/L (30-200); Calc. Creatinine Clearance 0 mL/min (70-130); Calcium 9.1 mg/dL (7.8-10.44); Carbon Dioxide 28 mmol/L (23-31); Chloride 104 mmol/L (98-107); Globulin 2.9 g/dL (2.4-3.5); Glucose 78 mg/dL (83-110); Lipase 16 U/L (8-78); Potassium 4.6 mmol/L (3.5-5.1); Protein, Total 6.6 g/dL (5.8-8.1); Sodium 139 mmol/L (136-145)
[2020-07-28] MEDS ORDERED: Albuterol Sulfate 2.5 mg/0.5 ml Neb ONE ×3 (11:42→13:36)
[2020-07-28] MEDS ORDERED: Dextrose 50% Abboject 50 ML SYRINGE SLOW IVP PRN (14:13)
[2020-07-28] MEDS ORDERED: HYDROcodone/Acetaminophen 10/325 mg Tablet PO PRN (14:13)
[2020-07-28] MEDS ORDERED: Albuterol Sulfate 2.5 mg/3 ml Neb NEB PRN (14:13)
[2020-07-28] MEDS ORDERED: Dextrose 5% in Water 1,000 ML IV PRN (14:13)
[2020-07-28] MEDS ORDERED: Acetaminophen 325 MG TAB PO PRN (14:13)
[2020-07-28] MEDS ORDERED: Bacteriostatic Water 30 ML VIAL FS PRN (15:30)
[2020-07-28 17:53] VITALS: BMI 35.7
[2020-07-28] MEDS ORDERED: methylPREDNISolone Sod Succ 40 MG VIAL IVP SCH (18:00)
[2020-07-28] MEDS: Gabapentin 300 MG CAP PO SCH ×2 (18:30→20:25)
[2020-07-28] MEDS: methylPREDNISolone Sod Succ 40 MG VIAL IVP SCH ×2 (18:31→22:29)
[2020-07-28] MEDS: HumaLOG 300 UNITS/3 ML VIAL SC PRN ×2 (18:33→22:31)
[2020-07-28] MEDS: Arformoterol 15 MCG/2 ML NEB NEB SCH (19:22)
[2020-07-28] MEDS: Atorvastatin Calcium 20 MG TAB PO SCH (20:25)
[2020-07-28] MEDS: Benzonatate 100 MG CAP PO PRN (20:25)
[2020-07-29 01:39] LABS: SARS-CoV-2 NAA Rapid Test Not Detected (NotDetected)
[2020-07-29] MEDS: methylPREDNISolone Sod Succ 40 MG VIAL IVP SCH ×4 (05:27→21:25)
[2020-07-29] MEDS: HumaLOG 300 UNITS/3 ML VIAL SC PRN ×3 (05:31→18:26)
[2020-07-29] MEDS: Arformoterol 15 MCG/2 ML NEB NEB SCH ×2 (06:15→19:37)
[2020-07-29 06:41] LABS: #Lymphocytes 1.1 thou/uL (1.20-3.40); #Monocytes 0.2 thou/uL (0.11-0.59); #Neutrophils 8.4 thou/uL (1.40-6.50); %Basophils 0.1 % (0.0-1.0); %Eosinophils 0.1 % (0.0-10.0); %Lymphocytes 11.1 % (21.0-51.0); %Monocytes 1.6 % (0.0-10.0); Hemoglobin 11.6 g/dL (14.0-18.0); Mean Corpuscular HGB CONC 30.9 g/dL (32.0-36.0); Mean Corpuscular Hemoglobin 32.2 pg (27.0-31.0); Mean Platelet Volume 8.7 fL (7.4-10.4); Platelet Count 293 thou/uL (130-400); RBC Distribution Width 14.7 % (11.5-14.5); White Blood Cell (WBC) Count 9.7 thou/uL (4.8-10.8)
[2020-07-29 07:00] LABS: Anion Gap 12 mmol/L (10-20); BUN (Urea Nitrogen) 16 mg/dL (8.4-25.7); Calc. Creatinine Clearance 89 mL/min (70-130); Calcium 8.9 mg/dL (7.8-10.44); Carbon Dioxide 24 mmol/L (23-31); Chloride 105 mmol/L (98-107); Glucose 227 mg/dL (83-110); Potassium 5.1 mmol/L (3.5-5.1); Sodium 136 mmol/L (136-145)
[2020-07-29] MEDS: Gabapentin 300 MG CAP PO SCH ×3 (08:21→21:22)
[2020-07-29] MEDS: Losartan 25 MG TAB PO SCH (08:23)
[2020-07-29] MEDS: Tamsulosin HCl 0.4 MG CAP PO SCH (08:24)
[2020-07-29] MEDS: Enoxaparin Sodium 40 MG/0.4 ML SYRINGE SC SCH (08:24)
[2020-07-29] MEDS: Amlodipine 10 MG TAB PO SCH (08:24)
[2020-07-29] MEDS: Benzonatate 100 MG CAP PO PRN (10:52)
[2020-07-29] MEDS: Atorvastatin Calcium 20 MG TAB PO SCH (21:22)
[2020-07-30] MEDS: methylPREDNISolone Sod Succ 40 MG VIAL IVP SCH (05:20)
[2020-07-30] MEDS: HumaLOG 300 UNITS/3 ML VIAL SC PRN ×3 (05:25→17:01)
[2020-07-30] MEDS: Arformoterol 15 MCG/2 ML NEB NEB SCH ×2 (06:06→18:50)
[2020-07-30] MEDS: Amlodipine 10 MG TAB PO SCH (08:32)
[2020-07-30] MEDS: Gabapentin 300 MG CAP PO SCH ×3 (08:32→21:54)
[2020-07-30] MEDS: predniSONE 5 MG TAB PO SCH (08:32)
[2020-07-30] MEDS: Enoxaparin Sodium 40 MG/0.4 ML SYRINGE SC SCH (08:33)
[2020-07-30] MEDS: Losartan 25 MG TAB PO SCH (08:33)
[2020-07-30] MEDS: Tamsulosin HCl 0.4 MG CAP PO SCH (08:33)
[2020-07-30] MEDS: Mometasone 200 MCG/Formoterol 5 MCG 120 PUFF INHALER INH SCH (18:51)
[2020-07-30] MEDS ORDERED: Atorvastatin Calcium 40 MG TAB PO SCH (21:00)
[2020-07-30] MEDS: guaiFENesin ER 600 MG TAB PO SCH (21:55)
[2020-07-30] MEDS: metFORMIN 500 MG TAB PO SCH (21:55)
[2020-07-31] MEDS: Arformoterol 15 MCG/2 ML NEB NEB SCH (07:07)
[2020-07-31] MEDS: Mometasone 200 MCG/Formoterol 5 MCG 120 PUFF INHALER INH SCH (07:08)
[2020-07-31] MEDS: metFORMIN 500 MG TAB PO SCH (08:12)
[2020-07-31] MEDS: Amlodipine 10 MG TAB PO SCH (08:12)
[2020-07-31] MEDS: guaiFENesin ER 600 MG TAB PO SCH (08:12)
[2020-07-31] MEDS: Losartan 25 MG TAB PO SCH (08:12)
[2020-07-31] MEDS: Gabapentin 300 MG CAP PO SCH (08:13)
[2020-07-31] MEDS: Tamsulosin HCl 0.4 MG CAP PO SCH (08:13)
[2020-07-31] MEDS: predniSONE 5 MG TAB PO SCH (08:13)
[2020-07-31] MEDS: Enoxaparin Sodium 40 MG/0.4 ML SYRINGE SC SCH (08:15)
[2020-07-31] MEDS ORDERED: Glimepiride 4 MG TAB PO SCH (09:00)
[2020-07-31] MEDS ORDERED: Furosemide 40 MG TAB PO SCH (09:00)
[2020-07-31] MEDS ORDERED: Polyethylene Glycol 3350 17 GM Packet PO PRN (10:33)
[2020-07-31 11:52] VITALS: BP 117/62; TEMP 97.8
== END 2020-07-31 12:22 | disposition home or self-care (01) | DRG 189 ==
LOC: ERS 10:26 → T4-A 13:09
PROVIDERS: ADMIT Family Medicine; ATTEND Internal Medicine
DX: J96.21 Acute and chronic respiratory failure with hypoxia (principal); B02.29 Other postherpetic nervous system involvement; J44.1 Chronic obstructive pulmonary disease with (acute) exacerbation; Z20.822 Contact with and (suspected) exposure to COVID-19; E11.9 Type 2 diabetes mellitus without complications; I10 Essential (primary) hypertension; E66.9 Obesity, unspecified; F20.9 Schizophrenia, unspecified; G89.29 Other chronic pain; M54.9 Dorsalgia, unspecified; R01.1 Cardiac murmur, unspecified; K21.9 Gastro-esophageal reflux disease without esophagitis; D64.9 Anemia, unspecified; E78.2 Mixed hyperlipidemia; N40.0 Benign prostatic hyperplasia without lower urinary tract symptoms; Z79.891 Long term (current) use of opiate analgesic; Z89.022 Acquired absence of left finger(s); Z99.81 Dependence on supplemental oxygen; Z68.35 Body mass index [BMI] 35.0-35.9, adult; Z79.899 Other long term (current) drug therapy; Z98.890 Other specified postprocedural states
CPT/HCPCS: 36415; 36416; 71045; 71275; 80048; 80053; 82550; 83690; 84484; 85025; 85379; 93005; 93306; 94640; 96365; 96366; 96367; 96375; J1100; J1650; J1815; J1956; J2920; J3475; J7512; J7611; J7620; U0002; U0003; U0005

== ENCOUNTER 2020-09-07 15:18 | Inpatient (IN) | payer MEDICARE, BC ==
[2020-09-07 16:57] LABS: #Basophils 0.1 thou/uL (0.0-0.2); #Eosinphils 0.7 thou/uL (0.0-0.7); #Lymphocytes 2.9 thou/uL (1.20-3.40); #Monocytes 0.9 thou/uL (0.11-0.59); #Neutrophils 9.1 thou/uL (1.40-6.50); %Basophils 0.4 % (0.0-1.0); %Eosinophils 5.3 % (0.0-10.0); %Monocytes 6.4 % (0.0-10.0); Hemoglobin 11.2 g/dL (14.0-18.0); Mean Corpuscular HGB CONC 31.7 g/dL (32.0-36.0); Mean Corpuscular Hemoglobin 33.1 pg (27.0-31.0); Mean Platelet Volume 8.9 fL (7.4-10.4); Platelet Count 246 thou/uL (130-400); Red Blood Cell (RBC) Count 3.39 mill/uL (4.70-6.10); White Blood Cell (WBC) Count 13.6 thou/uL (4.8-10.8)
[2020-09-07 17:23] LABS: ALT (SGPT) 7 U/L (8-55); AST (SGOT) 10 U/L (5-34); Albumin 3.9 g/dL (3.4-4.8); Alkaline Phosphatase 54 U/L (40-110); Anion Gap 9 mmol/L (10-20); BUN (Urea Nitrogen) 11 mg/dL (8.4-25.7); Bilirubin, Total 0.3 mg/dL (0.2-1.2); Calc. Creatinine Clearance 0 mL/min (70-130); Calcium 9.3 mg/dL (7.8-10.44); Carbon Dioxide 34 mmol/L (23-31); Chloride 105 mmol/L (98-107); Globulin 2.9 g/dL (2.4-3.5); Glucose 91 mg/dL (83-110); Potassium 4.4 mmol/L (3.5-5.1); Protein, Total 6.8 g/dL (5.8-8.1); Sodium 144 mmol/L (136-145)
[2020-09-07] MEDS ORDERED: methylPREDNISolone Sod Succ/PF 125 MG/2 ML VIAL ONE (18:20)
[2020-09-07] MEDS ORDERED: Magnesium 2 GM/50 ML BAG (IN WATER) ONE (21:54)
[2020-09-07] MEDS ORDERED: HYDROcodone/Acetaminophen 10/325 mg Tablet PO PRN (23:38)
[2020-09-07] MEDS ORDERED: HumaLOG 300 UNITS/3 ML VIAL SC PRN (23:42)
[2020-09-07] MEDS ORDERED: Ondansetron PF 4 MG/2 ML Vial IVP PRN (23:42)
[2020-09-07] MEDS ORDERED: Dextrose 50% Abboject 50 ML SYRINGE SLOW IVP PRN (23:42)
[2020-09-07] MEDS ORDERED: Acetaminophen 325 MG TAB PO PRN (23:42)
[2020-09-07] MEDS ORDERED: Dextrose 5% in Water 1,000 ML IV PRN (23:42)
[2020-09-07] MEDS ORDERED: Ondansetron ODT 4 MG TAB PO PRN (23:42)
[2020-09-08] MEDS: Azithromycin 500 MG in Sodium Chloride 0.9% 250 ML 250 ML IVPB SCH (02:00)
[2020-09-08 02:34] VITALS: BMI 36.6
[2020-09-08 06:07] LABS: #Lymphocytes 1.1 thou/uL (1.20-3.40); #Monocytes 0.1 thou/uL (0.11-0.59); #Neutrophils 13.1 thou/uL (1.40-6.50); %Basophils 0.3 % (0.0-1.0); %Eosinophils 0.1 % (0.0-10.0); %Lymphocytes 7.8 % (21.0-51.0); %Neutrophils 90.8 % (42.0-75.0); Hemoglobin 11.8 g/dL (14.0-18.0); Mean Corpuscular Hemoglobin 33.4 pg (27.0-31.0); Mean Platelet Volume 9.4 fL (7.4-10.4); Platelet Count 250 thou/uL (130-400); Red Blood Cell (RBC) Count 3.54 mill/uL (4.70-6.10); White Blood Cell (WBC) Count 14.4 thou/uL (4.8-10.8)
[2020-09-08 06:17] LABS: Anion Gap 13 mmol/L (10-20); BUN (Urea Nitrogen) 13 mg/dL (8.4-25.7); Calc. Creatinine Clearance 82 mL/min (70-130); Calcium 9.1 mg/dL (7.8-10.44); Carbon Dioxide 27 mmol/L (23-31); Chloride 103 mmol/L (98-107); Glucose 298 mg/dL (83-110); Potassium 4.5 mmol/L (3.5-5.1); Sodium 138 mmol/L (136-145)
[2020-09-08] MEDS: HumaLOG 300 UNITS/3 ML VIAL SC PRN ×3 (06:58→18:25)
[2020-09-08] MEDS ORDERED: Non-Formulary Item 1 EACH (Albuterol Sulfate 200 PUFF Aer) INH PRN (07:52)
[2020-09-08] MEDS ORDERED: Benzonatate 100 MG CAP PO PRN (07:52)
[2020-09-08] MEDS ORDERED: Albuterol 200 PUFF (6.7GM INHALER) INH PRN (08:04)
[2020-09-08] MEDS ORDERED: Non-Formulary Item 1 EACH (Losartan Potassium [Cozaar] 100 MG Tablet) PO SCH (09:00)
[2020-09-08] MEDS ORDERED: Ergocalciferol 1.25 MG(50,000 UNITS) CAP PO SCH (09:00)
[2020-09-08] MEDS ORDERED: Non-Formulary Item 1 EACH (Metformin Hcl [Metformin Hcl] 1,000 MG Tablet) PO SCH (09:00)
[2020-09-08] MEDS ORDERED: Potassium Chloride 8 MEQ TAB PO SCH (09:00)
[2020-09-08] MEDS: Glimepiride 4 MG TAB PO SCH (10:44)
[2020-09-08] MEDS: Tamsulosin HCl 0.4 MG CAP PO SCH (10:44)
[2020-09-08] MEDS: Furosemide 40 MG TAB PO SCH (10:45)
[2020-09-08] MEDS: Losartan 25 MG TAB PO SCH (10:45)
[2020-09-08] MEDS: Gabapentin 300 MG CAP PO SCH ×3 (10:46→19:32)
[2020-09-08] MEDS: metFORMIN 500 MG TAB PO SCH ×2 (10:46→19:33)
[2020-09-08] MEDS: Amlodipine 10 MG TAB PO SCH (10:46)
[2020-09-08] MEDS: Folic Acid 1 MG TAB PO SCH (10:46)
[2020-09-08] MEDS: methylPREDNISolone Sod Succ 40 MG VIAL IVP SCH (10:47)
[2020-09-08] MEDS: Mometasone 200 MCG/Formoterol 5 MCG 120 PUFF INHALER INH SCH (20:37)
[2020-09-08] MEDS ORDERED: SIMVASTATIN 80 MG PO SCH (21:00)
[2020-09-08] MEDS ORDERED: Atorvastatin Calcium 40 MG TAB PO SCH (21:00)
[2020-09-09] MEDS: Azithromycin 500 MG in Sodium Chloride 0.9% 250 ML 250 ML IVPB SCH (00:16)
[2020-09-09] MEDS: Mometasone 200 MCG/Formoterol 5 MCG 120 PUFF INHALER INH SCH (07:00)
[2020-09-09] MEDS: Losartan 25 MG TAB PO SCH (08:26)
[2020-09-09] MEDS: metFORMIN 500 MG TAB PO SCH (08:27)
[2020-09-09] MEDS: Tamsulosin HCl 0.4 MG CAP PO SCH (08:27)
[2020-09-09] MEDS: Furosemide 40 MG TAB PO SCH (08:27)
[2020-09-09] MEDS: Glimepiride 4 MG TAB PO SCH (08:28)
[2020-09-09 08:29] VITALS: BP 154/70; TEMP 97.7
[2020-09-09] MEDS: Folic Acid 1 MG TAB PO SCH (08:29)
[2020-09-09] MEDS: Gabapentin 300 MG CAP PO SCH (08:29)
[2020-09-09] MEDS: Amlodipine 10 MG TAB PO SCH (08:29)
[2020-09-09] MEDS: methylPREDNISolone Sod Succ 40 MG VIAL IVP SCH (08:30)
[2020-09-09] MEDS ORDERED: Enoxaparin Sodium 40 MG/0.4 ML SYRINGE SC SCH (09:00)
== END 2020-09-09 14:13 | disposition home or self-care (01) | DRG 189 ==
LOC: ERS 15:18 → SURG B 21:09 → OBSVTOIN 09-08 16:07
PROVIDERS: ADMIT Student in an Organized Health Care Education/Training Program; ATTEND Internal Medicine
DX: J96.21 Acute and chronic respiratory failure with hypoxia (principal); J44.1 Chronic obstructive pulmonary disease with (acute) exacerbation; B02.29 Other postherpetic nervous system involvement; E11.9 Type 2 diabetes mellitus without complications; I10 Essential (primary) hypertension; E55.9 Vitamin D deficiency, unspecified; D52.9 Folate deficiency anemia, unspecified; E78.2 Mixed hyperlipidemia; D72.829 Elevated white blood cell count, unspecified; N40.0 Benign prostatic hyperplasia without lower urinary tract symptoms; Z99.81 Dependence on supplemental oxygen; Z79.84 Long term (current) use of oral hypoglycemic drugs; Z79.51 Long term (current) use of inhaled steroids; Z79.899 Other long term (current) drug therapy
CPT/HCPCS: 36415; 36416; 71045; 80048; 80053; 83880; 84484; 85025; 93005; 94640; 94664; 96365; 96375; G0378; J0456; J1650; J1815; J2920; J2930; J3475; J7050; J7620

== ENCOUNTER 2020-10-17 10:56 | Emergency (ER) | payer MEDICARE, BC ==
[2020-10-17] MEDS ORDERED: Albuterol Sulfate 2.5 mg/3 ml Neb ONE (11:31)
[2020-10-17] MEDS ORDERED: methylPREDNISolone Sod Succ/PF 125 MG/2 ML VIAL ONE (11:34)
[2020-10-17 12:03] LABS: #Basophils 0.1 thou/uL (0.0-0.2); #Eosinphils 0.6 thou/uL (0.0-0.7); #Lymphocytes 2.4 thou/uL (1.20-3.40); #Monocytes 0.7 thou/uL (0.11-0.59); #Neutrophils 9.4 thou/uL (1.40-6.50); %Basophils 0.8 % (0.0-1.0); %Eosinophils 4.7 % (0.0-10.0); %Lymphocytes 17.9 % (21.0-51.0); %Monocytes 5.2 % (0.0-10.0); %Neutrophils 71.4 % (42.0-75.0); Hemoglobin 10.8 g/dL (14.0-18.0); Mean Corpuscular HGB CONC 32.3 g/dL (32.0-36.0); Mean Corpuscular Hemoglobin 33.2 pg (27.0-31.0); Mean Platelet Volume 8.5 fL (7.4-10.4); Platelet Count 248 thou/uL (130-400); RBC Distribution Width 14.3 % (11.5-14.5); Red Blood Cell (RBC) Count 3.26 mill/uL (4.70-6.10); White Blood Cell (WBC) Count 13.2 thou/uL (4.8-10.8)
[2020-10-17 12:24] LABS: ALT (SGPT) 10 U/L (8-55); AST (SGOT) 13 U/L (5-34); Albumin 3.8 g/dL (3.4-4.8); Alkaline Phosphatase 52 U/L (40-110); Anion Gap 13 mmol/L (10-20); BUN (Urea Nitrogen) 15 mg/dL (8.4-25.7); Bilirubin, Total 0.5 mg/dL (0.2-1.2); Calc. Creatinine Clearance 0 mL/min (70-130); Calcium 9.8 mg/dL (7.8-10.44); Carbon Dioxide 28 mmol/L (23-31); Chloride 107 mmol/L (98-107); Globulin 3.6 g/dL (2.4-3.5); Glucose 135 mg/dL (83-110); Potassium 4.9 mmol/L (3.5-5.1); Protein, Total 7.4 g/dL (5.8-8.1); Sodium 143 mmol/L (136-145)
== END 2020-10-17 14:38 | disposition home or self-care (01) ==
LOC: ERS 10:56
DX: J44.1 Chronic obstructive pulmonary disease with (acute) exacerbation (principal); E11.9 Type 2 diabetes mellitus without complications; E78.5 Hyperlipidemia, unspecified; I10 Essential (primary) hypertension
CPT/HCPCS: 71045; 80053; 83880; 84484; 85025; 93005; 94640; 96374; J2930; J7611

== ENCOUNTER 2020-12-12 11:31 | Emergency (ER) | payer MEDICARE, BC ==
[2020-12-12 12:00] LABS: #Basophils 0.1 thou/uL (0.0-0.2); #Eosinphils 0.3 thou/uL (0.0-0.7); #Lymphocytes 4.2 thou/uL (1.20-3.40); #Monocytes 1.2 thou/uL (0.11-0.59); #Neutrophils 8.8 thou/uL (1.40-6.50); %Basophils 0.7 % (0.0-1.0); %Eosinophils 2.2 % (0.0-10.0); %Lymphocytes 28.7 % (21.0-51.0); %Monocytes 8.4 % (0.0-10.0); Hemoglobin 11.1 g/dL (14.0-18.0); Mean Corpuscular HGB CONC 30.6 g/dL (32.0-36.0); Mean Corpuscular Hemoglobin 30.7 pg (27.0-31.0); Platelet Count 260 thou/uL (130-400); RBC Distribution Width 14.5 % (11.5-14.5); Red Blood Cell (RBC) Count 3.61 mill/uL (4.70-6.10); White Blood Cell (WBC) Count 14.6 thou/uL (4.8-10.8)
[2020-12-12 12:29] LABS: ALT (SGPT) 11 U/L (8-55); AST (SGOT) 13 U/L (5-34); Albumin 3.7 g/dL (3.4-4.8); Alkaline Phosphatase 52 U/L (40-110); Anion Gap 13 mmol/L (10-20); BUN (Urea Nitrogen) 14 mg/dL (8.4-25.7); Bilirubin, Total 0.5 mg/dL (0.2-1.2); Calc. Creatinine Clearance 0 mL/min (70-130); Calcium 9.2 mg/dL (7.8-10.44); Carbon Dioxide 29 mmol/L (23-31); Chloride 104 mmol/L (98-107); Globulin 2.7 g/dL (2.4-3.5); Glucose 207 mg/dL (83-110); Protein, Total 6.4 g/dL (5.8-8.1); Sodium 142 mmol/L (136-145)
== END 2020-12-12 14:07 | disposition home or self-care (01) ==
LOC: ERS 11:31
DX: J44.1 Chronic obstructive pulmonary disease with (acute) exacerbation (principal); E66.01 Morbid (severe) obesity due to excess calories; E11.9 Type 2 diabetes mellitus without complications; E78.5 Hyperlipidemia, unspecified; I10 Essential (primary) hypertension
CPT/HCPCS: 36415; 71045; 80053; 84484; 85025; 93005

== ENCOUNTER 2021-01-05 19:46 | Inpatient (IN) | payer MEDICARE, BC ==
[2021-01-05] MEDS ORDERED: methylPREDNISolone Sod Succ 40 MG VIAL ONE (20:10)
[2021-01-05] MEDS ORDERED: methylPREDNISolone Sod Succ/PF 125 MG/2 ML VIAL ONE (20:12)
[2021-01-05 20:39] LABS: #Neutrophils 11.6 thou/uL (1.40-6.50); %Basophils 0.1 % (0.0-1.0); %Eosinophils 0.3 % (0.0-10.0); %Lymphocytes 7.2 % (21.0-51.0); %Monocytes 7.1 % (0.0-10.0); %Neutrophils 85.3 % (42.0-75.0); Hemoglobin 11.4 g/dL (14.0-18.0); Mean Corpuscular HGB CONC 32.8 g/dL (32.0-36.0); Mean Corpuscular Hemoglobin 32.8 pg (27.0-31.0); Mean Platelet Volume 9.8 fL (7.4-10.4); Platelet Count 264 thou/uL (130-400); RBC Distribution Width 14.9 % (11.5-14.5); Red Blood Cell (RBC) Count 3.47 mill/uL (4.70-6.10); White Blood Cell (WBC) Count 13.6 thou/uL (4.8-10.8)
[2021-01-05 20:48] LABS: Actual Bicarbonate (HCO3v) 29 mEq/L (22-28); Analyzer IN Cardio ER; Base Excess 3.8 mEq/L (-2.0 to +3.0); Calcium, Ionized (venous) 1.14 mmol/L (1.16-1.32); Chloride (VBG) 103 mmol/L (98-106); Hemoglobin (Hb) 11.5 g/dL (12.6-17.4); Potassium (VBG) 4.25 mmol/L (3.70-5.30); Sodium 137.8 mmol/L (133-146); pH (venous) 7.41 (7.32-7.43)
[2021-01-05 21:26] LABS: ALT (SGPT) 11 U/L (8-55); AST (SGOT) 9 U/L (5-34); Albumin 3.8 g/dL (3.4-4.8); Alkaline Phosphatase 45 U/L (40-110); Anion Gap 16 mmol/L (10-20); BUN (Urea Nitrogen) 14 mg/dL (8.4-25.7); Bilirubin, Total 0.4 mg/dL (0.2-1.2); Calc. Creatinine Clearance 0 mL/min (70-130); Calcium 9.3 mg/dL (7.8-10.44); Carbon Dioxide 26 mmol/L (23-31); Chloride 102 mmol/L (98-107); Globulin 2.5 g/dL (2.4-3.5); Glucose 244 mg/dL (83-110); Magnesium 1.9 mg/dL (1.6-2.6); Potassium 4.3 mmol/L (3.5-5.1); Protein, Total 6.3 g/dL (5.8-8.1); Sodium 140 mmol/L (136-145)
[2021-01-05] MEDS ORDERED: Ondansetron PF 4 MG/2 ML Vial IVP PRN (21:36)
[2021-01-05] MEDS ORDERED: Ondansetron ODT 4 MG TAB PO PRN (21:36)
[2021-01-05] MEDS ORDERED: Acetaminophen 650 MG Suppository PR PRN (21:36)
[2021-01-05] MEDS ORDERED: Magnesium 2 GM/50 ML BAG (IN WATER) ONE (21:38)
[2021-01-05] MEDS ORDERED: Dextrose 5% in Water 1,000 ML IV PRN (22:25)
[2021-01-05] MEDS ORDERED: Dextrose 50% Abboject 50 ML SYRINGE SLOW IVP PRN (22:25)
[2021-01-05] MEDS ORDERED: hydrALAZINE 20 MG/ML VIAL SLOW IVP PRN (22:48)
[2021-01-05 23:24] LABS: SARS-CoV-2 NAA Rapid Test Not Detected (NotDetected)
[2021-01-06] MEDS ORDERED: Furosemide 40 MG/4 ML VIAL SLOW IVP SCH (00:45)
[2021-01-06] MEDS: Furosemide 40 MG/4 ML VIAL SLOW IVP SCH ×2 (00:47→08:18)
[2021-01-06] MEDS: Azithromycin 500 MG in Sodium Chloride 0.9% 250 ML 250 ML IVPB SCH ×2 (00:47→22:36)
[2021-01-06] MEDS: HYDROcodone/Acetaminophen 10/325 mg Tablet PO PRN (00:51)
[2021-01-06 05:30] LABS: Anion Gap 11 mmol/L (10-20); BUN (Urea Nitrogen) 15 mg/dL (8.4-25.7); Calc. Creatinine Clearance 82 mL/min (70-130); Calcium 9.3 mg/dL (7.8-10.44); Carbon Dioxide 31 mmol/L (23-31); Chloride 100 mmol/L (98-107); Glucose 474 mg/dL (83-110); Potassium 4.7 mmol/L (3.5-5.1); Sodium 137 mmol/L (136-145)
[2021-01-06 05:35] LABS: #Eosinphils 0.1 thou/uL (0.0-0.7); #Lymphocytes 0.6 thou/uL (1.20-3.40); #Monocytes 0.6 thou/uL (0.11-0.59); %Eosinophils 0.7 % (0.0-10.0); %Lymphocytes 4.3 % (21.0-51.0); %Monocytes 4.3 % (0.0-10.0); %Neutrophils 90.7 % (42.0-75.0); Hemoglobin 10.7 g/dL (14.0-18.0); Mean Corpuscular HGB CONC 30.5 g/dL (32.0-36.0); Mean Corpuscular Hemoglobin 31.3 pg (27.0-31.0); Mean Platelet Volume 10.2 fL (7.4-10.4); Platelet Count 251 thou/uL (130-400); RBC Distribution Width 14.9 % (11.5-14.5); Red Blood Cell (RBC) Count 3.41 mill/uL (4.70-6.10); White Blood Cell (WBC) Count 13.2 thou/uL (4.8-10.8)
[2021-01-06] MEDS: HumaLOG 300 UNITS/3 ML VIAL SC PRN ×4 (06:11→20:34)
[2021-01-06] MEDS ORDERED: HYDROcodone/Acetaminophen 10/325 mg Tablet PO PRN (07:39)
[2021-01-06] MEDS: Enoxaparin Sodium 40 MG/0.4 ML SYRINGE SC SCH (08:18)
[2021-01-06] MEDS: Ergocalciferol 1.25 MG(50,000 UNITS) CAP PO SCH (08:54)
[2021-01-06] MEDS: Folic Acid 1 MG TAB PO SCH (08:54)
[2021-01-06] MEDS: Gabapentin 100 MG CAP PO SCH ×3 (08:54→20:35)
[2021-01-06] MEDS: Amlodipine 10 MG TAB PO SCH (08:54)
[2021-01-06] MEDS: Glimepiride 4 MG TAB PO SCH (08:54)
[2021-01-06] MEDS ORDERED: Non-Formulary Item 1 EACH (Metformin Hcl [Metformin Hcl] 1,000 MG Tablet) PO SCH (09:00)
[2021-01-06] MEDS ORDERED: methylPREDNISolone Sod Succ 40 MG VIAL IVP SCH (09:00)
[2021-01-06] MEDS: metFORMIN 500 MG TAB PO SCH (16:12)
[2021-01-06] MEDS: Mometasone 200 MCG/Formoterol 5 MCG 120 PUFF INHALER INH SCH (17:56)
[2021-01-06] MEDS ORDERED: Docusate 100 MG CAP PO SCH (20:14)
[2021-01-06] MEDS: Atorvastatin Calcium 40 MG TAB PO SCH (20:35)
[2021-01-06] MEDS ORDERED: SIMVASTATIN 80 MG PO SCH (21:00)
[2021-01-07 04:53] LABS: #Eosinphils 0.1 thou/uL (0.0-0.7); #Lymphocytes 1.5 thou/uL (1.20-3.40); #Monocytes 0.8 thou/uL (0.11-0.59); #Neutrophils 10.6 thou/uL (1.40-6.50); %Eosinophils 0.4 % (0.0-10.0); %Lymphocytes 11.5 % (21.0-51.0); %Monocytes 6.1 % (0.0-10.0); %Neutrophils 81.9 % (42.0-75.0); Hemoglobin 11.6 g/dL (14.0-18.0); Mean Corpuscular HGB CONC 30.6 g/dL (32.0-36.0); Mean Platelet Volume 9.9 fL (7.4-10.4); Platelet Count 247 thou/uL (130-400); Red Blood Cell (RBC) Count 3.73 mill/uL (4.70-6.10); White Blood Cell (WBC) Count 12.9 thou/uL (4.8-10.8)
[2021-01-07 05:06] LABS: Anion Gap 15 mmol/L (10-20); BUN (Urea Nitrogen) 15 mg/dL (8.4-25.7); Calc. Creatinine Clearance 109 mL/min (70-130); Calcium 9.2 mg/dL (7.8-10.44); Carbon Dioxide 28 mmol/L (23-31); Chloride 102 mmol/L (98-107); Glucose 78 mg/dL (83-110); Magnesium 2.1 mg/dL (1.6-2.6); Potassium 4.3 mmol/L (3.5-5.1); Sodium 141 mmol/L (136-145)
[2021-01-07 05:12] VITALS: BMI 38.6
[2021-01-07] MEDS: Mometasone 200 MCG/Formoterol 5 MCG 120 PUFF INHALER INH SCH ×2 (06:50→18:03)
[2021-01-07] MEDS: Glimepiride 4 MG TAB PO SCH (08:34)
[2021-01-07] MEDS: Tamsulosin HCl 0.4 MG CAP PO SCH (08:34)
[2021-01-07] MEDS: Amlodipine 10 MG TAB PO SCH (08:34)
[2021-01-07] MEDS: Enoxaparin Sodium 40 MG/0.4 ML SYRINGE SC SCH (08:34)
[2021-01-07] MEDS: Gabapentin 100 MG CAP PO SCH ×3 (08:34→21:21)
[2021-01-07] MEDS: metFORMIN 500 MG TAB PO SCH ×2 (08:34→17:08)
[2021-01-07] MEDS: Folic Acid 1 MG TAB PO SCH (08:35)
[2021-01-07] MEDS: Furosemide 40 MG/4 ML VIAL SLOW IVP SCH (08:35)
[2021-01-07] MEDS: methylPREDNISolone Sod Succ 40 MG VIAL IVP SCH ×3 (09:06→21:58)
[2021-01-07] MEDS ORDERED: Magnesium Sulfate 4 GM in Sodium Chloride 0.9% 250 ML 250 ML IVPB SCH (10:15)
[2021-01-07] MEDS: HumaLOG 300 UNITS/3 ML VIAL SC PRN ×2 (12:24→17:07)
[2021-01-07] MEDS: cefTRIAXone\\ROCEPHIN 1 GM in Sodium Chloride 0.9% 100 ML IVPB SCH (15:00)
[2021-01-07] MEDS: Atorvastatin Calcium 40 MG TAB PO SCH (21:21)
[2021-01-07] MEDS: Lisinopril 5 MG TAB PO SCH (21:21)
[2021-01-07] MEDS: Benzonatate 100 MG CAP PO PRN (21:22)
[2021-01-07] MEDS: Azithromycin 500 MG in Sodium Chloride 0.9% 250 ML 250 ML IVPB SCH (22:09)
[2021-01-08] MEDS: HumaLOG 300 UNITS/3 ML VIAL SC PRN ×3 (06:00→17:13)
[2021-01-08] MEDS: Mometasone 200 MCG/Formoterol 5 MCG 120 PUFF INHALER INH SCH ×2 (06:44→18:45)
[2021-01-08 07:42] LABS: #Lymphocytes 0.7 thou/uL (1.20-3.40); #Monocytes 0.7 thou/uL (0.11-0.59); #Neutrophils 13.4 thou/uL (1.40-6.50); %Basophils 0.1 % (0.0-1.0); %Eosinophils 0.1 % (0.0-10.0); %Lymphocytes 4.8 % (21.0-51.0); %Monocytes 4.9 % (0.0-10.0); %Neutrophils 90.1 % (42.0-75.0); Hemoglobin 12.2 g/dL (14.0-18.0); Mean Corpuscular HGB CONC 30.4 g/dL (32.0-36.0); Mean Corpuscular Hemoglobin 31.2 pg (27.0-31.0); Mean Platelet Volume 10.2 fL (7.4-10.4); Platelet Count 199 thou/uL (130-400); RBC Distribution Width 14.8 % (11.5-14.5); Red Blood Cell (RBC) Count 3.91 mill/uL (4.70-6.10); White Blood Cell (WBC) Count 14.9 thou/uL (4.8-10.8)
[2021-01-08 07:59] LABS: Anion Gap 12 mmol/L (10-20); BUN (Urea Nitrogen) 18 mg/dL (8.4-25.7); Calc. Creatinine Clearance 91 mL/min (70-130); Calcium 9.4 mg/dL (7.8-10.44); Carbon Dioxide 33 mmol/L (23-31); Chloride 96 mmol/L (98-107); Glucose 210 mg/dL (83-110); Potassium 4.4 mmol/L (3.5-5.1); Sodium 137 mmol/L (136-145)
[2021-01-08] MEDS: Tamsulosin HCl 0.4 MG CAP PO SCH (08:49)
[2021-01-08] MEDS: metFORMIN 500 MG TAB PO SCH ×2 (08:49→16:00)
[2021-01-08] MEDS: Amlodipine 10 MG TAB PO SCH (08:49)
[2021-01-08] MEDS: Folic Acid 1 MG TAB PO SCH (08:49)
[2021-01-08] MEDS: Glimepiride 4 MG TAB PO SCH (08:50)
[2021-01-08] MEDS: Furosemide 40 MG/4 ML VIAL SLOW IVP SCH (08:50)
[2021-01-08] MEDS: Lisinopril 5 MG TAB PO SCH (08:50)
[2021-01-08] MEDS: Gabapentin 100 MG CAP PO SCH ×3 (08:50→20:20)
[2021-01-08] MEDS: methylPREDNISolone Sod Succ 40 MG VIAL IVP SCH ×3 (08:51→20:20)
[2021-01-08] MEDS: Enoxaparin Sodium 40 MG/0.4 ML SYRINGE SC SCH (08:51)
[2021-01-08] MEDS: Lisinopril 10 MG TAB PO SCH ×2 (11:35→20:20)
[2021-01-08] MEDS: Lantus 1000 UNITS/10 ML VIAL SC SCH (13:41)
[2021-01-08] MEDS ORDERED: Lantus 1000 UNITS/10 ML VIAL SC SCH (13:45)
[2021-01-08] MEDS: cefTRIAXone\\ROCEPHIN 1 GM in Sodium Chloride 0.9% 100 ML IVPB SCH (13:52)
[2021-01-08] MEDS ORDERED: VANCOMYCIN 2 GRAM/400 ML BAG 2 GM in Premix Bag 1 BAG IVPB SCH (17:00)
[2021-01-08] MEDS ORDERED: Furosemide 40 MG/4 ML VIAL SLOW IVP SCH (17:00)
[2021-01-08] MEDS: Cefepime 2 GM in Sodium Chloride 0.9% 100 ML IVPB SCH ×2 (17:07→23:11)
[2021-01-08] MEDS: Benzonatate 100 MG CAP PO PRN (20:20)
[2021-01-08] MEDS: Atorvastatin Calcium 40 MG TAB PO SCH (20:20)
[2021-01-08] MEDS: Azithromycin 500 MG in Sodium Chloride 0.9% 250 ML 250 ML IVPB SCH (21:45)
[2021-01-09 06:04] LABS: #Lymphocytes 0.7 thou/uL (1.20-3.40); #Monocytes 0.7 thou/uL (0.11-0.59); #Neutrophils 12.9 thou/uL (1.40-6.50); %Eosinophils 0.2 % (0.0-10.0); %Lymphocytes 4.8 % (21.0-51.0); %Monocytes 4.6 % (0.0-10.0); %Neutrophils 90.4 % (42.0-75.0); Hemoglobin 11.2 g/dL (14.0-18.0); Mean Corpuscular HGB CONC 30.1 g/dL (32.0-36.0); Mean Corpuscular Hemoglobin 30.9 pg (27.0-31.0); Mean Platelet Volume 9.7 fL (7.4-10.4); Platelet Count 192 thou/uL (130-400); RBC Distribution Width 14.8 % (11.5-14.5); Red Blood Cell (RBC) Count 3.61 mill/uL (4.70-6.10); White Blood Cell (WBC) Count 14.3 thou/uL (4.8-10.8)
[2021-01-09] MEDS: Mometasone 200 MCG/Formoterol 5 MCG 120 PUFF INHALER INH SCH ×2 (06:11→19:43)
[2021-01-09] MEDS: HumaLOG 300 UNITS/3 ML VIAL SC PRN ×2 (06:15→16:59)
[2021-01-09 06:39] LABS: Anion Gap 13 mmol/L (10-20); BUN (Urea Nitrogen) 19 mg/dL (8.4-25.7); Calc. Creatinine Clearance 95 mL/min (70-130); Calcium 8.9 mg/dL (7.8-10.44); Carbon Dioxide 33 mmol/L (23-31); Chloride 98 mmol/L (98-107); Glucose 162 mg/dL (83-110); Potassium 4.6 mmol/L (3.5-5.1); Sodium 139 mmol/L (136-145)
[2021-01-09] MEDS: Cefepime 2 GM in Sodium Chloride 0.9% 100 ML IVPB SCH ×2 (08:46→15:54)
[2021-01-09] MEDS: metFORMIN 500 MG TAB PO SCH ×2 (08:46→15:59)
[2021-01-09] MEDS: Lisinopril 10 MG TAB PO SCH ×2 (08:47→20:11)
[2021-01-09] MEDS: Folic Acid 1 MG TAB PO SCH (08:47)
[2021-01-09] MEDS: Amlodipine 10 MG TAB PO SCH (08:47)
[2021-01-09] MEDS: Lantus 1000 UNITS/10 ML VIAL SC SCH ×2 (08:47→20:20)
[2021-01-09] MEDS: Tamsulosin HCl 0.4 MG CAP PO SCH (08:47)
[2021-01-09] MEDS: Furosemide 40 MG/4 ML VIAL SLOW IVP SCH (08:48)
[2021-01-09] MEDS: Enoxaparin Sodium 40 MG/0.4 ML SYRINGE SC SCH (08:48)
[2021-01-09] MEDS: Glimepiride 4 MG TAB PO SCH (08:51)
[2021-01-09] MEDS: methylPREDNISolone Sod Succ 40 MG VIAL IVP SCH ×3 (08:51→20:12)
[2021-01-09] MEDS: Gabapentin 100 MG CAP PO SCH (09:26)
[2021-01-09] MEDS: Gabapentin 300 MG CAP PO SCH ×2 (15:53→20:11)
[2021-01-09] MEDS ORDERED: Furosemide 40 MG/4 ML VIAL SLOW IVP SCH (17:00)
[2021-01-09] MEDS: Budesonide 0.5 MG/2 ML NEB NEB SCH (19:38)
[2021-01-09] MEDS: Atorvastatin Calcium 40 MG TAB PO SCH (20:12)
[2021-01-09] MEDS: Acetaminophen 325 MG TAB PO PRN (20:12)
[2021-01-09] MEDS: Azithromycin 500 MG in Sodium Chloride 0.9% 250 ML 250 ML IVPB SCH (23:29)
[2021-01-10] MEDS: Cefepime 2 GM in Sodium Chloride 0.9% 100 ML IVPB SCH ×3 (03:00→15:52)
[2021-01-10 05:22] LABS: #Lymphocytes 0.6 thou/uL (1.20-3.40); #Monocytes 0.7 thou/uL (0.11-0.59); %Basophils 0.3 % (0.0-1.0); %Eosinophils 0.2 % (0.0-10.0); %Lymphocytes 4.5 % (21.0-51.0); %Monocytes 4.9 % (0.0-10.0); %Neutrophils 90.1 % (42.0-75.0); Hemoglobin 11.2 g/dL (14.0-18.0); Mean Corpuscular HGB CONC 31.4 g/dL (32.0-36.0); Mean Corpuscular Hemoglobin 32.2 pg (27.0-31.0); Mean Platelet Volume 9.7 fL (7.4-10.4); Platelet Count 165 thou/uL (130-400); RBC Distribution Width 14.5 % (11.5-14.5); Red Blood Cell (RBC) Count 3.49 mill/uL (4.70-6.10); White Blood Cell (WBC) Count 13.4 thou/uL (4.8-10.8)
[2021-01-10 05:52] LABS: Anion Gap 12 mmol/L (10-20); BUN (Urea Nitrogen) 23 mg/dL (8.4-25.7); Calc. Creatinine Clearance 95 mL/min (70-130); Calcium 8.9 mg/dL (7.8-10.44); Carbon Dioxide 33 mmol/L (23-31); Chloride 100 mmol/L (98-107); Glucose 195 mg/dL (83-110); Magnesium 2.3 mg/dL (1.6-2.6); Potassium 4.8 mmol/L (3.5-5.1); Sodium 140 mmol/L (136-145)
[2021-01-10] MEDS: HumaLOG 300 UNITS/3 ML VIAL SC PRN ×4 (06:35→21:36)
[2021-01-10] MEDS: Budesonide 0.5 MG/2 ML NEB NEB SCH ×2 (08:17→19:33)
[2021-01-10] MEDS: Mometasone 200 MCG/Formoterol 5 MCG 120 PUFF INHALER INH SCH ×2 (08:18→19:34)
[2021-01-10] MEDS: Folic Acid 1 MG TAB PO SCH (08:47)
[2021-01-10] MEDS: methylPREDNISolone Sod Succ 40 MG VIAL IVP SCH ×3 (08:47→21:34)
[2021-01-10] MEDS: Enoxaparin Sodium 40 MG/0.4 ML SYRINGE SC SCH (08:47)
[2021-01-10] MEDS: Lisinopril 10 MG TAB PO SCH (08:48)
[2021-01-10] MEDS: Tamsulosin HCl 0.4 MG CAP PO SCH (08:48)
[2021-01-10] MEDS: metFORMIN 500 MG TAB PO SCH ×2 (08:48→18:02)
[2021-01-10] MEDS: Gabapentin 300 MG CAP PO SCH ×3 (08:48→21:34)
[2021-01-10] MEDS: Glimepiride 4 MG TAB PO SCH (08:48)
[2021-01-10] MEDS: Furosemide 40 MG/4 ML VIAL SLOW IVP SCH ×2 (08:49→21:34)
[2021-01-10] MEDS: Amlodipine 10 MG TAB PO SCH (08:49)
[2021-01-10] MEDS: Lantus 1000 UNITS/10 ML VIAL SC SCH ×2 (09:10→21:35)
[2021-01-10] MEDS: HYDROcodone/Acetaminophen 10/325 mg Tablet PO PRN ×2 (14:20→21:46)
[2021-01-10] MEDS: Lisinopril 20 MG TAB PO SCH (21:33)
[2021-01-10] MEDS: Atorvastatin Calcium 40 MG TAB PO SCH (21:34)
[2021-01-10] MEDS: Azithromycin 500 MG in Sodium Chloride 0.9% 250 ML 250 ML IVPB SCH (23:54)
[2021-01-11] MEDS: Cefepime 2 GM in Sodium Chloride 0.9% 100 ML IVPB SCH ×3 (00:59→17:13)
[2021-01-11] MEDS: VANCOMYCIN 1.25 GM/250 ML BAG 1.25 GM in Premix Bag 1 BAG IVPB SCH ×2 (04:15→18:13)
[2021-01-11 05:13] LABS: #Lymphocytes 0.6 thou/uL (1.20-3.40); #Monocytes 0.5 thou/uL (0.11-0.59); #Neutrophils 10.4 thou/uL (1.40-6.50); %Basophils 0.4 % (0.0-1.0); %Eosinophils 0.2 % (0.0-10.0); %Monocytes 4.4 % (0.0-10.0); %Neutrophils 90.1 % (42.0-75.0); Hemoglobin 10.7 g/dL (14.0-18.0); Mean Corpuscular HGB CONC 30.7 g/dL (32.0-36.0); Mean Corpuscular Hemoglobin 31.5 pg (27.0-31.0); Mean Platelet Volume 9.9 fL (7.4-10.4); Platelet Count 178 thou/uL (130-400); RBC Distribution Width 14.5 % (11.5-14.5); Red Blood Cell (RBC) Count 3.41 mill/uL (4.70-6.10); White Blood Cell (WBC) Count 11.5 thou/uL (4.8-10.8)
[2021-01-11 05:36] LABS: Potassium 4.6 mmol/L (3.5-5.1)
[2021-01-11 05:42] LABS: Troponin I 0.014 ng/mL (< 0.028)
[2021-01-11 05:42] LABS: Anion Gap 10 mmol/L (10-20); BUN (Urea Nitrogen) 22 mg/dL (8.4-25.7); Calc. Creatinine Clearance 98 mL/min (70-130); Calcium 8.7 mg/dL (7.8-10.44); Carbon Dioxide 35 mmol/L (23-31); Chloride 98 mmol/L (98-107); Glucose 186 mg/dL (83-110); Magnesium 2.2 mg/dL (1.6-2.6); Potassium 4.4 mmol/L (3.5-5.1); Sodium 139 mmol/L (136-145)
[2021-01-11] MEDS: HumaLOG 300 UNITS/3 ML VIAL SC PRN ×4 (05:50→21:40)
[2021-01-11] MEDS: Budesonide 0.5 MG/2 ML NEB NEB SCH ×2 (07:09→18:43)
[2021-01-11] MEDS: Mometasone 200 MCG/Formoterol 5 MCG 120 PUFF INHALER INH SCH ×2 (07:09→18:42)
[2021-01-11] MEDS: methylPREDNISolone Sod Succ 40 MG VIAL IVP SCH ×3 (08:42→21:39)
[2021-01-11] MEDS: Enoxaparin Sodium 40 MG/0.4 ML SYRINGE SC SCH (08:42)
[2021-01-11] MEDS: Tamsulosin HCl 0.4 MG CAP PO SCH (08:42)
[2021-01-11] MEDS: Glimepiride 4 MG TAB PO SCH (08:42)
[2021-01-11] MEDS: Furosemide 40 MG/4 ML VIAL SLOW IVP SCH ×2 (08:42→21:39)
[2021-01-11] MEDS: metFORMIN 500 MG TAB PO SCH ×2 (08:42→17:13)
[2021-01-11] MEDS: Lisinopril 20 MG TAB PO SCH ×2 (08:43→21:39)
[2021-01-11] MEDS: Gabapentin 300 MG CAP PO SCH ×3 (08:43→21:38)
[2021-01-11] MEDS: Amlodipine 10 MG TAB PO SCH (08:43)
[2021-01-11] MEDS: Folic Acid 1 MG TAB PO SCH (08:43)
[2021-01-11] MEDS: Lantus 1000 UNITS/10 ML VIAL SC SCH ×2 (08:44→21:40)
[2021-01-11] MEDS: HYDROcodone/Acetaminophen 10/325 mg Tablet PO PRN ×2 (08:49→21:39)
[2021-01-11] MEDS ORDERED: Aspirin 81 mg Enteric Coated Tablet PO SCH (11:00)
[2021-01-11] MEDS: Atorvastatin Calcium 40 MG TAB PO SCH (21:39)
[2021-01-11] MEDS: Azithromycin 500 MG in Sodium Chloride 0.9% 250 ML 250 ML IVPB SCH (23:52)
[2021-01-12] MEDS: Cefepime 2 GM in Sodium Chloride 0.9% 100 ML IVPB SCH ×4 (01:10→23:50)
[2021-01-12] MEDS: HYDROcodone/Acetaminophen 10/325 mg Tablet PO PRN ×2 (01:10→05:44)
[2021-01-12] MEDS: VANCOMYCIN 1.25 GM/250 ML BAG 1.25 GM in Premix Bag 1 BAG IVPB SCH (05:12)
[2021-01-12 05:39] LABS: Cardiac Risk 3.2 (Less than 4.5)
[2021-01-12] MEDS: HumaLOG 300 UNITS/3 ML VIAL SC PRN ×3 (05:42→22:07)
[2021-01-12] MEDS: Budesonide 0.5 MG/2 ML NEB NEB SCH ×2 (07:04→18:58)
[2021-01-12] MEDS: Mometasone 200 MCG/Formoterol 5 MCG 120 PUFF INHALER INH SCH ×2 (07:06→18:58)
[2021-01-12] MEDS: Gabapentin 300 MG CAP PO SCH ×3 (10:02→22:06)
[2021-01-12] MEDS: Furosemide 40 MG/4 ML VIAL SLOW IVP SCH ×2 (10:02→22:06)
[2021-01-12] MEDS: metFORMIN 500 MG TAB PO SCH ×2 (10:02→15:42)
[2021-01-12] MEDS: Amlodipine 10 MG TAB PO SCH (10:02)
[2021-01-12] MEDS: Aspirin 81 mg Enteric Coated Tablet PO SCH (10:02)
[2021-01-12] MEDS: Enoxaparin Sodium 40 MG/0.4 ML SYRINGE SC SCH (10:02)
[2021-01-12] MEDS: Glimepiride 4 MG TAB PO SCH (10:02)
[2021-01-12] MEDS: Folic Acid 1 MG TAB PO SCH (10:02)
[2021-01-12] MEDS: Lantus 1000 UNITS/10 ML VIAL SC SCH ×2 (10:03→22:07)
[2021-01-12] MEDS: methylPREDNISolone Sod Succ 40 MG VIAL IVP SCH ×3 (10:03→22:09)
[2021-01-12] MEDS: Lisinopril 20 MG TAB PO SCH ×2 (10:03→22:06)
[2021-01-12] MEDS: Tamsulosin HCl 0.4 MG CAP PO SCH (10:03)
[2021-01-12 10:21] LABS: Anion Gap 14 mmol/L (10-20); BUN (Urea Nitrogen) 24 mg/dL (8.4-25.7); Calc. Creatinine Clearance 95 mL/min (70-130); Carbon Dioxide 30 mmol/L (23-31); Chloride 99 mmol/L (98-107); Glucose 168 mg/dL (83-110); Magnesium 2.1 mg/dL (1.6-2.6); Phosphorus 2.7 mg/dL (2.3-4.7); Potassium 5.4 mmol/L (3.5-5.1); Sodium 138 mmol/L (136-145)
[2021-01-12] MEDS: Vancomycin HCl 1.25 GM in Sodium Chloride 0.9% 250 ML 250 ML IVPB SCH (17:32)
[2021-01-12 17:36] LABS: #Lymphocytes 0.3 thou/uL (1.20-3.40); #Monocytes 0.6 thou/uL (0.11-0.59); #Neutrophils 13.1 thou/uL (1.40-6.50); %Basophils 0.1 % (0.0-1.0); %Eosinophils 0.1 % (0.0-10.0); %Lymphocytes 2.2 % (21.0-51.0); %Monocytes 4.4 % (0.0-10.0); %Neutrophils 93.2 % (42.0-75.0); Hemoglobin 10.9 g/dL (14.0-18.0); Mean Corpuscular HGB CONC 30.2 g/dL (32.0-36.0); Mean Corpuscular Hemoglobin 31.2 pg (27.0-31.0); Mean Platelet Volume 9.9 fL (7.4-10.4); Platelet Count 196 thou/uL (130-400); RBC Distribution Width 14.4 % (11.5-14.5)
[2021-01-12 17:50] LABS: Vancomycin, Trough 19.4 ug/mL
[2021-01-12] MEDS: Atorvastatin Calcium 40 MG TAB PO SCH (22:05)
[2021-01-12] MEDS: Acetaminophen 325 MG TAB PO PRN (22:06)
[2021-01-12] MEDS: Azithromycin 500 MG in Sodium Chloride 0.9% 250 ML 250 ML IVPB SCH (22:20)
[2021-01-13 05:21] LABS: #Lymphocytes 0.3 thou/uL (1.20-3.40); #Monocytes 0.6 thou/uL (0.11-0.59); #Neutrophils 13.1 thou/uL (1.40-6.50); %Basophils 0.3 % (0.0-1.0); %Eosinophils 0.1 % (0.0-10.0); %Lymphocytes 2.4 % (21.0-51.0); %Monocytes 4.2 % (0.0-10.0); %Neutrophils 93.1 % (42.0-75.0); Hemoglobin 11.3 g/dL (14.0-18.0); Mean Corpuscular HGB CONC 30.8 g/dL (32.0-36.0); Mean Corpuscular Hemoglobin 31.4 pg (27.0-31.0); Mean Platelet Volume 10.4 fL (7.4-10.4); Platelet Count 193 thou/uL (130-400); RBC Distribution Width 14.5 % (11.5-14.5)
[2021-01-13] MEDS: Vancomycin HCl 1.25 GM in Sodium Chloride 0.9% 250 ML 250 ML IVPB SCH ×2 (05:28→17:13)
[2021-01-13] MEDS: Budesonide 0.5 MG/2 ML NEB NEB SCH ×2 (06:25→18:48)
[2021-01-13] MEDS: Mometasone 200 MCG/Formoterol 5 MCG 120 PUFF INHALER INH SCH ×2 (06:27→18:44)
[2021-01-13] MEDS: Enoxaparin Sodium 40 MG/0.4 ML SYRINGE SC SCH (08:22)
[2021-01-13] MEDS: Gabapentin 300 MG CAP PO SCH ×3 (08:22→21:26)
[2021-01-13] MEDS: Amlodipine 10 MG TAB PO SCH (08:22)
[2021-01-13] MEDS: metFORMIN 500 MG TAB PO SCH ×2 (08:22→17:13)
[2021-01-13] MEDS: Folic Acid 1 MG TAB PO SCH (08:22)
[2021-01-13] MEDS: Glimepiride 4 MG TAB PO SCH (08:22)
[2021-01-13] MEDS: Tamsulosin HCl 0.4 MG CAP PO SCH (08:22)
[2021-01-13] MEDS: Aspirin 81 mg Enteric Coated Tablet PO SCH (08:22)
[2021-01-13] MEDS: methylPREDNISolone Sod Succ 40 MG VIAL IVP SCH ×3 (08:23→22:32)
[2021-01-13] MEDS: Lisinopril 20 MG TAB PO SCH ×2 (08:23→21:25)
[2021-01-13] MEDS: Cefepime 2 GM in Sodium Chloride 0.9% 100 ML IVPB SCH ×2 (08:23→15:18)
[2021-01-13] MEDS: Furosemide 40 MG/4 ML VIAL SLOW IVP SCH (08:23)
[2021-01-13] MEDS: Lantus 1000 UNITS/10 ML VIAL SC SCH ×2 (08:23→22:38)
[2021-01-13] MEDS: Ergocalciferol 1.25 MG(50,000 UNITS) CAP PO SCH (08:25)
[2021-01-13 08:58] LABS: Anion Gap 11 mmol/L (10-20); BUN (Urea Nitrogen) 23 mg/dL (8.4-25.7); Calc. Creatinine Clearance 108 mL/min (70-130); Carbon Dioxide 36 mmol/L (23-31); Chloride 99 mmol/L (98-107); Glucose 134 mg/dL (83-110); Phosphorus 2.4 mg/dL (2.3-4.7); Potassium 4.2 mmol/L (3.5-5.1); Sodium 142 mmol/L (136-145)
[2021-01-13 14:28] LABS: SARS-CoV-2 PCR by NAA Not Detected (NotDetected)
[2021-01-13] MEDS: HumaLOG 300 UNITS/3 ML VIAL SC PRN ×2 (17:13→22:40)
[2021-01-13] MEDS: Atorvastatin Calcium 40 MG TAB PO SCH (21:25)
[2021-01-13] MEDS: Azithromycin 500 MG in Sodium Chloride 0.9% 250 ML 250 ML IVPB SCH (23:58)
[2021-01-14] MEDS: Cefepime 2 GM in Sodium Chloride 0.9% 100 ML IVPB SCH ×3 (01:26→15:53)
[2021-01-14] MEDS: Vancomycin HCl 1.25 GM in Sodium Chloride 0.9% 250 ML 250 ML IVPB SCH ×2 (04:53→18:14)
[2021-01-14] MEDS: HumaLOG 300 UNITS/3 ML VIAL SC PRN ×3 (05:49→21:07)
[2021-01-14] MEDS: Budesonide 0.5 MG/2 ML NEB NEB SCH ×2 (06:06→19:02)
[2021-01-14] MEDS: Mometasone 200 MCG/Formoterol 5 MCG 120 PUFF INHALER INH SCH ×2 (06:08→19:05)
[2021-01-14] MEDS: metFORMIN 500 MG TAB PO SCH ×2 (08:31→17:40)
[2021-01-14] MEDS: Enoxaparin Sodium 40 MG/0.4 ML SYRINGE SC SCH (08:31)
[2021-01-14] MEDS: Lisinopril 20 MG TAB PO SCH ×2 (08:31→21:23)
[2021-01-14] MEDS: Aspirin 81 mg Enteric Coated Tablet PO SCH (08:31)
[2021-01-14] MEDS: Folic Acid 1 MG TAB PO SCH (08:31)
[2021-01-14] MEDS: Glimepiride 4 MG TAB PO SCH (08:31)
[2021-01-14] MEDS: Lantus 1000 UNITS/10 ML VIAL SC SCH ×2 (08:31→21:10)
[2021-01-14] MEDS: Tamsulosin HCl 0.4 MG CAP PO SCH (08:31)
[2021-01-14] MEDS: methylPREDNISolone Sod Succ 40 MG VIAL IVP SCH ×3 (08:42→21:24)
[2021-01-14] MEDS: Gabapentin 300 MG CAP PO SCH ×3 (08:42→20:55)
[2021-01-14 09:42] LABS: Hemoglobin 11.3 g/dL (14.0-18.0); Mean Corpuscular HGB CONC 30.6 g/dL (32.0-36.0); Mean Platelet Volume 10.3 fL (7.4-10.4); Platelet Count 215 thou/uL (130-400); RBC Distribution Width 14.7 % (11.5-14.5); Red Blood Cell (RBC) Count 3.65 mill/uL (4.70-6.10); White Blood Cell (WBC) Count 17.5 thou/uL (4.8-10.8)
[2021-01-14 10:26] LABS: Band 5 % (5-11); Bite Cells SLIGHT = 2-5 cells (100X) (0-1/hpf); Lymphocytes 9 % (21-51); MDiff Complete? YES; Monocytes 2 % (0-10); Neutrophil 82 % (42-75); Platelet Morphology Comment Appears Adequate; Polychromasia SLIGHT = 2-3 cells (100X) (0-2/hpf); Reactive Lymphocytes 2 % (0-10); Schistocytes SLIGHT = 2-5 cells (100X) (0-1/hpf)
[2021-01-14 16:56] LABS: Vancomycin, Trough 16.9 ug/mL
[2021-01-14] MEDS: Atorvastatin Calcium 40 MG TAB PO SCH (20:55)
[2021-01-14] MEDS: Azithromycin 500 MG in Sodium Chloride 0.9% 250 ML 250 ML IVPB SCH (22:47)
[2021-01-15] MEDS: Cefepime 2 GM in Sodium Chloride 0.9% 100 ML IVPB SCH ×2 (00:33→08:59)
[2021-01-15] MEDS: hydrALAZINE 20 MG/ML VIAL SLOW IVP PRN ×2 (05:10→11:18)
[2021-01-15] MEDS: Vancomycin HCl 1.25 GM in Sodium Chloride 0.9% 250 ML 250 ML IVPB SCH (05:12)
[2021-01-15] MEDS: Budesonide 0.5 MG/2 ML NEB NEB SCH ×2 (05:42→06:36)
[2021-01-15] MEDS: Mometasone 200 MCG/Formoterol 5 MCG 120 PUFF INHALER INH SCH (06:39)
[2021-01-15] MEDS ORDERED: predniSONE 20 MG TAB PO SCH (08:30)
[2021-01-15] MEDS: Enoxaparin Sodium 40 MG/0.4 ML SYRINGE SC SCH (09:00)
[2021-01-15] MEDS: Glimepiride 4 MG TAB PO SCH (09:00)
[2021-01-15] MEDS: Aspirin 81 mg Enteric Coated Tablet PO SCH (09:00)
[2021-01-15] MEDS ORDERED: Diltiazem HCl CD 300 mg Capsule PO SCH (09:00)
[2021-01-15] MEDS: metFORMIN 500 MG TAB PO SCH (09:00)
[2021-01-15] MEDS: Folic Acid 1 MG TAB PO SCH (09:01)
[2021-01-15] MEDS: Gabapentin 300 MG CAP PO SCH (09:01)
[2021-01-15] MEDS: Tamsulosin HCl 0.4 MG CAP PO SCH (09:02)
[2021-01-15] MEDS: Lisinopril 20 MG TAB PO SCH (09:02)
[2021-01-15] MEDS: Lantus 1000 UNITS/10 ML VIAL SC SCH (09:02)
[2021-01-15] MEDS: HumaLOG 300 UNITS/3 ML VIAL SC PRN (11:11)
[2021-01-15 11:16] VITALS: BP 171/75; TEMP 98.9
[2021-01-16] MEDS ORDERED: predniSONE 20 MG TAB PO SCH (08:00)
== END 2021-01-15 14:15 | disposition home health service (06) | DRG 177 ==
LOC: ERS 19:46 → 2SW 21:30 → OBSVTOIN 01-06 12:51 → 2SW 01-10 06:49 → 2NO 01-10 13:37
PROVIDERS: ADMIT Student in an Organized Health Care Education/Training Program; ATTEND Internal Medicine
DX: J15.8 Pneumonia due to other specified bacteria (principal); J96.21 Acute and chronic respiratory failure with hypoxia; I50.33 Acute on chronic diastolic (congestive) heart failure; J44.1 Chronic obstructive pulmonary disease with (acute) exacerbation; J44.0 Chronic obstructive pulmonary disease with (acute) lower respiratory infection; I47.2 Ventricular tachycardia; Z20.822 Contact with and (suspected) exposure to COVID-19; E11.9 Type 2 diabetes mellitus without complications; I11.0 Hypertensive heart disease with heart failure; F20.9 Schizophrenia, unspecified; E78.2 Mixed hyperlipidemia; I25.10 Atherosclerotic heart disease of native coronary artery without angina pectoris; E66.01 Morbid (severe) obesity due to excess calories; Z89.022 Acquired absence of left finger(s); Z79.899 Other long term (current) drug therapy; Z79.84 Long term (current) use of oral hypoglycemic drugs; Z79.51 Long term (current) use of inhaled steroids; Z79.52 Long term (current) use of systemic steroids; Z87.891 Personal history of nicotine dependence; Z68.37 Body mass index [BMI] 37.0-37.9, adult
CPT/HCPCS: 36415; 36416; 71045; 80048; 80053; 80061; 80202; 82805; 83036; 83735; 83880; 84100; 84484; 85025; 87040; 93005; 93010; 93306; 94640; 94644; 96365; 96366; 96367; 96372; 96375; 96376; G0378; J0360; J0456; J0692; J0696; J1650; J1815; J1940; J2920; J2930; J3370; J3475; J3490; J7030; J7050; J7512; J7620; J7626; U0002; U0003; U0005

== ENCOUNTER 2021-06-27 14:34 | Inpatient (IN) | payer MEDICARE, BC ==
[2021-06-27] MEDS ORDERED: Magnesium 2 GM/50 ML BAG (IN WATER) ONE (14:58)
[2021-06-27] MEDS ORDERED: Dexamethasone 10 MG/ML VIAL ONE (14:58)
[2021-06-27] MEDS ORDERED: Albuterol Sulfate 1.25 MG/3 ML NEB ONE (14:58)
[2021-06-27] MEDS ORDERED: Albuterol Sulfate 2.5 mg/0.5 ml Neb ONE (15:03)
[2021-06-27 15:36] LABS: #Basophils 0.1 thou/uL (0.0-0.2); #Eosinphils 0.6 thou/uL (0.0-0.7); #Lymphocytes 2.9 thou/uL (1.20-3.40); #Monocytes 0.8 thou/uL (0.11-0.59); #Neutrophils 7.3 thou/uL (1.40-6.50); %Basophils 0.5 % (0.0-1.0); %Eosinophils 4.8 % (0.0-10.0); %Lymphocytes 24.8 % (21.0-51.0); %Monocytes 6.9 % (0.0-10.0); Mean Corpuscular HGB CONC 29.9 g/dL (32.0-36.0); Mean Corpuscular Hemoglobin 31.5 pg (27.0-31.0); Mean Platelet Volume 8.9 fL (7.4-10.4); Platelet Count 240 thou/uL (130-400); RBC Distribution Width 14.4 % (11.5-14.5); Red Blood Cell (RBC) Count 2.87 mill/uL (4.70-6.10); White Blood Cell (WBC) Count 11.6 thou/uL (4.8-10.8)
[2021-06-27 15:52] LABS: ALT (SGPT) Less than 7 U/L (8-55); AST (SGOT) 10 U/L (5-34); Albumin 3.8 g/dL (3.4-4.8); Alkaline Phosphatase 47 U/L (40-110); Anion Gap 13 mmol/L (10-20); BUN (Urea Nitrogen) 18 mg/dL (8.4-25.7); Bilirubin, Total 0.4 mg/dL (0.2-1.2); CK (CPK) 84 U/L (30-200); Calc. Creatinine Clearance 0 mL/min (70-130); Calcium 9.2 mg/dL (7.8-10.44); Carbon Dioxide 30 mmol/L (23-31); Chloride 103 mmol/L (98-107); Globulin 2.7 g/dL (2.4-3.5); Glucose 110 mg/dL (83-110); Lipase 24 U/L (8-78); Potassium 5.3 mmol/L (3.5-5.1); Protein, Total 6.5 g/dL (5.8-8.1); Sodium 141 mmol/L (136-145)
[2021-06-27 16:01] LABS: MDiff Complete? YES; Macrocytosis SLIGHT = 6-15 cells (100X) (0-5/hpf); Ovalocytes SLIGHT = 2-5 cells (100X) (0-1/hpf); Platelet Morphology Comment Appears Adequate; Polychromasia SLIGHT = 2-3 cells (100X) (0-2/hpf); Schistocytes SLIGHT = 2-5 cells (100X) (0-1/hpf)
[2021-06-27 16:58] VITALS: BMI 37.4
[2021-06-27] MEDS ORDERED: Ondansetron ODT 4 MG TAB SL PRN (17:15)
[2021-06-27] MEDS ORDERED: Ondansetron PF 4 MG/2 ML Vial IVP PRN (17:15)
[2021-06-27] MEDS ORDERED: Sodium Chloride 0.9% 1,000 ML IV SCH (17:15)
[2021-06-27] MEDS ORDERED: Acetaminophen 650 MG Suppository PR PRN (17:57)
[2021-06-27] MEDS ORDERED: Acetaminophen 325 MG TAB PO PRN (17:57)
[2021-06-27 18:36] LABS: Magnesium 3.2 mg/dL (1.6-2.6)
[2021-06-27] MEDS ORDERED: Albuterol Sulfate 2.5 mg/3 ml Neb NEB PRN (18:59)
[2021-06-27] MEDS: Mometasone 200 MCG/Formoterol 5 MCG 120 PUFF INHALER INH SCH (19:04)
[2021-06-27] MEDS: Triamcinolone 0.1% Cream 15 GM TUBE TOP SCH (21:34)
[2021-06-27] MEDS: Azithromycin 250 MG TAB PO SCH (21:34)
[2021-06-27] MEDS: Famotidine 20 MG TAB PO SCH (21:34)
[2021-06-27] MEDS: Atorvastatin Calcium 40 MG TAB PO SCH (21:34)
[2021-06-27 23:19] LABS: SARS-CoV-2 PCR by NAA Not Detected (NotDetected)
[2021-06-28] MEDS ORDERED: HYDROcodone/Acetaminophen 10/325 mg Tablet PO PRN (00:37)
[2021-06-28] MEDS ORDERED: Dexamethasone 10 MG/ML VIAL SLOW IVP SCH (03:00)
[2021-06-28 06:38] LABS: #Lymphocytes 1.2 thou/uL (1.20-3.40); #Monocytes 0.2 thou/uL (0.11-0.59); #Neutrophils 8.8 thou/uL (1.40-6.50); %Eosinophils 0.2 % (0.0-10.0); %Lymphocytes 11.3 % (21.0-51.0); %Monocytes 1.7 % (0.0-10.0); %Neutrophils 86.9 % (42.0-75.0); Hemoglobin 10.4 g/dL (14.0-18.0); Mean Corpuscular HGB CONC 30.1 g/dL (32.0-36.0); Mean Corpuscular Hemoglobin 31.2 pg (27.0-31.0); Mean Platelet Volume 9.4 fL (7.4-10.4); Platelet Count 254 thou/uL (130-400); RBC Distribution Width 14.4 % (11.5-14.5); Red Blood Cell (RBC) Count 3.33 mill/uL (4.70-6.10); White Blood Cell (WBC) Count 10.2 thou/uL (4.8-10.8)
[2021-06-28] MEDS: Mometasone 200 MCG/Formoterol 5 MCG 120 PUFF INHALER INH SCH ×2 (07:20→23:26)
[2021-06-28 07:46] LABS: Albumin 3.9 g/dL (3.4-4.8)
[2021-06-28 07:47] LABS: Chloride 102 mmol/L (98-107); Potassium 5.2 mmol/L (3.5-5.1); Sodium 137 mmol/L (136-145)
[2021-06-28 07:48] LABS: Calcium 9.3 mg/dL (7.8-10.44)
[2021-06-28 07:49] LABS: Glucose 201 mg/dL (83-110); Protein, Total 6.9 g/dL (5.8-8.1)
[2021-06-28 07:50] LABS: Anion Gap 11 mmol/L (10-20); Carbon Dioxide 29 mmol/L (23-31)
[2021-06-28 07:51] LABS: Bilirubin, Total 0.4 mg/dL (0.2-1.2)
[2021-06-28 07:52] LABS: Alkaline Phosphatase 54 U/L (40-110); Calc. Creatinine Clearance 80 mL/min (70-130)
[2021-06-28 07:53] LABS: BUN (Urea Nitrogen) 17 mg/dL (8.4-25.7)
[2021-06-28 07:54] LABS: AST (SGOT) 8 U/L (5-34)
[2021-06-28 07:55] LABS: ALT (SGPT) 7 U/L (8-55)
[2021-06-28] MEDS: Aspirin 81 mg Enteric Coated Tablet PO SCH (10:44)
[2021-06-28] MEDS: Glimepiride 4 MG TAB PO SCH (10:44)
[2021-06-28] MEDS: Losartan 25 MG TAB PO SCH (10:45)
[2021-06-28] MEDS: metFORMIN 500 MG TAB PO SCH ×2 (10:45→18:07)
[2021-06-28] MEDS: Furosemide 20 MG/2 ML VIAL SLOW IVP SCH (10:51)
[2021-06-28] MEDS: Famotidine 20 MG TAB PO SCH ×2 (10:51→21:08)
[2021-06-28] MEDS: Enoxaparin Sodium 40 MG/0.4 ML SYRINGE SC SCH (10:51)
[2021-06-28] MEDS: Tamsulosin HCl 0.4 MG CAP PO SCH (10:52)
[2021-06-28] MEDS: Triamcinolone 0.1% Cream 15 GM TUBE TOP SCH ×2 (10:52→21:09)
[2021-06-28] MEDS ORDERED: hydrALAZINE 20 MG/ML VIAL SLOW IVP PRN (17:17)
[2021-06-28] MEDS ORDERED: diphenhydrAMINE 50 MG/ML VIAL IVP PRN (17:19)
[2021-06-28] MEDS ORDERED: Dextrose 50% Abboject 50 ML SYRINGE SLOW IVP PRN (17:20)
[2021-06-28] MEDS ORDERED: Dextrose 5% in Water 1,000 ML IV PRN (17:20)
[2021-06-28] MEDS ORDERED: HumaLOG 300 UNITS/3 ML VIAL SC PRN (17:20)
[2021-06-28] MEDS ORDERED: Permethrin 5% Cream 60 GM TUBE TOP SCH (17:30)
[2021-06-28] MEDS ORDERED: methylPREDNISolone Sod Succ 40 MG VIAL IVP SCH (21:00)
[2021-06-28] MEDS ORDERED: methylPREDNISolone Sod Succ/PF 40 MG in Sodium Chloride 0.9% 250 ML 250 ML IVPB SCH (21:00)
[2021-06-28] MEDS: Azithromycin 250 MG TAB PO SCH (21:08)
[2021-06-28] MEDS: guaiFENesin ER 600 MG TAB PO SCH (21:08)
[2021-06-28] MEDS: Atorvastatin Calcium 40 MG TAB PO SCH (21:08)
[2021-06-29 06:15] LABS: #Lymphocytes 1.2 thou/uL (1.20-3.40); #Monocytes 0.4 thou/uL (0.11-0.59); #Neutrophils 10.4 thou/uL (1.40-6.50); %Basophils 0.1 % (0.0-1.0); %Eosinophils 0.1 % (0.0-10.0); %Lymphocytes 10.2 % (21.0-51.0); %Monocytes 3.4 % (0.0-10.0); %Neutrophils 86.2 % (42.0-75.0); Hemoglobin 9.3 g/dL (14.0-18.0); Mean Corpuscular HGB CONC 30.5 g/dL (32.0-36.0); Mean Corpuscular Hemoglobin 31.1 pg (27.0-31.0); Mean Platelet Volume 9.6 fL (7.4-10.4); Platelet Count 249 thou/uL (130-400); RBC Distribution Width 14.5 % (11.5-14.5); Red Blood Cell (RBC) Count 2.99 mill/uL (4.70-6.10); White Blood Cell (WBC) Count 12.1 thou/uL (4.8-10.8)
[2021-06-29 06:35] LABS: Anion Gap 15 mmol/L (10-20); BUN (Urea Nitrogen) 22 mg/dL (8.4-25.7); Calc. Creatinine Clearance 80 mL/min (70-130); Calcium 9.4 mg/dL (7.8-10.44); Carbon Dioxide 28 mmol/L (23-31); Chloride 100 mmol/L (98-107); Glucose 193 mg/dL (83-110); Magnesium 1.9 mg/dL (1.6-2.6); Potassium 4.8 mmol/L (3.5-5.1); Sodium 138 mmol/L (136-145)
[2021-06-29] MEDS: Mometasone 200 MCG/Formoterol 5 MCG 120 PUFF INHALER INH SCH ×2 (06:43→19:49)
[2021-06-29] MEDS ORDERED: methylPREDNISolone Sod Succ 40 MG VIAL IVP SCH (09:00)
[2021-06-29] MEDS: Famotidine 20 MG TAB PO SCH ×2 (09:25→22:01)
[2021-06-29] MEDS: Tamsulosin HCl 0.4 MG CAP PO SCH (09:34)
[2021-06-29] MEDS: metFORMIN 500 MG TAB PO SCH ×2 (09:34→16:24)
[2021-06-29] MEDS: Enoxaparin Sodium 40 MG/0.4 ML SYRINGE SC SCH (09:34)
[2021-06-29] MEDS: Gabapentin 100 MG CAP PO SCH ×3 (09:35→22:02)
[2021-06-29] MEDS: guaiFENesin ER 600 MG TAB PO SCH ×2 (09:35→22:02)
[2021-06-29] MEDS: Losartan 25 MG TAB PO SCH (09:38)
[2021-06-29] MEDS: Glimepiride 4 MG TAB PO SCH (09:38)
[2021-06-29] MEDS: Folic Acid 1 MG TAB PO SCH (09:38)
[2021-06-29] MEDS: Aspirin 81 mg Enteric Coated Tablet PO SCH (09:39)
[2021-06-29] MEDS: Triamcinolone 0.1% Cream 15 GM TUBE TOP SCH ×2 (09:42→22:02)
[2021-06-29] MEDS: Furosemide 20 MG/2 ML VIAL SLOW IVP SCH (09:42)
[2021-06-29] MEDS ORDERED: Ondansetron PF 4 MG/2 ML Vial IVP PRN (13:11)
[2021-06-29] MEDS: Azithromycin 250 MG TAB PO SCH (22:00)
[2021-06-29] MEDS: Senokot S 8.6-50 MG TAB PO SCH (22:01)
[2021-06-29] MEDS: Atorvastatin Calcium 40 MG TAB PO SCH (22:02)
[2021-06-30 07:06] LABS: Anion Gap 9 mmol/L (10-20); BUN (Urea Nitrogen) 14 mg/dL (8.4-25.7); Calc. Creatinine Clearance 90 mL/min (70-130); Calcium 9.3 mg/dL (7.8-10.44); Carbon Dioxide 32 mmol/L (23-31); Chloride 105 mmol/L (98-107); Glucose 84 mg/dL (83-110); Potassium 4.1 mmol/L (3.5-5.1); Sodium 142 mmol/L (136-145)
[2021-06-30] MEDS: Mometasone 200 MCG/Formoterol 5 MCG 120 PUFF INHALER INH SCH ×2 (08:07→22:35)
[2021-06-30] MEDS: Gabapentin 100 MG CAP PO SCH ×3 (09:21→20:42)
[2021-06-30] MEDS: Losartan 25 MG TAB PO SCH (09:23)
[2021-06-30] MEDS: Aspirin 81 mg Enteric Coated Tablet PO SCH (09:23)
[2021-06-30] MEDS: Glimepiride 4 MG TAB PO SCH (09:23)
[2021-06-30] MEDS: metFORMIN 500 MG TAB PO SCH ×2 (09:23→17:18)
[2021-06-30] MEDS: guaiFENesin ER 600 MG TAB PO SCH ×2 (09:24→20:42)
[2021-06-30] MEDS: Senokot S 8.6-50 MG TAB PO SCH ×2 (09:24→20:42)
[2021-06-30] MEDS: Famotidine 20 MG TAB PO SCH ×2 (09:24→20:43)
[2021-06-30] MEDS: predniSONE 20 MG TAB PO SCH (09:24)
[2021-06-30] MEDS: Furosemide 40 MG TAB PO SCH (09:25)
[2021-06-30] MEDS: Enoxaparin Sodium 40 MG/0.4 ML SYRINGE SC SCH (09:25)
[2021-06-30] MEDS: Folic Acid 1 MG TAB PO SCH (09:25)
[2021-06-30] MEDS: Tamsulosin HCl 0.4 MG CAP PO SCH (09:43)
[2021-06-30] MEDS: Triamcinolone 0.1% Cream 15 GM TUBE TOP SCH ×2 (09:44→20:44)
[2021-06-30] MEDS ORDERED: Lice Shampoo 120 ML BOT TOP SCH (14:15)
[2021-06-30] MEDS ORDERED: Polyethylene Glycol 3350 17 GM Packet PO SCH (16:00)
[2021-06-30] MEDS: Atorvastatin Calcium 40 MG TAB PO SCH (20:42)
[2021-07-01] MEDS: Mometasone 200 MCG/Formoterol 5 MCG 120 PUFF INHALER INH SCH (07:27)
[2021-07-01] MEDS: Enoxaparin Sodium 40 MG/0.4 ML SYRINGE SC SCH (08:43)
[2021-07-01] MEDS: Gabapentin 100 MG CAP PO SCH (08:44)
[2021-07-01] MEDS: guaiFENesin ER 600 MG TAB PO SCH (08:44)
[2021-07-01] MEDS: Furosemide 40 MG TAB PO SCH (08:44)
[2021-07-01] MEDS: Folic Acid 1 MG TAB PO SCH (08:44)
[2021-07-01] MEDS: Famotidine 20 MG TAB PO SCH (08:44)
[2021-07-01] MEDS: metFORMIN 500 MG TAB PO SCH (08:44)
[2021-07-01] MEDS: Aspirin 81 mg Enteric Coated Tablet PO SCH (08:44)
[2021-07-01] MEDS: predniSONE 20 MG TAB PO SCH (08:45)
[2021-07-01] MEDS: Glimepiride 4 MG TAB PO SCH (08:46)
[2021-07-01] MEDS: Senokot S 8.6-50 MG TAB PO SCH (08:46)
[2021-07-01] MEDS: Losartan 25 MG TAB PO SCH (08:46)
[2021-07-01] MEDS: Tamsulosin HCl 0.4 MG CAP PO SCH (08:47)
[2021-07-01] MEDS: Triamcinolone 0.1% Cream 15 GM TUBE TOP SCH (08:47)
[2021-07-01] MEDS ORDERED: Diltiazem HCl CD 300 mg Capsule PO SCH (09:00)
[2021-07-01 13:40] VITALS: BP 138/68; TEMP 97.8
== END 2021-07-01 13:47 | disposition home or self-care (01) | DRG 291 ==
LOC: ERS 14:34 → T4-B 16:06
PROVIDERS: ADMIT Internal Medicine; ATTEND Internal Medicine
DX: I11.0 Hypertensive heart disease with heart failure (principal); I50.33 Acute on chronic diastolic (congestive) heart failure; J96.21 Acute and chronic respiratory failure with hypoxia; J44.1 Chronic obstructive pulmonary disease with (acute) exacerbation; Z20.822 Contact with and (suspected) exposure to COVID-19; E78.5 Hyperlipidemia, unspecified; N40.0 Benign prostatic hyperplasia without lower urinary tract symptoms; E11.9 Type 2 diabetes mellitus without complications; D72.829 Elevated white blood cell count, unspecified; B86 Scabies
CPT/HCPCS: 36415; 36416; 71045; 80048; 80053; 82550; 83605; 83690; 83735; 83880; 84484; 85025; 87040; 93005; 94640; J0360; J1100; J1650; J1815; J1940; J2920; J3475; J7050; J7512; J7611; J7620; U0003; U0005

== ENCOUNTER 2022-10-14 18:41 | Inpatient (IN) | payer MEDICARE, BC ==
[2022-10-14] MEDS ORDERED: methylPREDNISolone Sod Succ/PF 125 MG/2 ML VIAL ONE (19:00)
[2022-10-14] MEDS ORDERED: Magnesium 2 GM/50 ML BAG (IN WATER) ONE (19:00)
[2022-10-14] MEDS ORDERED: Ipratropium/Albuterol 3 ML NEB ONE ×2 (19:05→20:35)
[2022-10-14 19:17] LABS: #Basophils 0.1 thou/uL (0.0-0.2); #Monocytes 0.9 thou/uL (0.11-0.59); #Neutrophils 7.1 thou/uL (1.40-6.50); %Basophils 0.5 % (0.0-1.0); %Eosinophils 8.4 % (0.0-10.0); %Lymphocytes 20.4 % (21.0-51.0); %Neutrophils 62.4 % (42.0-75.0); Hematocrit 37.5 % (42.0-52.0); Hemoglobin 11.8 g/dL (14.0-18.0); Mean Corpuscular HGB CONC 31.5 g/dL (32.0-36.0); Mean Corpuscular Hemoglobin 32.2 pg (27.0-31.0); Mean Corpuscular Volume 102.2 fl (78.0-98.0); Platelet Count 255 10x3/uL (130-400); RBC Distribution Width 13.7 % (11.5-14.5); Red Blood Cell (RBC) Count 3.67 mill/uL (4.70-6.10); White Blood Cell (WBC) Count 11.4 10x3/uL (4.8-10.8)
[2022-10-14 19:40] LABS: ALT (SGPT) 9 U/L (8-55); AST (SGOT) 14 U/L (5-34); Albumin 4.3 g/dL (3.4-4.8); Alkaline Phosphatase 86 U/L (40-110); Anion Gap 15 mmol/L (10-20); BUN (Urea Nitrogen) 17 mg/dL (8.4-25.7); Bilirubin, Total 0.3 mg/dL (0.2-1.2); Calc. Creatinine Clearance 0 mL/min (70-130); Calcium 9.8 mg/dL (7.8-10.44); Carbon Dioxide 31 mmol/L (23-31); Chloride 102 mmol/L (98-107); Estimated GFR 58; Globulin 3.7 g/dL (2.4-3.5); Glucose 90 mg/dL (83-110); Potassium 4.5 mmol/L (3.5-5.1); Sodium 143 mmol/L (136-145)
[2022-10-14 19:44] LABS: Troponin I Less than 0.010 ng/mL (< 0.028)
[2022-10-14] MEDS ORDERED: Albuterol 2.5 MG/0.5 ML NEB ONE (20:35)
[2022-10-14] MEDS ORDERED: HumaLOG 300 UNITS/3 ML VIAL SC PRN ×2 (22:48)
[2022-10-14] MEDS ORDERED: Dextrose 5% in Water 1,000 ML IV PRN (22:48)
[2022-10-14] MEDS ORDERED: Dextrose 50% Abboject 50 ML SYRINGE SLOW IVP PRN (22:48)
[2022-10-14] MEDS ORDERED: Ondansetron ODT 4 MG TAB PO PRN (22:48)
[2022-10-14] MEDS ORDERED: Ondansetron PF 4 MG/2 ML Vial IVP PRN (22:48)
[2022-10-14] MEDS ORDERED: Glucagon 1 MG/ML KIT IM PRN (22:48)
[2022-10-14] MEDS ORDERED: Acetaminophen 325 MG TAB PO PRN (22:48)
[2022-10-14] MEDS ORDERED: Acetaminophen 650 MG Suppository PR PRN (22:48)
[2022-10-14] MEDS ORDERED: Furosemide 40 MG/4 ML VIAL SLOW IVP SCH (23:15)
[2022-10-14] MEDS ORDERED: Ipratropium/Albuterol 3 ML NEB NEB PRN ×2 (23:19→23:20)
[2022-10-14 23:35] VITALS: BMI 34.8
[2022-10-15] MEDS: Ipratropium/Albuterol 3 ML NEB NEB SCH ×6 (02:11→22:26)
[2022-10-15] MEDS ORDERED: Ipratropium/Albuterol 3 ML NEB NEB SCH (02:30)
[2022-10-15] MEDS: Mometasone 200 MCG/Formoterol 5 MCG 120 PUFF INHALER INH SCH ×2 (07:18→18:57)
[2022-10-15 07:19] LABS: #Monocytes 0.2 thou/uL (0.11-0.59); #Neutrophils 9.5 thou/uL (1.40-6.50); %Basophils 0.1 % (0.0-1.0); %Monocytes 1.4 % (0.0-10.0); Hematocrit 38.2 % (42.0-52.0); Hemoglobin 11.7 g/dL (14.0-18.0); Mean Corpuscular HGB CONC 30.6 g/dL (32.0-36.0); Mean Corpuscular Hemoglobin 31.5 pg (27.0-31.0); Mean Platelet Volume 11.8 fL (7.4-10.4); Platelet Count 235 10x3/uL (130-400); RBC Distribution Width 13.6 % (11.5-14.5); Red Blood Cell (RBC) Count 3.71 mill/uL (4.70-6.10); White Blood Cell (WBC) Count 10.5 10x3/uL (4.8-10.8)
[2022-10-15 07:43] LABS: Anion Gap 14 mmol/L (10-20); BUN (Urea Nitrogen) 19 mg/dL (8.4-25.7); Calc. Creatinine Clearance 65 mL/min (70-130); Calcium 9.3 mg/dL (7.8-10.44); Carbon Dioxide 27 mmol/L (23-31); Chloride 99 mmol/L (98-107); Estimated GFR 61; Glucose 234 mg/dL (83-110); Potassium 4.3 mmol/L (3.5-5.1); Sodium 136 mmol/L (136-145)
[2022-10-15] MEDS: Benzonatate 100 MG CAP PO PRN ×2 (08:42→20:46)
[2022-10-15] MEDS: Losartan 25 MG TAB PO SCH (08:42)
[2022-10-15] MEDS: Aspirin 81 mg Enteric Coated Tablet PO SCH (08:43)
[2022-10-15] MEDS: Gabapentin 100 MG CAP PO SCH ×3 (08:43→20:45)
[2022-10-15] MEDS: Tamsulosin HCl 0.4 MG CAP PO SCH (08:43)
[2022-10-15] MEDS: Folic Acid 1 MG TAB PO SCH (08:43)
[2022-10-15] MEDS ORDERED: methylPREDNISolone Sod Succ 40 MG VIAL IVP SCH (09:00)
[2022-10-15] MEDS ORDERED: Famotidine 20 MG TAB PO SCH (09:00)
[2022-10-15] MEDS: HYDROcodone/Acetaminophen 10/325 mg Tablet PO PRN ×2 (09:39→20:46)
[2022-10-15] MEDS ORDERED: Docusate 100 MG CAP PO PRN (13:16)
[2022-10-15] MEDS ORDERED: Polyethylene Glycol 3350 17 GM Packet PO PRN (13:16)
[2022-10-15] MEDS: Guaifenesin DM 100-10/5 ML UDCUP PO PRN ×2 (13:52→20:49)
[2022-10-15] MEDS: Doxycycline 100 MG in Sodium Chloride 0.9% 100 ML IVPB SCH ×2 (13:53)
[2022-10-15] MEDS: methylPREDNISolone Sod Succ 40 MG VIAL IVP SCH (18:21)
[2022-10-15] MEDS: HumaLOG 300 UNITS/3 ML VIAL SC PRN (18:45)
[2022-10-15] MEDS: Atorvastatin Calcium 40 MG TAB PO SCH (20:45)
[2022-10-15] MEDS ORDERED: Simvastatin 40 MG TAB PO SCH (21:00)
[2022-10-16] MEDS: Ipratropium/Albuterol 3 ML NEB NEB SCH ×6 (01:46→23:07)
[2022-10-16] MEDS: methylPREDNISolone Sod Succ 40 MG VIAL IVP SCH ×3 (01:52→16:57)
[2022-10-16] MEDS: Doxycycline 100 MG in Sodium Chloride 0.9% 100 ML IVPB SCH ×2 (01:52→13:08)
[2022-10-16] MEDS: Guaifenesin DM 100-10/5 ML UDCUP PO PRN ×2 (04:52→20:33)
[2022-10-16] MEDS: Benzonatate 100 MG CAP PO PRN (04:52)
[2022-10-16] MEDS: HumaLOG 300 UNITS/3 ML VIAL SC PRN ×3 (05:32→16:57)
[2022-10-16] MEDS: Mometasone 200 MCG/Formoterol 5 MCG 120 PUFF INHALER INH SCH ×2 (06:46→18:34)
[2022-10-16] MEDS: Gabapentin 100 MG CAP PO SCH ×3 (09:27→20:27)
[2022-10-16] MEDS: Tamsulosin HCl 0.4 MG CAP PO SCH (09:28)
[2022-10-16] MEDS: Furosemide 40 MG TAB PO SCH (09:28)
[2022-10-16] MEDS: Aspirin 81 mg Enteric Coated Tablet PO SCH (09:28)
[2022-10-16] MEDS: Folic Acid 1 MG TAB PO SCH (09:29)
[2022-10-16] MEDS: Saccharomyces boulardii 250 MG CAP PO SCH (09:29)
[2022-10-16] MEDS ORDERED: guaiFENesin ER 600 MG TAB PO SCH (11:00)
[2022-10-16] MEDS: Losartan 25 MG TAB PO SCH (11:24)
[2022-10-16] MEDS: Atorvastatin Calcium 40 MG TAB PO SCH (20:27)
[2022-10-16] MEDS: guaiFENesin ER 600 MG TAB PO SCH (20:28)
[2022-10-17] MEDS: Doxycycline 100 MG in Sodium Chloride 0.9% 100 ML IVPB SCH ×2 (00:39→14:06)
[2022-10-17] MEDS: methylPREDNISolone Sod Succ 40 MG VIAL IVP SCH ×2 (00:42→08:45)
[2022-10-17] MEDS: Ipratropium/Albuterol 3 ML NEB NEB SCH ×4 (03:31→15:29)
[2022-10-17] MEDS: HumaLOG 300 UNITS/3 ML VIAL SC PRN (05:19)
[2022-10-17] MEDS: Mometasone 200 MCG/Formoterol 5 MCG 120 PUFF INHALER INH SCH (08:16)
[2022-10-17] MEDS: Gabapentin 100 MG CAP PO SCH ×2 (08:43→14:08)
[2022-10-17] MEDS: Folic Acid 1 MG TAB PO SCH (08:43)
[2022-10-17] MEDS: Losartan 25 MG TAB PO SCH (08:43)
[2022-10-17] MEDS: Tamsulosin HCl 0.4 MG CAP PO SCH (08:44)
[2022-10-17] MEDS: Aspirin 81 mg Enteric Coated Tablet PO SCH (08:44)
[2022-10-17] MEDS: guaiFENesin ER 600 MG TAB PO SCH (08:44)
[2022-10-17] MEDS: Furosemide 40 MG TAB PO SCH (08:44)
[2022-10-17] MEDS: Saccharomyces boulardii 250 MG CAP PO SCH (08:44)
[2022-10-17 15:54] VITALS: TEMP 98.1
[2022-10-17 16:44] VITALS: BP 156/66
== END 2022-10-17 16:58 | disposition home or self-care (01) | DRG 189 ==
LOC: ERS 18:41 → T4-B 21:54 → OBSVTOIN 10-15 12:01
PROVIDERS: ADMIT Student in an Organized Health Care Education/Training Program; ATTEND Internal Medicine
DX: J96.21 Acute and chronic respiratory failure with hypoxia (principal); I11.0 Hypertensive heart disease with heart failure; I50.33 Acute on chronic diastolic (congestive) heart failure; J44.1 Chronic obstructive pulmonary disease with (acute) exacerbation; F20.9 Schizophrenia, unspecified; E11.9 Type 2 diabetes mellitus without complications; Z79.84 Long term (current) use of oral hypoglycemic drugs; Z79.899 Other long term (current) drug therapy; Z98.890 Other specified postprocedural states; Z87.891 Personal history of nicotine dependence
CPT/HCPCS: 36415; 36416; 71045; 80048; 80053; 83880; 84484; 85025; 93005; 94640; J1650; J1815; J1940; J2920; J2930; J3475; J3490; J7611; J7620

== ENCOUNTER 2023-01-02 11:30 | Emergency (ER) | payer MEDICARE, BC ==
[2023-01-02] MEDS ORDERED: Ipratropium/Albuterol 3 ML NEB ONE (12:03)
[2023-01-02 12:23] LABS: #Basophils 0.1 thou/uL (0.0-0.2); #Eosinphils 0.4 thou/uL (0.0-0.7); #Monocytes 0.8 thou/uL (0.11-0.59); #Neutrophils 8.8 thou/uL (1.40-6.50); %Basophils 0.5 % (0.0-1.0); %Lymphocytes 19.3 % (21.0-51.0); %Monocytes 6.3 % (0.0-10.0); %Neutrophils 70.6 % (42.0-75.0); Hematocrit 34.3 % (42.0-52.0); Hemoglobin 10.7 g/dL (14.0-18.0); Mean Corpuscular HGB CONC 31.2 g/dL (32.0-36.0); Mean Corpuscular Hemoglobin 32.2 pg (27.0-31.0); Mean Corpuscular Volume 103.3 fl (78.0-98.0); Mean Platelet Volume 10.9 fL (7.4-10.4); Platelet Count 275 10x3/uL (130-400); RBC Distribution Width 15.2 % (11.5-14.5); Red Blood Cell (RBC) Count 3.32 mill/uL (4.70-6.10); White Blood Cell (WBC) Count 12.5 10x3/uL (4.8-10.8)
[2023-01-02] MEDS ORDERED: Magnesium 2 GM/50 ML BAG (IN WATER) ONE (12:23)
[2023-01-02] MEDS ORDERED: methylPREDNISolone Sod Succ/PF 125 MG/2 ML VIAL ONE (12:23)
[2023-01-02 12:47] LABS: Troponin I Less than 0.010 ng/mL (< 0.028)
[2023-01-02 13:00] LABS: ALT (SGPT) 11 U/L (8-55); AST (SGOT) 14 U/L (5-34); Albumin 3.8 g/dL (3.4-4.8); Alkaline Phosphatase 51 U/L (40-110); Anion Gap 13 mmol/L (10-20); BUN (Urea Nitrogen) 10 mg/dL (8.4-25.7); Bilirubin, Total 0.5 mg/dL (0.2-1.2); Calc. Creatinine Clearance 0 mL/min (70-130); Carbon Dioxide 29 mmol/L (23-31); Chloride 105 mmol/L (98-107); Estimated GFR 87; Globulin 2.6 g/dL (2.4-3.5); Glucose 87 mg/dL (83-110); Potassium 4.1 mmol/L (3.5-5.1); Protein, Total 6.4 g/dL (5.8-8.1); Sodium 143 mmol/L (136-145)
[2023-01-02 13:07] LABS: Bacteria/HPF None Seen HPF (None Seen); Bilirubin Negative (Negative); Blood, Urine Negative (Negative); CAUTI Indications for Culture Alt mental st,lethar; Clarity Clear (Clear); Glucose, Urine (Dipstick) Normal (Negative); Ketone, Urine Negative (Negative); Leukocyte Negative Leu/uL (Negative); Nitrite Negative (Negative); Protein, Urine (Dipstick) Negative (Neg-Trace); RBC/HPF 0-3 HPF (0-3); Specific Gravity, Urine 1.014 (1.002-1.036); Squamous Epithelial None Seen HPF (0-3); Urobilinogen Normal mg/dL (Less than 2); WBC/HPF 0-3 HPF (0-3)
[2023-01-02 13:14] LABS: Urine Culture Reflex No No
== END 2023-01-02 14:41 | disposition home or self-care (01) ==
LOC: ERS 11:30
DX: J44.1 Chronic obstructive pulmonary disease with (acute) exacerbation (principal); E11.9 Type 2 diabetes mellitus without complications; E78.5 Hyperlipidemia, unspecified; I10 Essential (primary) hypertension; Z79.899 Other long term (current) drug therapy; Z79.84 Long term (current) use of oral hypoglycemic drugs; Z79.82 Long term (current) use of aspirin
CPT/HCPCS: 36415; 71045; 80053; 81001; 83880; 84484; 85025; 93005; 94640; 96365; 96375; J2930; J3475; J7620

== ENCOUNTER 2023-02-09 16:35 | Inpatient (IN) | payer MEDICARE, BC ==
[2023-02-09] MEDS ORDERED: Magnesium 2 GM/50 ML BAG (IN WATER) ONE (17:00)
[2023-02-09] MEDS ORDERED: Dexamethasone 10 MG/ML VIAL ONE (17:00)
[2023-02-09] MEDS ORDERED: LevoFLOXacin 750 mg/D5W 150 ml Premix Bag ONE (17:01)
[2023-02-09 17:02] LABS: #Basophils 0.1 thou/uL (0.0-0.2); #Eosinphils 0.8 thou/uL (0.0-0.7); #Monocytes 0.8 thou/uL (0.11-0.59); #Neutrophils 8.1 thou/uL (1.40-6.50); %Basophils 0.5 % (0.0-1.0); %Eosinophils 6.7 % (0.0-10.0); %Lymphocytes 20.3 % (21.0-51.0); %Monocytes 6.3 % (0.0-10.0); %Neutrophils 65.9 % (42.0-75.0); Hematocrit 34.3 % (42.0-52.0); Hemoglobin 10.5 g/dL (14.0-18.0); Mean Corpuscular HGB CONC 30.6 g/dL (32.0-36.0); Mean Corpuscular Hemoglobin 31.6 pg (27.0-31.0); Mean Corpuscular Volume 103.3 fl (78.0-98.0); Mean Platelet Volume 10.5 fL (7.4-10.4); Platelet Count 258 10x3/uL (130-400); RBC Distribution Width 14.5 % (11.5-14.5); Red Blood Cell (RBC) Count 3.32 mill/uL (4.70-6.10); White Blood Cell (WBC) Count 12.2 10x3/uL (4.8-10.8)
[2023-02-09 17:22] LABS: Actual Bicarbonate (HCO3a) 27.5 mEq/L (22-28); Analyzer IN Cardio ER; Base Excess (BEa) 3.1 mEq/L (-2.0 to +3.0); CO2 Tension 41.1 mmHg (35.0-45.0); Calcium, Ionized (arterial) 1.15 mmol/L (1.12-1.30); Carboxyhemoglobin (COHb) 0.2 gm% (0.0-3.0); Hematocrit-ABG 33 % (42.0-52.0); Hemoglobin (Hb) 11.1 g/dL (14.0-18.0); O2 Tension (PaO2), arterial 154.2 mmHg (> 60.0); Potassium - ABG Lab 3.77 mmol/L (3.70-5.30); pH, Arterial 7.443 (7.35-7.45)
[2023-02-09 17:26] LABS: ALT (SGPT) 11 U/L (8-55); AST (SGOT) 15 U/L (5-34); Alkaline Phosphatase 52 U/L (40-110); Anion Gap 14 mmol/L (10-20); BUN (Urea Nitrogen) 13 mg/dL (8.4-25.7); Bilirubin, Total 0.5 mg/dL (0.2-1.2); Calc. Creatinine Clearance 0 mL/min (70-130); Calcium 9.2 mg/dL (7.8-10.44); Carbon Dioxide 28 mmol/L (23-31); Chloride 103 mmol/L (98-107); Estimated GFR 52; Globulin 2.5 g/dL (2.4-3.5); Glucose 116 mg/dL (83-110); Lipase 28 U/L (8-78); Potassium 3.9 mmol/L (3.5-5.1); Protein, Total 6.5 g/dL (5.8-8.1); Sodium 141 mmol/L (136-145)
[2023-02-09 17:28] LABS: Troponin I 0.032 ng/mL (< 0.028)
[2023-02-09] MEDS ORDERED: Albuterol 2.5 MG/0.5 ML NEB ONE ×2 (17:28→17:29)
[2023-02-09] MEDS ORDERED: Ipratropium/Albuterol 3 ML NEB ONE ×2 (17:28→21:50)
[2023-02-09] MEDS ORDERED: Aspirin Chewable 81 MG TAB ONE (17:45)
[2023-02-09 17:50] LABS: Puncture Site RBA
[2023-02-09 17:51] LABS: ALV-art Gradient 79.625 mmHg (0-20)
[2023-02-09] MEDS ORDERED: Ondansetron PF 4 MG/2 ML Vial IVP PRN (18:12)
[2023-02-09] MEDS ORDERED: Acetaminophen 325 MG TAB PO PRN (18:12)
[2023-02-09] MEDS ORDERED: Ipratropium/Albuterol 3 ML NEB EZPAP PRN (18:14)
[2023-02-09] MEDS ORDERED: Furosemide 20 MG/2 ML VIAL SLOW IVP SCH (18:15)
[2023-02-09] MEDS: Ipratropium/Albuterol 3 ML NEB NEB SCH ×2 (18:27→22:02)
[2023-02-09] MEDS: Mometasone 200 MCG/Formoterol 5 MCG 120 PUFF INHALER INH SCH (18:28)
[2023-02-09] MEDS ORDERED: Furosemide 20 MG/2 ML VIAL ONE (20:42)
[2023-02-09] MEDS ORDERED: Glucagon 1 MG/ML KIT IM PRN (21:51)
[2023-02-09] MEDS ORDERED: HumaLOG 300 UNITS/3 ML VIAL SC PRN (21:51)
[2023-02-09] MEDS ORDERED: Dextrose 5% in Water 1,000 ML IV PRN (21:51)
[2023-02-09] MEDS ORDERED: Dextrose 50% Abboject 50 ML SYRINGE SLOW IVP PRN (21:51)
[2023-02-09 22:19] LABS: SARS-CoV-2 NAA Rapid Test Not Detected (NotDetected)
[2023-02-09] MEDS: methylPREDNISolone Sod Succ 40 MG VIAL IVP SCH (23:27)
[2023-02-09] MEDS: Docusate 100 MG CAP PO PRN (23:27)
[2023-02-10 00:59] VITALS: BMI 36.8
[2023-02-10] MEDS: Ipratropium/Albuterol 3 ML NEB NEB SCH ×6 (01:56→22:25)
[2023-02-10 06:10] LABS: #Monocytes 0.1 thou/uL (0.11-0.59); #Neutrophils 8.2 thou/uL (1.40-6.50); %Basophils 0.1 % (0.0-1.0); %Lymphocytes 6.7 % (21.0-51.0); %Monocytes 0.6 % (0.0-10.0); %Neutrophils 92.1 % (42.0-75.0); Hematocrit 33.6 % (42.0-52.0); Hemoglobin 10.4 g/dL (14.0-18.0); Mean Corpuscular Hemoglobin 31.4 pg (27.0-31.0); Mean Corpuscular Volume 101.5 fl (78.0-98.0); Mean Platelet Volume 11.2 fL (7.4-10.4); Platelet Count 272 10x3/uL (130-400); RBC Distribution Width 14.3 % (11.5-14.5); Red Blood Cell (RBC) Count 3.31 mill/uL (4.70-6.10); White Blood Cell (WBC) Count 8.9 10x3/uL (4.8-10.8)
[2023-02-10] MEDS: methylPREDNISolone Sod Succ 40 MG VIAL IVP SCH ×3 (06:22→23:38)
[2023-02-10 06:32] LABS: Anion Gap 14 mmol/L (10-20); BUN (Urea Nitrogen) 18 mg/dL (8.4-25.7); Calc. Creatinine Clearance 64 mL/min (70-130); Calcium 8.9 mg/dL (7.8-10.44); Carbon Dioxide 24 mmol/L (23-31); Chloride 103 mmol/L (98-107); Estimated GFR 57; Glucose 180 mg/dL (83-110); Potassium 4.3 mmol/L (3.5-5.1); Sodium 137 mmol/L (136-145)
[2023-02-10] MEDS: Furosemide 20 MG/2 ML VIAL SLOW IVP SCH ×2 (06:36→14:44)
[2023-02-10 06:45] LABS: Troponin I Less than 0.010 ng/mL (< 0.028)
[2023-02-10] MEDS: Mometasone 200 MCG/Formoterol 5 MCG 120 PUFF INHALER INH SCH ×2 (07:20→18:37)
[2023-02-10] MEDS ORDERED: PREGABALIN 150 MG PO SCH (09:00)
[2023-02-10] MEDS: hydrALAZINE 25 MG TAB PO SCH ×2 (09:32→21:09)
[2023-02-10] MEDS: Famotidine 20 MG TAB PO SCH ×2 (09:33→21:09)
[2023-02-10] MEDS: NIFEdipine XL 60 MG ER.TAB PO SCH (09:35)
[2023-02-10] MEDS: Pregabalin 75 MG CAP PO SCH ×2 (09:36→21:09)
[2023-02-10] MEDS: HumaLOG 300 UNITS/3 ML VIAL SC PRN ×2 (11:39→18:18)
[2023-02-10] MEDS ORDERED: Non-Formulary Item 1 EACH (Atorvastatin Calcium [Atorvastatin Calcium] 80 MG Tablet) PO SCH (21:00)
[2023-02-10] MEDS: Docusate 100 MG CAP PO PRN (21:08)
[2023-02-10] MEDS: guaiFENesin ER 600 MG TAB PO SCH (21:08)
[2023-02-10] MEDS: Atorvastatin Calcium 40 MG TAB PO SCH (21:08)
[2023-02-11] MEDS: Ipratropium/Albuterol 3 ML NEB NEB SCH ×6 (02:15→22:44)
[2023-02-11 04:16] LABS: #Monocytes 0.3 thou/uL (0.11-0.59); #Neutrophils 9.2 thou/uL (1.40-6.50); %Lymphocytes 6.6 % (21.0-51.0); %Monocytes 3.2 % (0.0-10.0); %Neutrophils 89.8 % (42.0-75.0); Hemoglobin 10.6 g/dL (14.0-18.0); Mean Corpuscular HGB CONC 31.2 g/dL (32.0-36.0); Mean Corpuscular Hemoglobin 31.4 pg (27.0-31.0); Mean Corpuscular Volume 100.6 fl (78.0-98.0); Mean Platelet Volume 11.2 fL (7.4-10.4); Platelet Count 260 10x3/uL (130-400); RBC Distribution Width 14.3 % (11.5-14.5); Red Blood Cell (RBC) Count 3.38 mill/uL (4.70-6.10); White Blood Cell (WBC) Count 10.2 10x3/uL (4.8-10.8)
[2023-02-11 04:43] LABS: Anion Gap 11 mmol/L (10-20); BUN (Urea Nitrogen) 14 mg/dL (8.4-25.7); Calc. Creatinine Clearance 85 mL/min (70-130); Calcium 8.8 mg/dL (7.8-10.44); Carbon Dioxide 30 mmol/L (23-31); Chloride 103 mmol/L (98-107); Estimated GFR 83; Glucose 163 mg/dL (83-110); Potassium 4.4 mmol/L (3.5-5.1); Sodium 140 mmol/L (136-145)
[2023-02-11] MEDS: HumaLOG 300 UNITS/3 ML VIAL SC PRN ×2 (05:50→10:27)
[2023-02-11] MEDS: Furosemide 20 MG/2 ML VIAL SLOW IVP SCH ×2 (05:51→14:20)
[2023-02-11] MEDS: Mometasone 200 MCG/Formoterol 5 MCG 120 PUFF INHALER INH SCH ×2 (06:50→18:50)
[2023-02-11] MEDS: Famotidine 20 MG TAB PO SCH ×2 (09:07→20:09)
[2023-02-11] MEDS: Pregabalin 75 MG CAP PO SCH ×2 (09:08→20:09)
[2023-02-11] MEDS: NIFEdipine XL 60 MG ER.TAB PO SCH (09:09)
[2023-02-11] MEDS: guaiFENesin ER 600 MG TAB PO SCH ×2 (09:09→20:09)
[2023-02-11] MEDS: hydrALAZINE 25 MG TAB PO SCH ×2 (10:26→20:09)
[2023-02-11] MEDS: methylPREDNISolone Sod Succ 40 MG VIAL IVP SCH ×2 (10:27→17:42)
[2023-02-11] MEDS ORDERED: Benzonatate 100 MG CAP PO PRN (10:29)
[2023-02-11] MEDS ORDERED: Azithromycin 500 MG in Sodium Chloride 0.9% 250 ML 250 ML IVPB SCH (11:45)
[2023-02-11] MEDS ORDERED: Azithromycin 500 MG VIAL ONE ×2 (13:29→13:31)
[2023-02-11] MEDS ORDERED: LevoFLOXacin 750 mg/D5W 750 MG in Premix 1 BAG IVPB SCH (18:00)
[2023-02-11] MEDS: Docusate 100 MG CAP PO PRN (20:09)
[2023-02-11] MEDS: Atorvastatin Calcium 40 MG TAB PO SCH (20:09)
[2023-02-11] MEDS ORDERED: Insulin Glargine 30 UNITS/0.3 ML VIAL SC SCH ×2 (21:00)
[2023-02-12] MEDS: Ipratropium/Albuterol 3 ML NEB NEB SCH ×6 (02:25→22:28)
[2023-02-12] MEDS: methylPREDNISolone Sod Succ 40 MG VIAL IVP SCH ×3 (03:18→17:22)
[2023-02-12 04:07] LABS: #Monocytes 0.7 thou/uL (0.11-0.59); #Neutrophils 10.7 thou/uL (1.40-6.50); %Basophils 0.1 % (0.0-1.0); %Lymphocytes 9.8 % (21.0-51.0); %Monocytes 5.3 % (0.0-10.0); %Neutrophils 83.7 % (42.0-75.0); Hematocrit 36.4 % (42.0-52.0); Hemoglobin 11.1 g/dL (14.0-18.0); Mean Corpuscular HGB CONC 30.5 g/dL (32.0-36.0); Mean Corpuscular Hemoglobin 31.9 pg (27.0-31.0); Mean Platelet Volume 11.2 fL (7.4-10.4); Platelet Count 304 10x3/uL (130-400); RBC Distribution Width 14.6 % (11.5-14.5); Red Blood Cell (RBC) Count 3.48 mill/uL (4.70-6.10); White Blood Cell (WBC) Count 12.8 10x3/uL (4.8-10.8)
[2023-02-12 04:12] LABS: Mean Corpuscular Volume 104.6 fl (78.0-98.0)
[2023-02-12 04:33] LABS: Anion Gap 16 mmol/L (10-20); BUN (Urea Nitrogen) 21 mg/dL (8.4-25.7); Calc. Creatinine Clearance 69 mL/min (70-130); Calcium 9.3 mg/dL (7.8-10.44); Carbon Dioxide 31 mmol/L (23-31); Chloride 101 mmol/L (98-107); Estimated GFR 65; Glucose 251 mg/dL (83-110); Sodium 143 mmol/L (136-145)
[2023-02-12] MEDS: Furosemide 20 MG/2 ML VIAL SLOW IVP SCH ×2 (05:35→14:13)
[2023-02-12] MEDS: HumaLOG 300 UNITS/3 ML VIAL SC PRN ×3 (06:31→17:23)
[2023-02-12] MEDS: Mometasone 200 MCG/Formoterol 5 MCG 120 PUFF INHALER INH SCH ×2 (06:56→19:09)
[2023-02-12] MEDS: Azithromycin 250 MG, Admixture Fee 1 EACH in Sodium Chloride 0.9% 250 ML 250 ML IVPB SCH (09:06)
[2023-02-12] MEDS: Insulin Glargine 30 UNITS/0.3 ML VIAL SC SCH (09:07)
[2023-02-12] MEDS: hydrALAZINE 25 MG TAB PO SCH ×2 (09:07→23:26)
[2023-02-12] MEDS: guaiFENesin ER 600 MG TAB PO SCH ×2 (09:07→23:25)
[2023-02-12] MEDS: Docusate 100 MG CAP PO PRN ×2 (09:07→17:22)
[2023-02-12] MEDS: Famotidine 20 MG TAB PO SCH ×2 (09:07→23:25)
[2023-02-12] MEDS: Pregabalin 75 MG CAP PO SCH ×2 (09:07→23:35)
[2023-02-12] MEDS: NIFEdipine XL 60 MG ER.TAB PO SCH (09:08)
[2023-02-12] MEDS ORDERED: Polyethylene Glycol 3350 17 GM Packet PO PRN (14:27)
[2023-02-12] MEDS: Atorvastatin Calcium 40 MG TAB PO SCH (23:25)
[2023-02-13] MEDS ORDERED: FLU VACC QS2023(65UP)/MF59C/PF 60 MCG/0.5 ML SYRINGE IM ONE (01:15)
[2023-02-13] MEDS: Ipratropium/Albuterol 3 ML NEB NEB SCH ×4 (02:27→13:42)
[2023-02-13] MEDS: methylPREDNISolone Sod Succ 40 MG VIAL IVP SCH ×2 (02:49→09:30)
[2023-02-13 04:54] LABS: #Monocytes 0.8 thou/uL (0.11-0.59); #Neutrophils 9.7 thou/uL (1.40-6.50); %Basophils 0.2 % (0.0-1.0); %Lymphocytes 8.5 % (21.0-51.0); %Monocytes 6.8 % (0.0-10.0); %Neutrophils 83.4 % (42.0-75.0); Hematocrit 36.6 % (42.0-52.0); Hemoglobin 11.4 g/dL (14.0-18.0); Mean Corpuscular HGB CONC 31.1 g/dL (32.0-36.0); Mean Corpuscular Hemoglobin 31.4 pg (27.0-31.0); Mean Corpuscular Volume 100.8 fl (78.0-98.0); Mean Platelet Volume 11.6 fL (7.4-10.4); Platelet Count 282 10x3/uL (130-400); RBC Distribution Width 14.3 % (11.5-14.5); Red Blood Cell (RBC) Count 3.63 mill/uL (4.70-6.10); White Blood Cell (WBC) Count 11.6 10x3/uL (4.8-10.8)
[2023-02-13] MEDS: Furosemide 20 MG/2 ML VIAL SLOW IVP SCH (05:14)
[2023-02-13 05:21] LABS: Anion Gap 12 mmol/L (10-20); BUN (Urea Nitrogen) 16 mg/dL (8.4-25.7); Calc. Creatinine Clearance 85 mL/min (70-130); Calcium 8.7 mg/dL (7.8-10.44); Carbon Dioxide 32 mmol/L (23-31); Chloride 101 mmol/L (98-107); Estimated GFR 84; Glucose 188 mg/dL (83-110); Potassium 4.6 mmol/L (3.5-5.1); Sodium 140 mmol/L (136-145)
[2023-02-13] MEDS: Mometasone 200 MCG/Formoterol 5 MCG 120 PUFF INHALER INH SCH (06:18)
[2023-02-13] MEDS: HumaLOG 300 UNITS/3 ML VIAL SC PRN ×2 (06:44→11:04)
[2023-02-13] MEDS: Azithromycin 250 MG, Admixture Fee 1 EACH in Sodium Chloride 0.9% 250 ML 250 ML IVPB SCH (09:29)
[2023-02-13] MEDS: Pregabalin 75 MG CAP PO SCH (09:30)
[2023-02-13] MEDS: Insulin Glargine 30 UNITS/0.3 ML VIAL SC SCH (09:30)
[2023-02-13] MEDS: Famotidine 20 MG TAB PO SCH (09:30)
[2023-02-13] MEDS: NIFEdipine XL 60 MG ER.TAB PO SCH (09:30)
[2023-02-13] MEDS: hydrALAZINE 25 MG TAB PO SCH (09:31)
[2023-02-13] MEDS: guaiFENesin ER 600 MG TAB PO SCH (09:31)
[2023-02-13 12:19] VITALS: BP 159/72; TEMP 98.6
== END 2023-02-13 14:20 | disposition home or self-care (01) | DRG 291 ==
LOC: ERS 16:35 → ERHOLD 18:15 → 2NO 22:25
PROVIDERS: ADMIT Internal Medicine; ATTEND Internal Medicine
PROC: 4A033R1 Measurement of Arterial Saturation, Peripheral, Percutaneous Approach (ICD-10-PCS; principal; 2023-02-09)
DX: I11.0 Hypertensive heart disease with heart failure (principal); I50.33 Acute on chronic diastolic (congestive) heart failure; J96.21 Acute and chronic respiratory failure with hypoxia; J44.1 Chronic obstructive pulmonary disease with (acute) exacerbation; N17.9 Acute kidney failure, unspecified; B36.0 Pityriasis versicolor; E11.9 Type 2 diabetes mellitus without complications; N40.0 Benign prostatic hyperplasia without lower urinary tract symptoms; D64.9 Anemia, unspecified; F20.9 Schizophrenia, unspecified; E11.40 Type 2 diabetes mellitus with diabetic neuropathy, unspecified; Z98.890 Other specified postprocedural states; Z87.891 Personal history of nicotine dependence; Z88.0 Allergy status to penicillin; Z79.84 Long term (current) use of oral hypoglycemic drugs; Z79.899 Other long term (current) drug therapy; Z79.82 Long term (current) use of aspirin; Z11.52 Encounter for screening for COVID-19
CPT/HCPCS: 36415; 36416; 36600; 71045; 80048; 80053; 82805; 83036; 83605; 83690; 83880; 84145; 84484; 85025; 87040; 93005; 94640; 94644; 94660; 96365; 96366; 96367; 96375; J0456; J1100; J1650; J1815; J1940; J1956; J2920; J3475; J7050; J7611; J7620

== ENCOUNTER 2023-09-20 21:04 | Observation (INO) | payer MEDICARE, BC ==
[2023-09-20 21:32] LABS: #Basophils 0.03 10x3/uL (0.0-0.2); %Basophils 0.3 % (0.0-1.0); %Eosinophils 2.2 % (0.0-10.0); %Lymphocytes 16.1 % (21.0-51.0); %Monocytes 8.4 % (0.0-10.0); %Neutrophils 72.6 % (42.0-75.0); Hematocrit 30.9 % (42.0-52.0); Hemoglobin 9.9 g/dL (14.0-18.0); Mean Corpuscular Hemoglobin 32.4 pg (27.0-31.0); Mean Platelet Volume 11.3 fL (7.4-10.4); Platelet Count 236 10x3/uL (130-400); RBC Distribution Width 14.3 % (11.5-14.5); Red Blood Cell (RBC) Count 3.06 mill/uL (4.70-6.10)
[2023-09-20 21:48] LABS: ALT (SGPT) 9 U/L (8-55); AST (SGOT) 11 U/L (5-34); Albumin 2.9 g/dL (3.4-4.8); Alkaline Phosphatase 47 U/L (40-110); Anion Gap 12 mmol/L (10-20); BUN (Urea Nitrogen) 13 mg/dL (8.4-25.7); Bilirubin, Total 0.2 mg/dL (0.2-1.2); Calc. Creatinine Clearance 0 mL/min (70-130); Calcium 8.2 mg/dL (7.8-10.44); Carbon Dioxide 24 mmol/L (23-31); Chloride 106 mmol/L (98-107); Estimated GFR 70; Globulin 2.8 g/dL (2.4-3.5); Glucose 70 mg/dL (83-110); Magnesium 1.5 mg/dL (1.6-2.6); Protein, Total 5.7 g/dL (5.8-8.1); Sodium 138 mmol/L (136-145)
[2023-09-20 21:51] LABS: Troponin I 0.012 ng/mL (< 0.028)
[2023-09-20] MEDS ORDERED: Magnesium 2 GM/50 ML BAG (IN WATER) ONE (22:36)
[2023-09-20] MEDS ORDERED: Ondansetron PF 4 MG/2 ML Vial IVP PRN (23:54)
[2023-09-20] MEDS ORDERED: Acetaminophen 325 MG TAB PO PRN (23:54)
[2023-09-20] MEDS ORDERED: Nitroglycerin 0.4 MG TAB (25 Tab Bottle) SL PRN (23:54)
[2023-09-21] MEDS ORDERED: Dextrose 50% Abboject 50 ML SYRINGE SLOW IVP PRN (00:01)
[2023-09-21] MEDS ORDERED: Glucagon 1 MG/ML KIT IM PRN (00:01)
[2023-09-21] MEDS ORDERED: Dextrose 5% in Water 1,000 ML IV PRN (00:01)
[2023-09-21 01:11] LABS: Troponin I 0.013 ng/mL (< 0.028)
[2023-09-21] MEDS ORDERED: Dextrose 10% in Water 250 ML ONE (01:55)
[2023-09-21 02:53] VITALS: BMI 37.0
[2023-09-21] MEDS ORDERED: Ipratropium/Albuterol 3 ML NEB ONE ×3 (03:11→13:39)
[2023-09-21 04:29] LABS: #Basophils 0.03 10x3/uL (0.0-0.2); %Basophils 0.3 % (0.0-1.0); %Eosinophils 2.7 % (0.0-10.0); %Lymphocytes 26.8 % (21.0-51.0); %Monocytes 7.5 % (0.0-10.0); %Neutrophils 62.3 % (42.0-75.0); Hematocrit 32.4 % (42.0-52.0); Mean Corpuscular HGB CONC 30.9 g/dL (32.0-36.0); Mean Corpuscular Hemoglobin 32.1 pg (27.0-31.0); Mean Corpuscular Volume 103.8 fL (78.0-98.0); Mean Platelet Volume 11.3 fL (7.4-10.4); Platelet Count 245 10x3/uL (130-400); RBC Distribution Width 14.3 % (11.5-14.5); Red Blood Cell (RBC) Count 3.12 mill/uL (4.70-6.10)
[2023-09-21 04:44] LABS: Anion Gap 12 mmol/L (10-20); BUN (Urea Nitrogen) 12 mg/dL (8.4-25.7); Calc. Creatinine Clearance 79 mL/min (70-130); Carbon Dioxide 28 mmol/L (23-31); Chloride 103 mmol/L (98-107); Potassium 4.4 mmol/L (3.5-5.1); Sodium 139 mmol/L (136-145)
[2023-09-21 04:45] LABS: Calcium 8.9 mg/dL (7.8-10.44); Estimated GFR 73; Glucose 189 mg/dL (83-110); Magnesium 2.3 mg/dL (1.6-2.6)
[2023-09-21 04:53] LABS: Troponin I 0.012 ng/mL (< 0.028)
[2023-09-21] MEDS: Ipratropium/Albuterol 3 ML NEB EZPAP SCH (06:43)
[2023-09-21] MEDS ORDERED: Regadenoson 0.4 MG/5 ML SYRINGE ONE (09:51)
[2023-09-21] MEDS ORDERED: Aspirin 81 mg Enteric Coated Tablet ONE (11:09)
[2023-09-21] MEDS ORDERED: Enoxaparin 40 MG (0.4 mL) SYRINGE ONE (11:10)
[2023-09-21] MEDS ORDERED: Famotidine 20 MG TAB ONE (11:10)
[2023-09-21] MEDS ORDERED: Tamsulosin HCl 0.4 MG CAP ONE (11:10)
[2023-09-21] MEDS: Tamsulosin HCl 0.4 MG CAP PO SCH (11:14)
[2023-09-21] MEDS: Famotidine 20 MG TAB PO SCH (11:14)
[2023-09-21] MEDS: Aspirin 81 mg Enteric Coated Tablet PO SCH (11:14)
[2023-09-21] MEDS: Enoxaparin 40 MG (0.4 mL) SYRINGE SC SCH (11:15)
[2023-09-21 12:51] VITALS: BP 140/53; TEMP 98.7
[2023-09-21] MEDS ORDERED: Atorvastatin Calcium 40 MG TAB PO SCH (21:00)
[2023-09-22] MEDS ORDERED: Ferrous Sulfate 325 MG TAB PO SCH (08:00)
== END 2023-09-21 14:07 | disposition home or self-care (01) ==
LOC: ERS 21:04 → ERHOLD 23:20
PROVIDERS: ADMIT Internal Medicine; ATTEND Family Medicine
DX: R07.9 Chest pain, unspecified (principal); J44.9 Chronic obstructive pulmonary disease, unspecified; J96.11 Chronic respiratory failure with hypoxia; E78.5 Hyperlipidemia, unspecified; I11.0 Hypertensive heart disease with heart failure; I50.30 Unspecified diastolic (congestive) heart failure; E83.42 Hypomagnesemia; E11.649 Type 2 diabetes mellitus with hypoglycemia without coma; F20.9 Schizophrenia, unspecified; Z87.891 Personal history of nicotine dependence; Z99.81 Dependence on supplemental oxygen; Z98.890 Other specified postprocedural states; Z88.0 Allergy status to penicillin; Z79.899 Other long term (current) drug therapy
CPT/HCPCS: 71045; 78452; 80048; 80053; 82962; 83735 ×2; 84484 ×3; 85025 ×2; 93017; 94640; 96365; 96375; 99285; A9502; J1650; J2785 ×2; J3475; 36415; 36416; 93005; 96372; G0378; J7620

== ENCOUNTER 2024-01-04 12:54 | Emergency (ER) | payer MEDICARE, BC ==
[2024-01-04 13:30] LABS: #Basophils 0.03 10x3/uL (0.0-0.2); %Basophils 0.4 % (0.0-1.0); %Eosinophils 1.3 % (0.0-10.0); %Lymphocytes 25.8 % (21.0-51.0); %Monocytes 6.9 % (0.0-10.0); %Neutrophils 65.4 % (42.0-75.0); Hematocrit 33.5 % (42.0-52.0); Mean Corpuscular HGB CONC 29.9 g/dL (32.0-36.0); Mean Corpuscular Hemoglobin 30.7 pg (27.0-31.0); Mean Corpuscular Volume 102.8 fL (78.0-98.0); Mean Platelet Volume 11.2 fL (7.4-10.4); Platelet Count 241 10x3/uL (130-400); RBC Distribution Width 14.6 % (11.5-14.5); Red Blood Cell (RBC) Count 3.26 mill/uL (4.70-6.10)
[2024-01-04 13:47] LABS: ALT (SGPT) 9 U/L (8-55); AST (SGOT) 10 U/L (5-34); Albumin 3.2 g/dL (3.4-4.8); Alkaline Phosphatase 42 U/L (40-110); Anion Gap 13 mmol/L (10-20); BUN (Urea Nitrogen) 12 mg/dL (8.4-25.7); Bilirubin, Total 0.4 mg/dL (0.2-1.2); Calc. Creatinine Clearance 0 mL/min (70-130); Calcium 8.8 mg/dL (7.8-10.44); Carbon Dioxide 29 mmol/L (23-31); Chloride 106 mmol/L (98-107); Estimated GFR 86; Globulin 2.9 g/dL (2.4-3.5); Glucose 99 mg/dL (83-110); Magnesium 1.7 mg/dL (1.6-2.6); Potassium 3.9 mmol/L (3.5-5.1); Protein, Total 6.1 g/dL (5.8-8.1); Sodium 144 mmol/L (136-145)
== END 2024-01-04 15:32 | disposition home or self-care (01) ==
LOC: ERS 12:54
DX: J44.1 Chronic obstructive pulmonary disease with (acute) exacerbation (principal); E11.9 Type 2 diabetes mellitus without complications; I10 Essential (primary) hypertension
CPT/HCPCS: 36415; 71045; 80053; 83735; 83880; 84484; 85025; 93005; 93970

== ENCOUNTER 2024-12-22 11:20 | Outpatient (CLI) | payer MEDICARE, OTHER | END 2024-12-22 11:21 | disposition home or self-care (01) | LOC: RAD 11:20 | PROVIDERS: ATTEND Internal Medicine Critical Care Medicine | DX: R06.00 Dyspnea, unspecified (principal); I51.7 Cardiomegaly; J70.4 Drug-induced interstitial lung disorders, unspecified | CPT/HCPCS: 71046 ==

== ENCOUNTER 2025-01-31 12:09 | Emergency (ER) | payer MEDICARE | END 2025-01-31 12:42 | disposition home or self-care (01) | LOC: ERS 12:09 | DX: R09.02 Hypoxemia (principal); E11.9 Type 2 diabetes mellitus without complications; I10 Essential (primary) hypertension; J44.9 Chronic obstructive pulmonary disease, unspecified; Z99.81 Dependence on supplemental oxygen | CPT/HCPCS: 99283 ==